=== PATIENT | female | born 1955 | race African-American/Black ===

== ENCOUNTER 2019-06-07 08:09 | Outpatient (RCR) | payer OTHER, SELFPAY ==
--- NOTE | 2019-04-29 12:03 | CONS_ITS ---
DATE OF CONSULTATION: 04/29/2019 REASON FOR CONSULTATION: Positive blood cultures. HISTORY OF PRESENT ILLNESS: Ms. Patel is a 63-year-old female who has had about 1 year of swelling in both legs. She has been on and off diuretics by her report from her primary care physician with intermittent use apparently due to hypokalemia concerns. This swelling became more noticeable 3 months ago and about 2 months ago, she developed bilateral heel blisters, plantar aspect, which then unroofed on her own. Drainage then began from the left heel ulcer, which was green clear to black in color, Silvadene and daily dressing changes were performed by the patient or her daughter. In the last week, the patient developed fever up to 37.8 and she then presented to the hospital on the , she was given piperacillin and tazobactam, and vancomycin was added on the after blood cultures were positive. Consultation was then requested. No temperatures are higher than 37.8. No rigors nor night sweats. She has never had previous trauma, surgery, or neurovascular compromise either leg or foot. She has not required any surgical intervention while here. ALLERGIES: NONE KNOWN. PRESENT MEDICATIONS: She was on cephalexin prior to admission. No immunosuppressants. Above antibiotics currently. HABITS: Crack cocaine in 2011. Occasional marijuana, ex tobacco. PAST MEDICAL HISTORY: Osteoarthritis, vitamin D deficiency, vaginal cancer with radiation, pulmonary hypertension, idiopathic peripheral neuropathy with tingling, left kidney mass details not available, essential hypertension, hyperlipidemia, hepatitis C that apparently was treated with success, but also with cirrhosis, diverticulitis, CAD, stage III chronic renal insufficiency, GERD, cataract extractions, osteoporosis, and abnormal mammogram. FAMILY HISTORY: Positive for diabetes and CAD. 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 Lives with her boyfriend and brother. She has been ambulating with a wheeled walker at home. REVIEW OF SYSTEMS: 14-point review is otherwise negative. PHYSICAL EXAMINATION: GENERAL: This is a female who appears older than her actual age. No acute distress. VITAL SIGNS: Afebrile since arrival here x4 days with no fever. 128/65, 73, 16. SKIN: No rashes. Warm and dry. She has no dermatitis. No erythroderma. EENT: The conjunctivae are normal. The oropharynx and oral mucosa normal. NECK: Supple. No masses. No adenopathy. LUNGS: Clear to auscultation. CARDIAC: Regular rate and rhythm without murmurs or gallops. Dorsalis pedis pulses 2+. Radial pulses 2+. ABDOMEN: Obese, nontender. No mass. No organomegaly. EXTREMITIES: She has 2+ pitting edema, both distal legs and to the feet. She has some scarring over the right heel without violation of skin integrity. On the left, she has a 3 cm plantar heel ulcer with a 1 x 2 cm area of dermal necrosis. There is no odor, discharge, erythema, sinus tracts, crepitus, or abnormal contour. Distally, the foot has no visible nor palpable abnormalities. LABORATORY DATA: Blood cultures 2/2 sets coagulase-negative Staph species. White count normal to low since admission. Hemoglobin stable at 7.7, platelets are 237. Chemistry normal except for BUN 21, creatinine 1.5, albumin is 3.1. Liver function tests are otherwise normal. Her urinalysis positive for blood, otherwise normal. Guaiac was also positive. RADIOLOGY DATA: Foot x-ray, osteopenia, lucencies at the bases of 3rd, 4th, and 5th proximal phalanges and osteoarthritis. Abdomen and pelvic CT apparently done for evaluation of her GI hemorrhage, cirrhosis with small amount of pelvic ascites. ASSESSMENT: 1. Coagulase-negative Staph bacteremia. Suspect contaminant. Less likely would be a
[2019-05-24 13:15] VITALS: BMI 38.7
--- NOTE | 2019-05-28 15:56 | P.PNWOUND_ITS ---
Wound Care Note Date/Time: 05/24/19 History: Patient presents with non-healing L heel ulcer. She was hospitalized 3 weeks ago with left heel wound, fevers, and pneumonia. MRI at that time did not show any evidence of abscess or osteomyelitis. She was discharged with instructions for Santyl and Mepilex border dressings. She is now seen in follow up. Wound history: See above Wound approximation: No Wound width: 5.5 cm Wound length: 3 cm Wound depth: 0.4 cm Drainage: Serous Surrounding tissue appearance: healthy Tunneling: no Percentage granulation tissue: 70% Dressings: Santyl and Mepilex Assessment and Plan Assessment and plan (1) Foot ulcer, left: Qualifiers: Non-pressure ulcer stage: limited to breakdown of skin Qualified Code(s): L97.521 - Non-pressure chronic ulcer of other part of left foot limited to breakdown of skin Code(s): L97.529 - Non-pressure chronic ulcer of other part of left foot with unspecified severity Status: Acute Assessment and Plan: * Ulcer debrided in Wound Clinic today. Continue Santyl and Mepilex. Will follow up with patient in office in 2 weeks.
--- NOTE | 2019-05-28 16:01 | PM.PROC ---
Procedure Note - Detailed Date of procedure: 05/24/19 Pre-op diagnosis: Left heel ulcer Post-op diagnosis: same Procedure performed: Sharp excisional debridement left heel ulcer including skin measuring 2 cm x 2 cm Description of procedure: patient's left heel was prepped in sterile fashion using Betadine prep. She was tested for sensation over the area of necrotic skin. The necrotic skin was debrided using scissors. Necrotic skin was adequately debrided back to healthy appearing tissue for a total area of 2 cm x 2 cm. No deeper involvement was noted. Santal and Mepilex border dressing applied. Anesthesia: none Surgeon: Janes Stephens DO Estimated blood loss (mL): 1 Pathology: none sent Complications: No immediate complications Condition: stable Disposition: same day Findings: Sharp excisional debridement of necrotic left heel ulcer performed. Total area measuring 2 cm x 2 cm. This included skin only. Please refer to wound care follow-up note for history.
--- NOTE | 2019-06-11 12:51 | WPDWOUNDNOTE ---
Wound Care Note Date/Time: 06/07/19 12:51 Wound history: Patient presents with non-healing L heel ulcer. She was hospitalized 1 month ago with left heel wound, fevers, and pneumonia. MRI at that time did not show any evidence of abscess or osteomyelitis. She was discharged with instructions for Santyl and Mepilex border dressings. She is now seen in follow up. Wound approximation: No Wound width: 4.5cm Wound length: 2.5cm Wound depth: 0.4cm Drainage: Serosanguineous Surrounding tissue appearance: healthy Percentage granulation tissue: 80% Treatment/Procedures: wound care nurse performed bedside debridement today. Please refer to her note. Dressings: Santyl and Mepilex border Assessment and Plan Assessment and plan (1) Foot ulcer, left: Qualifiers: Non-pressure ulcer stage: limited to breakdown of skin Qualified Code(s): L97.521 - Non-pressure chronic ulcer of other part of left foot limited to breakdown of skin Code(s): L97.529 - Non-pressure chronic ulcer of other part of left foot with unspecified severity Status: Acute Assessment and Plan: continue daily dressing changes with Santyl and Mepilex. Will have patient follow up in 1 month for re-evaluation. (2) Lymphedema of both lower extremities: Code(s): I89.0 - Lymphedema, not elsewhere classified Status: Acute Assessment and Plan: Encouraged medical compliance with diuretics and elevation of legs to prevent dependent edema. Review of Systems Review of Systems: All systems reviewed & are unremarkable except as noted in HPI and below Exam Const: General: comfortable and no acute distress Skin: Wounds: wounds noted ( wound size continues to shrink, showing good signs of granulation tissue) left heel open; without any surrounding erythema Extrem: Right lower extremity: edema Details: 2+ Left lower extremity: edema Details: 2+ Psych: Mental Status: mental status grossly normal
== END 2019-08-22 23:59 | disposition home or self-care (01) ==
LOC: ANHWOC 08:09
PROVIDERS: PCP Internal Medicine; Referring Provider Nurse Practitioner; Visit Provider Surgery
DX: S90.822D Blister (nonthermal), left foot, subsequent encounter (principal); L08.9 Local infection of the skin and subcutaneous tissue, unspecified; R60.0 Localized edema
CPT/HCPCS: 11043; 97597

== ENCOUNTER 2019-07-24 14:23 | Emergency (ER) | payer OTHER, SELFPAY ==
--- NOTE | ~2019-07-24 | XR_ITS ---
XR chest 2V DATE: 07/24/2019 15:46 INDICATION: Anterior chest pain. Lethargy. Congestive heart failure. TECHNIQUE: AP and lateral views COMPARISON: 05/04/2019 portable AP chest FINDINGS: No pulmonary infiltrate or consolidation, pleural effusion or pulmonary vascular congestion or pneumothorax is detected. Mild cardiomegaly is suggested. No hilar or mediastinal enlargement. Degenerative changes of the thoracic and lumbar spine. IMPRESSION: No active pulmonary disease Reviewed, dictated and finalized at location A. IMPRESSION: No active pulmonary disease
[2019-07-24 14:39] VITALS: BP 219/92; PULSE 82; RESP 15; TEMP 36.8; O2SAT 97
--- NOTE | 2019-07-24 14:51 | ED.SOB ---
HPI - SOB/Dyspnea General Chief Complaint: Chest Pain Stated Complaint: ams/lethargy Time Seen by Provider: 07/24/19 14:43 Source: patient and RN notes reviewed Mode of arrival: EMS Limitations: no limitations History of Present Illness HPI Narrative: Pt is a 63 y/o female who presents to the ED via EMS with c/o SOB and midsternal chest pain starting this morning. She notes that she was coughing throughout the night last night. Pt states that she then developed SOB and pain in the middle of her chest while laying down this morning. She notes that she was visited by her home health nurse this afternoon, and states that she advised her to go to the ED. Pt also reports BLE edema, but denies any fever or chills. She notes that she didn't take her normal medications this morning. According to the nurse, the pt denied NTG while in route to the ED. MD elicited complaint: shortness of breath and chest pain Onset (ago): hour(s) (several) Associated symptoms: cough and other (BLE edema) Treatment prior to arrival: none Related Data Allergies Allergy/AdvReac Type Severity Reaction Status Date / Time No Known Allergies Allergy Verified 04/29/19 11:12 Review of Systems Review of Systems: All systems reviewed & are unremarkable except as noted in HPI and below Constitutional: Constitutional: Denies fever(s) Cardiovascular: Cardiovascular: Reports chest pain (midsternal) and Reports leg edema (BLE edema) Respiratory: Respiratory: Reports cough and Reports dyspnea PMFSH Past Medical History Medical History Abnormal mammogram of left breast April 2018 Age-related osteoporosis without current pathological fracture Anemia Iron was low at 29, TIBC within normal limits, % saturation low at 7% March 2019 Cataract Maturing left eye cataract Chronic bilateral low back pain without sciatica Chronic gastroesophageal reflux disease Chronic narcotic use Chronic pruritus Thought to be due to her cirrhosis Cirrhosis of liver without ascites CKD (chronic kidney disease), stage III Coronary artery disease Cardiac catheterization in 1994 demonstrating 40% stenosis 1 vessel Diverticulitis 2002 Frequent falls Hepatic cirrhosis due to chronic hepatitis C infection History of gait disorder Ambulates with a walker Hx of hepatitis C Status post treatment 2010. Complicated by cirrhosis with portal venous hypertension. Managed at [facility] Hx of malignant neoplasm of vagina Diagnosed in 1999. Status post chemotherapy and radiation therapy. Managed to [facility]. Hyperlipidemia LDL goal <100 Hyperparathyroidism Hypertension, essential, benign Left kidney mass 10 mm inferior pole left kidney mass suspicious for renal cell carcinoma. Patient was evaluated by Urology (Dr. Krishna Torres) at [facility] May 2017 will plan for six month renal ultrasound in [address] for surveillance Peripheral neuropathy, idiopathic Primary osteoarthritis involving multiple joints Pulmonary hypertension Noted on echo from July 2011 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 Patient states she has had multiple colonoscopy attempts at [place] that were unsuccessful due to narrowing of her bowel due to radiation treatments from her vaginal cancer in 1999 Rectal bleeding UTI (urinary tract infection) Vitamin D deficiency Vitamin-D level of 05 April 2019 Surgical History Surgical History H/O tubal ligation History of vaginal hysterectomy Hx of cardiac cath 1994 with 40% lesion noted without stent placement Family History Family History (Updated 04/30/19 @ 12:02 by HUSSEIN Balderas) Sibling Diabetes mellitus Mother , Mother of an CT at age 43. Patient's mother is Acute myocardial infarction Father Patient's father is Acute myocardial infarction Other Diabetes m
[2019-07-24 15:01] LABS: Glucose Point of Care 211 (65-105)
--- NOTE | 2019-07-24 15:15 | ECG_ITS ---
Measurements Intervals [place] Rate: 78 P: 46 PA: 152 QRS: -11 QRSD: 121 T: 9 QT: 413 QTc: 473 Interpretive Statements SINUS RHYTHM INTRAVENTRICULAR CONDUCTION DELAY DELAYED PRECORDIAL R/S TRANSITION BORDERLINE T WAVE ABNORMALITY- INFERIOR LEADS BASELINE WANDER- I, II BORDERLINE ECG Electronically Signed On 07-24-2019 16:29:46 CDT by Zuhair Vasquez D.O.
[2019-07-24] MEDS: ASPIRIN 81 MG CHEWABLE TABLET 324 MG PO (15:29)
--- NOTE | 2019-07-24 15:31 | PC.NURSE ---
Pt refused Nitro patch. Informed Dr. Venegas of this.
[2019-07-24 16:00] VITALS: BP 187/90; PULSE 72; RESP 18; O2SAT 98
[2019-07-24 16:15] LABS: Basophils Percent Auto 0.8 % (0.2-1.2); Eosinophils Absolute Auto 0.3 K/mm3 (0-0.3); Hematocrit 35.1 % (37.0-47.0); Hemoglobin 11.1 g/dL (12.0-15.0); Immature Granulocyte Absolute 0.01 K/mm3 (0.00-0.031); Immature Granulocyte Percent A 0.3 % (0-0.5); Lymphocytes Absolute Auto 1.36 K/mm3 (0.9-3.2); Lymphocytes Percent Auto 34.1 % (18.3-44.2); Mean Corpuscular HGB Conc 31.6 g/dl (32-36); Mean Corpuscular Hemoglobin 28.2 pg (26-34); Mean Corpuscular Volume 89.3 fl (80-100); Mean Platelet Volume 9.8 fl (7.4-10.4); Monocytes Absolute Auto 0.3 K/mm3 (0.1-0.6); Neutrophils Percent Auto 49.8 % (45.5-73.1); Platelet Count Result 138 k/mm3 (150-375); Red Blood Count 3.93 M/mm3 (4.2-5.4); Red Cell Distribution Width 15.2 % (11.5-14.5)
[2019-07-24 16:27] LABS: Alanine Aminotransferase 10 U/L (4-35); Albumin Level 3.6 g/dL (3.5-5.1); Alkaline Phosphatase 59 U/L (38-126); Aspartate Amino Transferase 31 U/L (14-36); Bilirubin,Total 0.4 mg/dL (0.2-1.3); Blood Urea Nitrogen 19 mg/dL (7-17); Calcium 10.1 mg/dL (8.4-10.2); Carbon Dioxide 32 mmol/L (22-30); Chloride 101 mmol/L (98-107); Estimated CRCL calculation 49 ml/min; Estimated Glomerular Filt Rate > 60; Glucose 120 mg/dL (65-105); Potassium 3.4 mmol/L (3.4-5.0); Sodium 136 mmol/L (137-145)
[2019-07-24 16:35] LABS: NT Pro B Type Natriuretic Pept 29 PG/ML (5-100)
[2019-07-24 16:38] LABS: Troponin I < 0.012 ng/mL (0.000-0.034)
[2019-07-24 18:20] VITALS: BP 185/88; PULSE 75; RESP 18; O2SAT 100
[2019-07-24 19:24] LABS: Troponin I < 0.012 ng/mL (0.000-0.034)
[2019-07-24 20:09] VITALS: BP 131/98; PULSE 75; RESP 14; O2SAT 97
--- NOTE | 2019-07-24 20:13 | PC.NURSE ---
called pt's family member ot pick pt up states he is on his way. [phone]
--- NOTE | 2019-07-24 20:45 | PC.NURSE ---
called pt's daughter to pick patient up. states she is on the way called pt's son 3x no answer.
== END 2019-07-24 20:00 | disposition home or self-care (01) ==
PROVIDERS: Emergency Provider Emergency Medicine; PCP Internal Medicine
DX: I89.0 Lymphedema, not elsewhere classified (principal); I12.9 Hypertensive chronic kidney disease with stage 1 through stage 4 chronic kidney disease, or unspecified chronic kidney disease; R07.89 Other chest pain; Z87.891 Personal history of nicotine dependence; M81.0 Age-related osteoporosis without current pathological fracture; H26.9 Unspecified cataract; K21.9 Gastro-esophageal reflux disease without esophagitis; I25.10 Atherosclerotic heart disease of native coronary artery without angina pectoris; N18.3 Chronic kidney disease, stage 3 (moderate); K74.60 Unspecified cirrhosis of liver; B18.2 Chronic viral hepatitis C; Z85.44 Personal history of malignant neoplasm of other female genital organs; G60.9 Hereditary and idiopathic neuropathy, unspecified; M89.49 Other hypertrophic osteoarthropathy, multiple sites; Z87.440 Personal history of urinary (tract) infections; E55.9 Vitamin D deficiency, unspecified; Z92.3 Personal history of irradiation; I45.9 Conduction disorder, unspecified; R94.31 Abnormal electrocardiogram [ECG] [EKG]
CPT/HCPCS: 36415; 71046; 80053; 83880; 84484; 85025; 93005; 99284; A9270

== ENCOUNTER 2019-10-16 13:37 | Observation (INO) | payer OTHER, SELFPAY ==
[2019-10-16] VITALS (36 sets, daily range): BP systolic 145–223; BP diastolic 66–109; PULSE 51–115; RESP 12–30; TEMP 36.2–37.2; O2SAT 98–99; BMI 36.8
--- NOTE | ~2019-10-16 | XR_ITS ---
EXAMINATION: XR chest 2V EXAM DATE: 10/16/2019 14:06 INDICATION: Chest pain. TECHNIQUE: Frontal and lateral projections of the chest obtained and reviewed. Comparison is made to prior examination from 07/24/2019. FINDINGS: Mild cardiomegaly. Pulmonary vascular congestion. No confluent consolidation, pneumothora x or pleural effusion suspected. There are mild bony degenerative changes. IMPRESSION: Cardiomegaly, congestive changes. Reviewed, dictated and finalized at location B.
[2019-10-16] MEDS: NITROGLYCERIN OINTMENT 1 INCH DOSE 0.5 INCH TRANSDERM (14:05)
--- NOTE | 2019-10-16 14:31 | ED.CHESTPAIN ---
HPI - Chest Pain General Chief Complaint: Chest Pain Stated Complaint: CP /SOB Time Seen by Provider: 10/16/19 13:38 History of Present Illness HPI narrative: Patient is a 63-year-old female who presents ER with chest pain. Pressure in the center of her chest has been constant for 10 days. Its worse when she lays down flat. Associated with increased lower extremity edema. She reports she has not been taking her lisinopril as she has run out. She is currently in the process of switching from Dr. Quintana to a new PCP due to the fact that she been taking opiate pain medication from her family member instead of from him. She is also scheduled to see a pain management doctor about her neck in the next couple of weeks. Denies exertional component to chest pain. Patient reports dyspnea with lying down. Related Data Home Medications Medication Instructions Recorded Confirmed lisinopril 10/16/19 Allergies Allergy/AdvReac Type Severity Reaction Status Date / Time No Known Allergies Allergy Verified 04/29/19 11:12 Review of Systems Review of Systems: All systems reviewed & are unremarkable except as noted in HPI and below Constitutional: Constitutional: Denies chills, Denies fever(s) and Denies weakness ENT: Denies nasal congestion and Denies sore throat Cardiovascular: Cardiovascular: Reports chest pain and Reports radiating jaw, neck or arm pain Comments: Orthopnea Respiratory: Respiratory: Denies cough, Denies dyspnea and Denies wheezing Musculoskeletal: Comments: Lower extremity edema [facility] Family History Family History (Updated 04/30/19 @ 12:02 by MARIANA BalderasP) Sibling Diabetes mellitus Mother , Mother of an [place] at age 43. Patient's mother is Acute myocardial infarction Father Patient's father is Acute myocardial infarction Other Diabetes mellitus Social History Social History Social History: Patient currently lives with her boyfriend and brother who is legally blind due to a complication of alcohol use. Patient ambulates with a walker. She has 3 adult children 2 daughters and 1 son. She denies any significant alcohol use history herself. However, she has had a history of crack cocaine use many years ago with her last positive drug screen August 2011. She stated that the crack cocaine use never worked out for her. She does occasionally smoke marijuana. She is a former smoker. She smoked about a pack of cigarettes per day for 21 years but quit smoking in 1994. 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 Gender identity (if verbalized by the patient): Female Spiritual care concerns: No Agree to blood products: Yes Exam Narrative: Exam Narrative: GENERAL: Well-appearing, well-nourished, and in no acute distress. HEAD: Normocephalic, atraumatic. ENT: Mucous membranes moist. CHEST: Clear to auscultation. No respiratory distress. HEART: Regular rate and rhythm. Normal peripheral pulses. ABDOMEN: Soft, nontender, nondistended. EXTREMITIES: Normal range of motion. 2+ pitting edema. SKIN: Warm, dry, no rash. NEURO: Alert and oriented x3. PSYCH: Normal mood and affect. Course Course Emergency Course: Admit to hospitalist service. Significantly elevated blood pressure. Unremarkable lab results. Vital Signs Vital signs: Vital Signs Pulse Rate 74 10/16/19 13:52 Respiratory Rate 20 10/16/19 13:52 Temperature 98.9 F 10/16/19 13:56 Pulse Rate 60 10/16/19 16:48 Respiratory Rate 17 10/16/19 16:48 Blood Pressure 209/109 H 10/16/19 16:45 Pulse Oximetry
[2019-10-16 14:45] LABS: Basophils Percent Auto 0.6 % (0.2-1.2); Eosinophils Absolute Auto 0.1 K/mm3 (0-0.3); Hematocrit 31.1 % (37.0-47.0); Hemoglobin 10.1 g/dL (12.0-15.0); Immature Granulocyte Absolute 0.01 K/mm3 (0.00-0.031); Immature Granulocyte Percent A 0.2 % (0-0.5); Lymphocytes Absolute Auto 1.06 K/mm3 (0.9-3.2); Lymphocytes Percent Auto 21.6 % (18.3-44.2); Mean Corpuscular HGB Conc 32.5 g/dl (32-36); Mean Corpuscular Hemoglobin 28.6 pg (26-34); Mean Corpuscular Volume 88.1 fl (80-100); Mean Platelet Volume 10.3 fl (7.4-10.4); Monocytes Absolute Auto 0.4 K/mm3 (0.1-0.6); Monocytes Percent Auto 7.9 % (2.6-8.5); Neutrophils Absolute Auto 3.3 K/mm3 (1.3-6.7); Neutrophils Percent Auto 67.7 % (45.5-73.1); Platelet Count Result 159 k/mm3 (150-375); Red Blood Count 3.53 M/mm3 (4.2-5.4); Red Cell Distribution Width 14.4 % (11.5-14.5); White Blood Count 4.9 K/mm3 (4.5-10.0)
[2019-10-16 14:54] LABS: INR 1.2; Prothrombin Time 14.8 Seconds (11.1-14.7)
[2019-10-16 14:55] LABS: Blood Urea Nitrogen 15 mg/dL (7-17); Calcium 10.2 mg/dL (8.4-10.2); Carbon Dioxide 24 mmol/L (22-30); Chloride 103 mmol/L (98-107); Estimated CRCL calculation 62 ml/min; Estimated Glomerular Filt Rate > 60; Glucose 109 mg/dL (65-105); Partial Thromboplastin Time 27.2 SECONDS (22.3-36.8); Potassium 3.6 mmol/L (3.4-5.0); Sodium 136 mmol/L (137-145)
[2019-10-16 15:08] LABS: NT Pro B Type Natriuretic Pept 149 PG/ML (5-100); Troponin I < 0.012 ng/mL (0.000-0.034)
--- NOTE | 2019-10-16 15:36 | ECG_ITS ---
Measurements Intervals [place] Rate: 59 P: 31 DE: 145 QRS: -16 QRSD: 119 T: 16 QT: 436 QTc: 434 Interpretive Statements SINUS BRADYCARDIA INTRAVENTRICULAR CONDUCTION DELAY DELAYED PRECORDIAL R/S TRANSITION VOLTAGE CRITERIA FOR LVH MINIMAL Q WAVES- HIGH LATERAL LEADS BORDERLINE T WAVE ABNORMALITY- INFERIOR LEADS BORDERLINE ECG Electronically Signed On 10-16-2019 15:45:39 CDT by Zuhair Vasquez D.O.
[2019-10-16] MEDS: hydrALAZINE HCL 20 MG/ML VIAL 10 MG IV PUSH ×2 (16:44→18:01)
[2019-10-16 18:01] LABS: Troponin I 0.023 ng/mL (0.000-0.034)
[2019-10-16] MEDS: MORPHINE SULFATE 4 MG/ML INJ IV PUSH (18:01)
[2019-10-16] MEDS: ONDANSETRON INJ 4 MG/2 ML VIAL IV PUSH (18:04)
--- NOTE | 2019-10-16 18:19 | PC.NURSE ---
This patient, Rosalind Patel, was admitted to IMU Room 211-01. Patient/family oriented to hospital policies and general routines including ID bracelet, bed and alarms, visiting hours, pain management, procedures, bathroom and other care routines, personal items, smoking policy, room service/diet, and visiting hours. Valuables list has been completed. Information on how to activate the Rapid Response Team has been discussed. Patient/Family are encouraged to report perceived risks to care and to ask questions if they do not understand what they are told or what they should do.
--- NOTE | 2019-10-16 20:37 | PM.IMHP ---
H&P: HPI History of Present Illness Chief complaint: Left chest pain, shortness of breath Narrative: Date and time patient contact: 10/16/2019 at 9:50 p.m. Rosalind Patel is a 63 year old female with a past medical history hepatitis-C, cirrhosis, coronary artery disease, and essential hypertension who presented to the ER with chest pain and elevated blood pressures. Patient had reported to the ER staff that she had been out of her antihypertensives last month. The patient had been evaluated April 2019 at which time she had pneumonia, bacteremia, left heel ulcer and acute renal failure. On discharge from the hospital her lisinopril and hydrochlorothiazide had been discontinued due to her renal failure. She reports that she was discharged on a calcium blood pressure medication 3 times a day. In reality, the patient was discharged on b.i.d. iron supplementation instead instead of calcium supplementation or calcium blood pressure medications. However, she was not discharged on any have antihypertensives. She was discharged on Lasix 20 mg a day. When she was discharged from the hospital in April her blood pressures were normotensive. It sounds as if she has not been following up with her primary care physician. She stated that she called in a prescription to request a refill on her daughter's pain medications. When she called in requesting that refilled a culture back and told her that she would not be seen at their office any longer due to requesting narcotics to be refilled for someone else. She states that she has not had a medication refill since that time. Her narcotic prescription was refilled in early September. She was last prescribed Lasix in April and this has not been refilled since that time. Either when the patient reports that she now has increasing shortness of breath with increased orthopnea and increased frequency of paroxysmal nocturnal dyspnea for the last 7 days. It has been accompanied by left-sided chest pressure that is moderate in nature. She reports chest pressure is worse with laying flat. It is improved with sitting up. She has been having some mild nausea but no vomiting. She has noticed some pressure in her ears that accompanies the chest pressure. She reports that the pressure has been constant in her ears and chest for the last 7 days. She reports a chronic headache for the last 7 days that is moderate in intensity. Headache is generalized without eliciting or relieving factors. She reports that her headache improved after nitropaste was applied in the ER. She has chronic lymphedema of her lower extremities and she does not think there legs are any more swollen than at her baseline. She has not been wearing lower extremity wraps that were recommended at the time of her last discharge. She had an apnea link during her last hospitalization that was negative for sleep apnea. She denies any cough or congestion. She has not had any fevers or chills. She has chronic dysuria due to radiation damage from vaginal cancer. She has noticed increased urinary frequency and urgency over the last 24-48 hours. She denies any hematuria. She has been having normal bowel movements without hematochezia or melena. She did have gastritis noted on EGD from April but was not discharged on any H2 blockers or PPI therapy. She denies any heartburn. But has not followed up with her purchase request editor in quite some time. She is having difficulty getting to provider appointments in getting her medications refilled because she is dependent upon her daughter for transportation. Review of Systems Review of Systems: Narrative: 12 systems were reviewed with pertinent positives and negatives per HPI. Except as documented in the HPI, all other systems were reviewed and are negative. [facility] Past Medical History Medical History (Updated 10/16/19 @ 22:30 by Ria Britt DO) Abnormal mammogram of left breast April 2018 Age-related osteoporosis
[2019-10-16 21:19] LABS: Troponin I 0.026 ng/mL (0.000-0.034)
[2019-10-16] MEDS: AMLODIPINE BESYLATE 5 MG TABLET PO (21:33)
[2019-10-16] MEDS: MAGNESIUM OXIDE 400 MG TABLET PO (21:34)
[2019-10-16 22:26] LABS: Add Urine Microscopic? YES; Appearance Urine Clear (Clear); Bilirubin Urine Negative (Negative); Blood Urine 1+ (Negative); Color Urine Colorless (Yellow); Glucose Urine UA Negative (Negative); Ketones Urine Negative (Negative); Leukocyte Esterase Ur Negative LEU/UL (Negative); Nitrate Urine Negative (Negative); Protein Urine 1+ mg/dL (Negative); Specific Grav Ur 1.006 (1.001-1.035); Squamous Epithelial Cell Urine Rare /hpf (Few); Urobilinogen Urine Negative mg/dL (<2.0)
[2019-10-16 22:43] LABS: Amphetamine Screen Urine Negative (Negative); Barbiturate Screen Urine Negative (Negative); Benzodiazepines Screen Urine Negative (Negative); Cannabinoid Screen Urine Negative (Negative); Cocaine Screen Urine Negative (Negative); Methadone Screen Urine Negative (Negative); Opiate Screen Urine Positive (Negative); Phencyclidine Screen Urine Negative (Negative)
[2019-10-16] MEDS: GABAPENTIN 300 MG CAPSULE 600 MG PO (22:59)
[2019-10-17] VITALS (11 sets, daily range): BP systolic 143–176; BP diastolic 60–92; PULSE 75–104; RESP 16–20; TEMP 36.5–37; O2SAT 95–100
--- NOTE | 2019-10-17 | ECHO_ITS ---
Patient Info Name: Rosalind Patel Age: 63 years : 1955 Gender: Female Ht: 64 in Wt: 214 lbs BSA: 2.14 m2 HR: 89 bpm BP: 167 / 60 mmHg Technical Quality: Fair Exam Date: 10/17/2019 2:55 PM Exam Location: [facility] Patient Status: Inpatient Admit Date: 10/16/2019 Staff Ordering Physician: Ria Britt DO Microelectronics Assembler: Glen Carter RDCS, RT Attending Provider: Pedro Ag MD Referring Physician: Balwinder BARROW; Exam Type: CA echo doppler color flow Study Info Indications I10 - Essential (primary) hypertension Complete two-dimensional, color flow and Doppler transthoracic echocardiogram is performed. Summary 1. Left ventricular chamber dimension is normal. 2. Left ventricular systolic function is hyperdynamic, estimated at >70%. 3. There is moderately increased left ventricular wall thickness. 4. The left ventricular diastolic function is normal. 5. E/e' 9 is minimally elevated. 6. Global longitudinal strain is normal at -17.6%. Left Ventricle E/e' 9 is minimally elevated. Global longitudinal strain is normal at -17.6%. Left ventricular chamber dimension is normal. Left ventricular systolic function is hyperdynamic, estimated at >70%. There is moderately increased left ventricular wall thickness. The left ventricular diastolic function is normal. Right Ventricle Right ventricular chamber dimension is normal. Right ventricular systolic function is normal. Left Atria Left atrial chamber dimension is normal. Right Atria Right atrial chamber dimension is normal. Aortic Valve The aortic valve is trileaflet. There is no aortic valve stenosis. There is no aortic valve regurgitation. Pulmonic Valve There is no pulmonic regurgitation. Mitral Valve There is no mitral valve stenosis. There is no mitral valve regurgitation. Tricuspid Valve There is no tricuspid valve regurgitation. Pericardium/Pleural There is no pericardial effusion. Inferior Vena Cava Normal inferior vena cava with >50% collapse upon inspiration consistent with normal right atrial pressure, 5 mmHg. Aorta The aortic root size at the sinus of Valsalva is normal. Left Ventricular Outflow Tract Name Value Normal LVOT 2D LVOT Diameter 2.0 cm LVOT Doppler LVOT Peak Gradient 9 mmHg LVOT Mean Gradient 5 mmHg LVOT VTI 29 cm LVOT VTI/AV VTI Ratio 0.8 LVOT Stroke Volume 86 ml LVOT CO 7.2 l/min LVOT CI 3.4 l/min/m2 Mitral Valve Name Value Normal MV Doppler MV Decel [place] 446 cm/s2 MV PHT 73 ms MV Area (PHT) 3.0 cm2 4.0-5.0
[2019-10-17] MEDS: hydrALAZINE HCL 20 MG/ML VIAL 10 MG IV PUSH ×2 (02:48→23:41)
[2019-10-17] MEDS: GABAPENTIN 300 MG CAPSULE 600 MG PO ×2 (09:01→22:02)
[2019-10-17] MEDS: FERROUS SULFATE 324 MG TABLET PO ×2 (09:01→17:42)
[2019-10-17] MEDS: FUROSEMIDE 20 MG TABLET PO (09:01)
[2019-10-17] MEDS: MAGNESIUM OXIDE 400 MG TABLET PO ×3 (09:01→17:42)
[2019-10-17] MEDS: AMLODIPINE BESYLATE 5 MG TABLET PO (09:01)
--- NOTE | 2019-10-17 11:45 | PM.IMPN ---
Progress Note: A&P Assessment and Plan (1) Malignant hypertension: Code(s): I10 - Essential (primary) hypertension Status: Acute Assessment and Plan: Most likely due to non adherence to medication therapy with Lasix and or antihypertensives. The patient's blood pressure had remained elevated in the ER after nitropaste was placed. She subsequently received 2 doses of IV hydralazine . P.r.n. hydralazine 10 mg IV q.4 hours as needed for systolic blood pressures greater than 160. Restart oral Bp medications norvasc. regulate Bp in the hospital and discharge soon. Echo for apr 2019 in the chart EF over 70% (2) Chest pain: Qualifiers: Chest pain type: other chest pain Qualified Code(s): R07.89 - Other chest pain Code(s): R07.9 - Chest pain, unspecified Status: Acute Assessment and Plan: Serial cardiac enzymes are negative. Acute ischemia has been ruled out. Chest pains likely secondary to the patient's malignant hypertension. Hopeful discharge soon in 1-2 days time (3) Neuropathy: Code(s): G62.9 - Polyneuropathy, unspecified Status: Acute Assessment and Plan: Patient was on Neurontin b.i.d. (4) Chronic pain: Qualifiers: Chronic pain type: chronic pain syndrome Qualified Code(s): G89.4 - Chronic pain syndrome Code(s): G89.29 - Other chronic pain Status: Acute Assessment and Plan: Patient's home [place] 10/325 has been ordered. Pain management as OPD for sever oA in her knees (5) Increased urinary frequency: Code(s): R35.0 - Frequency of micturition Status: Acute Assessment and Plan: UA was unremarkable. Subjective Date/time seen: 10/17/19 11:45 Interval history: 63 year old female with a past medical history hepatitis-C, cirrhosis, coronary artery disease, and essential hypertension who presented to the ER with chest pain and elevated blood pressures. Pt denies chest pain today, pts bp are 144/60. Pt awaiting echocardiogram. Pt appears to be swollen face, body and legs Review of Systems Review of Systems: All systems reviewed & are unremarkable except as noted in HPI and below Exam Narrative: Exam Narrative: General: Obese Neck: Large neck circumference, no JVD or gross lymphadenopathy Respiratory: Clear to auscultation bilaterally, no increased work of breathing Cardiovascular: Regular rate and rhythm, no murmurs, normal S1-S2, 2+ Gastrointestinal: Obese, nontender, soft, normoactive bowel sounds Skin: No jaundice, no pallor Extremities: 3= pitting edema of both legs to shins Neurological: Alert and oriented, speech is clear, no facial asymmetry Psychiatric: Appropriate mood and affect, pleasant and cooperative Objective Data Vital Signs Vital Signs: Vital Signs - 24 hr 10/16/19 13:52 10/16/19 13:56 10/16/19 14:05 Temperature 37.2 C Pulse Rate 74 75 66 Respiratory Rate 20 16 Blood Pressure 195/73 H Pulse Oximetry 99 10/16/19 14:08 10/16/19 14:09 10/16/19 14:15 Temperature Pulse Rate 55 L 51 L 57 L Respiratory Rate 16 Blood Pressure 159/77 H Pulse Oximetry 99 10/16/19 14:16 10/16/19 14:43 10/16/19 14:45 Temperature Pulse Rate 57 L 56 L 61 Respiratory Rate 15 15 30 H Blood Pressure 150/66 H Pulse Oximetry 10/16/19 14:54 10/16/19 15:00 10/16/19 15:01 Temperature Pulse Rate 54 L 55 L 77 Respiratory Rate 13 14 20 Blood Pressure 190/69 H 173/89 H Pulse Oximetry 10/16/19 15:25 10/16/19 15:30 10/16/19 15:31 Temperature Pulse Rate 52 L 63 58 L Respiratory Rate 15 12 13 Blood Pressure 184/69 H Pulse Oximetry 10/16/19 15:45 10/16/19 15:46 10/16/19 16:00 Temperature Pulse Rate 61 68 59 L Respiratory Rate 20 15 14 Blood Pressure 179/83 H Pulse Oximetry 10/16/19 16:01 10/16/19 16:20 10/16/19 16:30 Temperature Pulse Rate 58 L 63 58 L Respiratory Rate 15 16 22
--- NOTE | 2019-10-17 23:30 | PC.NURSE ---
This patient, Rosalind Patel, was received from [[facility]] on 10/17/19 at 2330. Personal belongings list checked and signed. Patient/family oriented to unit policies and routines
--- NOTE | 2019-10-17 23:34 | PC.NURSE ---
This patient, Rosalind Patel, was transferred to [ [facility]] on 10/17/19 at 2335. Personal belongings sent with patient. Belongings list checked and signed with receiving [ RN]. Report given to [ DIANA]. Appropriate documentation sent with patient.
[2019-10-18 00:35] VITALS: BP 145/54; PULSE 98
[2019-10-18 06:00] VITALS: BP 131/54; PULSE 76; RESP 18; TEMP 36.7; O2SAT 98
[2019-10-18 06:35] LABS: Blood Urea Nitrogen 20 mg/dL (7-17); Calcium 9.5 mg/dL (8.4-10.2); Carbon Dioxide 27 mmol/L (22-30); Chloride 102 mmol/L (98-107); Estimated CRCL calculation 48 ml/min; Estimated Glomerular Filt Rate 55; Glucose 153 mg/dL (65-105); Potassium 3.2 mmol/L (3.4-5.0); Sodium 136 mmol/L (137-145)
[2019-10-18] MEDS: FUROSEMIDE 20 MG TABLET PO (08:28)
[2019-10-18] MEDS: AMLODIPINE BESYLATE 5 MG TABLET PO (08:28)
[2019-10-18] MEDS: MAGNESIUM OXIDE 400 MG TABLET PO ×3 (08:28→17:14)
[2019-10-18] MEDS: FERROUS SULFATE 324 MG TABLET PO ×2 (08:29→17:14)
[2019-10-18 08:40] VITALS: O2SAT 94
[2019-10-18] MEDS: GABAPENTIN 300 MG CAPSULE 600 MG PO ×2 (11:01→22:50)
--- NOTE | 2019-10-18 12:02 | PM.IMPN ---
Progress Note: A&P Assessment and Plan (1) Malignant hypertension: Code(s): I10 - Essential (primary) hypertension Status: Acute Assessment and Plan: Most likely due to non adherence to medication therapy with Lasix and or antihypertensives. Bp is improved. Echo for apr 2019 in the chart EF over 70%. Hopeful discharge tomorrow. (2) Chest pain: Qualifiers: Chest pain type: other chest pain Qualified Code(s): R07.89 - Other chest pain Code(s): R07.9 - Chest pain, unspecified Status: Acute Assessment and Plan: Serial cardiac enzymes are negative. Acute ischemia has been ruled out. Chest pains likely secondary to the patient's malignant hypertension. Hopeful discharge tomorrow. (3) Neuropathy: Code(s): G62.9 - Polyneuropathy, unspecified Status: Acute Assessment and Plan: Patient was on Neurontin b.i.d. (4) Chronic pain: Qualifiers: Chronic pain type: chronic pain syndrome Qualified Code(s): G89.4 - Chronic pain syndrome Code(s): G89.29 - Other chronic pain Status: Acute Assessment and Plan: Patient's home [place] 10/325 has been ordered. Pain management as OPD for sever oA in her knees (5) Increased urinary frequency: Code(s): R35.0 - Frequency of micturition Status: Acute Assessment and Plan: UA was unremarkable. Subjective Date/time seen: 10/18/19 12:02 Interval history: 63 year old female with a past medical history hepatitis-C, cirrhosis, coronary artery disease, and essential hypertension who presented to the ER with chest pain and elevated blood pressures. Pt denies chest pain today, pts bp are 144/60. Pt face and legs are less swollen,no specific complaints. Review of Systems Review of Systems: All systems reviewed & are unremarkable except as noted in HPI and below Exam Narrative: Exam Narrative: General: Obese Neck: Large neck circumference, no JVD or gross lymphadenopathy Respiratory: Clear to auscultation bilaterally, no increased work of breathing Cardiovascular: Regular rate and rhythm, no murmurs, normal S1-S2, 2+ Gastrointestinal: Obese, nontender, soft, normoactive bowel sounds Skin: No jaundice, no pallor Extremities: 2+ pitting edema of both legs to shins Neurological: Alert and oriented, speech is clear, no facial asymmetry Psychiatric: Appropriate mood and affect, pleasant and cooperative Objective Data Vital Signs Vital Signs: Vital Signs - 24 hr 10/17/19 12:06 10/17/19 17:44 10/17/19 23:30 Temperature 36.8 C 37.0 C Pulse Rate 75 80 78 Respiratory Rate 20 16 Blood Pressure 151/67 H 146/92 H 176/71 H Pulse Oximetry 99 100 10/18/19 00:35 10/18/19 06:00 10/18/19 08:40 Temperature 36.7 C Pulse Rate 98 76 Respiratory Rate 18 Blood Pressure 145/54 H 131/54 L Pulse Oximetry 98 94 Intake/Output Intake/Output: Intake & Output 10/15/19 10/16/19 10/17/19 10/18/19 23:59 23:59 23:59 23:59 Intake Total 1240 690 Output Total 1500 600 Balance -260 90 Meds/Results Medications: Active Medications Generic Name Dose Route Start Last Admin Trade Name Freq PRN Reason Stop Dose Admin Acetaminophen 650 mg 10/16/19 16:47 Tylenol Tablet PO Q4H PRN Mild Pain (1-3) or Fever Hydrocodone Bitart/Acetaminophen 1 tab 10/16/19 20:27 10/18/19 11:05 [place] 10-325 Mg PO 1 tab Q6H PRN Administration PAIN 7-10 Amlodipine Besylate 5 mg 10/17/19 09:00 10/18/19 08:28 Norvasc PO 5 mg QAM KATARINA Administration Ferrous Sulfate 324 mg 10/17/19 08:00 10/18/19 08:29 Ferrous Sulfate PO 324 mg BIDWM KATARINA Administration Furosemide 20 mg 10/17/19 09:00 10/18/19 08:28 Lasix Tablet PO 20 mg DAILY KATARINA Administration Gabapentin 600 mg 10/16/19 22:10 10/18/19 11:01 Neurontin PO 600 mg Q12H KATARINA Administration Hydralazine HCl 10 mg 10/16/19 21:12
[2019-10-18 14:00] VITALS: BP 144/67; PULSE 77; RESP 18; TEMP 36.9; O2SAT 100
--- NOTE | 2019-10-18 14:48 | PCPTNOTE ---
pt refused PT pura ~ 8:30, stated too tired, want to do it, but come back later
[2019-10-18 22:00] VITALS: BP 180/86; PULSE 80; RESP 20; TEMP 37.1; O2SAT 97
[2019-10-18] MEDS: hydrALAZINE HCL 20 MG/ML VIAL 10 MG IV PUSH (22:50)
[2019-10-19] VITALS: BP 173/85; PULSE 99; RESP 20; TEMP 37.2; O2SAT 99
[2019-10-19 02:00] VITALS: BP 138/58
[2019-10-19 06:00] VITALS: BP 152/78; PULSE 82; RESP 20; TEMP 37.1; O2SAT 93
[2019-10-19 08:00] VITALS: BP 135/78; PULSE 78; RESP 18; TEMP 37.2; O2SAT 100
--- NOTE | 2019-10-19 08:57 | PM.DS ---
DS: Admitting Diagnosis Admitting Diagnosis Admitting Diagnosis: Essential (primary) hypertension DS: Discharge Diagnosis Discharge Diagnosis (1) Malignant hypertension: Code(s): I10 - Essential (primary) hypertension Status: Acute Assessment and Plan: Most likely due to non adherence to medication therapy with Lasix and or antihypertensives. Bp is improved now. Echo for apr 2019 in the chart EF over 70%. Discharge today Bp medications refilled (2) Chest pain: Qualifiers: Chest pain type: other chest pain Qualified Code(s): R07.89 - Other chest pain Code(s): R07.9 - Chest pain, unspecified Status: Acute Assessment and Plan: Serial cardiac enzymes are negative. Acute ischemia has been ruled out. Chest pains likely secondary to the patient's malignant hypertension. (3) Neuropathy: Code(s): G62.9 - Polyneuropathy, unspecified Status: Acute Assessment and Plan: Patient was on Neurontin b.i.d. (4) Chronic pain: Qualifiers: Chronic pain type: chronic pain syndrome Qualified Code(s): G89.4 - Chronic pain syndrome Code(s): G89.29 - Other chronic pain Status: Acute Assessment and Plan: Patient's home [place] 10/325 has been ordered. Pain management as OPD for sever oA in her knees, may benefit from Home health services at home for immobility (5) Increased urinary frequency: Code(s): R35.0 - Frequency of micturition Status: Acute Assessment and Plan: UA was unremarkable. DS: Summary Time Spent with Patient Time attestation: Total time spent providing and/or coordinating discharge services:40 minutes on day of dischrage Exam Narrative: Exam Narrative: General: Obese Neck: Large neck circumference, no JVD or gross lymphadenopathy Respiratory: Clear to auscultation bilaterally, no increased work of breathing Cardiovascular: Regular rate and rhythm, no murmurs, normal S1-S2, 2+ Gastrointestinal: Obese, nontender, soft, normoactive bowel sounds Skin: No jaundice, no pallor Extremities: 2+ pitting edema of both legs to shins Neurological: Alert and oriented, speech is clear, no facial asymmetry Psychiatric: Appropriate mood and affect, pleasant and cooperative Discharge Plan Discharge Attending physician on discharge: Caroline Mg Discharging Clinician: Caroline Mg Anticipated Discharge Date/Time: 10/19/19 10:00 Patient Disposition: Home Health Service Activity: as tolerated Diet: heart healthy Discharge Instructions: Pt needs PCP numbers does not have a pcp at the moment Patient Instructions: Antibiotic Form, Chest Pain (DC), Heart Healthy Diet (DC), Pain Management (DC), Peripheral Neuropathy (GEN), Dyspnea (DC), Hypertension (DC) Stand Alone Forms: General Discharge Information Follow-up/Referrals: Enrico Quintana DO [Primary Care Provider] - Discharge Medications: New amlodipine [Norvasc] 5 mg Tablet 5 mg PO QAM Qty: 60 RF: 0 ferrous sulfate 325 mg (65 mg iron) Tablet 324 mg PO BIDWM Qty: 30 RF: 0 furosemide 20 mg Tablet 20 mg PO DAILY Qty: 60 RF: 0 hydrocodone-acetaminophen [[place]] 10-325 mg Tablet 1 tab PO Q6H PRN (Reason: PAIN 7-10) Qty: 20 RF: 0 magnesium oxide 400 mg (241.3 mg magnesium) Tablet 400 mg PO TID Qty: 30 RF: 0 lorazepam 0.5 mg Tablet 0.5 mg PO HS PRN (Reason: anxiety) Qty: 20 RF: 0 gabapentin [Neurontin] 300 mg Capsule 600 mg PO Q12H Qty: 60 RF: 0 artifi.tears(hypromellose)(PF) 0.3 % drops 1 drop EACH EYE BID PRN (Reason: dry eye(s)) 5 Days Qty: 10 RF: 0 Continued gabapentin 600 mg tablet 600 mg PO DAILY RF: 0 lorazepam [Ativan] 0.5 mg tablet 0.5 mg PO HS PRN (Reason: anxiety) RF: 0 furosemide [Lasix] 20 mg Tablet 20 mg PO DAILY RF: 0 magnesium oxide 400 mg (241.3 mg magnesium) tablet 400 mg PO TID Qty: 90 RF: 0 hy
[2019-10-19] MEDS: MAGNESIUM OXIDE 400 MG TABLET PO ×2 (09:11→12:12)
[2019-10-19] MEDS: FERROUS SULFATE 324 MG TABLET PO (09:11)
[2019-10-19] MEDS: GABAPENTIN 300 MG CAPSULE 600 MG PO (09:11)
[2019-10-19] MEDS: AMLODIPINE BESYLATE 5 MG TABLET PO (09:11)
[2019-10-19] MEDS: FUROSEMIDE 20 MG TABLET PO (09:11)
[2019-10-19] MEDS: POTASSIUM CHLORIDE 20 MEQ PACKET (FOR LIQUID) 40 MEQ PO (09:42)
== END 2019-10-19 15:20 | disposition home or self-care (01) ==
LOC: ANHED 17:15 → ANHIMU 22:09 → ANH3MEDSUR 10-18 04:48 → ANHIMU 10-23 09:10
PROVIDERS: Internal Medicine; Admitting Provider Internal Medicine; Emergency Provider Emergency Medicine; PCP Internal Medicine; Visit Provider Family Medicine
DX: I12.9 Hypertensive chronic kidney disease with stage 1 through stage 4 chronic kidney disease, or unspecified chronic kidney disease (principal); N18.3 Chronic kidney disease, stage 3 (moderate); R07.89 Other chest pain; R06.00 Dyspnea, unspecified; G60.9 Hereditary and idiopathic neuropathy, unspecified; M17.0 Bilateral primary osteoarthritis of knee; G89.4 Chronic pain syndrome; R35.0 Frequency of micturition; I25.10 Atherosclerotic heart disease of native coronary artery without angina pectoris; I27.20 Pulmonary hypertension, unspecified; E78.5 Hyperlipidemia, unspecified; B18.2 Chronic viral hepatitis C; K74.69 Other cirrhosis of liver; Z87.891 Personal history of nicotine dependence; Z79.899 Other long term (current) drug therapy; Z91.14 Patient's other noncompliance with medication regimen
CPT/HCPCS: 36415; 71046; 80048; 80307; 81001; 83880; 84484; 85025; 85610; 85730; 93005; 93306; 96374; 96375; 96376; 97161; 99285; A9270; G0378; J0360; J2270; J2405

== ENCOUNTER 2020-11-02 03:22 | Inpatient (IN) | payer OTHER, MEDICARE, SELFPAY ==
[2020-11-02] VITALS (41 sets, daily range): BP systolic 81–152; BP diastolic 36–95; PULSE 87–136; RESP 18–36; TEMP 36.9–40.2; O2SAT 90–100; BMI 37.9
--- NOTE | ~2020-11-02 | CT_ITS ---
EXAMINATION: CT abdomen pelvis wo con DATE: 11/13/2020 19:59 INDICATION: Abdominal pain TECHNIQUE: Computed tomography (CT) of the abdomen and pelvis was performed without intravenous contr ast. The dose-length product (DLP) was 1023.77 mGy-cm. Automated exposure control and iterative recon struction technique were employed. COMPARISON: 11/02/2020 FINDINGS: Minimal dependent atelectasis is present in the lung bases. Cardiomegaly is noted. There is nodularity of the liver surface. The spleen, pancreas, and adrenal glands are normal. Mild gallbladd er wall thickening likely relates to chronic liver disease. The kidneys are unremarkable. No patholog ically enlarged abdominal or pelvic lymph nodes are identified. There is no free intraperitoneal gas or evidence of bowel obstruction. There is a small volume of pelvic ascites. The bladder is decompres sed by Leo catheter. There is mild lumbar spondylosis. Anasarca is noted. IMPRESSION: 1. Cirrhosis with a small volume of ascites. Reviewed, dictated and finalized at location A.
--- NOTE | ~2020-11-02 | CT_ITS ---
EXAMINATION: CT chest abdomen pelvis wo con DATE: 11/02/2020 05:13 INDICATION: Febrile illness. History of ovarian cancer. TECHNIQUE: Computed tomography (CT) of the chest, abdomen, and pelvis was performed without intraveno us contrast. Automated exposure control and iterative reconstruction technique were employed. Exam do se: 725.87 mGy-cm total exam DLP. COMPARISON: 11/02/2020 portable AP chest 04/28/2019 CT abdomen pelvis FINDINGS: CHEST CT: Patchy bilateral groundglass infiltrates are noted, right greater than left; differential diagnosis i ncludes pulmonary edema and pneumonia. Cardiomegaly. No pericardial effusion. No pleural effusion. No thoracic aortic aneurysm is evident. No hilar or mediastinal mass lesion or lymphadenopathy is detected. ABDOMEN/PELVIS CT: Surface nodularity of the liver, suggesting cirrhosis. Splenic size is within normal range. No hepati c, splenic, pancreatic, and adrenal or renal space-occupying mass lesion is evident on this limited n oncontrast examination, with the exception of an approximately 8 mm probable left renal cyst. There is bladder distention and moderate bilateral hydronephrosis without apparent urinary tract calc ulus. No bladder wall thickening. Normal caliber of the abdominal aorta. No intraperitoneal or retroperitoneal or pelvic mass lesion or adenopathy or ascites is evident. No bowel obstruction, bowel wall thickening, pneumatosis or intraperitoneal free air. Small amount of free fluid in the dependent pelvis. Small fat-containing umbilical hernia. Extensive subcutaneous edema or inflammatory change in the lower abdominal wall and proximal thighs. No suspicious osteolytic or osteoblastic lesions are noted. IMPRESSION: Patchy bilateral groundglass infiltrates, right greater than left; differential diagnosi s includes pulmonary edema and pneumonia Cardiomegaly Cirrhosis Reviewed, dictated and finalized at Location A. Reviewed, dictated and finalized at location A. IMPRESSION: Patchy bilateral groundglass infiltrates, right greater than left; differential diagnosis includes pulmonary edema and pneumonia Cardiomegaly Cirrhosis
--- NOTE | ~2020-11-02 | XR_ITS ---
EXAMINATION: XR chest 1V portable INDICATION: Fever TECHNIQUE: Portable AP chest at 1909 hours COMPARISON: 11/04/2020 FINDINGS: Cardiomegaly is noted. A mild diffuse interstitial pattern persists without significant sam nge. No focal airspace opacities are identified. There is no pleural effusion or pneumothorax. IMPRESSION: 1. Cardiomegaly with unchanged mild pulmonary edema. Reviewed, dictated and finalized at location A.
--- NOTE | ~2020-11-02 | XR_ITS ---
XR chest 1V portable DATE: 11/02/2020 17:19 INDICATION: Shortness of breath. Covid-positive. History of hypertension. TECHNIQUE: Portable AP chest on 11/02/2020 at 1715 hours COMPARISON: 11/02/2020 portable AP chest 11/02/2020 CT chest abdomen pelvis FINDINGS: Cardiomegaly. Mild pulmonary vascular congestion and mild patchy bilateral pulmonary infilt rates. IMPRESSION: No significant change since 11/02/2020 Reviewed, dictated and finalized at location A.
--- NOTE | ~2020-11-02 | XR_ITS ---
EXAMINATION: XR chest 1V portable DATE: 11/02/2020 03:50 INDICATION: Fever and confusion TECHNIQUE: frontal view of the chest was obtained. COMPARISON: Chest radiograph dated 10/16/2019 FINDINGS: Patient is rotated towards the right. Cardiomegaly with pulmonary vascular congestion. Subtle perihil ar opacities which could represent mild pulmonary edema or pneumonia. No pleural effusion or pneumoth orax. There are bridging osteophytes at multiple levels in the spine, consistent with diffuse idiopat hic skeletal hyperostosis (DISH). IMPRESSION: 1. Cardiomegaly with pulmonary vascular congestion and likely mild perihilar edema. Differential incl udes pneumonia. Reviewed, dictated and finalized at location A. IMPRESSION: 1. Cardiomegaly with pulmonary vascular congestion and likely mild perihilar ed samm. Differential includes pneumonia.
--- NOTE | ~2020-11-02 | CT_ITS ---
EXAMINATION: CT brain wo con INDICATION: Fever and confusion, altered mental status COMPARISON: 08/18/2011 TECHNIQUE: Standard unenhanced head CT. The dose-length product (DLP) was 1210.67 mGy-cm. The mA was adjusted according to patient size. Iterative reconstruction technique was employed. FINDINGS: There is no acute intraparenchymal hemorrhage. No evidence of mass lesion. No evidence of a cute infarction. There is mild periventricular and subcortical hypodensity probably related to small vessel ischemic disease. There is mild prominence of the sulci and ventricles related to cerebral atr ophy. Intracranial calcified cerebral atherosclerosis is noted. There are no extra-axial collections. There is no mass effect or midline shift. The orbits and soft tissues are unremarkable. The visualiz ed sinuses and mastoid air cells are well aerated. IMPRESSION: 1. No acute intracranial abnormality. 2. Age related findings. Reviewed, dictated and finalized at location B.
--- NOTE | ~2020-11-02 | CT_ITS ---
EXAMINATION: CT brain wo con DATE: 11/04/2020 11:14 INDICATION: Confusion. Transient alteration of awareness. Acute encephalopathy. TECHNIQUE: Computed tomography (CT) of the head was performed without intravenous contrast. The mA wa s adjusted according to patient size. Iterative reconstruction technique was employed. Exam dose: 60 5.33 mGy-cm total exam DLP. COMPARISON: 11/02/2020 CT brain FINDINGS: Examination is limited by streak motion artifact. No intracranial mass lesion or hemorrhage or cerebrovascular accident. No midline shift or mass effec ts. No subdural or epidural hematoma is evident. There is nonspecific diminished attenuation cerebral white matter, likely due to chronic small vessel ischemic change. Mild cerebral and cerebellar atrophy. Old blowout fracture medial wall of left orbit. No fracture or bone destruction of the cranial vault IMPRESSION: Limited examination because of motion artifact; no acute intracranial finding or signifi cant change since 11/02/2020 Dr. Schwab telephoned the report on 11/04/2020 1121 hours to ICU nurse Radha. Reviewed, dictated and finalized at Location A. Reviewed, dictated and finalized at location A. IMPRESSION: Limited examination because of motion artifact; no acute intracran ial finding or significant change since 11/02/2020 Dr. Schwab telephoned the report on 11/04/2020 1121 hours to ICU nurse Radha.
--- NOTE | ~2020-11-02 | XR_ITS ---
XR abdomen obstructive series DATE: 11/07/2020 13:15 INDICATION: Abdominal pain TECHNIQUE: Supine and upright AP views of the abdomen COMPARISON: 11/02/2020 CT chest abdomen pelvis FINDINGS: Leo catheter. Catheter overlies the left common femoral and iliac vessels. The bowel gas pattern is nonspecific, without apparent obstruction. No intraperitoneal free air is ev ident. Cardiomegaly. Degenerative spurring of the thoracic and lumbar spine. IMPRESSION: Nonspecific abdomen Reviewed, dictated and finalized at Location A. Reviewed, dictated and finalized at location A. IMPRESSION: Nonspecific abdomen
--- NOTE | ~2020-11-02 | CT_ITS ---
EXAMINATION: CT brain wo con INDICATION: Confusion COMPARISON: 11/07/2020, 11/04/2020 TECHNIQUE: Standard unenhanced head CT. The dose-length product (DLP) was 1023.77 mGy-cm. The mA was adjusted according to patient size. Iterative reconstruction technique was employed. FINDINGS: There is no acute intraparenchymal hemorrhage. No evidence of mass lesion. No evidence of a cute infarction. There is mild periventricular and subcortical hypodensity probably related to small vessel ischemic disease. There is mild prominence of the sulci and ventricles related to cerebral atr ophy. Intracranial calcified cerebral atherosclerosis is noted. There are no extra-axial collections. There is no mass effect or midline shift. The orbits and soft tissues are unremarkable. The visualiz ed sinuses and mastoid air cells are well aerated. IMPRESSION: 1. No acute intracranial abnormality. 2. Age related findings. Reviewed, dictated and finalized at location A.
--- NOTE | ~2020-11-02 | MR_ITS ---
EXAMINATION: MR brain/brain stem wo con EXAM DATE: 11/07/2020 13:10 INDICATION: Encephalopathy. TECHNIQUE: Magnetic resonance imaging (MRI) of the brain/brain stem obtained without contrast. Sagitt al T1, axial diffusion, gradient echo (T2*), T1, T2, FLAIR sequences obtained. Correlation is made t o head CT 11/04/2020. FINDINGS: There are no areas of restricted diffusion to suggest acute infarction. There is no acute hemorrhage seen on the T2*, a hemosiderin sensitive sequence. No intraparenchymal brain mass lesion. There is mild periventricular and subcortical T2/FLAIR signal hyperintensity, nonspecific but probab ly related to small vessel ischemic disease (microangiopathy). There is prominence of the sulci and ventricles related to cerebral atrophy. There are no extra-axial collections. Flow voids are seen in the cerebral arteries on the T2-weighted sequences consistent with their expected patency. The o rbits are unremarkable. Soft tissue is unremarkable. There is an old left medial orbital wall fract ure. IMPRESSION: 1. No acute intracranial findings. 2. Chronic age related findings. Reviewed, dictated and finalized at location G.
--- NOTE | ~2020-11-02 | XR_ITS ---
EXAMINATION: XR chest 1V portable DATE: 11/04/2020 05:51 INDICATION: Pulmonary vascular congestion TECHNIQUE: frontal view of the chest was obtained. COMPARISON: Chest radiograph dated 11/03/2020 FINDINGS: The right upper lung zone is partially obscured by the patient's chin. Small lung volumes with mild b ibasilar atelectasis. No pleural effusion or pneumothorax. Cardiomegaly with pulmonary vascular conge stion. There are bridging osteophytes at multiple levels in the spine, consistent with diffuse idiopa thic skeletal hyperostosis (DISH). IMPRESSION: 1. Small lung volumes with mild bibasilar atelectasis. 2. Cardiomegaly with pulmonary vascular congestion. Reviewed, dictated and finalized at location A.
--- NOTE | ~2020-11-02 | XR_ITS ---
EXAMINATION: XR chest 1V portable DATE: 11/03/2020 06:14 INDICATION: Increased work of breathing TECHNIQUE: frontal view of the chest was obtained. COMPARISON: Chest radiograph and CT dated 11/02/2020 FINDINGS: Cardiomegaly with pulmonary vascular congestion without rebekah pulmonary edema. No new airspace opacit ies, pleural effusion or pneumothorax. IMPRESSION: 1. Cardiomegaly with pulmonary vascular congestion but without rebekah pulmonary edema. Reviewed, dictated and finalized at location A.
--- NOTE | 2020-11-02 03:30 | ECG_ITS ---
Measurements Intervals [place] Rate: 102 P: 43 VA: 130 QRS: -5 QRSD: 112 T: -3 QT: 346 QTc: 451 Interpretive Statements SINUS TACHYCARDIA INTRAVENTRICULAR CONDUCTION DELAY DELAYED PRECORDIAL R/S TRANSITION NONSPECIFIC ST & T-WAVE ABNORMALITY- INF/HIGH LAT LEADS BASELINE ARTIFACT- I, II, III, AVR, AVL, AVF, V1-V6 BORDERLINE ECG Electronically Signed On 11-02-2020 6:19:37 CDT by Zuhair Vasquez D.O.
--- NOTE | 2020-11-02 03:54 | ED.GENADULT ---
HPI - General Adult General Chief complaint: Fever Stated complaint: fever/ AMS Time Seen by Provider: 11/02/20 03:30 History of Present Illness HPI narrative: Patient is a 64-year-old female who presents the emergency department with chief complaint of fever and altered mental status. The patient recently was treated for a urinary tract infection the family noticed that she started running a fever and noticed that she is been urinating more frequently. Patient has history of ovarian cancer the patient had a little bit of a dry cough on Monday patient has not been vaccinated for COVID-19 but has not been getting up about. Patient states she just feels confused and not her normal self. Related Data Home Medications Medication Instructions Recorded Confirmed furosemide [Lasix] 20 mg PO DAILY 10/16/19 10/16/19 gabapentin 600 mg PO DAILY 10/16/19 10/16/19 lorazepam [Ativan] 0.5 mg PO HS PRN 10/16/19 10/16/19 Allergies Allergy/AdvReac Type Severity Reaction Status Date / Time No Known Allergies Allergy Verified 10/16/19 18:27 Review of Systems Review of Systems: Narrative: A 10 system review of systems was completed on the patient and is negative except for what is stated in the HPI. Nursing and ancillary documentation was reviewed. [facility] Past Medical History Medical History Abnormal mammogram of left breast April 2018 Age-related osteoporosis without current pathological fracture Anemia Iron was low at 29, TIBC within normal limits, % saturation low at 7% March 2019 Cataract Maturing left eye cataract Chronic bilateral low back pain without sciatica Chronic gastroesophageal reflux disease Chronic narcotic use Chronic pruritus Thought to be due to her cirrhosis CKD (chronic kidney disease), stage III Coronary artery disease Cardiac catheterization in 1994 demonstrating 40% stenosis 1 vessel Diverticulitis 2002 Gastritis Noted on EGD from April 29, 2019 Hepatic cirrhosis due to chronic hepatitis C infection Status post treatment 2010. Complicated by cirrhosis with portal venous hypertension. Managed at [facility] History of gait disorder Ambulates with a walker Hx of malignant neoplasm of vagina Diagnosed in 1999. Status post chemotherapy and radiation therapy. With repeat vaginal biopsies in 2010. Managed to [facility]. Hyperlipidemia LDL goal <100 Hyperparathyroidism Hypertension, essential, benign Left kidney mass 10 mm inferior pole left kidney mass suspicious for renal cell carcinoma. Patient was evaluated by Urology (Dr. Krishna Torres) at [facility] May 2017 will plan for six month renal ultrasound in [address] for surveillance Obesity (BMI 30-39.9) Peripheral neuropathy, idiopathic Primary osteoarthritis involving multiple joints Pulmonary hypertension Noted on echo from July 2011 with EF of 64% 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 Patient states she has had multiple colonoscopy attempts at [place] that were unsuccessful due to narrowing of her bowel due to radiation treatments from her vaginal cancer in 1999 Rectal bleeding UTI (urinary tract infection) Vitamin D deficiency Vitamin-D level of 05 April 2019 Surgical History Surgical History Abnormal colonoscopy With room most recent colonoscopy 04/29/2019 demonstrating tight fibrotic changes to the tissues consistent with history of prior radiation therapy H/O tubal ligation History of vaginal hysterectomy With bilateral salpingo-oophorectomy Hx of cardiac cath 1994 with 40% lesion noted without stent placement Family History Family History Sibling Diabetes mellitus Mother , Mother of an [place] at age 43. Patient's mother is Acute myocardial infarction Father
[2020-11-02 04:30] LABS: Basophils Percent Auto 0.3 % (0.2-1.2); Hematocrit 29.9 % (37.0-47.0); Hemoglobin 10.4 g/dL (12.0-15.0); Immature Granulocyte Absolute 0.03 K/mm3 (0.00-0.031); Immature Granulocyte Percent A 0.8 % (0-0.5); Lymphocytes Absolute Auto 0.14 K/mm3 (0.9-3.2); Lymphocytes Percent Auto 3.5 % (18.3-44.2); Mean Corpuscular HGB Conc 34.8 g/dl (32-36); Mean Corpuscular Hemoglobin 30.6 pg (26-34); Mean Corpuscular Volume 87.9 fl (80-100); Mean Platelet Volume 10.7 fl (7.4-10.4); Monocytes Absolute Auto 0.2 K/mm3 (0.1-0.6); Neutrophils Absolute Auto 3.6 K/mm3 (1.3-6.7); Neutrophils Percent Auto 90.4 % (45.5-73.1); Platelet Count Result 89 k/mm3 (150-375); Red Cell Distribution Width 13.8 % (11.5-14.5)
[2020-11-02 04:46] LABS: Lactic Acid Reflex 2.6 mmol/L (0.7-2.1)
[2020-11-02 04:47] LABS: Estimated CRCL calculation 22 ml/min; Estimated Glomerular Filt Rate 22
[2020-11-02 04:49] LABS: INR 1.2; Prothrombin Time 14.6 Seconds (11.1-14.7)
[2020-11-02 04:52] LABS: Alanine Aminotransferase 74 U/L (4-35); Albumin Level 3.2 g/dL (3.5-5.1); Alkaline Phosphatase 97 U/L (38-126); Anion Gap 11 mmol/L (8-16); Aspartate Amino Transferase 277 U/L (14-36); Blood Urea Nitrogen 43 mg/dL (7-17); Calcium 9.2 mg/dL (8.4-10.2); Carbon Dioxide 21 mmol/L (22-30); Chloride 96 mmol/L (98-107); Estimated CRCL calculation 24 ml/min; Estimated Glomerular Filt Rate 24; Glucose 137 mg/dL (65-110); Sodium 128 mmol/L (137-145)
[2020-11-02 04:52] LABS: Partial Thromboplastin Time 34.4 SECONDS (22.3-36.8)
--- NOTE | 2020-11-02 04:54 | PC.NURSE ---
Per daughter, pt has hx of past and current narcotic pain medication abuse. Per daughter, pt has already told her that she will ask someone to bring them to her in the hospital. Pt given tylenol on arrival for fever and headache. ED MD Iniguez updated. Per electrophysiology technician, pt's labs do not allow for her to have IV contrast dye. ED MD Iniguez notified, and verbal order given to change CT scan to WITHOUT contrast.
[2020-11-02 04:59] LABS: Troponin I 0.205 ng/mL (0.000-0.034)
[2020-11-02 05:26] LABS: CRP 18.7 mg/dL (<1.0)
--- NOTE | 2020-11-02 05:34 | PC.NURSE ---
Unsuccessful attempt to obtain urine via straight cath x 2. pt has scar tissue r/t former vaginal cancer per her daughter, and at other hospitals pt urine obtained using pediatric sized cath. this RN and LE Wisdom assisted by LUISA Salazar unsuccessful x 2 attempts. resistance met and pt unable to open hips or bend knees for visualization of area. pt usually incontinent of urine and stool. pt arrived wearing adult brief wet with urine, along with multiple pieces of wadded up toilet tissue. clean adult brief placed after pt was able to urinate in bedpan. sent to lab as ordered. Hovermat placed under pt to assist with repositioning.
[2020-11-02 05:46] LABS: Add Urine Microscopic? YES; Appearance Urine Cloudy (Clear); Bacteria Urine 4+ /hpf; Bilirubin Urine Negative (Negative); Blood Urine 3+ (Negative); Color Urine Yellow (Yellow); Glucose Urine UA Negative (Negative); Ketones Urine Negative (Negative); Leukocyte Esterase Ur 3+ LEU/UL (Negative); Mucus Urine Rare /lpf; Nitrate Urine Negative (Negative); Protein Urine 1+ mg/dL (Negative); RBC Urine 21-50 /hpf (0-2); Specific Grav Ur 1.012 (1.001-1.035); Squamous Epithelial Cell Urine Occasional /hpf (Few); Urobilinogen Urine Negative mg/dL (<2.0); WBC Urine 31-50 /hpf
[2020-11-02 07:27] LABS: Reflex Lactic Acid Yes or No Add Lactic
--- NOTE | 2020-11-02 08:13 | PC.NURSE ---
This patient, Rosalind Patel, was admitted to [facility] Room 206-02. Patient/family oriented to hospital policies and general routines including ID bracelet, bed and alarms, visiting hours, pain management, procedures, bathroom and other care routines, personal items, smoking policy, room service/diet, and visiting hours. Information on how to activate the Rapid Response Team has been discussed. Patient/Family are encouraged to report perceived risks to care and to ask questions if they do not understand what they are told or what they should do.
[2020-11-02] MEDS: SODIUM CHLORIDE 0.9% IV 1,000 ML 125 ML IV CONT (08:53)
[2020-11-02] MEDS: ASPIRIN 81 MG CHEWABLE TABLET PO (08:56)
[2020-11-02] MEDS: MORPHINE SULFATE (*CRX) 4 MG/ML INJ 2 MG IV PUSH (09:24)
[2020-11-02 10:11] LABS: Lactic Acid 4.9 mmol/L (0.7-2.1)
--- NOTE | 2020-11-02 10:16 | PM.IMHP ---
H&P: HPI History of Present Illness Date/Time: 11/02/20 10:16 Chief Complaint: fever and altered sensorium Narrative: Patient is a 64-year-old female who presents the emergency department with chief complaint of fever and altered mental status. The patient recently was treated for a urinary tract infection however she was noted to be running fever and continued issue with urinary tract infection and hence was brought to the ED for further evaluation. Patient also reported to have a bit of dry cough per ED reports and has not been vaccinated for COVID-19. Patient was confused and was also agitated with pain when I evaluated this morning. She was febrile and also hyperventilating in distress. She was still able to answer few of my questions and reported she did not have any chest pain but was complaining of pain in her belly. Most of the history is taken from the ED record. Review of Systems Review of Systems: ROS unobtainable: Yes unobtainable due to medical condition and unobtainable due to mental status PMFSH Past Medical History Medical History Abnormal mammogram of left breast April 2018 Age-related osteoporosis without current pathological fracture Anemia Iron was low at 29, TIBC within normal limits, % saturation low at 7% March 2019 Cataract Maturing left eye cataract Chronic bilateral low back pain without sciatica Chronic gastroesophageal reflux disease Chronic narcotic use Chronic pruritus Thought to be due to her cirrhosis CKD (chronic kidney disease), stage III Coronary artery disease Cardiac catheterization in 1994 demonstrating 40% stenosis 1 vessel Diverticulitis 2002 Gastritis Noted on EGD from April 29, 2019 Hepatic cirrhosis due to chronic hepatitis C infection Status post treatment 2010. Complicated by cirrhosis with portal venous hypertension. Managed at [facility] History of gait disorder Ambulates with a walker Hx of malignant neoplasm of vagina Diagnosed in 1999. Status post chemotherapy and radiation therapy. With repeat vaginal biopsies in 2010. Managed to [facility]. Hyperlipidemia LDL goal <100 Hyperparathyroidism Hypertension, essential, benign Left kidney mass 10 mm inferior pole left kidney mass suspicious for renal cell carcinoma. Patient was evaluated by Urology (Dr. Krishna Torres) at [facility] May 2017 will plan for six month renal ultrasound in [address] for surveillance Obesity (BMI 30-39.9) Peripheral neuropathy, idiopathic Primary osteoarthritis involving multiple joints Pulmonary hypertension Noted on echo from July 2011 with EF of 64% 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 Patient states she has had multiple colonoscopy attempts at [place] that were unsuccessful due to narrowing of her bowel due to radiation treatments from her vaginal cancer in 1999 Rectal bleeding UTI (urinary tract infection) Vitamin D deficiency Vitamin-D level of 05 April 2019 Surgical History Surgical History Abnormal colonoscopy With room most recent colonoscopy 04/29/2019 demonstrating tight fibrotic changes to the tissues consistent with history of prior radiation therapy H/O tubal ligation History of vaginal hysterectomy With bilateral salpingo-oophorectomy Hx of cardiac cath 1994 with 40% lesion noted without stent placement Family History Family History Sibling Diabetes mellitus Mother , Mother of an [place] at age 43. Patient's mother is Acute myocardial infarction Father Patient's father is Acute myocardial infarction Other Diabetes mellitus Social History Social History Social History: Patient currently lives with her boyfriend and brother who is l
[2020-11-02 10:17] LABS: Glucose Point of Care 122 mg/dl (65-105)
[2020-11-02 11:41] LABS: NT Pro B Type Natriuretic Pept 1850 pg/mL (5-100)
[2020-11-02 11:53] LABS: Troponin I 0.164 ng/mL (0.000-0.034)
--- NOTE | 2020-11-02 13:03 | WPDURCON ---
Assessment and Plan Assessment and plan (1) UTI (urinary tract infection): Qualifiers: Hematuria presence: without hematuria Urinary tract infection type: site unspecified Qualified Code(s): N39.0 - Urinary tract infection, site not specified Code(s): N39.0 - Urinary tract infection, site not specified Status: Acute Assessment and Plan: Continue IV antibiotics, tailor to urine culture results. (2) Acute kidney injury: Code(s): N17.9 - Acute kidney failure, unspecified Status: Acute Assessment and Plan: 2.70 today, secondary to retention, will continue to monitor until baseline, I suspect it will quickly improve since catheter has been placed. Retention was noted upon catheter insertion, 600cc of cloudy dark yellow urine noted on return. (3) Increased urinary frequency: Code(s): R35.0 - Frequency of micturition Status: Acute (4) Dysuria: Code(s): R30.0 - Dysuria Status: Acute (5) Stenosis of vagina: Code(s): N89.5 - Stricture and atresia of vagina Status: Acute Assessment and Plan: Patient's vaginal opening was dilated to a finger width in order to insert parker catheter. I was unable to identify the urethral meatus, but was able to successfully place a 14 fr. coude catheter by feel only. Bloody discharge was noted after dilation of the vaginal opening. 600cc of cloudy, dark yellow urine was noted on return, the patient noted improvement of the abdominal pain once the catheter was placed. (6) Difficulty with insertion of urinary catheter: Status: Acute Urology Consult Note HPI Date Seen: 11/02/20 Requesting Physician: Tim Vance MD Primary Care Provider: Kali Jordan MD Consult Narrative Narrative: Rosalind Patel is a 64 year old female who presented to the ER for fever and confusion. She was recently treated for a UTI, but continues to have urinary frequency, urgency and incontinence. She is febrile today 103, tachycardic and hypertensive. She has a WBC of 4.0, a creatinine that continues to rise from 1.20 yesterday to now 2.70. She is slightly confused and can only answer yes and no questions. She is obviously short of breath and laboring to breath, but has nasal 02 on. She had a UA that is suspicious for a UTI, and a CT abdomen, pelvis and chest that shows bladder distension and bilateral hydronephrosis. Urine culture is pending. A parker was attempted to be placed this morning by several RN's and the hospitalist. She has a history of ovarian cancer with pelvic radiation and has severe labial and vaginal stenosis, which made it difficult for them to identify the urethra. We were asked to be consulted for difficult catheter placement amongst UTI/retention. All medical information was obtained from her chart. Review of Systems Review of Systems: ROS unobtainable: Yes unobtainable due to medical condition and unobtainable due to mental status [facility] Past Medical History Medical History Abnormal mammogram of left breast April 2018 Age-related osteoporosis without current pathological fracture Anemia Iron was low at 29, TIBC within normal limits, % saturation low at 7% March 2019 Cataract Maturing left eye cataract Chronic bilateral low back pain without sciatica Chronic gastroesophageal reflux disease Chronic narcotic use Chronic pruritus Thought to be due to her cirrhosis CKD (chronic kidney disease), stage III Coronary artery disease Cardiac catheterization in 1994 demonstrating 40% stenosis 1 vessel Diverticulitis 2002 Gastritis Noted on EGD from April 29, 2019 Hepatic cirrhosis due to chronic hepatitis C infection Status post treatment 2010. Complicated by cirrhosis with portal venous hypertension. Managed at [facility] History of gait disorder Ambulates with a walker Hx of malignant neoplasm of vagina Diagnosed in 1999. Status po
[2020-11-02 16:30] LABS: Basophils Percent Auto 0.5 % (0.2-1.2); Eosinophils Percent Auto 0.3 % (0-4.4); Hematocrit 29.3 % (37.0-47.0); Hemoglobin 9.8 g/dL (12.0-15.0); Immature Granulocyte Absolute 0.05 K/mm3 (0.00-0.031); Immature Granulocyte Percent A 1.3 % (0-0.5); Immature Platelet Fraction Pct 7.5 % (0.9-11.2); Lymphocytes Absolute Auto 0.18 K/mm3 (0.9-3.2); Lymphocytes Percent Auto 4.7 % (18.3-44.2); Mean Corpuscular HGB Conc 33.4 g/dl (32-36); Mean Corpuscular Hemoglobin 30.3 pg (26-34); Mean Corpuscular Volume 90.7 fl (80-100); Mean Platelet Volume 11.5 fl (7.4-10.4); Monocytes Absolute Auto 0.1 K/mm3 (0.1-0.6); Monocytes Percent Auto 1.6 % (2.6-8.5); Neutrophils Absolute Auto 3.5 K/mm3 (1.3-6.7); Neutrophils Percent Auto 91.6 % (45.5-73.1); Platelet Count Result 68 k/mm3 (150-375); Red Blood Count 3.23 M/mm3 (4.2-5.4); Red Cell Distribution Width 14.5 % (11.5-14.5); White Blood Count 3.8 K/mm3 (4.5-10.0)
[2020-11-02 16:49] LABS: Lactic Acid Reflex 7.4 mmol/L (0.7-2.1)
[2020-11-02 17:04] LABS: Blood Urea Nitrogen 42 mg/dL (7-17); Calcium 8.4 mg/dL (8.4-10.2); Carbon Dioxide 13 mmol/L (22-30); Chloride 99 mmol/L (98-107); Estimated CRCL calculation 22 ml/min; Estimated Glomerular Filt Rate 22; Glucose 105 mg/dL (65-110); Magnesium 1.1 mg/dL (1.6-2.3)
[2020-11-02 17:15] LABS: Anion Gap 16 mmol/L (8-16); Potassium 2.6 mmol/L (3.4-5.0); Sodium 128 mmol/L (137-145)
[2020-11-02] MEDS: MAGNESIUM SULF 2 GM/WATER 50ML 2 GM/50 ML BAG IVPB (17:53)
[2020-11-02] MEDS: SODIUM CHLORIDE 0.9% IV 1,000 ML 999 ML IV CONT ×2 (17:54→19:07)
--- NOTE | 2020-11-02 19:30 | PC.NURSE ---
This patient, Rosalind Patel, was transferred to [ICU-6] on 11/02/20 at 1930. Personal belongings sent with patient. Report given to [JAVIER RN]. Appropriate documentation sent with patient.
[2020-11-02 20:19] LABS: SARS-CoV-2 RNA PCR Negative
[2020-11-02] MEDS: SODIUM BICARBONATE 8.4% 150 MEQ in WATER, STERILE FOR INJECTION 950 ML IV CONT (20:36)
[2020-11-02] MEDS: ALBUTEROL SULFATE NEB 2.5 MG/0.5 ML INH INHALATION (20:40)
[2020-11-02] MEDS: IPRATROPIUM BR 0.02% INH SOLN 0.5 MG/2.5 ML VIAL INHALATION (20:40)
--- NOTE | 2020-11-02 21:43 | WPDPROCEDUR ---
Procedures Central Line Placement Right Femoral: Central Line Date: 11/02/20 Central Line Time: 21:31 Discussed w/ the patient/family/POA,the placement of a central venous catheter, including its clinical necessity/indication & associated potential risks, benifits and alternatives.: Yes The patient/family/POA understand(s) and acknowledge(s) the need to proceed with central venous catheter insertion as an important element of the patient's clinical management.: Yes Performed Emergently - Given emergent patient condition, temporal constraints may have precluded informed consent.: Yes Time Out Performed: Yes Patient Position: supine Provider Prep: Max. sterile barrier precautions Central line prep: 2% Chlorhexidine scrub and sterile full body sheet applied Local anesthesia used: lidocaine 1% Sterile US Technique with sterile gel/sterile probe covers: Yes Central line lumen inserted: triple Bulgarian: 7 Length (cm): 16 Depth of Insertion (cm): 16 Post Procedure: sutured in place, good blood return, all ports aspirated, flushed, capped, transparent dressing and hemostatic product Patient tolerated procedure: well Complications: none Additional comments: No chest x-ray needed as this is a femoral line. Patient tolerated well. No complications.
[2020-11-02] MEDS: CENTRAL LINE FLUSH 10 ML IV PUSH (22:05)
[2020-11-02 23:43] LABS: Anion Gap 13 mmol/L (8-16); Blood Urea Nitrogen 42 mg/dL (7-17); Calcium 7.7 mg/dL (8.4-10.2); Carbon Dioxide 15 mmol/L (22-30); Chloride 100 mmol/L (98-107); Estimated CRCL calculation 24 ml/min; Estimated Glomerular Filt Rate 24; Glucose 106 mg/dL (65-110); Magnesium 1.5 mg/dL (1.6-2.3); Potassium 3.5 mmol/L (3.4-5.0); Sodium 128 mmol/L (137-145)
[2020-11-02 23:48] LABS: Lactic Acid Reflex 5.9 mmol/L (0.7-2.1)
--- NOTE | 2020-11-02 23:53 | PCNEURO ---
Updated Sonya Dennis regarding Labs and vitals signs. Give 2 catia of Mag IVPB x1.
[2020-11-03] VITALS (24 sets, daily range): BP systolic 96–121; BP diastolic 59–76; PULSE 76–103; RESP 18–31; TEMP 36.1–37.4; O2SAT 94–99
[2020-11-03] MEDS: MAGNESIUM SULF 2 GM/WATER 50ML 2 GM/50 ML BAG IVPB (00:26)
[2020-11-03] MEDS: IPRATROPIUM BR 0.02% INH SOLN 0.5 MG/2.5 ML VIAL INHALATION ×2 (02:11→20:32)
[2020-11-03] MEDS: ALBUTEROL SULFATE NEB 2.5 MG/0.5 ML INH INHALATION ×2 (02:11→20:32)
[2020-11-03 02:26] LABS: Reflex Lactic Acid Yes or No Add Lactic
[2020-11-03] MEDS: SODIUM BICARBONATE 8.4% 150 MEQ in WATER, STERILE FOR INJECTION 950 ML IV CONT (02:44)
[2020-11-03] MEDS: MORPHINE SULFATE (*CRX) 4 MG/ML INJ 2 MG IV PUSH ×2 (03:16→07:55)
[2020-11-03] MEDS: CENTRAL LINE FLUSH 10 ML IV PUSH ×3 (04:30→22:55)
[2020-11-03 04:40] LABS: Basophils Percent Auto 0.4 % (0.2-1.2); Hematocrit 26.3 % (37.0-47.0); Hemoglobin 8.8 g/dL (12.0-15.0); Immature Granulocyte Absolute 0.53 K/mm3 (0.00-0.031); Immature Granulocyte Percent A 6.9 % (0-0.5); Lymphocytes Absolute Auto 0.27 K/mm3 (0.9-3.2); Lymphocytes Percent Auto 3.5 % (18.3-44.2); Mean Corpuscular HGB Conc 33.5 g/dl (32-36); Mean Corpuscular Hemoglobin 30.2 pg (26-34); Mean Corpuscular Volume 90.4 fl (80-100); Mean Platelet Volume 11.6 fl (7.4-10.4); Monocytes Absolute Auto 0.5 K/mm3 (0.1-0.6); Monocytes Percent Auto 6.7 % (2.6-8.5); Neutrophils Absolute Auto 6.3 K/mm3 (1.3-6.7); Neutrophils Percent Auto 82.5 % (45.5-73.1); Platelet Count Result 44 k/mm3 (150-375); Red Blood Count 2.91 M/mm3 (4.2-5.4); Red Cell Distribution Width 14.6 % (11.5-14.5); White Blood Count 7.7 K/mm3 (4.5-10.0)
[2020-11-03 05:11] LABS: Anion Gap 16 mmol/L (8-16); Blood Urea Nitrogen 43 mg/dL (7-17); Carbon Dioxide 16 mmol/L (22-30); Chloride 96 mmol/L (98-107); Estimated CRCL calculation 25 ml/min; Estimated Glomerular Filt Rate 25; Glucose 92 mg/dL (65-110); Magnesium 1.9 mg/dL (1.6-2.3); Potassium 3.5 mmol/L (3.4-5.0); Sodium 128 mmol/L (137-145)
[2020-11-03 05:23] LABS: Lactic Acid Reflex 6.9 mmol/L (0.7-2.1)
[2020-11-03] MEDS: ASPIRIN 81 MG CHEWABLE TABLET PO (07:58)
[2020-11-03 11:13] LABS: Lactic Acid Reflex 7.1 mmol/L (0.7-2.1)
--- NOTE | 2020-11-03 13:12 | WPDCNINT ---
Assessment and Plan Assessment and plan (1) Severe sepsis: Code(s): A41.9 - Sepsis, unspecified organism; R65.20 - Severe sepsis without septic shock Status: Acute Assessment and Plan: patient presented with fevers, altered mental status, urinary retention, hypotension, lactic acidosis - diagnosed with severe sepsis, was given 5 L IV fluid bolus, maintaining blood pressures post IV fluids - lactic acid remains elevated, will target mean arterial pressures greater than 65 at all times - continue vancomycin, cefepime and azithromycin - blood cultures growing Gram-negative bacilli 2/2 bottles, urine cultures pending (2) Bacteremia: Code(s): R78.81 - Bacteremia Status: Acute Assessment and Plan: as above (3) UTI (urinary tract infection): Qualifiers: Hematuria presence: without hematuria Urinary tract infection type: site unspecified Qualified Code(s): N39.0 - Urinary tract infection, site not specified Code(s): N39.0 - Urinary tract infection, site not specified Status: Acute Assessment and Plan: urine cultures pending, continue antibiotics (4) Pneumonia: Qualifiers: Laterality: unspecified laterality Lung location: unspecified part of lung Pneumonia type: due to unspecified organism Qualified Code(s): J18.9 - Pneumonia, unspecified organism Code(s): J18.9 - Pneumonia, unspecified organism Status: Acute Assessment and Plan: chest x-ray shows more pulmonary vascular congestion - continue antibiotics as above (5) Difficulty with insertion of urinary catheter: Status: Acute Assessment and Plan: appreciate urology evaluation and insertion of urinary catheter - urine output has been adequate (6) Acute worsening of stage 3 chronic kidney disease: Code(s): N18.30 - Chronic kidney disease, stage 3 unspecified Status: Acute Assessment and Plan: acute on chronic kidney disease, likely related to hypovolemia, UTI, hypotension, dehydration, on diuretics at home - patient received 5 L of IV fluids ER and the IMU and ICU - continue sodium bicarb infusion - lactic acid remains elevated, continue to trend - creatinine trending down, urine output has been adequate - continue to monitor renal function, electrolytes and urine output (7) DVT prophylaxis: Code(s): Z29.9 - Encounter for prophylactic measures, unspecified Status: Acute Assessment and Plan: continue heparin Additional Plan discussed with patient updated with her condition and plan of care. I answered all questions, she was concerned about her blood pressure medication and diuretics to which I explained why we are not giving it to her at this time due to her severe sepsis to which she understood. Code status: Full code Critical care time spent: 45 minutes This dictation may have been done utilizing a voice recognition system. Attempts have been made to correct errors. However, there may be uncorrected grammatical, spelling, and recognition errors present. Due to a high probability of clinically significant, life threatening deterioration, the patient required my highest level of preparedness to intervene emergently and I personally spent this critical care time directly and personally managing the patient. This critical care time included obtaining a history; examining the patient; pulse oximetry; ordering and review of studies; arranging urgent treatment with development of a management plan; evaluation of patient's response to treatment; frequent reassessment; and discussions with other providers. It was exclusive of separately billable procedures and treating other patients and teaching time. Please see Assessment and Plan section and the rest of the note for further information on patient assessment and treatment [employer] Consult Note Consult date: 11/03/20 Time Seen: 06:58 Reason for consult: Severe sepsis
[2020-11-03] MEDS: ONDANSETRON INJ 4 MG/2 ML VIAL IV PUSH (13:30)
[2020-11-04] VITALS (14 sets, daily range): BP systolic 106–140; BP diastolic 56–111; PULSE 77–95; RESP 16–96; TEMP 36.6–36.8; O2SAT 92–97
[2020-11-04] MEDS: SODIUM BICARBONATE 8.4% 150 MEQ in WATER, STERILE FOR INJECTION 950 ML 50 MEQ IV CONT (00:19)
[2020-11-04 04:29] LABS: Hematocrit 26.7 % (37.0-47.0); Hemoglobin 9.1 g/dL (12.0-15.0); Immature Platelet Fraction Pct 10.8 % (0.9-11.2); Mean Corpuscular HGB Conc 34.1 g/dl (32-36); Mean Corpuscular Hemoglobin 29.9 pg (26-34); Mean Corpuscular Volume 87.8 fl (80-100); Mean Platelet Volume 12.2 fl (7.4-10.4); Platelet Count Result 40 k/mm3 (150-375); Red Blood Count 3.04 M/mm3 (4.2-5.4); Red Cell Distribution Width 14.7 % (11.5-14.5); White Blood Count 10.9 K/mm3 (4.5-10.0)
[2020-11-04 04:37] LABS: Lactic Acid Reflex 2.6 mmol/L (0.7-2.1)
[2020-11-04 04:45] LABS: Alanine Aminotransferase 67 U/L (4-35); Albumin Level 2.8 g/dL (3.5-5.1); Alkaline Phosphatase 93 U/L (38-126); Anion Gap 10 mmol/L (8-16); Aspartate Amino Transferase 127 U/L (14-36); Bilirubin,Total 2.4 mg/dL (0.2-1.3); Blood Urea Nitrogen 45 mg/dL (7-17); Calcium 8.6 mg/dL (8.4-10.2); Carbon Dioxide 24 mmol/L (22-30); Chloride 96 mmol/L (98-107); Estimated CRCL calculation 32 ml/min; Estimated Glomerular Filt Rate 32; Glucose 105 mg/dL (65-110); Magnesium 1.7 mg/dL (1.6-2.3); Phosphorus 3.4 mg/dL (2.5-4.5); Sodium 130 mmol/L (137-145)
[2020-11-04 05:17] LABS: CRP 39.2 mg/dL (<1.0)
[2020-11-04] MEDS: ONDANSETRON INJ 4 MG/2 ML VIAL IV PUSH ×2 (05:45→12:02)
[2020-11-04 07:28] LABS: Reflex Lactic Acid Yes or No Add Lactic
[2020-11-04] MEDS: CENTRAL LINE FLUSH 10 ML IV PUSH ×3 (07:41→21:56)
[2020-11-04] MEDS: MAGNESIUM SULF 2 GM/WATER 50ML 2 GM/50 ML BAG IVPB (09:26)
[2020-11-04] MEDS: SODIUM CHLORIDE 0.9% IV 1,000 ML 50 ML IV CONT (09:35)
[2020-11-04 10:26] LABS: Lactic Acid 2.1 mmol/L (0.7-2.1)
[2020-11-04 11:00] LABS: Alveolar/Arterial O2 Gradient 24.9 mmHg; Base Excess ABG 1.2 mEq/l (+/-2.0); Fractional Inspired Oxygen 21 %; HCO3 ABG 24.1 mEq/l (22.0-26.0); Oxygen Content ABG 14.2 %vol (16.0-22.0); Oxygen Saturation ABG 97.2 % (95.0-100.0); Oxyhemoglobin 95.3 % THb (90.0-100.0); PCO2 ABG 32.4 mmHg (35.0-45.0); Total Hemoglobin 10.5 g/dL (12.0-18.0)
[2020-11-04 11:01] LABS: Device ROOM AIR; Modified Allen's Test Pass; Site Drawn RIGHT RADIAL
[2020-11-04] MEDS: PANTOPRAZOLE SODIUM IV 40 MG VIAL IV PUSH ×2 (12:01→21:56)
--- NOTE | 2020-11-04 13:24 | WPDINTPN ---
Progress Note: A&P Assessment and Plan (1) Severe sepsis: Code(s): A41.9 - Sepsis, unspecified organism; R65.20 - Severe sepsis without septic shock Status: Acute Assessment and Plan: Due to E coli bacteremia and E coli UTI - diagnosed with severe sepsis, was given 5 L IV fluid bolus, maintaining blood pressures post IV fluids - lactic acid trending down, will target mean arterial pressures greater than 65 at all times - continue vancomycin, cefepime and azithromycin - blood and urine cultures growing E coli (2) Bacteremia: Code(s): R78.81 - Bacteremia Status: Acute Assessment and Plan: as above (3) UTI (urinary tract infection): Qualifiers: Hematuria presence: without hematuria Urinary tract infection type: site unspecified Qualified Code(s): N39.0 - Urinary tract infection, site not specified Code(s): N39.0 - Urinary tract infection, site not specified Status: Acute Assessment and Plan: as above (4) Pneumonia: Qualifiers: Laterality: unspecified laterality Lung location: unspecified part of lung Pneumonia type: due to unspecified organism Qualified Code(s): J18.9 - Pneumonia, unspecified organism Code(s): J18.9 - Pneumonia, unspecified organism Status: Acute Assessment and Plan: chest x-ray shows more pulmonary vascular congestion, pneumonia cannot be ruled out - continue antibiotics as above (5) Difficulty with insertion of urinary catheter: Status: Acute Assessment and Plan: appreciate urology evaluation and insertion of urinary catheter - urine output has been adequate (6) Acute worsening of stage 3 chronic kidney disease: Code(s): N18.30 - Chronic kidney disease, stage 3 unspecified Status: Acute Assessment and Plan: acute on chronic kidney disease, likely related to hypovolemia, UTI, hypotension, dehydration, on diuretics at home - patient received 5 L of IV fluids ER and the IMU and ICU - continue sodium bicarb infusion - lactic acid remains elevated, continue to trend - creatinine improving, urine output has been adequate - continue to monitor renal function, electrolytes and urine output (7) DVT prophylaxis: Code(s): Z29.9 - Encounter for prophylactic measures, unspecified Status: Acute Assessment and Plan: continue heparin (8) Encephalopathy acute: Code(s): G93.40 - Encephalopathy, unspecified Status: Acute Assessment and Plan: stat CT scan of the brain was done, which did not show any acute intracranial finding, patient does have mild cerebral and cerebellar atrophy. There is nonspecific diminished attenuation of cerebral white matter likely due to chronic small-vessel ischemic changes. - Her encephalopathy could be related to metabolic, related to severe sepsis due to bacteremia and UTI - ABGs did not show any hypercapnia or hypoxia. - Continue to monitor at this time Additional Plan Code status: Full code Critical care time spent: 35 minutes This dictation may have been done utilizing a voice recognition system. Attempts have been made to correct errors. However, there may be uncorrected grammatical, spelling, and recognition errors present. Due to a high probability of clinically significant, life threatening deterioration, the patient required my highest level of preparedness to intervene emergently and I personally spent this critical care time directly and personally managing the patient. This critical care time included obtaining a history; examining the patient; pulse oximetry; ordering and review of studies; arranging urgent treatment with development of a management plan; evaluation of patient's response to treatment; frequent reassessment; and discussions with other providers. It was exclusive of separately billable procedures and treating other patients and teaching time. Please see Assessment and Plan
[2020-11-05] VITALS (11 sets, daily range): BP systolic 117–145; BP diastolic 48–81; PULSE 68–88; RESP 16–23; TEMP 36.6–36.8; O2SAT 95–99
[2020-11-05 05:36] LABS: Hemoglobin 9.5 g/dL (12.0-15.0); Mean Corpuscular HGB Conc 35.2 g/dl (32-36); Mean Corpuscular Hemoglobin 30.8 pg (26-34); Mean Corpuscular Volume 87.7 fl (80-100); Mean Platelet Volume 12.6 fl (7.4-10.4); Platelet Count Result 53 k/mm3 (150-375); Red Blood Count 3.08 M/mm3 (4.2-5.4); Red Cell Distribution Width 14.8 % (11.5-14.5); White Blood Count 14.9 K/mm3 (4.5-10.0)
[2020-11-05 06:18] LABS: Alanine Aminotransferase 50 U/L (4-35); Albumin Level 2.6 g/dL (3.5-5.1); Alkaline Phosphatase 112 U/L (38-126); Anion Gap 7 mmol/L (8-16); Aspartate Amino Transferase 59 U/L (14-36); Bilirubin,Total 1.9 mg/dL (0.2-1.3); Blood Urea Nitrogen 42 mg/dL (7-17); Calcium 8.7 mg/dL (8.4-10.2); Carbon Dioxide 25 mmol/L (22-30); Chloride 105 mmol/L (98-107); Estimated CRCL calculation 40 ml/min; Estimated Glomerular Filt Rate 42; Glucose 85 mg/dL (65-110); Magnesium 1.8 mg/dL (1.6-2.3); Phosphorus 2.9 mg/dL (2.5-4.5); Potassium 3.3 mmol/L (3.4-5.0); Sodium 137 mmol/L (137-145)
[2020-11-05] MEDS: CENTRAL LINE FLUSH 10 ML IV PUSH ×3 (10:18→21:01)
[2020-11-05] MEDS: SODIUM CHLORIDE 0.9% IV 1,000 ML 50 ML IV CONT (10:19)
[2020-11-05] MEDS: PANTOPRAZOLE SODIUM IV 40 MG VIAL IV PUSH ×2 (10:24→20:23)
[2020-11-05 11:37] LABS: Vancomycin Trough 11.2 ug/mL (10.0-20.0)
--- NOTE | 2020-11-05 12:23 | WPDINTPN ---
Progress Note: A&P Assessment and Plan (1) Severe sepsis: Code(s): A41.9 - Sepsis, unspecified organism; R65.20 - Severe sepsis without septic shock Status: Acute Assessment and Plan: Due to E coli bacteremia and E coli UTI - diagnosed with severe sepsis, was given 5 L IV fluid bolus, maintaining blood pressures post IV fluids - lactic acid trending down, will target mean arterial pressures greater than 65 at all times - continue vancomycin, cefepime and azithromycin - blood and urine cultures growing E coli (2) Bacteremia: Code(s): R78.81 - Bacteremia Status: Acute Assessment and Plan: as above (3) UTI (urinary tract infection): Qualifiers: Hematuria presence: without hematuria Urinary tract infection type: site unspecified Qualified Code(s): N39.0 - Urinary tract infection, site not specified Code(s): N39.0 - Urinary tract infection, site not specified Status: Acute Assessment and Plan: as above (4) Pneumonia: Qualifiers: Laterality: unspecified laterality Lung location: unspecified part of lung Pneumonia type: due to unspecified organism Qualified Code(s): J18.9 - Pneumonia, unspecified organism Code(s): J18.9 - Pneumonia, unspecified organism Status: Acute Assessment and Plan: chest x-ray shows more pulmonary vascular congestion, pneumonia cannot be ruled out - continue antibiotics as above (5) Difficulty with insertion of urinary catheter: Status: Acute Assessment and Plan: appreciate urology evaluation and insertion of urinary catheter - urine output has been adequate (6) Acute worsening of stage 3 chronic kidney disease: Code(s): N18.30 - Chronic kidney disease, stage 3 unspecified Status: Acute Assessment and Plan: acute on chronic kidney disease, likely related to hypovolemia, UTI, hypotension, dehydration, on diuretics at home - patient received 5 L of IV fluids ER and the IMU and ICU - continue normal saline at 50 mL/hour - lactic acid has normalized - creatinine improving, urine output has been adequate - continue to monitor renal function, electrolytes and urine output (7) DVT prophylaxis: Code(s): Z29.9 - Encounter for prophylactic measures, unspecified Status: Acute Assessment and Plan: continue heparin (8) Encephalopathy acute: Code(s): G93.40 - Encephalopathy, unspecified Status: Acute Assessment and Plan: CT scan of the brain was done on 11/04/2020: which did not show any acute intracranial finding, patient does have mild cerebral and cerebellar atrophy. There is nonspecific diminished attenuation of cerebral white matter likely due to chronic small-vessel ischemic changes. - Her encephalopathy could be related to Toxic metabolic encephalopathy due to severe sepsis, bacteremia and UTI, - ABGs did not show any hypercapnia or hypoxia. - Continue to monitor at this time - will have Neurology evaluate the patient Additional Plan Code status: Full code Critical care time spent: 32 minutes This dictation may have been done utilizing a voice recognition system. Attempts have been made to correct errors. However, there may be uncorrected grammatical, spelling, and recognition errors present. Due to a high probability of clinically significant, life threatening deterioration, the patient required my highest level of preparedness to intervene emergently and I personally spent this critical care time directly and personally managing the patient. This critical care time included obtaining a history; examining the patient; pulse oximetry; ordering and review of studies; arranging urgent treatment with development of a management plan; evaluation of patient's response to treatment; frequent reassessment; and discussions with other providers. It was exclusive of separately billable procedures and treating other patien
[2020-11-06] VITALS (12 sets, daily range): BP systolic 124–143; BP diastolic 60–76; PULSE 20–81; RESP 16–72; TEMP 36.6–36.8; O2SAT 12–100; BMI 38.1
[2020-11-06] MEDS: CENTRAL LINE FLUSH 10 ML IV PUSH ×3 (04:27→22:02)
[2020-11-06 04:33] LABS: Hematocrit 26.3 % (37.0-47.0); Immature Platelet Fraction Pct 8.6 % (0.9-11.2); Mean Corpuscular HGB Conc 34.2 g/dl (32-36); Mean Corpuscular Hemoglobin 30.6 pg (26-34); Mean Corpuscular Volume 89.5 fl (80-100); Mean Platelet Volume 11.2 fl (7.4-10.4); Platelet Count Result 67 k/mm3 (150-375); Red Blood Count 2.94 M/mm3 (4.2-5.4); Red Cell Distribution Width 15.2 % (11.5-14.5); White Blood Count 16.3 K/mm3 (4.5-10.0)
[2020-11-06 04:44] LABS: Alanine Aminotransferase 40 U/L (4-35); Albumin Level 2.6 g/dL (3.5-5.1); Alkaline Phosphatase 145 U/L (38-126); Anion Gap 7 mmol/L (8-16); Aspartate Amino Transferase 42 U/L (14-36); Bilirubin,Total 1.5 mg/dL (0.2-1.3); Blood Urea Nitrogen 36 mg/dL (7-17); Calcium 9.2 mg/dL (8.4-10.2); Carbon Dioxide 26 mmol/L (22-30); Chloride 105 mmol/L (98-107); Estimated CRCL calculation 46 ml/min; Estimated Glomerular Filt Rate 50; Glucose 91 mg/dL (65-110); Magnesium 1.5 mg/dL (1.6-2.3); Phosphorus 2.7 mg/dL (2.5-4.5); Potassium 3.3 mmol/L (3.4-5.0); Sodium 138 mmol/L (137-145)
[2020-11-06] MEDS: MAGNESIUM SULFATE 3GM/D5W100ML 3 GM/100 ML BAG IVPB (09:50)
[2020-11-06] MEDS: levETIRAcetam 1000MG/NACL100ML 1,000 MG/100 ML BAG 400 MG IVPB (09:50)
[2020-11-06] MEDS: PANTOPRAZOLE SODIUM IV 40 MG VIAL IV PUSH ×2 (09:51→21:53)
[2020-11-06] MEDS: SODIUM CHLORIDE 0.9% IV 1,000 ML 50 ML IV CONT (09:56)
--- NOTE | 2020-11-06 11:10 | WPDNEURCNPN ---
Assessment and Plan Additional Plan along with the treatment for sepsis will benefit from the MRI if possible Consult date: 11/06/20 Time Seen: 10:30 HPI: Rosalind Patel is a 64 year old female admitted to the hospital through the emergency room with change in the mental status along with fever. Has recently been treated for UTI and was noted to have dry cough and confusion in the ER she was complaining of pain in her belly. Past history was consistent with chronic pain, narcotic use, chronic kidney disease stage 3, hepatic cirrhosis with hepatitis C in fact and gait dysfunction. Evaluation documented small lung volumes with mild bibasilar atelectasis and cardiomegaly with pulmonary vascular congestion limited exam on CT scan routine labs leukocytosis, hemoglobin only 9 platelet count only 67 SARS-CoV-2 id negative, urine opiates positive with abnormal UA and leukocytosis on CBC with anemia Review of Systems Review of Systems: All systems reviewed & are unremarkable except as noted in HPI and below PMFSH Past Medical History Medical History Abnormal mammogram of left breast April 2018 Age-related osteoporosis without current pathological fracture Anemia Iron was low at 29, TIBC within normal limits, % saturation low at 7% March 2019 Cataract Maturing left eye cataract Chronic bilateral low back pain without sciatica Chronic gastroesophageal reflux disease Chronic narcotic use Chronic pruritus Thought to be due to her cirrhosis CKD (chronic kidney disease), stage III Coronary artery disease Cardiac catheterization in 1994 demonstrating 40% stenosis 1 vessel Diverticulitis 2002 Gastritis Noted on EGD from April 29, 2019 Hepatic cirrhosis due to chronic hepatitis C infection Status post treatment 2010. Complicated by cirrhosis with portal venous hypertension. Managed at [facility] History of gait disorder Ambulates with a walker Hx of malignant neoplasm of vagina Diagnosed in 1999. Status post chemotherapy and radiation therapy. With repeat vaginal biopsies in 2010. Managed to [facility]. Hyperlipidemia LDL goal <100 Hyperparathyroidism Hypertension, essential, benign Left kidney mass 10 mm inferior pole left kidney mass suspicious for renal cell carcinoma. Patient was evaluated by Urology (Dr. 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 Patient states she has had multiple colonoscopy attempts at [place] that were unsuccessful due to narrowing of her bowel due to radiation treatments from her vaginal cancer in 1999 Rectal bleeding UTI (urinary tract infection) Vitamin D deficiency Vitamin-D level of 05 April 2019 Surgical History Surgical History Abnormal colonoscopy With room most recent colonoscopy 04/29/2019 demonstrating tight fibrotic changes to the tissues consistent with history of prior radiation therapy H/O tubal ligation History of vaginal hysterectomy With bilateral salpingo-oophorectomy Hx of cardiac cath 1994 with 40% lesion noted without stent placement Family History Family History Sibling Diabetes mellitus Mother , Mother of an [place] at age 43. Patient's mother is Acute myocardial infarction Father Patient's father is Acute myocardial infarction Other Diabetes mellitus Social History Social History Social History: Patient currently lives with her boyfriend and brother who is legally blind due to a complication of alc
--- NOTE | 2020-11-06 13:35 | WPDINTPN ---
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 There is nonspecific diminished attenuation of cerebral white matter likely due to chronic small-vessel ischemic changes. - Her encephalopathy could be related to Toxic metabolic encephalopathy due to severe sepsis, bacteremia and UTI, - ABGs did not show any hypercapnia or hypoxia. - Continue to monitor at this time - appreciate Neurology evaluation, will obtain MRI - lip smacking and possible trauma/seizure-like activity, started on Keppra, will monitor closely (2) Severe sepsis: Code(s): A41.9 - Sepsis, unspecified organism; R65.20 - Severe sepsis without septic shock Status: Acute Assessment and Plan: Due to E coli bacteremia and E coli UTI - diagnosed with severe sepsis, was given 5 L IV fluid bolus, maintaining blood pressures post IV fluids - lactic acid trending down, will target mean arterial pressures greater than 65 at all times - continue vancomycin, cefepime and azithromycin - blood and urine cultures growing E coli (3) Bacteremia: Code(s): R78.81 - Bacteremia Status: Acute Assessment and Plan: as above (4) UTI (urinary tract infection): Qualifiers: Hematuria presence: without hematuria Urinary tract infection type: site unspecified Qualified Code(s): N39.0 - Urinary tract infection, site not specified Code(s): N39.0 - Urinary tract infection, site not specified Status: Acute Assessment and Plan: as above (5) Pneumonia: Qualifiers: Laterality: unspecified laterality Lung location: unspecified part of lung Pneumonia type: due to unspecified organism Qualified Code(s): J18.9 - Pneumonia, unspecified organism Code(s): J18.9 - Pneumonia, unspecified organism Status: Acute Assessment and Plan: chest x-ray shows more pulmonary vascular congestion, pneumonia cannot be ruled out - continue antibiotics as above (6) Difficulty with insertion of urinary catheter: Status: Acute Assessment and Plan: appreciate urology evaluation and insertion of urinary catheter - urine output has been adequate (7) Acute worsening of stage 3 chronic kidney disease: Code(s): N18.30 - Chronic kidney disease, stage 3 unspecified Status: Acute Assessment and Plan: acute on chronic kidney disease, likely related to hypovolemia, UTI, hypotension, dehydration, on diuretics at home - patient received 5 L of IV fluids ER and the IMU and ICU - continue normal saline at 50 mL/hour - lactic acid has normalized - creatinine improving, urine output has been adequate - continue to monitor renal function, electrolytes and urine output (8) DVT prophylaxis: Code(s): Z29.9 - Encounter for prophylactic measures, unspecified Status: Acute Assessment and Plan: continue heparin Additional Plan discussed with family and updated them with patient's condition and plan of care. I answered all questions also discussed with neurology Code status: Full code Critical care time spent: 33 minutes This dictation may have been done utilizing a voice recognition system. Attempts have been made to correct errors. However, there may be uncorrected grammatical, spelling, and recognition errors present. Due to a high probability of clinically significant, life threatening deterioration, the patient required my highest level of preparedness to intervene emergently and I personally spent this critical care time directly and personally managing the patient. This critical care time included obtaining a history; examining the patient; pulse oximetry; ordering and review of stud
--- NOTE | 2020-11-06 16:12 | PM.IMPN ---
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 There is nonspecific diminished attenuation of cerebral white matter likely due to chronic small-vessel ischemic changes. - Her encephalopathy could be related to Toxic metabolic encephalopathy due to severe sepsis, bacteremia and UTI, - ABGs did not show any hypercapnia or hypoxia. - Continue to monitor at this time - appreciate Neurology evaluation, will obtain MRI - lip smacking and possible trauma/seizure-like activity, started on Keppra, will monitor closely 11/06/20 16:12 patient with E coli bacteremia with E coli UTI and being treated with Cefepime patient remains encephalopathic does not respond to any stimuli, CT scan doneon 11/04/2020 did not show any acute injury patient does have mild cerebral hypertrophic, patient was seen by Neurology recommended MRI for further evaluate, patient seen by electrical worker and appreciate, patient granddaughter is present in the room answered all her questions (2) Severe sepsis: Code(s): A41.9 - Sepsis, unspecified organism; R65.20 - Severe sepsis without septic shock Status: Acute Assessment and Plan: Due to E coli bacteremia and E coli UTI - diagnosed with severe sepsis, was given 5 L IV fluid bolus, maintaining blood pressures post IV fluids - lactic acid trending down, will target mean arterial pressures greater than 65 at all times - continue vancomycin, cefepime and azithromycin - blood and urine cultures growing E coli (3) Bacteremia: Code(s): R78.81 - Bacteremia Status: Acute Assessment and Plan: as above (4) UTI (urinary tract infection): Qualifiers: Hematuria presence: without hematuria Urinary tract infection type: site unspecified Qualified Code(s): N39.0 - Urinary tract infection, site not specified Code(s): N39.0 - Urinary tract infection, site not specified Status: Acute Assessment and Plan: as above (5) Pneumonia: Qualifiers: Laterality: unspecified laterality Lung location: unspecified part of lung Pneumonia type: due to unspecified organism Qualified Code(s): J18.9 - Pneumonia, unspecified organism Code(s): J18.9 - Pneumonia, unspecified organism Status: Acute Assessment and Plan: chest x-ray shows more pulmonary vascular congestion, pneumonia cannot be ruled out - continue antibiotics as above (6) Difficulty with insertion of urinary catheter: Status: Acute Assessment and Plan: appreciate urology evaluation and insertion of urinary catheter - urine output has been adequate (7) Acute worsening of stage 3 chronic kidney disease: Code(s): N18.30 - Chronic kidney disease, stage 3 unspecified Status: Acute Assessment and Plan: acute on chronic kidney disease, likely related to hypovolemia, UTI, hypotension, dehydration, on diuretics at home - patient received 5 L of IV fluids ER and the IMU and ICU - continue normal saline at 50 mL/hour - lactic acid has normalized - creatinine improving, urine output has been adequate - continue to monitor renal function, electrolytes and urine output (8) DVT prophylaxis: Code(s): Z29.9 - Encounter for prophylactic measures, unspecified Status: Acute Assessment and Plan: continue heparin Subjective Date/time seen: 11/06/20 16:12 patient with E coli bacteremia with E coli UTI and being treated with Cefepime patient remains encephalopathic does not respond to any stimuli, CT scan doneon 11/04/2020 did not show any acute injury patient does have mild cerebral hypertrophic, patient was seen by Neurology recommended MRI for further evaluate, eduardo
[2020-11-06] MEDS: levETIRAcetam IV 750 MG in DEXTROSE 5% 100 ML 430 MG IVPB (21:48)
[2020-11-07] VITALS (10 sets, daily range): BP systolic 127–150; BP diastolic 57–75; PULSE 56–73; RESP 13–20; TEMP 36.1–36.9; O2SAT 96–100
[2020-11-07 02:04] LABS: Vancomycin Trough 12.2 ug/mL (10.0-20.0)
[2020-11-07 05:34] LABS: Hematocrit 26.8 % (37.0-47.0); Hemoglobin 8.7 g/dL (12.0-15.0); Immature Platelet Fraction Pct 8.7 % (0.9-11.2); Mean Corpuscular HGB Conc 32.5 g/dl (32-36); Mean Corpuscular Hemoglobin 29.8 pg (26-34); Mean Corpuscular Volume 91.8 fl (80-100); Mean Platelet Volume 12.1 fl (7.4-10.4); Platelet Count Result 75 k/mm3 (150-375); Red Blood Count 2.92 M/mm3 (4.2-5.4); Red Cell Distribution Width 15.6 % (11.5-14.5); White Blood Count 16.8 K/mm3 (4.5-10.0)
[2020-11-07 05:40] LABS: Alanine Aminotransferase 34 U/L (4-35); Albumin Level 2.6 g/dL (3.5-5.1); Alkaline Phosphatase 150 U/L (38-126); Anion Gap 5 mmol/L (8-16); Aspartate Amino Transferase 38 U/L (14-36); Bilirubin,Total 1.1 mg/dL (0.2-1.3); Blood Urea Nitrogen 30 mg/dL (7-17); Calcium 9.4 mg/dL (8.4-10.2); Carbon Dioxide 26 mmol/L (22-30); Chloride 108 mmol/L (98-107); Estimated CRCL calculation 49 ml/min; Estimated Glomerular Filt Rate 55; Glucose 112 mg/dL (65-110); Magnesium 1.6 mg/dL (1.6-2.3); Phosphorus 2.5 mg/dL (2.5-4.5); Potassium 3.4 mmol/L (3.4-5.0); Sodium 139 mmol/L (137-145)
[2020-11-07] MEDS: CENTRAL LINE FLUSH 10 ML IV PUSH ×3 (06:13→21:24)
[2020-11-07] MEDS: levETIRAcetam IV 750 MG in DEXTROSE 5% 100 ML 400 MG IVPB (08:01)
[2020-11-07] MEDS: SODIUM CHLORIDE 0.9% IV 1,000 ML 50 ML IV CONT (08:01)
[2020-11-07] MEDS: MAGNESIUM SULF 2 GM/WATER 50ML 2 GM/50 ML BAG IVPB (08:02)
[2020-11-07] MEDS: PANTOPRAZOLE SODIUM IV 40 MG VIAL IV PUSH ×2 (08:02→21:16)
--- NOTE | 2020-11-07 11:45 | WPDINTPN ---
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 There is nonspecific diminished attenuation of cerebral white matter likely due to chronic small-vessel ischemic changes. - Her encephalopathy could be related to Toxic metabolic encephalopathy due to severe sepsis, bacteremia and UTI, - ABGs did not show any hypercapnia or hypoxia. - Continue to monitor at this time - appreciate Neurology evaluation, MRI brain to be done today - 11/06: lip smacking and possible trauma/seizure-like activity, continue Keppra (2) Severe sepsis: Code(s): A41.9 - Sepsis, unspecified organism; R65.20 - Severe sepsis without septic shock Status: Acute Assessment and Plan: Due to E coli bacteremia and E coli UTI - diagnosed with severe sepsis, was given 5 L IV fluid bolus, maintaining blood pressures post IV fluids - lactic acid trending down, will target mean arterial pressures greater than 65 at all times - continue vancomycin, cefepime and azithromycin - blood and urine cultures growing E coli (3) Bacteremia: Code(s): R78.81 - Bacteremia Status: Acute Assessment and Plan: as above (4) UTI (urinary tract infection): Qualifiers: Hematuria presence: without hematuria Urinary tract infection type: site unspecified Qualified Code(s): N39.0 - Urinary tract infection, site not specified Code(s): N39.0 - Urinary tract infection, site not specified Status: Acute Assessment and Plan: as above (5) Pneumonia: Qualifiers: Laterality: unspecified laterality Lung location: unspecified part of lung Pneumonia type: due to unspecified organism Qualified Code(s): J18.9 - Pneumonia, unspecified organism Code(s): J18.9 - Pneumonia, unspecified organism Status: Acute Assessment and Plan: chest x-ray shows more pulmonary vascular congestion, pneumonia cannot be ruled out - continue antibiotics as above. Will stop vancomycin and azithromycin (6) Difficulty with insertion of urinary catheter: Status: Acute Assessment and Plan: appreciate urology evaluation and insertion of urinary catheter - urine output has been adequate (7) Acute worsening of stage 3 chronic kidney disease: Code(s): N18.30 - Chronic kidney disease, stage 3 unspecified Status: Acute Assessment and Plan: acute on chronic kidney disease, likely related to hypovolemia, UTI, hypotension, dehydration, on diuretics at home - patient received 5 L of IV fluids ER and the IMU and ICU - continue normal saline at 50 mL/hour - lactic acid has normalized - creatinine improving, urine output has been adequate - continue to monitor renal function, electrolytes and urine output (8) DVT prophylaxis: Code(s): Z29.9 - Encounter for prophylactic measures, unspecified Status: Acute Assessment and Plan: continue heparin Additional Plan discussed with family and updated them with patient's condition and plan of care. I answered all questions Code status: Full code Critical care time spent: 31 minutes This dictation may have been done utilizing a voice recognition system. Attempts have been made to correct errors. However, there may be uncorrected grammatical, spelling, and recognition errors present. Due to a high probability of clinically significant, life threatening deterioration, the patient required my highest level of preparedness to intervene emergently and I personally spent this critical care time directly and personally managing the patient. This critical care time included obtaining a history; examining the patient; pulse oximetry; ordering and review of studie
--- NOTE | 2020-11-07 13:47 | PM.IMPN ---
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 There is nonspecific diminished attenuation of cerebral white matter likely due to chronic small-vessel ischemic changes. - Her encephalopathy could be related to Toxic metabolic encephalopathy due to severe sepsis, bacteremia and UTI, - ABGs did not show any hypercapnia or hypoxia. - Continue to monitor at this time - appreciate Neurology evaluation, MRI brain to be done today - 11/06: lip smacking and possible trauma/seizure-like activity, continue Keppra 11/07/20 13:47 11/06/20 patient with E coli bacteremia with E coli UTI and being treated with Cefepime patient remains encephalopathic does not respond to any stimuli, CT scan doneon 11/04/2020 did not show any acute injury patient does have mild cerebral hypertrophic, patient was seen by Neurology recommended MRI for further evaluate, patient seen by junior legal secretary and appreciate, patient granddaughter is present in the room answered all her questions 11/07 today patient will more alert and oriented states feeling much denies any complaints patient is sister present room I answered all her questions, patient with acute mental status change and tremor and MRI of the brain essentially normal, patient is seen by junior legal secretary and further recommendation to follow. (2) Severe sepsis: Code(s): A41.9 - Sepsis, unspecified organism; R65.20 - Severe sepsis without septic shock Status: Acute Assessment and Plan: Due to E coli bacteremia and E coli UTI - diagnosed with severe sepsis, was given 5 L IV fluid bolus, maintaining blood pressures post IV fluids - lactic acid trending down, will target mean arterial pressures greater than 65 at all times - continue vancomycin, cefepime and azithromycin - blood and urine cultures growing E coli (3) Bacteremia: Code(s): R78.81 - Bacteremia Status: Acute Assessment and Plan: as above (4) UTI (urinary tract infection): Qualifiers: Hematuria presence: without hematuria Urinary tract infection type: site unspecified Qualified Code(s): N39.0 - Urinary tract infection, site not specified Code(s): N39.0 - Urinary tract infection, site not specified Status: Acute Assessment and Plan: as above (5) Pneumonia: Qualifiers: Laterality: unspecified laterality Lung location: unspecified part of lung Pneumonia type: due to unspecified organism Qualified Code(s): J18.9 - Pneumonia, unspecified organism Code(s): J18.9 - Pneumonia, unspecified organism Status: Acute Assessment and Plan: chest x-ray shows more pulmonary vascular congestion, pneumonia cannot be ruled out - continue antibiotics as above. Will stop vancomycin and azithromycin (6) Difficulty with insertion of urinary catheter: Status: Acute Assessment and Plan: appreciate urology evaluation and insertion of urinary catheter - urine output has been adequate (7) Acute worsening of stage 3 chronic kidney disease: Code(s): N18.30 - Chronic kidney disease, stage 3 unspecified Status: Acute Assessment and Plan: acute on chronic kidney disease, likely related to hypovolemia, UTI, hypotension, dehydration, on diuretics at home - patient received 5 L of IV fluids ER and the IMU and ICU - continue normal saline at 50 mL/hour - lactic acid has normalized - creatinine improving, urine output has been adequate - continue to monitor renal function, electrolytes and urine output (8) DVT prophylaxis: Code(s): Z29.9 - Encounter for prophylactic measures, unspecified Status: Acute Assessment and Plan: continue heparin A
[2020-11-07] MEDS: ACETAMINOPHEN ELIXIR 325 MG/10.15 ML UDC 650 MG PO ×2 (14:10→22:01)
--- NOTE | 2020-11-07 14:20 | WPDNEUROPN ---
Progress Note: A&P Additional Plan continue the treatment as such, will obtain the MRI of the lumbosacral spine, and subsequently we can schedule the EMG and nerve conduction study Review of Systems Review of Systems: All systems reviewed & are unremarkable except as noted in HPI and below Exam Narrative: Exam Narrative: on examination today he was awake alert cooperative in no obvious acute distress, she was able to follow all the instructions appropriately, his speech was not dysphasic not dysarthric and not dysphonic, pupils were round regular reacting to light equally, extraocular movements were full with no nystagmus, facial sensation was intact, face symmetrical, tongue midline protrusion, uvula in midline, motor examination revealed her to have abilities to move both upper extremities and she could hold it against gravity with eyes closed, there were no obvious tremors, but she had difficulties in moving the legs even when asked by the physician and she mentioned that she uses a walker she can only go for about 10ft she was interested in knowing what her MRI showed which I mentioned to her 8 was negative she also mention to me that she has been told by her family physician that she has neuropathy that is why she can't walk and in addition she also needs the knee replacement bilaterally Objective Data Vital Signs Vital Signs: Vital Signs - 24 hr 11/06/20 16:00 11/06/20 18:00 11/06/20 20:00 Temperature 36.8 C 36.8 C 36.6 C Pulse Rate 68 68 73 Respiratory Rate 16 20 17 Blood Pressure 127/67 133/72 129/69 Pulse Oximetry 100 100 100 11/06/20 22:00 11/07/20 00:00 11/07/20 02:00 Temperature 36.9 C Pulse Rate 72 73 71 Respiratory Rate 72 H 18 17 Blood Pressure 134/72 132/70 133/72 Pulse Oximetry 100 100 100 11/07/20 04:00 11/07/20 06:00 11/07/20 08:00 Temperature 36.6 C 36.4 C L Pulse Rate 65 56 L 71 Respiratory Rate 20 20 18 Blood Pressure 150/57 H 150/62 H 137/67 Pulse Oximetry 100 96 100 11/07/20 10:00 11/07/20 12:00 Temperature 36.9 C Pulse Rate 70 71 Respiratory Rate 14 13 Blood Pressure 134/72 144/75 H Pulse Oximetry 100 100 Intake/Output Intake/Output: Intake & Output 11/04/20 11/05/20 11/06/20 11/07/20 23:59 23:59 23:59 23:59 Intake Total 2100 1950 1757.5 1807.5 Output Total 2800 1875 1375 1600 Balance -700 75 382.5 207.5 Meds/Results Medications: Active Medications Generic Name Dose Route Start Last Admin Trade Name Freq PRN Reason Stop Dose Admin Acetaminophen 650 mg 11/03/20 21:58 11/07/20 14:10 Acetaminophen Elixir 325 Mg/10.15 Ml Udc PO 650 mg Q6H PRN Administration Mild Pain (1-3) or Fever Albuterol 2.5 mg 11/02/20 19:51 11/03/20 20:32 Albuterol Sulfate Neb 2.5 Mg/0.5 Ml Inh INHALATION 2.5 mg Q6HRT PRN Administration Shortness Of Breath Aspirin 81 mg 11/02/20 08:00 11/03/20 07:58 Aspirin 81 Mg Chewable Tablet PO 81 mg DAILY@0800 KATARINA Administration Guaifenesin 200 mg 11/03/20 21:58 Guaifenesin 200 Mg/10 Ml Udc PO Q4H PRN Cough Azithromycin 500 mg in 250 mls @ 250 mls/hr 11/03/20 09:00 11/07/20 08:13 Zithromax IVPB 11/07/20 23:59 250 mls/hr Q24H KATARINA Administration Cefepime HCl 2 gm in 50 mls @ 100 mls/hr 11/05/20 10:00 11/07/20 10:19 Maxipime 2 Gm/D5w 50 Ml IVPB Infused Q12H KATARINA Infusion Vancomycin HCl 1,500 mg in 500 mls @ 333.333 mls/hr 11/05/20 14:00 11/07/20 04:08 Vancomycin 1,500 Mg/D5w 500 Ml IVPB 11/07/20 23:59 Infused Q36H KATARINA Infusion Levetiracetam 750 mg/ Dextrose 107.5 mls @ 430 mls/hr 11/06/20 21:00 11/07/20 08:20 IVPB Infused Q12HR KATARINA Infusion Ipratropium [place] 0.5 mg 11/02/20 19:52 11/03/20 20:32 Ipratropium Br 0.02% Inh Soln 0.5 Mg/2.5 Ml Vial INHALATION 0.5 mg Q6HRT PRN Administration Shortness Of Breath Morphine Sulfate 2 mg 11/07/20 13:08 Morphine Sulfate (*Crx) 2 Mg/Ml Inj IV PUSH Q4HR PRN Pain Rated 7-10 Ondanse
--- NOTE | 2020-11-07 19:54 | PC.NURSE ---
BEATA faxed at 1953 to [facility] Medical dept. Patient to go to room 240.
--- NOTE | 2020-11-07 20:02 | PC.NURSE ---
Report called at 1999. Spoke with LE Glover. All questions answered and plan of care reviewed. Patient to go to 2nd medical room 240.
--- NOTE | 2020-11-07 21:11 | PC.NURSE ---
Received pt from ICU 6 per bed. Pt is Alert and oriented to place and year unsure of time. She is awake. Call light in reach. Oriented to room. Bed exit alarm activated.
[2020-11-07] MEDS: levETIRAcetam IV 750 MG in DEXTROSE 5% 100 ML 430 MG IVPB (21:15)
[2020-11-08] MEDS: CENTRAL LINE FLUSH 10 ML IV PUSH ×3 (05:35→20:11)
[2020-11-08 05:52] LABS: Hemoglobin 8.5 g/dL (12.0-15.0); Mean Corpuscular HGB Conc 32.7 g/dl (32-36); Mean Corpuscular Hemoglobin 29.7 pg (26-34); Mean Corpuscular Volume 90.9 fl (80-100); Mean Platelet Volume 10.6 fl (7.4-10.4); Platelet Count Result 79 k/mm3 (150-375); Red Blood Count 2.86 M/mm3 (4.2-5.4); Red Cell Distribution Width 15.5 % (11.5-14.5); White Blood Count 15.3 K/mm3 (4.5-10.0)
[2020-11-08 06:07] LABS: Alanine Aminotransferase 31 U/L (4-35); Albumin Level 2.7 g/dL (3.5-5.1); Alkaline Phosphatase 144 U/L (38-126); Anion Gap 7 mmol/L (8-16); Aspartate Amino Transferase 43 U/L (14-36); Blood Urea Nitrogen 25 mg/dL (7-17); Calcium 9.5 mg/dL (8.4-10.2); Carbon Dioxide 24 mmol/L (22-30); Chloride 106 mmol/L (98-107); Estimated CRCL calculation 57 ml/min; Estimated Glomerular Filt Rate > 60; Glucose 97 mg/dL (65-110); Magnesium 1.5 mg/dL (1.6-2.3); Phosphorus 2.7 mg/dL (2.5-4.5); Potassium 3.5 mmol/L (3.4-5.0); Sodium 137 mmol/L (137-145)
[2020-11-08 06:08] VITALS: BP 138/55; PULSE 60; RESP 16; TEMP 36.1; O2SAT 100
[2020-11-08 08:00] VITALS: BP 138/79; PULSE 70; RESP 16; TEMP 36.7; O2SAT 100
[2020-11-08] MEDS: levETIRAcetam IV 750 MG in DEXTROSE 5% 100 ML 430 MG IVPB ×2 (08:20→20:11)
[2020-11-08] MEDS: PANTOPRAZOLE SODIUM IV 40 MG VIAL IV PUSH ×2 (08:21→20:11)
--- NOTE | 2020-11-08 10:29 | PM.IMPN ---
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 There is nonspecific diminished attenuation of cerebral white matter likely due to chronic small-vessel ischemic changes. - Her encephalopathy could be related to Toxic metabolic encephalopathy due to severe sepsis, bacteremia and UTI, - ABGs did not show any hypercapnia or hypoxia. - Continue to monitor at this time - appreciate Neurology evaluation, MRI brain to be done today - 11/06: lip smacking and possible trauma/seizure-like activity, continue [facility] 11/08/20 10:29 11/06 patient with E coli bacteremia with E coli UTI and being treated with Cefepime patient remains encephalopathic does not respond to any stimuli, CT scan doneon 11/04/2020 did not show any acute injury patient does have mild cerebral hypertrophic, patient was seen by Neurology recommended MRI for further evaluate, patient seen by refrigeration plant cork insulator and appreciate, patient granddaughter is present in the room answered all her questions 11/07 today patient will more alert and oriented states feeling much denies any complaints patient is sister present room I answered all her questions, patient with acute mental status change and tremor and MRI of the brain essentially normal, patient is seen by refrigeration plant cork insulator and further recommendation to follow. 11/08Patient is out of ICU on medical floor, patient is eating her breakfast, patient states Tylenol liquid see does not like it, will switch over tab and add gabapentin 100 mg t.i.d. for her pain, patient has bacteremia secondary to UTI with E coli pansensitive being treated with Cefepime 10/24 will continue IV antibiotics for total of days. patient clinical symptoms are improved will have a PT OT evaluate the patient, patient will benefit from acute rehab (2) Severe sepsis: Code(s): A41.9 - Sepsis, unspecified organism; R65.20 - Severe sepsis without septic shock Status: Acute Assessment and Plan: Due to E coli bacteremia and E coli UTI - diagnosed with severe sepsis, was given 5 L IV fluid bolus, maintaining blood pressures post IV fluids - lactic acid trending down, will target mean arterial pressures greater than 65 at all times - continue vancomycin, cefepime and azithromycin - blood and urine cultures growing E coli (3) Bacteremia: Code(s): R78.81 - Bacteremia Status: Acute Assessment and Plan: as above (4) UTI (urinary tract infection): Qualifiers: Hematuria presence: without hematuria Urinary tract infection type: site unspecified Qualified Code(s): N39.0 - Urinary tract infection, site not specified Code(s): N39.0 - Urinary tract infection, site not specified Status: Acute Assessment and Plan: as above (5) Pneumonia: Qualifiers: Laterality: unspecified laterality Lung location: unspecified part of lung Pneumonia type: due to unspecified organism Qualified Code(s): J18.9 - Pneumonia, unspecified organism Code(s): J18.9 - Pneumonia, unspecified organism Status: Acute Assessment and Plan: chest x-ray shows more pulmonary vascular congestion, pneumonia cannot be ruled out - continue antibiotics as above. Will stop vancomycin and azithromycin (6) Difficulty with insertion of urinary catheter: Status: Acute Assessment and Plan: appreciate urology evaluation and insertion of urinary catheter - urine output has been adequate (7) Acute worsening of stage 3 chronic kidney disease: Code(s): N18.30 - Chronic kidney disease, stage 3 unspecified Status: Acute Assessment and Plan: acute on chronic kidney disease, likely related to hypovolemia, UTI, hypotension, de
[2020-11-08] MEDS: GABAPENTIN 100 MG CAPSULE PO ×3 (11:23→16:46)
--- NOTE | 2020-11-08 11:43 | PCPTNOTE ---
Attempted PT eval this morning. Pt appears to be confused in regards to mobility at home. She states that she spends most of the time in a recliner, perhaps will use a walker, and wears Depends rather than going to bathroom. However, daughter came by prior to my leaving - she does use rollator in the home, does go into kitchen, etc. Will try PT eval once confusion clears.
--- NOTE | 2020-11-08 12:55 | PCPTNOTE ---
Attempted PT eval this pm - still confused. Will try again tomorrow.
--- NOTE | 2020-11-08 12:55 | PCOTNOTE ---
Attempted OT evaluation, per RN and patient's daughter patient has increased confusion today, daughter requested us to hold therapy today and attempt tomorrow. Will follow and attempt at later time.
[2020-11-08 16:00] VITALS: BP 138/79; PULSE 70; RESP 16; TEMP 36; O2SAT 100
[2020-11-08 21:29] VITALS: BP 136/63; PULSE 67; RESP 16; TEMP 36.1; O2SAT 100
[2020-11-09] MEDS: CENTRAL LINE FLUSH 10 ML IV PUSH ×3 (04:19→21:36)
[2020-11-09 04:48] LABS: Hematocrit 25.8 % (37.0-47.0); Hemoglobin 8.3 g/dL (12.0-15.0); Mean Corpuscular HGB Conc 32.2 g/dl (32-36); Mean Corpuscular Hemoglobin 29.9 pg (26-34); Mean Corpuscular Volume 92.8 fl (80-100); Mean Platelet Volume 11.7 fl (7.4-10.4); Platelet Count Result 90 k/mm3 (150-375); Red Blood Count 2.78 M/mm3 (4.2-5.4); Red Cell Distribution Width 15.4 % (11.5-14.5); White Blood Count 12.3 K/mm3 (4.5-10.0)
[2020-11-09 04:58] LABS: Alanine Aminotransferase 27 U/L (4-35); Albumin Level 2.5 g/dL (3.5-5.1); Alkaline Phosphatase 127 U/L (38-126); Anion Gap 6 mmol/L (8-16); Aspartate Amino Transferase 32 U/L (14-36); Bilirubin,Total 0.8 mg/dL (0.2-1.3); Blood Urea Nitrogen 18 mg/dL (7-17); Calcium 9.3 mg/dL (8.4-10.2); Carbon Dioxide 22 mmol/L (22-30); Chloride 107 mmol/L (98-107); Estimated CRCL calculation 57 ml/min; Estimated Glomerular Filt Rate > 60; Glucose 93 mg/dL (65-110); Magnesium 1.3 mg/dL (1.6-2.3); Phosphorus 2.8 mg/dL (2.5-4.5); Potassium 3.5 mmol/L (3.4-5.0); Sodium 135 mmol/L (137-145)
[2020-11-09 05:47] VITALS: BP 121/55; PULSE 74; RESP 16; TEMP 36.5; O2SAT 100
[2020-11-09] MEDS: levETIRAcetam IV 750 MG in DEXTROSE 5% 100 ML 100 MG IVPB (08:34)
[2020-11-09] MEDS: GABAPENTIN 100 MG CAPSULE PO ×3 (08:35→16:42)
[2020-11-09] MEDS: PANTOPRAZOLE SODIUM IV 40 MG VIAL IV PUSH ×2 (08:35→20:21)
--- NOTE | 2020-11-09 08:37 | PCPTNOTE ---
PT eval on hold due to femoral line. Will try again at later time.
--- NOTE | 2020-11-09 08:39 | PCOTNOTE ---
Hold therapy as patient has a femoral line. Will attempt OT evaluation when medically appropriate.
--- NOTE | 2020-11-09 09:48 | WPDNEUROPN ---
Progress Note: A&P Additional Plan will continue the treatment as such if approved for the rehab she will be treated accordingly Review of Systems Review of Systems: All systems reviewed & are unremarkable except as noted in HPI and below Exam Narrative: Exam Narrative: remains awake alert, follows all the instructions appropriately, ear nose throat examination normal, neck is supple with no restriction, heart regular, lungs clear, abdomen is soft nontender, neurologically she follows all the instructions appropriately extraocular movements are full with no nystagmus, facial sensation intact and so as the face on smile, tongue midline, motor examination reveals her to have no drift of 1 side or the side, and strength is symmetrical but generally weak plantars are downgoing Objective Data Vital Signs Vital Signs: Vital Signs - 24 hr 11/08/20 16:00 11/08/20 21:29 11/09/20 05:47 Temperature 36.0 C L 36.1 C L 36.5 C Pulse Rate 70 67 74 Respiratory Rate 16 16 16 Blood Pressure 138/79 136/63 121/55 L Pulse Oximetry 100 100 100 Intake/Output Intake/Output: Intake & Output 11/06/20 11/07/20 11/08/20 11/09/20 23:59 23:59 23:59 23:59 Intake Total 1757.5 2815.0 2015.0 1000 Output Total 1375 2250 2150 900 Balance 382.5 565.0 -135.0 100 Meds/Results Medications: Active Medications Generic Name Dose Route Start Last Admin Trade Name Freq PRN Reason Stop Dose Admin Acetaminophen 650 mg 11/08/20 09:49 Acetaminophen 325 Mg Tablet PO Q6H PRN Mild Pain (1-3) or Fever Albuterol 2.5 mg 11/02/20 19:51 11/03/20 20:32 Albuterol Sulfate Neb 2.5 Mg/0.5 Ml Inh INHALATION 2.5 mg Q6HRT PRN Administration Shortness Of Breath Aspirin 81 mg 11/02/20 08:00 11/03/20 07:58 Aspirin 81 Mg Chewable Tablet PO 81 mg DAILY@0800 KATARINA Administration Gabapentin 100 mg 11/08/20 09:00 11/09/20 08:35 Gabapentin 100 Mg Capsule PO 100 mg TID KATARINA Administration Guaifenesin 200 mg 11/03/20 21:58 Guaifenesin 200 Mg/10 Ml Udc PO Q4H PRN Cough Cefepime HCl 2 gm in 50 mls @ 100 mls/hr 11/05/20 10:00 11/09/20 09:22 Maxipime 2 Gm/D5w 50 Ml IVPB 100 mls/hr Q12H KATARINA Administration Levetiracetam 750 mg/ Dextrose 107.5 mls @ 430 mls/hr 11/06/20 21:00 11/09/20 08:34 IVPB 100 mls/hr Q12HR KATARINA Administration Ipratropium [place] 0.5 mg 11/02/20 19:52 11/03/20 20:32 Ipratropium Br 0.02% Inh Soln 0.5 Mg/2.5 Ml Vial INHALATION 0.5 mg Q6HRT PRN Administration Shortness Of Breath Ondansetron HCl 4 mg 11/02/20 06:52 11/04/20 12:02 Ondansetron Inj 4 Mg/2 Ml Vial IV PUSH 4 mg Q4H PRN Administration Nausea Pantoprazole Sodium 40 mg 11/04/20 10:45 11/09/20 08:35 Pantoprazole Sodium Iv 40 Mg Vial IV PUSH 40 mg Q12HR KATARINA Administration Sodium Chloride 10 ml 11/02/20 22:00 11/09/20 04:19 Central Line Flush IV PUSH 10 ml Q8HR KATARINA Administration Sodium Chloride 20 ml 11/02/20 21:45 Central Line Flush IV PUSH PRN PRN after blood draws Radiology Results: ITS Impressions Chest/Abdomen/Pelvis CT 11/02/20 08:57 IMPRESSION: Patchy bilateral groundglass infiltrates, right greater than left; differential diagnosis includes pulmonary edema and pneumonia Cardiomegaly Cirrhosis Chest X-Ray 11/04/20 07:43 IMPRESSION: 1. Small lung volumes with mild bibasilar atelectasis. 2. Cardiomegaly with pulmonary vascular congestion. Head CT 11/04/20 11:14 IMPRESSION: Limited examination because of motion artifact; no acute intracranial finding or significant change since 11/02/2020 Dr. Schwab telephoned the report on 11/04/2020 1121 hours to ICU nurse Radha. Brain MRI 11/07/20 13:15 IMPRESSION: 1. No acute intracranial findings. 2. Chronic age related findings. Abdomen X-Ray 11/07/20 13:22 IMPRESSION: Nonspecific abdomen Labs Labs: Laboratory Results - last 24 hr
--- NOTE | 2020-11-09 11:22 | PCNFU ---
Nutrition Follow-Up Complete: Inadequate oral intake related to altered mental status as evidenced by intake records, inability to take oral diet at this time. Goal: Patient to meet estimated nutritional needs. Patient is progressing towards goal. We will continue current goal. Pt current nutrition is Clear liquids. Last recorded weight is 99.2 kg, down from 100.7 kg on admit. Bowel Motility:+BM reported 11/09 Labs Reviewed:BUN 18,Mg 1.3,Na 135, Alb 2.5,Hct 25.8,Hgb 8.3 Meds Noted:Aspirin,Protonix,Atrovent, Maxipime,Zofran. Additional Notes: Patient seen today for nutrition follow up. Patient is tolerating clear liquids well, 30-100% of meals. Spoke with nursing, plans for diet order advancement at some point today. Skin: WNL. Monitoring: Follow up every 5 days.
--- NOTE | 2020-11-09 13:15 | PM.IMPN ---
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 There is nonspecific diminished attenuation of cerebral white matter likely due to chronic small-vessel ischemic changes. - Her encephalopathy could be related to Toxic metabolic encephalopathy due to severe sepsis, bacteremia and UTI, - ABGs did not show any hypercapnia or hypoxia. - Continue to monitor at this time - appreciate Neurology evaluation, MRI brain to be done today - 11/06: lip smacking and possible trauma/seizure-like activity, continue [facility] 11/09/20 13:15 11/06 patient with E coli bacteremia with E coli UTI and being treated with Cefepime patient remains encephalopathic does not respond to any stimuli, CT scan doneon 11/04/2020 did not show any acute injury patient does have mild cerebral hypertrophic, patient was seen by Neurology recommended MRI for further evaluate, patient seen by parts manager and appreciate, patient granddaughter is present in the room answered all her questions 11/07 today patient will more alert and oriented states feeling much denies any complaints patient is sister present room I answered all her questions, patient with acute mental status change and tremor and MRI of the brain essentially normal, patient is seen by parts manager and further recommendation to follow. 11/08Patient is out of ICU on medical floor, patient is eating her breakfast, patient states Tylenol liquid see does not like it, will switch over tab and add gabapentin 100 mg t.i.d. for her pain, patient has bacteremia secondary to UTI with E coli pansensitive being treated with Cefepime 10/24 will continue IV antibiotics for total of days. patient clinical symptoms are improved will have a PT OT evaluate the patient, patient will benefit from acute rehab. 11/09 Patient was started on gabapentin 100 mg t.i.d. for her and it seems the pain is improving, patient seemed to be more alert and orient, today will place the midline and removed femoral central line so patient can participate in physical therapy, will continue Cefepime total of 10 days and today is 8th, 11/24, and patient can be discharged on 11/11. patient is seen by Neurology recommended continue present management will continue to monitor, patient's nephew's present answered all his questions. (2) Severe sepsis: Code(s): A41.9 - Sepsis, unspecified organism; R65.20 - Severe sepsis without septic shock Status: Acute Assessment and Plan: Due to E coli bacteremia and E coli UTI - diagnosed with severe sepsis, was given 5 L IV fluid bolus, maintaining blood pressures post IV fluids - lactic acid trending down, will target mean arterial pressures greater than 65 at all times - continue vancomycin, cefepime and azithromycin - blood and urine cultures growing E coli (3) Bacteremia: Code(s): R78.81 - Bacteremia Status: Acute Assessment and Plan: as above (4) UTI (urinary tract infection): Qualifiers: Hematuria presence: without hematuria Urinary tract infection type: site unspecified Qualified Code(s): N39.0 - Urinary tract infection, site not specified Code(s): N39.0 - Urinary tract infection, site not specified Status: Acute Assessment and Plan: as above (5) Pneumonia: Qualifiers: Laterality: unspecified laterality Lung location: unspecified part of lung Pneumonia type: due to unspecified organism Qualified Code(s): J18.9 - Pneumonia, unspecified organism Code(s): J18.9 - Pneumonia, unspecified organism Status: Acute Assessment and Plan: chest x-ray shows more pulmonary vascular congestion, pneumonia cannot be ruled out - continue antibiot
[2020-11-09] MEDS: LIDOCAINE HCL 1% LOCAL INJ 2 ML AMPUL 5 ML INFILTRATE (13:45)
[2020-11-09 16:30] VITALS: BP 150/67; PULSE 88; RESP 18; TEMP 36.8; O2SAT 100
[2020-11-09] MEDS: NEOMYCIN/POLYMYXIN/BACITRACIN OINTMENT PACKET 1 PACKET (16:42)
[2020-11-09] MEDS: levETIRAcetam Tablet 250 MG, levETIRAcetam Tablet 500 MG 750 MG PO (20:21)
[2020-11-10] VITALS: BP 142/53; PULSE 72; RESP 18; TEMP 36.2; O2SAT 100
[2020-11-10] MEDS: CENTRAL LINE FLUSH 20 ML IV PUSH (05:07)
[2020-11-10] MEDS: CENTRAL LINE FLUSH 10 ML IV PUSH (05:07)
[2020-11-10 05:52] LABS: Hematocrit 25.3 % (37.0-47.0); Hemoglobin 8.3 g/dL (12.0-15.0); Mean Corpuscular HGB Conc 32.8 g/dl (32-36); Mean Corpuscular Hemoglobin 29.7 pg (26-34); Mean Corpuscular Volume 90.7 fl (80-100); Mean Platelet Volume 11.5 fl (7.4-10.4); Platelet Count Result 98 k/mm3 (150-375); Red Blood Count 2.79 M/mm3 (4.2-5.4); Red Cell Distribution Width 14.8 % (11.5-14.5); White Blood Count 8.8 K/mm3 (4.5-10.0)
[2020-11-10 06:34] LABS: Alanine Aminotransferase 26 U/L (4-35); Albumin Level 2.7 g/dL (3.5-5.1); Alkaline Phosphatase 121 U/L (38-126); Anion Gap 5 mmol/L (8-16); Aspartate Amino Transferase 36 U/L (14-36); Bilirubin,Total 0.8 mg/dL (0.2-1.3); Blood Urea Nitrogen 14 mg/dL (7-17); Calcium 9.4 mg/dL (8.4-10.2); Carbon Dioxide 24 mmol/L (22-30); Chloride 109 mmol/L (98-107); Estimated CRCL calculation 65 ml/min; Estimated Glomerular Filt Rate > 60; Glucose 94 mg/dL (65-110); Magnesium 1.2 mg/dL (1.6-2.3); Potassium 3.7 mmol/L (3.4-5.0); Sodium 138 mmol/L (137-145)
[2020-11-10 08:12] VITALS: BP 145/66; PULSE 67; RESP 16; TEMP 36.4; O2SAT 100
[2020-11-10] MEDS: levETIRAcetam Tablet 250 MG, levETIRAcetam Tablet 500 MG 750 MG PO ×2 (09:48→20:47)
[2020-11-10] MEDS: PANTOPRAZOLE SODIUM IV 40 MG VIAL IV PUSH ×2 (09:49→20:46)
[2020-11-10] MEDS: GABAPENTIN 100 MG CAPSULE PO ×3 (09:49→16:41)
[2020-11-10] MEDS: MAGNESIUM SULF 2 GM/WATER 50ML 2 GM/50 ML BAG IVPB (11:20)
[2020-11-10] MEDS: SALINE LOCK FLUSH 10 ML IV PUSH ×2 (14:08→22:42)
--- NOTE | 2020-11-10 16:20 | PC.NURSE ---
Patient told the daughter to check the dirty laundry hamper because there was a friend that had brought her medication. This medication was brought to the nurses station by the daughter. This unidentified medication was disposed of. The front edger was notified that this friend is no longer able to visit the patient.
--- NOTE | 2020-11-10 16:21 | PM.IMPN ---
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 There is nonspecific diminished attenuation of cerebral white matter likely due to chronic small-vessel ischemic changes. - Her encephalopathy could be related to Toxic metabolic encephalopathy due to severe sepsis, bacteremia and UTI, - ABGs did not show any hypercapnia or hypoxia. - Continue to monitor at this time - appreciate Neurology evaluation, MRI brain to be done today - 11/06: lip smacking and possible trauma/seizure-like activity, continue [facility] 11/09/20 13:15 11/06 patient with E coli bacteremia with E coli UTI and being treated with Cefepime patient remains encephalopathic does not respond to any stimuli, CT scan doneon 11/04/2020 did not show any acute injury patient does have mild cerebral hypertrophic, patient was seen by Neurology recommended MRI for further evaluate, patient seen by record systems analyst and appreciate, patient granddaughter is present in the room answered all her questions 11/07 today patient will more alert and oriented states feeling much denies any complaints patient is sister present room I answered all her questions, patient with acute mental status change and tremor and MRI of the brain essentially normal, patient is seen by record systems analyst and further recommendation to follow. 11/08Patient is out of ICU on medical floor, patient is eating her breakfast, patient states Tylenol liquid see does not like it, will switch over tab and add gabapentin 100 mg t.i.d. for her pain, patient has bacteremia secondary to UTI with E coli pansensitive being treated with Cefepime 10/24 will continue IV antibiotics for total of days. patient clinical symptoms are improved will have a PT OT evaluate the patient, patient will benefit from acute rehab. 11/09 Patient was started on gabapentin 100 mg t.i.d. for her and it seems the pain is improving, patient seemed to be more alert and orient, today will place the midline and removed femoral central line so patient can participate in physical therapy, will continue Cefepime total of 10 days and today is 8th, 11/24, and patient can be discharged on 11/11. patient is seen by Neurology recommended continue present management will continue to monitor, patient's nephew's present answered all his questions. 11/10 continues to improve. Will advance her diet. Cefepime 12/25 day neurology on board remains on Keppra for seizure on gabapentin for chronic pain. Leo catheter in place for urinary obstruction (2) Severe sepsis: Code(s): A41.9 - Sepsis, unspecified organism; R65.20 - Severe sepsis without septic shock Status: Acute Assessment and Plan: Due to E coli bacteremia and E coli UTI - diagnosed with severe sepsis, was given 5 L IV fluid bolus, maintaining blood pressures post IV fluids - lactic acid trending down, will target mean arterial pressures greater than 65 at all times - continue vancomycin, cefepime and azithromycin - blood and urine cultures growing E coli (3) Bacteremia: Code(s): R78.81 - Bacteremia Status: Acute Assessment and Plan: as above (4) UTI (urinary tract infection): Qualifiers: Hematuria presence: without hematuria Urinary tract infection type: site unspecified Qualified Code(s): N39.0 - Urinary tract infection, site not specified Code(s): N39.0 - Urinary tract infection, site not specified Status: Acute Assessment and Plan: as above (5) Pneumonia: Qualifiers: Laterality: unspecified laterality Lung location: unspecified part of lung Pneumonia type: due to unspecified organism Qualified Code(s): J18.9 - Pneumonia, unspecified organism Cod
[2020-11-10 16:28] VITALS: BP 147/68; PULSE 65; RESP 20; TEMP 36.1; O2SAT 100
[2020-11-10 19:52] VITALS: BP 150/66; PULSE 72; RESP 16; TEMP 36.6; O2SAT 100
[2020-11-11] MEDS: CENTRAL LINE FLUSH 20 ML IV PUSH (05:34)
[2020-11-11] MEDS: SALINE LOCK FLUSH 10 ML IV PUSH ×3 (05:34→22:12)
[2020-11-11 05:47] LABS: Basophils Percent Auto 0.3 % (0.2-1.2); Eosinophils Absolute Auto 0.1 K/mm3 (0-0.3); Eosinophils Percent Auto 0.9 % (0-4.4); Hematocrit 25.3 % (37.0-47.0); Hemoglobin 8.3 g/dL (12.0-15.0); Immature Granulocyte Absolute 0.18 K/mm3 (0.00-0.031); Immature Granulocyte Percent A 2.3 % (0-0.5); Lymphocytes Absolute Auto 1.27 K/mm3 (0.9-3.2); Lymphocytes Percent Auto 16.5 % (18.3-44.2); Mean Corpuscular HGB Conc 32.8 g/dl (32-36); Mean Corpuscular Hemoglobin 30.6 pg (26-34); Mean Corpuscular Volume 93.4 fl (80-100); Mean Platelet Volume 10.7 fl (7.4-10.4); Monocytes Absolute Auto 0.4 K/mm3 (0.1-0.6); Monocytes Percent Auto 4.6 % (2.6-8.5); Neutrophils Absolute Auto 5.8 K/mm3 (1.3-6.7); Neutrophils Percent Auto 75.4 % (45.5-73.1); Platelet Count Result 94 k/mm3 (150-375); Red Blood Count 2.71 M/mm3 (4.2-5.4); Red Cell Distribution Width 15.2 % (11.5-14.5); White Blood Count 7.7 K/mm3 (4.5-10.0)
[2020-11-11 05:57] LABS: Anion Gap 7 mmol/L (8-16); Blood Urea Nitrogen 13 mg/dL (7-17); Calcium 9.5 mg/dL (8.4-10.2); Carbon Dioxide 23 mmol/L (22-30); Chloride 107 mmol/L (98-107); Estimated CRCL calculation 72 ml/min; Estimated Glomerular Filt Rate > 60; Glucose 101 mg/dL (65-110); Potassium 3.4 mmol/L (3.4-5.0); Sodium 137 mmol/L (137-145)
[2020-11-11 06:00] VITALS: BP 146/66; PULSE 75; RESP 18; TEMP 36.6; O2SAT 97
[2020-11-11] MEDS: levETIRAcetam Tablet 250 MG, levETIRAcetam Tablet 500 MG 750 MG PO ×2 (09:52→22:10)
[2020-11-11] MEDS: PANTOPRAZOLE SODIUM IV 40 MG VIAL IV PUSH ×2 (09:52→22:12)
[2020-11-11] MEDS: GABAPENTIN 100 MG CAPSULE PO ×3 (09:52→16:26)
[2020-11-11] MEDS: ACETAMINOPHEN 325 MG TABLET 650 MG PO (09:58)
[2020-11-11] MEDS: FUROSEMIDE INJ 40 MG/4 ML VIAL IV PUSH (12:39)
[2020-11-11] MEDS: LOPERAMIDE HCL 2 MG CAPSULE PO (12:39)
--- NOTE | 2020-11-11 13:30 | PM.IMPN ---
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 There is nonspecific diminished attenuation of cerebral white matter likely due to chronic small-vessel ischemic changes. - Her encephalopathy could be related to Toxic metabolic encephalopathy due to severe sepsis, bacteremia and UTI, - ABGs did not show any hypercapnia or hypoxia. - Continue to monitor at this time - appreciate Neurology evaluation, MRI brain to be done today - 11/06: lip smacking and possible trauma/seizure-like activity, continue [facility] 11/09/20 13:15 11/06 patient with E coli bacteremia with E coli UTI and being treated with Cefepime patient remains encephalopathic does not respond to any stimuli, CT scan doneon 11/04/2020 did not show any acute injury patient does have mild cerebral hypertrophic, patient was seen by Neurology recommended MRI for further evaluate, patient seen by teacher resource and appreciate, patient granddaughter is present in the room answered all her questions 11/07 today patient will more alert and oriented states feeling much denies any complaints patient is sister present room I answered all her questions, patient with acute mental status change and tremor and MRI of the brain essentially normal, patient is seen by teacher resource and further recommendation to follow. 11/08Patient is out of ICU on medical floor, patient is eating her breakfast, patient states Tylenol liquid see does not like it, will switch over tab and add gabapentin 100 mg t.i.d. for her pain, patient has bacteremia secondary to UTI with E coli pansensitive being treated with Cefepime 10/24 will continue IV antibiotics for total of days. patient clinical symptoms are improved will have a PT OT evaluate the patient, patient will benefit from acute rehab. 11/09 Patient was started on gabapentin 100 mg t.i.d. for her and it seems the pain is improving, patient seemed to be more alert and orient, today will place the midline and removed femoral central line so patient can participate in physical therapy, will continue Cefepime total of 10 days and today is 8th, 11/24, and patient can be discharged on 11/11. patient is seen by Neurology recommended continue present management will continue to monitor, patient's nephew's present answered all his questions. 11/10 continues to improve. Will advance her diet. Cefepime 12/25 day neurology on board remains on Keppra for seizure on gabapentin for chronic pain. Leo catheter in place for urinary obstruction 11/11 will add a Imodium p.r.n. C diff negative on cefepime 10 x 10. Leo catheter in place for urinary obstruction. For lower extremity swelling will give IV Lasix today recheck labs in the morning. discuss rehab placement for her as she is still quite weak from her illness and the family members in agreement. Will send referral out (2) Severe sepsis: Code(s): A41.9 - Sepsis, unspecified organism; R65.20 - Severe sepsis without septic shock Status: Acute Assessment and Plan: Due to E coli bacteremia and E coli UTI - diagnosed with severe sepsis, was given 5 L IV fluid bolus, maintaining blood pressures post IV fluids - lactic acid trending down, will target mean arterial pressures greater than 65 at all times - continue vancomycin, cefepime and azithromycin - blood and urine cultures growing E coli (3) Bacteremia: Code(s): R78.81 - Bacteremia Status: Acute Assessment and Plan: as above (4) UTI (urinary tract infection): Qualifiers: Hematuria presence: without hematuria Urinary tract infection type: site unspecified Qualified Code(s): N39.0 - Urinary tract infection, site not specified Code(s): N
[2020-11-11 14:00] VITALS: BP 151/63; PULSE 68; RESP 18; TEMP 35.9; O2SAT 100
[2020-11-11 21:20] VITALS: BP 146/58; PULSE 81; RESP 18; TEMP 36.6; O2SAT 99
[2020-11-12 06:00] VITALS: BP 107/62; PULSE 91; RESP 20; TEMP 36.3; O2SAT 98
[2020-11-12] MEDS: SALINE LOCK FLUSH 10 ML IV PUSH ×3 (06:46→21:23)
[2020-11-12] MEDS: GABAPENTIN 100 MG CAPSULE PO ×3 (08:33→17:02)
[2020-11-12] MEDS: levETIRAcetam Tablet 250 MG, levETIRAcetam Tablet 500 MG 750 MG PO ×2 (08:33→21:23)
[2020-11-12] MEDS: PANTOPRAZOLE SODIUM IV 40 MG VIAL IV PUSH ×2 (08:36→21:23)
[2020-11-12 08:56] LABS: Basophils Percent Auto 0.3 % (0.2-1.2); Eosinophils Absolute Auto 0.1 K/mm3 (0-0.3); Hematocrit 25.3 % (37.0-47.0); Hemoglobin 8.2 g/dL (12.0-15.0); Immature Granulocyte Absolute 0.09 K/mm3 (0.00-0.031); Immature Granulocyte Percent A 1.4 % (0-0.5); Mean Corpuscular HGB Conc 32.4 g/dl (32-36); Mean Corpuscular Hemoglobin 30.3 pg (26-34); Mean Corpuscular Volume 93.4 fl (80-100); Mean Platelet Volume 10.8 fl (7.4-10.4); Monocytes Absolute Auto 0.3 K/mm3 (0.1-0.6); Monocytes Percent Auto 4.2 % (2.6-8.5); Neutrophils Absolute Auto 4.8 K/mm3 (1.3-6.7); Neutrophils Percent Auto 77.1 % (45.5-73.1); Platelet Count Result 110 k/mm3 (150-375); Red Blood Count 2.71 M/mm3 (4.2-5.4); Red Cell Distribution Width 15.3 % (11.5-14.5); White Blood Count 6.3 K/mm3 (4.5-10.0)
[2020-11-12 09:14] LABS: Anion Gap 9 mmol/L (8-16); Blood Urea Nitrogen 12 mg/dL (7-17); Calcium 9.3 mg/dL (8.4-10.2); Carbon Dioxide 20 mmol/L (22-30); Chloride 107 mmol/L (98-107); Estimated CRCL calculation 64 ml/min; Estimated Glomerular Filt Rate > 60; Glucose 140 mg/dL (65-110); Magnesium 1.1 mg/dL (1.6-2.3); Potassium 3.3 mmol/L (3.4-5.0); Sodium 136 mmol/L (137-145)
[2020-11-12 09:46] LABS: Atypical Lymphocytes Present; Hypochromasia 2+ (NORMAL); Platelet Estimate Adequate (Adequate)
--- NOTE | 2020-11-12 11:42 | PM.IMPN ---
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 There is nonspecific diminished attenuation of cerebral white matter likely due to chronic small-vessel ischemic changes. - Her encephalopathy could be related to Toxic metabolic encephalopathy due to severe sepsis, bacteremia and UTI, - ABGs did not show any hypercapnia or hypoxia. - Continue to monitor at this time - appreciate Neurology evaluation, MRI brain to be done today - 11/06: lip smacking and possible trauma/seizure-like activity, continue [facility] 11/09/20 13:15 11/06 patient with E coli bacteremia with E coli UTI and being treated with Cefepime patient remains encephalopathic does not respond to any stimuli, CT scan doneon 11/04/2020 did not show any acute injury patient does have mild cerebral hypertrophic, patient was seen by Neurology recommended MRI for further evaluate, patient seen by brass chaser and appreciate, patient granddaughter is present in the room answered all her questions 11/07 today patient will more alert and oriented states feeling much denies any complaints patient is sister present room I answered all her questions, patient with acute mental status change and tremor and MRI of the brain essentially normal, patient is seen by brass chaser and further recommendation to follow. 11/08Patient is out of ICU on medical floor, patient is eating her breakfast, patient states Tylenol liquid see does not like it, will switch over tab and add gabapentin 100 mg t.i.d. for her pain, patient has bacteremia secondary to UTI with E coli pansensitive being treated with Cefepime 10/24 will continue IV antibiotics for total of days. patient clinical symptoms are improved will have a PT OT evaluate the patient, patient will benefit from acute rehab. 11/09 Patient was started on gabapentin 100 mg t.i.d. for her and it seems the pain is improving, patient seemed to be more alert and orient, today will place the midline and removed femoral central line so patient can participate in physical therapy, will continue Cefepime total of 10 days and today is 8th, 11/24, and patient can be discharged on 11/11. patient is seen by Neurology recommended continue present management will continue to monitor, patient's nephew's present answered all his questions. 11/10 continues to improve. Will advance her diet. Cefepime 12/25 day neurology on board remains on Keppra for seizure on gabapentin for chronic pain. Leo catheter in place for urinary obstruction 11/11 will add a Imodium p.r.n. C diff negative on cefepime 10 x 10. Leo catheter in place for urinary obstruction. For lower extremity swelling will give IV Lasix today recheck labs in the morning. discuss rehab placement for her as she is still quite weak from her illness and the family members in agreement. Will send referral out 11/12 diarrhea improving C diff negative. Continue cefepime while inpatient this is his day. Leo in for urinary obstruction. Potassium is low which will be replaced magnesium is low will replace as well. Will be dose of Lasix today. Had Ativan daily p.r.n. which is a chronic med reviewed her prescription drug history (2) Severe sepsis: Code(s): A41.9 - Sepsis, unspecified organism; R65.20 - Severe sepsis without septic shock Status: Acute Assessment and Plan: Due to E coli bacteremia and E coli UTI - diagnosed with severe sepsis, was given 5 L IV fluid bolus, maintaining blood pressures post IV fluids - lactic acid trending down, will target mean arterial pressures greater than 65 at all times - continue vancomycin, cefepime and azithromycin - blood and urine cultures growing E coli (3) Bacteremia:
[2020-11-12] MEDS: FUROSEMIDE INJ 40 MG/4 ML VIAL IV PUSH (13:06)
[2020-11-12] MEDS: POTASSIUM CHLORIDE 20 MEQ TABLET 40 MEQ PO (13:07)
[2020-11-12] MEDS: LORazepam (*CRX) 0.5 MG TABLET PO (13:07)
[2020-11-12] MEDS: MAGNESIUM SULF 2 GM/WATER 50ML 2 GM/50 ML BAG IVPB (13:08)
[2020-11-12 14:00] VITALS: BP 140/58; PULSE 75; RESP 18; TEMP 36.4; O2SAT 100
[2020-11-12 22:00] VITALS: BP 150/62; PULSE 68; RESP 21; TEMP 36.2; O2SAT 100
[2020-11-13 05:56] LABS: Basophils Percent Auto 0.4 % (0.2-1.2); Eosinophils Absolute Auto 0.1 K/mm3 (0-0.3); Eosinophils Percent Auto 0.9 % (0-4.4); Hematocrit 25.2 % (37.0-47.0); Hemoglobin 8.2 g/dL (12.0-15.0); Immature Granulocyte Absolute 0.06 K/mm3 (0.00-0.031); Immature Granulocyte Percent A 1.1 % (0-0.5); Lymphocytes Absolute Auto 1.12 K/mm3 (0.9-3.2); Lymphocytes Percent Auto 19.6 % (18.3-44.2); Mean Corpuscular HGB Conc 32.5 g/dl (32-36); Mean Corpuscular Volume 92.3 fl (80-100); Mean Platelet Volume 11.1 fl (7.4-10.4); Monocytes Absolute Auto 0.3 K/mm3 (0.1-0.6); Monocytes Percent Auto 5.3 % (2.6-8.5); Neutrophils Absolute Auto 4.2 K/mm3 (1.3-6.7); Neutrophils Percent Auto 72.7 % (45.5-73.1); Platelet Count Result 117 k/mm3 (150-375); Red Blood Count 2.73 M/mm3 (4.2-5.4); Red Cell Distribution Width 15.3 % (11.5-14.5); White Blood Count 5.7 K/mm3 (4.5-10.0)
[2020-11-13 06:00] VITALS: BP 133/70; PULSE 81; RESP 21; TEMP 36.9; O2SAT 100
[2020-11-13 06:07] LABS: Anion Gap 7 mmol/L (8-16); Blood Urea Nitrogen 11 mg/dL (7-17); Calcium 9.5 mg/dL (8.4-10.2); Carbon Dioxide 22 mmol/L (22-30); Chloride 109 mmol/L (98-107); Estimated CRCL calculation 53 ml/min; Estimated Glomerular Filt Rate > 60; Glucose 95 mg/dL (65-110); Magnesium 1.3 mg/dL (1.6-2.3); Potassium 3.6 mmol/L (3.4-5.0); Sodium 138 mmol/L (137-145)
[2020-11-13] MEDS: MAGNESIUM OXIDE 400 MG TABLET PO (06:46)
[2020-11-13] MEDS: SALINE LOCK FLUSH 10 ML IV PUSH ×3 (06:47→20:37)
--- NOTE | 2020-11-13 08:13 | PM.IMPN ---
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 There is nonspecific diminished attenuation of cerebral white matter likely due to chronic small-vessel ischemic changes. - Her encephalopathy could be related to Toxic metabolic encephalopathy due to severe sepsis, bacteremia and UTI, - ABGs did not show any hypercapnia or hypoxia. - Continue to monitor at this time - appreciate Neurology evaluation, MRI brain to be done today - 11/06: lip smacking and possible trauma/seizure-like activity, continue [facility] 11/09/20 13:15 11/06 patient with E coli bacteremia with E coli UTI and being treated with Cefepime patient remains encephalopathic does not respond to any stimuli, CT scan doneon 11/04/2020 did not show any acute injury patient does have mild cerebral hypertrophic, patient was seen by Neurology recommended MRI for further evaluate, patient seen by overseamer and appreciate, patient granddaughter is present in the room answered all her questions 11/07 today patient will more alert and oriented states feeling much denies any complaints patient is sister present room I answered all her questions, patient with acute mental status change and tremor and MRI of the brain essentially normal, patient is seen by overseamer and further recommendation to follow. 11/08Patient is out of ICU on medical floor, patient is eating her breakfast, patient states Tylenol liquid see does not like it, will switch over tab and add gabapentin 100 mg t.i.d. for her pain, patient has bacteremia secondary to UTI with E coli pansensitive being treated with Cefepime 10/24 will continue IV antibiotics for total of days. patient clinical symptoms are improved will have a PT OT evaluate the patient, patient will benefit from acute rehab. 11/09 Patient was started on gabapentin 100 mg t.i.d. for her and it seems the pain is improving, patient seemed to be more alert and orient, today will place the midline and removed femoral central line so patient can participate in physical therapy, will continue Cefepime total of 10 days and today is 8th, 11/24, and patient can be discharged on 11/11. patient is seen by Neurology recommended continue present management will continue to monitor, patient's nephew's present answered all his questions. 11/10 continues to improve. Will advance her diet. Cefepime 12/25 day neurology on board remains on Keppra for seizure on gabapentin for chronic pain. Leo catheter in place for urinary obstruction 11/11 will add a Imodium p.r.n. C diff negative on cefepime 10 x 10. Leo catheter in place for urinary obstruction. For lower extremity swelling will give IV Lasix today recheck labs in the morning. discuss rehab placement for her as she is still quite weak from her illness and the family members in agreement. Will send referral out 11/12 diarrhea improving C diff negative. Continue cefepime while inpatient this is his day. Leo in for urinary obstruction. Potassium is low which will be replaced magnesium is low will replace as well. Will be dose of Lasix today. Had Ativan daily p.r.n. which is a chronic med reviewed her prescription drug history 11/13 diarrhea has improved. Cefepime to continue while inpatient here. Leo in for urinary obstruction. Will continue Leo at discharge follow-up with regular urologist. Will start 40 mg of p.o. Lasix today replace her magnesium potassium is normal today will add it was for her lower extremity today. Needs further rehabilitation awaiting placement (2) Severe sepsis: Code(s): A41.9 - Sepsis, unspecified organism; R65.20 - Severe sepsis without septic shock Status: Acute Assessment and Plan:
[2020-11-13] MEDS: MAGNESIUM SULF 2 GM/WATER 50ML 2 GM/50 ML BAG IVPB (09:21)
[2020-11-13] MEDS: levETIRAcetam Tablet 250 MG, levETIRAcetam Tablet 500 MG 750 MG PO ×2 (09:22→20:36)
[2020-11-13] MEDS: GABAPENTIN 100 MG CAPSULE PO ×3 (09:22→16:43)
[2020-11-13] MEDS: FUROSEMIDE 40 MG TABLET PO (09:23)
--- NOTE | 2020-11-13 10:56 | PCNFU ---
Nutrition Follow-Up Complete: Inadequate oral intake related to altered mental status as evidenced by intake records, inability to take oral diet at this time. Goal: Patient to meet estimated nutritional needs. Patient has not yet met goal. Will continue to work towards current goal. Pt current nutrition is Regular diet. Last recorded weight is 101.5 kg. Bowel Motility: Last BM: 11/11 Labs Reviewed: Hgb 8.2, Hct 25.2, Na 138, K 3.6, BUN 11, Cr 1.10, Glu 95 Meds Noted: Tylenol, Albuterol, Aspirin, Cefepime Hcl, Lasix, Neurontin, Guaifenesin, Atrovent Neb, Mag-ox, Zofran, Protonix, Central line flush, Saline lock flush. Additional Notes: 50 to 100% of meals being consumed. Patient reports that is it sometimes hard to chew the food, but she just takes her time to chew it all up. Appetite is good, and was reported that it was even when she was on a clear liquid diet. Will continue to monitor bowel motility, meal consumption, and weight. Follow up every 5 days.
--- NOTE | 2020-11-13 12:02 | PCNSR ---
On 11/13/20, the student,Chelsey Mays, provided care and completed [facility] documentation on this patient. I have reviewed the student's documentation and agree with the findings.
[2020-11-13] MEDS: PANTOPRAZOLE SODIUM IV 40 MG VIAL IV PUSH ×2 (12:43→20:36)
[2020-11-13 14:00] VITALS: BP 153/63; PULSE 74; RESP 16; TEMP 36.4; O2SAT 99
[2020-11-13 16:40] VITALS: BP 164/66; PULSE 73; RESP 28; TEMP 37.8; O2SAT 100
[2020-11-13] MEDS: ACETAMINOPHEN 325 MG TABLET 650 MG PO (16:43)
[2020-11-13 18:50] LABS: Add Urine Microscopic? YES; Appearance Urine Clear (Clear); Bacteria Urine Trace /hpf; Bilirubin Urine Negative (Negative); Blood Urine 1+ (Negative); Color Urine Yellow (Yellow); Glucose Urine UA Negative (Negative); Ketones Urine Negative (Negative); Leukocyte Esterase Ur Negative LEU/UL (NEGATIVE); Mucus Urine Rare /lpf; Nitrate Urine Negative (Negative); Protein Urine 2+ mg/dL (Negative); Specific Grav Ur 1.013 (1.001-1.035); Squamous Epithelial Cell Urine Rare /hpf (Few); Urobilinogen Urine Negative mg/dL (<2.0); WBC Urine 0-3 /hpf (0-3)
[2020-11-13] MEDS: LORazepam (*CRX) 0.5 MG TABLET PO (20:34)
[2020-11-13 21:37] VITALS: BP 151/65; PULSE 79; RESP 16; TEMP 36.8; O2SAT 98
[2020-11-14 05:35] VITALS: BP 144/59; PULSE 84; RESP 16; TEMP 37.2; O2SAT 97
[2020-11-14] MEDS: SALINE LOCK FLUSH 10 ML IV PUSH ×3 (05:38→20:20)
[2020-11-14] MEDS: MAGNESIUM OXIDE 400 MG TABLET PO (05:38)
[2020-11-14 06:23] LABS: Basophils Percent Auto 0.4 % (0.2-1.2); Eosinophils Absolute Auto 0.1 K/mm3 (0-0.3); Eosinophils Percent Auto 1.3 % (0-4.4); Hematocrit 24.2 % (37.0-47.0); Hemoglobin 7.6 g/dL (12.0-15.0); Immature Granulocyte Absolute 0.04 K/mm3 (0.00-0.031); Immature Granulocyte Percent A 0.8 % (0-0.5); Immature Platelet Fraction Pct 3.6 % (0.9-11.2); Lymphocytes Absolute Auto 0.95 K/mm3 (0.9-3.2); Lymphocytes Percent Auto 20.1 % (18.3-44.2); Mean Corpuscular HGB Conc 31.4 g/dl (32-36); Mean Corpuscular Hemoglobin 29.6 pg (26-34); Mean Corpuscular Volume 94.2 fl (80-100); Mean Platelet Volume 10.7 fl (7.4-10.4); Monocytes Absolute Auto 0.3 K/mm3 (0.1-0.6); Monocytes Percent Auto 5.7 % (2.6-8.5); Neutrophils Absolute Auto 3.4 K/mm3 (1.3-6.7); Neutrophils Percent Auto 71.7 % (45.5-73.1); Platelet Count Result 127 k/mm3 (150-375); Red Blood Count 2.57 M/mm3 (4.2-5.4); Red Cell Distribution Width 15.6 % (11.5-14.5); White Blood Count 4.7 K/mm3 (4.5-10.0)
[2020-11-14 06:34] LABS: Anion Gap 7 mmol/L (8-16); Blood Urea Nitrogen 11 mg/dL (7-17); Calcium 9.5 mg/dL (8.4-10.2); Carbon Dioxide 22 mmol/L (22-30); Chloride 110 mmol/L (98-107); Estimated CRCL calculation 58 ml/min; Estimated Glomerular Filt Rate > 60; Glucose 97 mg/dL (65-110); Magnesium 1.5 mg/dL (1.6-2.3); Potassium 3.7 mmol/L (3.4-5.0); Sodium 139 mmol/L (137-145)
--- NOTE | 2020-11-14 09:35 | PM.IMPN ---
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 There is nonspecific diminished attenuation of cerebral white matter likely due to chronic small-vessel ischemic changes. - Her encephalopathy could be related to Toxic metabolic encephalopathy due to severe sepsis, bacteremia and UTI, - ABGs did not show any hypercapnia or hypoxia. - Continue to monitor at this time - appreciate Neurology evaluation, MRI brain to be done today - 11/06: lip smacking and possible trauma/seizure-like activity, continue [facility] 11/09/20 13:15 11/06 patient with E coli bacteremia with E coli UTI and being treated with Cefepime patient remains encephalopathic does not respond to any stimuli, CT scan doneon 11/04/2020 did not show any acute injury patient does have mild cerebral hypertrophic, patient was seen by Neurology recommended MRI for further evaluate, patient seen by automotive detailer and appreciate, patient granddaughter is present in the room answered all her questions 11/07 today patient will more alert and oriented states feeling much denies any complaints patient is sister present room I answered all her questions, patient with acute mental status change and tremor and MRI of the brain essentially normal, patient is seen by automotive detailer and further recommendation to follow. 11/08Patient is out of ICU on medical floor, patient is eating her breakfast, patient states Tylenol liquid see does not like it, will switch over tab and add gabapentin 100 mg t.i.d. for her pain, patient has bacteremia secondary to UTI with E coli pansensitive being treated with Cefepime 10/24 will continue IV antibiotics for total of days. patient clinical symptoms are improved will have a PT OT evaluate the patient, patient will benefit from acute rehab. 11/09 Patient was started on gabapentin 100 mg t.i.d. for her and it seems the pain is improving, patient seemed to be more alert and orient, today will place the midline and removed femoral central line so patient can participate in physical therapy, will continue Cefepime total of 10 days and today is 8th, 11/24, and patient can be discharged on 11/11. patient is seen by Neurology recommended continue present management will continue to monitor, patient's nephew's present answered all his questions. 11/10 continues to improve. Will advance her diet. Cefepime 12/25 day neurology on board remains on Keppra for seizure on gabapentin for chronic pain. Leo catheter in place for urinary obstruction 11/11 will add a Imodium p.r.n. C diff negative on cefepime 10 x 10. Leo catheter in place for urinary obstruction. For lower extremity swelling will give IV Lasix today recheck labs in the morning. discuss rehab placement for her as she is still quite weak from her illness and the family members in agreement. Will send referral out 11/12 diarrhea improving C diff negative. Continue cefepime while inpatient this is his day. Leo in for urinary obstruction. Potassium is low which will be replaced magnesium is low will replace as well. Will be dose of Lasix today. Had Ativan daily p.r.n. which is a chronic med reviewed her prescription drug history 11/13 diarrhea has improved. Cefepime to continue while inpatient here. Leo in for urinary obstruction. Will continue Leo at discharge follow-up with regular urologist. Will start 40 mg of p.o. Lasix today replace her magnesium potassium is normal today will add it was for her lower extremity today. Needs further rehabilitation awaiting placement 11/14 episode of confusion yesterday evening unclear etiology CT head negative she had mild fever during that episode of 100.1 no further recurrence of her fever. Rep
[2020-11-14] MEDS: FUROSEMIDE 40 MG TABLET PO (09:44)
[2020-11-14] MEDS: GABAPENTIN 100 MG CAPSULE PO ×3 (09:44→16:40)
[2020-11-14] MEDS: MAGNESIUM SULF 2 GM/WATER 50ML 2 GM/50 ML BAG IVPB (09:44)
[2020-11-14] MEDS: levETIRAcetam Tablet 250 MG, levETIRAcetam Tablet 500 MG 750 MG PO ×2 (09:44→20:19)
[2020-11-14] MEDS: PANTOPRAZOLE SODIUM IV 40 MG VIAL IV PUSH ×2 (09:44→20:19)
[2020-11-14] MEDS: LOPERAMIDE HCL 2 MG CAPSULE PO (13:11)
[2020-11-14 14:00] VITALS: BP 148/66; PULSE 65; RESP 20; TEMP 36.8; O2SAT 100
[2020-11-14] MEDS: LORazepam (*CRX) 0.5 MG TABLET PO (20:19)
[2020-11-14] MEDS: ACETAMINOPHEN 325 MG TABLET 650 MG PO (21:05)
[2020-11-14 21:44] VITALS: BP 142/61; PULSE 70; RESP 18; TEMP 37.1; O2SAT 97
[2020-11-15] MEDS: ACETAMINOPHEN 325 MG TABLET 650 MG PO ×3 (04:57→22:31)
[2020-11-15] MEDS: MAGNESIUM OXIDE 400 MG TABLET PO (04:57)
[2020-11-15] MEDS: SALINE LOCK FLUSH 10 ML IV PUSH ×3 (04:58→21:19)
[2020-11-15 05:32] LABS: Basophils Percent Auto 0.4 % (0.2-1.2); Eosinophils Absolute Auto 0.1 K/mm3 (0-0.3); Hemoglobin 8.1 g/dL (12.0-15.0); Immature Granulocyte Absolute 0.02 K/mm3 (0.00-0.031); Immature Granulocyte Percent A 0.4 % (0-0.5); Lymphocytes Absolute Auto 1.25 K/mm3 (0.9-3.2); Lymphocytes Percent Auto 27.3 % (18.3-44.2); Mean Corpuscular HGB Conc 32.4 g/dl (32-36); Mean Corpuscular Hemoglobin 29.9 pg (26-34); Mean Corpuscular Volume 92.3 fl (80-100); Mean Platelet Volume 10.8 fl (7.4-10.4); Monocytes Absolute Auto 0.3 K/mm3 (0.1-0.6); Monocytes Percent Auto 5.7 % (2.6-8.5); Neutrophils Absolute Auto 2.9 K/mm3 (1.3-6.7); Neutrophils Percent Auto 64.2 % (45.5-73.1); Platelet Count Result 141 k/mm3 (150-375); Red Blood Count 2.71 M/mm3 (4.2-5.4); Red Cell Distribution Width 15.2 % (11.5-14.5); White Blood Count 4.6 K/mm3 (4.5-10.0)
[2020-11-15 05:38] LABS: Anion Gap 8 mmol/L (8-16); Blood Urea Nitrogen 11 mg/dL (7-17); Carbon Dioxide 23 mmol/L (22-30); Chloride 108 mmol/L (98-107); Estimated CRCL calculation 53 ml/min; Estimated Glomerular Filt Rate > 60; Glucose 91 mg/dL (65-110); Magnesium 1.4 mg/dL (1.6-2.3); Potassium 3.5 mmol/L (3.4-5.0); Sodium 139 mmol/L (137-145)
[2020-11-15 06:00] VITALS: BP 140/58; PULSE 83; RESP 18; TEMP 37; O2SAT 94
[2020-11-15] MEDS: FUROSEMIDE 40 MG TABLET PO (08:02)
[2020-11-15] MEDS: levETIRAcetam Tablet 250 MG, levETIRAcetam Tablet 500 MG 750 MG PO ×2 (08:02→20:34)
[2020-11-15] MEDS: GABAPENTIN 100 MG CAPSULE PO ×3 (08:02→16:30)
[2020-11-15] MEDS: PANTOPRAZOLE SODIUM IV 40 MG VIAL IV PUSH ×2 (08:02→20:38)
--- NOTE | 2020-11-15 08:40 | PM.IMPN ---
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 There is nonspecific diminished attenuation of cerebral white matter likely due to chronic small-vessel ischemic changes. - Her encephalopathy could be related to Toxic metabolic encephalopathy due to severe sepsis, bacteremia and UTI, - ABGs did not show any hypercapnia or hypoxia. - Continue to monitor at this time - appreciate Neurology evaluation, MRI brain to be done today - 11/06: lip smacking and possible trauma/seizure-like activity, continue [facility] 11/09/20 13:15 11/06 patient with E coli bacteremia with E coli UTI and being treated with Cefepime patient remains encephalopathic does not respond to any stimuli, CT scan doneon 11/04/2020 did not show any acute injury patient does have mild cerebral hypertrophic, patient was seen by Neurology recommended MRI for further evaluate, patient seen by medical apparatus model maker and appreciate, patient granddaughter is present in the room answered all her questions 11/07 today patient will more alert and oriented states feeling much denies any complaints patient is sister present room I answered all her questions, patient with acute mental status change and tremor and MRI of the brain essentially normal, patient is seen by medical apparatus model maker and further recommendation to follow. 11/08Patient is out of ICU on medical floor, patient is eating her breakfast, patient states Tylenol liquid see does not like it, will switch over tab and add gabapentin 100 mg t.i.d. for her pain, patient has bacteremia secondary to UTI with E coli pansensitive being treated with Cefepime 10/24 will continue IV antibiotics for total of days. patient clinical symptoms are improved will have a PT OT evaluate the patient, patient will benefit from acute rehab. 11/09 Patient was started on gabapentin 100 mg t.i.d. for her and it seems the pain is improving, patient seemed to be more alert and orient, today will place the midline and removed femoral central line so patient can participate in physical therapy, will continue Cefepime total of 10 days and today is 8th, 11/24, and patient can be discharged on 11/11. patient is seen by Neurology recommended continue present management will continue to monitor, patient's nephew's present answered all his questions. 11/10 continues to improve. Will advance her diet. Cefepime 12/25 day neurology on board remains on Keppra for seizure on gabapentin for chronic pain. Leo catheter in place for urinary obstruction 11/11 will add a Imodium p.r.n. C diff negative on cefepime 10 x 10. Leo catheter in place for urinary obstruction. For lower extremity swelling will give IV Lasix today recheck labs in the morning. discuss rehab placement for her as she is still quite weak from her illness and the family members in agreement. Will send referral out 11/12 diarrhea improving C diff negative. Continue cefepime while inpatient this is his day. Leo in for urinary obstruction. Potassium is low which will be replaced magnesium is low will replace as well. Will be dose of Lasix today. Had Ativan daily p.r.n. which is a chronic med reviewed her prescription drug history 11/13 diarrhea has improved. Cefepime to continue while inpatient here. Leo in for urinary obstruction. Will continue Leo at discharge follow-up with regular urologist. Will start 40 mg of p.o. Lasix today replace her magnesium potassium is normal today will add it was for her lower extremity today. Needs further rehabilitation awaiting placement 11/14 episode of confusion yesterday evening unclear etiology CT head negative she had mild fever during that episode of 100.1 no further recurrence of her fever. Rep
[2020-11-15 14:50] VITALS: BP 150/65; PULSE 69; RESP 16; TEMP 36.7; O2SAT 100
[2020-11-15] MEDS: LORazepam (*CRX) 0.5 MG TABLET PO (20:36)
[2020-11-15 21:20] VITALS: BP 140/85; PULSE 73; RESP 16; TEMP 36.6; O2SAT 100
[2020-11-16 06:00] VITALS: BP 147/70; PULSE 75; RESP 16; TEMP 36.1; O2SAT 98
--- NOTE | 2020-11-16 06:40 | P.PNIM_ITS ---
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 There is nonspecific diminished attenuation of cerebral white matter likely due to chronic small-vessel ischemic changes. - Her encephalopathy could be related to Toxic metabolic encephalopathy due to severe sepsis, bacteremia and UTI, - ABGs did not show any hypercapnia or hypoxia. - Continue to monitor at this time - appreciate Neurology evaluation, MRI brain to be done today - 11/06: lip smacking and possible trauma/seizure-like activity, continue [facility] 11/09/20 13:15 11/06 patient with E coli bacteremia with E coli UTI and being treated with Cefepime patient remains encephalopathic does not respond to any stimuli, CT scan doneon 11/04/2020 did not show any acute injury patient does have mild cerebral hypertrophic, patient was seen by Neurology recommended MRI for further evaluate, patient seen by marine fuel dock attendant and appreciate, patient granddaughter is present in the room answered all her questions 11/07 today patient will more alert and oriented states feeling much denies any complaints patient is sister present room I answered all her questions, patient with acute mental status change and tremor and MRI of the brain essentially normal, patient is seen by marine fuel dock attendant and further recommendation to follow. 11/08Patient is out of ICU on medical floor, patient is eating her breakfast, patient states Tylenol liquid see does not like it, will switch over tab and add gabapentin 100 mg t.i.d. for her pain, patient has bacteremia secondary to UTI with E coli pansensitive being treated with Cefepime 10/24 will continue IV antibiotics for total of days. patient clinical symptoms are improved will have a PT OT evaluate the patient, patient will benefit from acute rehab. 11/09 Patient was started on gabapentin 100 mg t.i.d. for her and it seems the pain is improving, patient seemed to be more alert and orient, today will place the midline and removed femoral central line so patient can participate in physical therapy, will continue Cefepime total of 10 days and today is 8th, 11/24, and patient can be discharged on 11/11. patient is seen by Neurology recommended continue present management will continue to monitor, patient's nephew's present answered all his questions. 11/10 continues to improve. Will advance her diet. Cefepime 12/25 day neurology on board remains on Keppra for seizure on gabapentin for chronic pain. Leo catheter in place for urinary obstruction 11/11 will add a Imodium p.r.n. C diff negative on cefepime 10 x 10. Leo catheter in place for urinary obstruction. For lower extremity swelling will give IV Lasix today recheck labs in the morning. discuss rehab placement for her as she is still quite weak from her illness and the family members in agreement. Will send referral out 11/12 diarrhea improving C diff negative. Continue cefepime while inpatient this is his day. Leo in for urinary obstruction. Potassium is low which will be replaced magnesium is low will replace as well. Will be dose of Lasix today. Had Ativan daily p.r.n. which is a chronic med reviewed her prescription drug history 11/13 diarrhea has improved. Cefepime to continue while inpatient here. Leo in for urinary obstruction. Will continue Leo at discharge follow-up with regular urologist. Will start 40 mg of p.o. Lasix today replace her magnesium potassium is normal today will add it was for her lowamisha
[2020-11-16] MEDS: MAGNESIUM OXIDE 400 MG TABLET PO (06:54)
[2020-11-16] MEDS: SALINE LOCK FLUSH 10 ML IV PUSH ×3 (06:55→22:35)
[2020-11-16] MEDS: levETIRAcetam Tablet 250 MG, levETIRAcetam Tablet 500 MG 750 MG PO ×2 (08:40→22:34)
[2020-11-16] MEDS: PANTOPRAZOLE SODIUM IV 40 MG VIAL IV PUSH ×2 (08:41→22:35)
[2020-11-16] MEDS: GABAPENTIN 100 MG CAPSULE PO ×3 (08:41→16:46)
[2020-11-16] MEDS: FUROSEMIDE 40 MG TABLET PO (08:41)
[2020-11-16] MEDS: ACETAMINOPHEN 325 MG TABLET 650 MG PO ×3 (08:51→22:34)
[2020-11-16 15:49] VITALS: BP 142/71; PULSE 72; RESP 16; TEMP 36.4; O2SAT 100
[2020-11-16 20:20] VITALS: BP 155/62; PULSE 70; RESP 16; TEMP 36.4; O2SAT 100
[2020-11-16] MEDS: LOPERAMIDE HCL 2 MG CAPSULE PO (22:40)
[2020-11-16] MEDS: LORazepam (*CRX) 0.5 MG TABLET PO (22:40)
[2020-11-17 06:00] VITALS: BP 150/71; PULSE 77; RESP 16; TEMP 36.6; O2SAT 100
[2020-11-17] MEDS: SALINE LOCK FLUSH 10 ML IV PUSH (06:45)
[2020-11-17] MEDS: MAGNESIUM OXIDE 400 MG TABLET PO (06:45)
[2020-11-17] MEDS: ACETAMINOPHEN 325 MG TABLET 650 MG PO (09:02)
[2020-11-17] MEDS: GABAPENTIN 100 MG CAPSULE PO ×2 (09:02→12:28)
[2020-11-17] MEDS: levETIRAcetam Tablet 250 MG, levETIRAcetam Tablet 500 MG 750 MG PO (09:02)
[2020-11-17] MEDS: PANTOPRAZOLE SODIUM IV 40 MG VIAL IV PUSH (09:03)
[2020-11-17] MEDS: FUROSEMIDE 40 MG TABLET PO (09:03)
[2020-11-17] MEDS: LORazepam (*CRX) 0.5 MG TABLET PO (09:15)
--- NOTE | 2020-11-17 11:50 | PM.DS ---
DS: Admitting Diagnosis Admitting Diagnosis Chief Complaint: fever and altered sensorium DS: Discharge Diagnosis Discharge Diagnosis (1) Neuropathy: Code(s): G62.9 - Polyneuropathy, unspecified Status: Acute (2) Encephalopathy acute: Code(s): G93.40 - Encephalopathy, unspecified Status: Acute Assessment and Plan: CT scan of the brain was done on 11/04/2020: which did not show any acute intracranial finding, patient does have mild cerebral and cerebellar atrophy. There is nonspecific diminished attenuation of cerebral white matter likely due to chronic small-vessel ischemic changes. - Her encephalopathy could be related to Toxic metabolic encephalopathy due to severe sepsis, bacteremia and UTI, - ABGs did not show any hypercapnia or hypoxia. - Continue to monitor at this time - appreciate Neurology evaluation, MRI brain to be done today - 11/06: lip smacking and possible trauma/seizure-like activity, continue [facility] 11/09/20 13:15 11/06 patient with E coli bacteremia with E coli UTI and being treated with Cefepime patient remains encephalopathic does not respond to any stimuli, CT scan doneon 11/04/2020 did not show any acute injury patient does have mild cerebral hypertrophic, patient was seen by Neurology recommended MRI for further evaluate, patient seen by thread laster and appreciate, patient granddaughter is present in the room answered all her questions 11/07 today patient will more alert and oriented states feeling much denies any complaints patient is sister present room I answered all her questions, patient with acute mental status change and tremor and MRI of the brain essentially normal, patient is seen by thread laster and further recommendation to follow. 11/08Patient is out of ICU on medical floor, patient is eating her breakfast, patient states Tylenol liquid see does not like it, will switch over tab and add gabapentin 100 mg t.i.d. for her pain, patient has bacteremia secondary to UTI with E coli pansensitive being treated with Cefepime 10/24 will continue IV antibiotics for total of days. patient clinical symptoms are improved will have a PT OT evaluate the patient, patient will benefit from acute rehab. 11/09 Patient was started on gabapentin 100 mg t.i.d. for her and it seems the pain is improving, patient seemed to be more alert and orient, today will place the midline and removed femoral central line so patient can participate in physical therapy, will continue Cefepime total of 10 days and today is , 11/24, and patient can be discharged on 11/11. patient is seen by Neurology recommended continue present management will continue to monitor, patient's nephew's present answered all his questions. 11/10 continues to improve. Will advance her diet. Cefepime 12/25 day neurology on board remains on Keppra for seizure on gabapentin for chronic pain. Leo catheter in place for urinary obstruction 11/11 will add a Imodium p.r.n. C diff negative on cefepime 10 x 10. Leo catheter in place for urinary obstruction. For lower extremity swelling will give IV Lasix today recheck labs in the morning. discuss rehab placement for her as she is still quite weak from her illness and the family members in agreement. Will send referral out 11/12 diarrhea improving C diff negative. Continue cefepime while inpatient this is his day. Leo in for urinary obstruction. Potassium is low which will be replaced magnesium is low will replace as well. Will be dose of Lasix today. Had Ativan daily p.r.n. which is a chronic med reviewed her prescription drug history 11/13 diarrhea has improved. Cefepime to continue while inpatient here. Leo in for urinary obstruction. Will continue Leo at discharge follow-up with regular urologist. Will start 40 mg of p.o. Lasix today replace her magnesium potassium is normal today will add it was for her lower extremity today. Needs further rehabilitat
[2020-11-17 12:51] LABS: EDCOVIDSCREEN Negative (Negative)
== END 2020-11-17 14:30 | DRG 871 ==
LOC: ANHED 03:47 → ANHIMU 09:59 → ANH2MED 11-09 16:10 → ANHICU 11-18 10:22 → ANHIMU 11-18 10:22
PROVIDERS: Family Medicine; Internal Medicine; Nurse Practitioner; Admitting Provider Internal Medicine; Emergency Provider Emergency Medicine; PCP Internal Medicine; Visit Provider Internal Medicine
DX: A41.51 Sepsis due to Escherichia coli [E. coli] (principal); J18.9 Pneumonia, unspecified organism; N39.0 Urinary tract infection, site not specified; N17.9 Acute kidney failure, unspecified; G93.40 Encephalopathy, unspecified; N13.30 Unspecified hydronephrosis; I12.9 Hypertensive chronic kidney disease with stage 1 through stage 4 chronic kidney disease, or unspecified chronic kidney disease; N18.30 Chronic kidney disease, stage 3 unspecified; N89.5 Stricture and atresia of vagina; E78.5 Hyperlipidemia, unspecified; K92.9 Disease of digestive system, unspecified; Y84.2 Radiological procedure and radiotherapy as the cause of abnormal reaction of the patient, or of later complication, without mention of misadventure at the time of the procedure; R56.9 Unspecified convulsions; R33.9 Retention of urine, unspecified
CPT/HCPCS: 36415; 36569; 36600; 51701; 70450; 70551; 71045; 71250; 74019; 74176; 80048; 80053; 80202; 81001; 82805; 82948; 83605; 83735; 83880; 84100; 84484; 85025; 85027; 85055; 85610; 85730; 86140; 87040; 87077; 87086; 87088; 87186; 87324; 87426; 93005; 94002; 94003; 94640; 96365; 97110; 97161; 97166; 97530; 97535; 99285; A9270; C1751; C9113; C9803; J0131; J0456; J0692; J0696; J1940; J1953; J2270; J2405; J3370; J3475; J3480; J7030; J7050; U0003; U0005

== ENCOUNTER 2020-12-17 23:32 | Emergency (ER) | payer OTHER, MEDICARE, SELFPAY ==
--- NOTE | ~2020-12-17 | CT_ITS ---
EXAMINATION: CT abdomen pelvis wo con DATE: 12/18/2020 01:07 INDICATION: Abdominal pain TECHNIQUE: Computed tomography (CT) of the abdomen and pelvis was performed without intravenous contr ast. The dose-length product (DLP) was 951.49 mGy-cm. Automated exposure control and iterative recons truction technique were employed. COMPARISON: 11/13/2020 FINDINGS: Minimal dependent atelectasis is present in the lung bases. Cardiomegaly is noted. There is nodularity of the liver surface. Multiple varices are present in the upper abdomen. The spleen, gall bladder, pancreas, and adrenal glands are normal. There is mild bilateral hydroureteronephrosis. No u rolithiasis is identified. An 8 mm fat attenuation lesion of the left mid kidney likely reflects an a ngiomyolipoma. No pathologically enlarged abdominal or pelvic lymph nodes are identified. There is no free intraperitoneal gas or evidence of bowel obstruction. A moderate volume of colonic stool is pre sent. There is mild lumbar spondylosis. IMPRESSION: 1. Mild bilateral hydroureteronephrosis of unclear etiology. No urolithiasis identified. 2. Cirrhosis. Reviewed, dictated and finalized at location A. IMPRESSION: 1. Mild bilateral hydroureteronephrosis of unclear etiology. No urolithiasis id entified. 2. Cirrhosis.
--- NOTE | ~2020-12-17 | CT_ITS ---
EXAMINATION: CT brain wo con INDICATION: Headache COMPARISON: 11/13/2020 TECHNIQUE: Standard unenhanced head CT. The dose-length product (DLP) was 681.00 mGy-cm. The mA was a djusted according to patient size. Iterative reconstruction technique was employed. FINDINGS: There is no acute intraparenchymal hemorrhage. No evidence of mass lesion. No evidence of a cute infarction. There is mild periventricular and subcortical hypodensity probably related to small vessel ischemic disease. There is mild prominence of the sulci and ventricles related to cerebral atr ophy. Intracranial calcified cerebral atherosclerosis is noted. There are no extra-axial collections. There is no mass effect or midline shift. There is an old medial left orbital wall fracture. The vis ualized sinuses and mastoid air cells are well aerated. IMPRESSION: 1. No acute intracranial abnormality. 2. Age related findings. Reviewed, dictated and finalized at location A.
[2020-12-17 23:36] VITALS: BP 151/82; PULSE 101; RESP 16; TEMP 36.6; O2SAT 94
--- NOTE | 2020-12-17 23:49 | ECG_ITS ---
Measurements Intervals [place] Rate: 106 P: 57 KS: 166 QRS: -1 QRSD: 113 T: 94 QT: 282 QTc: 375 Interpretive Statements SINUS TACHYCARDIA POSSIBLE LEFT ATRIAL ENLARGEMENT INTRAVENTRICULAR CONDUCTION DELAY NONSPECIFIC ST & T-WAVE ABNORMALITY- ANTEROLAT/HIGH LAT LEADS BASELINE ARTIFACT- II, III, AVF, V3 ABNORMAL ECG Electronically Signed On 12-18-2020 5:49:50 CDT by Zuhair Vasquez D.O.
--- NOTE | 2020-12-18 00:02 | ED.AMS ---
HPI - Altered Mental Status General Chief Complaint: Altered Mental Status Stated Complaint: combative pt Time Seen by Provider: 12/17/20 23:56 Source: EMS, RN notes reviewed and old records reviewed History of Present Illness HPI narrative: Patient presents with altered mental status. She was combative in her house throwing things and attempting to bite family members EMS was called and patient was brought in for evaluation. Patient was given ketamine in route and is not responding to questions, family not at bedside to answer questions. Patient was recently admitted for urinary tract infection and altered mental status Related Data Allergies Allergy/AdvReac Type Severity Reaction Status Date / Time No Known Allergies Allergy Verified 11/09/20 13:11 Review of Systems Review of Systems: ROS unobtainable: Yes unobtainable due to mental status PMFSH Past Medical History Medical History Abnormal mammogram of left breast April 2018 Age-related osteoporosis without current pathological fracture Anemia Iron was low at 29, TIBC within normal limits, % saturation low at 7% March 2019 Cataract Maturing left eye cataract Chronic bilateral low back pain without sciatica Chronic gastroesophageal reflux disease Chronic narcotic use Chronic pruritus Thought to be due to her cirrhosis CKD (chronic kidney disease), stage III Coronary artery disease Cardiac catheterization in 1994 demonstrating 40% stenosis 1 vessel Diverticulitis 2002 Gastritis Noted on EGD from April 29, 2019 Hepatic cirrhosis due to chronic hepatitis C infection Status post treatment 2010. Complicated by cirrhosis with portal venous hypertension. Managed at [facility] History of gait disorder Ambulates with a walker Hx of malignant neoplasm of vagina Diagnosed in 1999. Status post chemotherapy and radiation therapy. With repeat vaginal biopsies in 2010. Managed to [facility]. Hyperlipidemia LDL goal <100 Hyperparathyroidism Hypertension, essential, benign Left kidney mass 10 mm inferior pole left kidney mass suspicious for renal cell carcinoma. Patient was evaluated by Urology (Dr. Krishna Torres) at [facility] May 2017 will plan for six month renal ultrasound in [address] for surveillance Obesity (BMI 30-39.9) Peripheral neuropathy, idiopathic Primary osteoarthritis involving multiple joints Pulmonary hypertension Noted on echo from July 2011 with EF of 64% 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 Patient states she has had multiple colonoscopy attempts at [place] that were unsuccessful due to narrowing of her bowel due to radiation treatments from her vaginal cancer in 1999 Rectal bleeding UTI (urinary tract infection) Vitamin D deficiency Vitamin-D level of 05 April 2019 Surgical History Surgical History Abnormal colonoscopy With room most recent colonoscopy 04/29/2019 demonstrating tight fibrotic changes to the tissues consistent with history of prior radiation therapy H/O tubal ligation History of vaginal hysterectomy With bilateral salpingo-oophorectomy Hx of cardiac cath 1994 with 40% lesion noted without stent placement Family History Family History Sibling Diabetes mellitus Mother , Mother of an DC at age 43. Patient's mother is Acute myocardial infarction Father Patient's father is Acute myocardial infarction Other Diabetes mellitus Social History Social History Social History: Patient currently lives with her boyfriend and brother who is legally blind due to a complication of alcohol use. Patient ambulates with a walker. She has 3 adult children 2 daughters and 1 son. She denies any significant alcohol use
[2020-12-18 00:33] LABS: Basophils Percent Auto 0.4 % (0.2-1.2); Eosinophils Percent Auto 0.4 % (0-4.4); Hematocrit 26.7 % (37.0-47.0); Hemoglobin 8.9 g/dL (12.0-15.0); Immature Granulocyte Absolute 0.01 K/mm3 (0.00-0.031); Immature Granulocyte Percent A 0.4 % (0-0.5); Lymphocytes Absolute Auto 0.54 K/mm3 (0.9-3.2); Lymphocytes Percent Auto 21.8 % (18.3-44.2); Mean Corpuscular HGB Conc 33.3 g/dl (32-36); Mean Corpuscular Hemoglobin 31.8 pg (26-34); Mean Corpuscular Volume 95.4 fl (80-100); Mean Platelet Volume 8.9 fl (7.4-10.4); Monocytes Absolute Auto 0.2 K/mm3 (0.1-0.6); Monocytes Percent Auto 6.5 % (2.6-8.5); Neutrophils Absolute Auto 1.8 K/mm3 (1.3-6.7); Neutrophils Percent Auto 70.5 % (45.5-73.1); Platelet Count Result 125 k/mm3 (150-375); Red Cell Distribution Width 15.4 % (11.5-14.5); White Blood Count 2.5 K/mm3 (4.5-10.0)
[2020-12-18 00:37] LABS: Glucose Point of Care 112 mg/dl (65-105)
[2020-12-18 00:43] LABS: Lactic Acid Reflex 1.8 mmol/L (0.7-2.1)
[2020-12-18 00:44] LABS: Alanine Aminotransferase 24 U/L (4-35); Albumin Level 3.7 g/dL (3.5-5.1); Alkaline Phosphatase 102 U/L (38-126); Anion Gap 9 mmol/L (8-16); Aspartate Amino Transferase 33 U/L (14-36); Bilirubin,Total 0.6 mg/dL (0.2-1.3); Blood Urea Nitrogen 18 mg/dL (7-17); Calcium 10.7 mg/dL (8.4-10.2); Carbon Dioxide 21 mmol/L (22-30); Chloride 106 mmol/L (98-107); Estimated Glomerular Filt Rate > 60; Glucose 121 mg/dL (65-110); Sodium 136 mmol/L (137-145)
[2020-12-18 00:46] LABS: CRP 0.6 mg/dL (<1.0)
[2020-12-18 00:54] LABS: INR 1.1; Troponin I < 0.012 ng/mL (0.000-0.034)
[2020-12-18 00:55] LABS: Partial Thromboplastin Time 27.8 SECONDS (22.3-36.8)
[2020-12-18 01:02] LABS: Add Urine Microscopic? YES; Appearance Urine Clear (Clear); Bilirubin Urine Negative (Negative); Blood Urine Negative (Negative); Color Urine Yellow (Yellow); Glucose Urine UA Negative (Negative); Ketones Urine Negative (Negative); Leukocyte Esterase Ur 1+ LEU/UL (Negative); Mucus Urine Rare /lpf; Nitrate Urine Negative (Negative); Protein Urine 1+ mg/dL (Negative); RBC Urine 0-2 /hpf (0-2); Specific Grav Ur 1.013 (1.001-1.035); Squamous Epithelial Cell Urine Occasional /hpf (Few); Urobilinogen Urine Negative mg/dL (<2.0); WBC Urine 0-3 /hpf
[2020-12-18 01:09] VITALS: BP 166/73; PULSE 90; RESP 20; O2SAT 99
[2020-12-18 02:11] LABS: EDCOVIDSCREEN Negative (Negative)
--- NOTE | 2020-12-18 02:18 | PC.NURSE ---
Pt awake and cooperative at this time. Restraints discontinued at this time. Discussed with EDP Dr. Cabello
[2020-12-18 02:19] VITALS: BP 165/73; PULSE 103; RESP 22; O2SAT 100
[2020-12-18 02:52] VITALS: BP 117/92; PULSE 106; RESP 19; O2SAT 98
[2020-12-18 04:10] VITALS: BP 116/52; PULSE 101; RESP 18; O2SAT 98
== END 2020-12-18 04:12 | disposition home or self-care (01) ==
PROVIDERS: Family Medicine; Emergency Provider Emergency Medicine; PCP Internal Medicine
DX: R41.0 Disorientation, unspecified (principal); Z20.822 Contact with and (suspected) exposure to COVID-19; I12.9 Hypertensive chronic kidney disease with stage 1 through stage 4 chronic kidney disease, or unspecified chronic kidney disease; N18.30 Chronic kidney disease, stage 3 unspecified; I25.10 Atherosclerotic heart disease of native coronary artery without angina pectoris; K74.69 Other cirrhosis of liver; B18.2 Chronic viral hepatitis C; K76.6 Portal hypertension; E78.5 Hyperlipidemia, unspecified; E66.9 Obesity, unspecified; M81.0 Age-related osteoporosis without current pathological fracture; M19.90 Unspecified osteoarthritis, unspecified site; G60.9 Hereditary and idiopathic neuropathy, unspecified; K21.9 Gastro-esophageal reflux disease without esophagitis; E55.9 Vitamin D deficiency, unspecified; H26.9 Unspecified cataract; Z85.44 Personal history of malignant neoplasm of other female genital organs; Z92.21 Personal history of antineoplastic chemotherapy; Z92.3 Personal history of irradiation; Z87.440 Personal history of urinary (tract) infections; E21.3 Hyperparathyroidism, unspecified; Z87.891 Personal history of nicotine dependence
CPT/HCPCS: 36415; 70450; 74176; 80053; 81001; 82948; 83605; 84484; 85025; 85610; 85730; 86140; 87426; 93005; 96365; 99284; C9803; J0131

== ENCOUNTER 2021-02-18 03:03 | Emergency (ER) | payer OTHER, MEDICARE, SELFPAY ==
--- NOTE | ~2021-02-18 | CT_ITS ---
EXAMINATION: CT abdomen pelvis wo con DATE: 02/18/2021 04:44 INDICATION: Right flank pain TECHNIQUE: Computed tomography (CT) of the abdomen and pelvis was performed without intravenous contr ast. The dose-length product (DLP) was 507.84 mGy-cm. Automated exposure control and iterative recons truction technique were employed. COMPARISON: 12/18/2020 FINDINGS: Minimal dependent atelectasis is present in the lung bases. The heart size is normal. There is mild nodularity of the liver surface. The spleen, pancreas, gallbladder, and adrenal glands are n ormal. Perisplenic varices are noted. There is a 1.7 cm cyst of the right kidney. An 8 mm fat attenua tion of the left kidney is consistent with an angiomyolipoma. No stones are identified in the kidneys , ureters, or bladder. There is no hydronephrosis or hydroureter. No pathologically enlarged abdomina l or pelvic lymph nodes are identified. There is no free intraperitoneal gas or evidence of bowel obs truction. There is a small volume of free fluid in the pelvis. There is mild lumbar spondylosis. A t iny fat-containing umbilical hernia is noted. IMPRESSION: 1. No CT correlate for the patient's symptoms. 2. Cirrhosis. Reviewed, dictated and finalized at location B.
[2021-02-18 03:15] VITALS: BP 176/83; PULSE 80; RESP 14; TEMP 36.7; O2SAT 98
[2021-02-18 03:42] LABS: Eosinophils Absolute Auto 0.1 K/mm3 (0-0.3); Eosinophils Percent Auto 2.2 % (0-4.4); Hematocrit 31.8 % (37.0-47.0); Hemoglobin 10.8 g/dL (12.0-15.0); Immature Granulocyte Absolute 0.01 K/mm3 (0.00-0.031); Immature Granulocyte Percent A 0.4 % (0-0.5); Lymphocytes Percent Auto 71.2 % (18.3-44.2); Mean Corpuscular Hemoglobin 33.4 pg (26-34); Mean Corpuscular Volume 98.5 fl (80-100); Monocytes Absolute Auto 0.2 K/mm3 (0.1-0.6); Monocytes Percent Auto 5.6 % (2.6-8.5); Neutrophils Absolute Auto 0.6 K/mm3 (1.3-6.7); Neutrophils Percent Auto 20.6 % (45.5-73.1); Platelet Count Result 139 k/mm3 (150-375); Red Blood Count 3.23 M/mm3 (4.2-5.4); Red Cell Distribution Width 14.7 % (11.5-14.5); White Blood Count 2.7 K/mm3 (4.5-10.0)
[2021-02-18 04:06] LABS: Alanine Aminotransferase 23 U/L (4-35); Albumin Level 3.8 g/dL (3.5-5.1); Alkaline Phosphatase 118 U/L (38-126); Anion Gap 10 mmol/L (8-16); Aspartate Amino Transferase 34 U/L (14-36); Bilirubin,Total 0.8 mg/dL (0.2-1.3); Blood Urea Nitrogen 15 mg/dL (7-17); Calcium 10.2 mg/dL (8.4-10.2); Carbon Dioxide 26 mmol/L (22-30); Chloride 105 mmol/L (98-107); Estimated CRCL calculation 52 ml/min; Estimated Glomerular Filt Rate > 60; Glucose 103 mg/dL (65-110); Lipase 83 U/L (23-300); Potassium 3.3 mmol/L (3.4-5.0); Sodium 141 mmol/L (137-145)
[2021-02-18 04:07] LABS: Add Urine Microscopic? YES; Appearance Urine Cloudy (Clear); Bacteria Urine Trace /hpf; Bilirubin Urine Negative (Negative); Blood Urine 3+ (Negative); Color Urine Yellow (Yellow); Glucose Urine UA Negative (Negative); Ketones Urine Negative (Negative); Leukocyte Esterase Ur 3+ LEU/UL (Negative); Nitrate Urine Negative (Negative); Protein Urine 2+ mg/dL (Negative); RBC Urine >75 /hpf (0-2); Specific Grav Ur 1.023 (1.001-1.035); Squamous Epithelial Cell Urine Rare /hpf (Few); Urobilinogen Urine Negative mg/dL (<2.0); WBC Urine >75 /hpf
--- NOTE | 2021-02-18 04:27 | ED.ABDPAIN ---
HPI - Abdominal Pain General Chief Complaint: Abdominal Pain Stated Complaint: flank pain Time Seen by Provider: 02/18/21 03:15 Source: patient Mode of arrival: EMS Limitations: no limitations History of Present Illness HPI narrative: 65-year-old female with history of asthma, hypertension brought in by EMS for complaints of right flank pain radiating to the right lower quadrant for 2 weeks. Pain is aching, constant, worse with movement and palpation, improves with rest. Patient states pain has grown steadily worse over time and tonight she could not take the pain anymore. Pain is currently a 6 out of 10 described as sharp. No fever, no vomiting, no dysuria, denies hematuria. Denies STD risk factors. No melena, no hematochezia, no diarrhea, no constipation. Appetite normal, tolerating po. Does complain of fatigue. No chest pain or shortness of breath.. Related Data Allergies Allergy/AdvReac Type Severity Reaction Status Date / Time No Known Allergies Allergy Verified 02/18/21 03:18 Review of Systems Review of Systems: CONSTITUTIONAL: no fever, no weight loss, no confusion EYES: no vision changes, no eye pain ENT: no rhinorrhea, no sore throat, no difficulty swallowing CARDIOVASCULAR: no chest pain, no leg edema, no palpitations RESPIRATORY: no cough, no shortness of breath, no hemoptysis GASTROINTESTINAL: positive abdominal pain, no nausea, no vomiting, no diarrhea GENITOURINARY: positive R flank pain, no dysuria, no hematuria SKIN: no rash, no jaundice MUSCULOSKELETAL: no back pain, no trauma. NEUROLOGIC: No headache, no dizziness, no focal weakness PSYCHIATRIC: No hallucinations, no suicidal ideation PMFSH Past Medical History Medical History Abnormal mammogram of left breast April 2018 Age-related osteoporosis without current pathological fracture Anemia Iron was low at 29, TIBC within normal limits, % saturation low at 7% March 2019 Cataract Maturing left eye cataract Chronic bilateral low back pain without sciatica Chronic gastroesophageal reflux disease Chronic narcotic use Chronic pruritus Thought to be due to her cirrhosis CKD (chronic kidney disease), stage III Coronary artery disease Cardiac catheterization in 1994 demonstrating 40% stenosis 1 vessel Diverticulitis 2002 Gastritis Noted on EGD from April 29, 2019 Hepatic cirrhosis due to chronic hepatitis C infection Status post treatment 2010. Complicated by cirrhosis with portal venous hypertension. Managed at [facility] History of gait disorder Ambulates with a walker Hx of malignant neoplasm of vagina Diagnosed in 1999. Status post chemotherapy and radiation therapy. With repeat vaginal biopsies in 2010. Managed to [facility]. Hyperlipidemia LDL goal <100 Hyperparathyroidism Hypertension, essential, benign Left kidney mass 10 mm inferior pole left kidney mass suspicious for renal cell carcinoma. Patient was evaluated by Urology (Dr. Krishna Torres) at [facility] May 2017 will plan for six month renal ultrasound in [address] for surveillance Obesity (BMI 30-39.9) Peripheral neuropathy, idiopathic Primary osteoarthritis involving multiple joints Pulmonary hypertension Noted on echo from July 2011 with EF of 64% 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 Patient states she has had multiple colonoscopy attempts at [place] that were unsuccessful due to narrowing of her bowel due to radiation treatments from her vaginal cancer in 1999 Rectal bleeding UTI (urinary tract infection) Vitamin D deficiency Vitamin-D level of 05 April 2019 Surgical History Surgical History Abnormal colonoscopy With room most recent colonoscopy 04/29/2019 demonstrating tight fibrotic changes to the tissues consistent with history of prior radiation therapy H/O tubal ligation History of vaginal hysterectomy With bilat
[2021-02-18] MEDS: SODIUM CHLORIDE 0.9% IV 1,000 ML 999 ML IV CONT (05:06)
[2021-02-18 05:08] VITALS: BP 144/86; PULSE 79; RESP 18; O2SAT 100
[2021-02-18] MEDS: KETOROLAC 15 MG/ML VIAL (*BKC) IV PUSH (05:27)
[2021-02-18 06:44] VITALS: BP 178/86; PULSE 75; RESP 18; O2SAT 99
--- NOTE | 2021-02-27 06:55 | PC.NURSE ---
LATE ENTRY This note is being entered to document information to the patient's record. The following information was omitted on [02/18/21], by [Evelina Bustos RN ]. Cetriaxone 50cc infused at 0607 0cc wasted, ns 1000cc infused at 0707 0 cc wasted
== END 2021-02-18 07:11 | disposition home or self-care (01) ==
PROVIDERS: Emergency Provider Emergency Medicine; PCP Internal Medicine
DX: M47.816 Spondylosis without myelopathy or radiculopathy, lumbar region (principal); N39.0 Urinary tract infection, site not specified; M81.0 Age-related osteoporosis without current pathological fracture; I12.9 Hypertensive chronic kidney disease with stage 1 through stage 4 chronic kidney disease, or unspecified chronic kidney disease; N18.30 Chronic kidney disease, stage 3 unspecified; I25.10 Atherosclerotic heart disease of native coronary artery without angina pectoris; E78.5 Hyperlipidemia, unspecified; G60.9 Hereditary and idiopathic neuropathy, unspecified; Z86.2 Personal history of diseases of the blood and blood-forming organs and certain disorders involving the immune mechanism; Z87.09 Personal history of other diseases of the respiratory system; Z87.19 Personal history of other diseases of the digestive system; Z85.44 Personal history of malignant neoplasm of other female genital organs; Z92.21 Personal history of antineoplastic chemotherapy; Z92.3 Personal history of irradiation; Z87.891 Personal history of nicotine dependence
CPT/HCPCS: 36415; 51701; 74176; 80053; 81001; 83690; 85025; 87077; 87086; 87186; 96365; 96366; 99284; J0696; J1885; J7030

== ENCOUNTER 2021-04-24 22:36 | Inpatient (IN) | payer MEDICARE, OTHER, SELFPAY ==
--- NOTE | ~2021-04-24 | US_ITS ---
EXAMINATION: US renal BI EXAM DATE: 04/27/2021 08:27 INDICATION: Hydronephrosis. TECHNIQUE: Multiple grayscale and Doppler images of the kidneys were obtained (by a technologist who performed the scan) and subsequently reviewed. Comparison is made to prior examination from 08/19/2011. FINDINGS: Right kidney: There is normal contour and echogenicity. It measures 8.9 x 4.6 x 5.2 centimeters. The re is an anechoic lesion with increased through transmission in the lower pole measuring 2 cm. Ther e is no hydronephrosis. Left kidney: There is normal contour and echogenicity. It measures 9.1 x 4.5 x 6.3 centimeters. The re are no focal renal lesions identified. There is no hydronephrosis. Bladder unremarkable. IMPRESSION: 1. No hydronephrosis. Reviewed, dictated and finalized at location A. K CLEANER IMPRESSION: 1. No hydronephrosis.
--- NOTE | ~2021-04-24 | XR_ITS ---
EXAMINATION: XR chest 1V portable INDICATION: Pneumonia, shortness of breath TECHNIQUE: Portable AP chest at 1905 hours COMPARISON: 04/24/2021 FINDINGS: There are patchy bilateral airspace opacities without significant change. Cardiomegaly is n oted. There is no pleural effusion or pneumothorax. IMPRESSION: 1. Patchy bilateral airspace opacities, consistent with pneumonia versus pulmonary edema. 2. Cardiomegaly. Reviewed, dictated and finalized at location F. ICIAN CODING SPECIALIST IMPRESSION: 1. Patchy bilateral airspace opacities, consistent with pneumonia versus pulmon christine edema. 2. Cardiomegaly.
--- NOTE | ~2021-04-24 | XR_ITS ---
EXAMINATION: XR bone survey comp/metastic EXAM DATE: 04/27/2021 14:03 INDICATION: Multiple myeloma. TECHNIQUE: Frontal and lateral projections of following regions obtained; right humerus, left humeru s, right forearm, left forearm, right femur, left femur, right tibia, left tibia, lumbar spine, thora cic spine, cervical spine. Lateral projection skull. Frontal chest x-ray. There is prior chest x-ra y for correlation from 4 days ago. FINDINGS: Cardiomegaly unchanged. Calcification along the falx. Calvarium, axial and appendicular sk [place] without osteoblastic or osteolytic lesions suspected. There are bony degenerative changes. IMPRESSION: No osteolytic disease identified. Reviewed, dictated and finalized at location A. TED CIRCUIT BOARDS STRIPPER ETCHER
--- NOTE | ~2021-04-24 | CT_ITS ---
EXAMINATION: CT abdomen pelvis w con DATE: 04/25/2021 01:22 INDICATION: Pelvic and left flank pain TECHNIQUE: Computed tomography (CT) of the abdomen and pelvis was performed with 100 cc Omnipaque 350 intravenous contrast. The dose-length product was 708.04 mGy-cm. Automated exposure control and iter ative reconstruction technique were employed. COMPARISON: CT dated 02/18/2021. FINDINGS: Lung bases are unremarkable. Heart size upper normal. Small hiatal hernia with mild thicken ing of the distal esophagus. There is cirrhosis of the liver. The spleen, pancreas, adrenal glands ar e unremarkable. There is bilateral hydroureteronephrosis with bilateral urothelial enhancement. There is thickening and diffuse bladder wall enhancement. Small amount of free fluid in the pelvis. No sig nificant abnormal enhancement of the kidneys. There are bilateral renal cysts. Nonobstructive bowel g as pattern. The distal small bowel is mildly distended with mucosal prominence. Cannot exclude enteri tis. There are patchy lytic lesions of the pelvis and proximal femurs. IMPRESSION: 1. Bilateral urothelial enhancement with diffuse bladder wall thickening and bladder wall enhancement . Findings compatible with cystitis with ascending urinary tract infection. 2: Mild thickening and enhancement of the distal small bowel, suspicious for enteritis. 3: Patchy scattered lytic lesions of the pelvis and proximal femurs. Consider metastatic disease and myeloma. Correlate for history of known malignancy. Dr. Bryan Rodriguez discussed with Dr. Isabela Abad at 04/25/2021 09:43 BIOMECHANICAL ENGINEER. Reviewed, dictated and finalized at location A. ECHANICAL ENGINEER IMPRESSION: 1. Bilateral urothelial enhancement with diffuse bladder wall thickening and bl adder wall enhancement. Findings compatible with cystitis with ascending urinar y tract infection. 2: Mild thickening and enhancement of the distal small bowel, suspicious for en teritis. 3: Patchy scattered lytic lesions of the pelvis and proximal femurs. Consider metastatic disease and myeloma. Correlate for history of known malignancy. Dr. Bryan Rodriguez discussed with Dr. Isabela Abad at 04/25/2021 09:43 BIOMECHANICAL ENGINEER.
--- NOTE | ~2021-04-24 | XR_ITS ---
EXAMINATION: XR chest 1V portable EXAM DATE: 05/03/2021 08:03 INDICATION: follow up CXR weakness noted. TECHNIQUE: Portable AP frontal chest x-ray was obtained. Comparison is made to prior examination from 04/28/2021. FINDINGS: Probable small amount of residual left basilar airspace disease. The lungs are otherwise cl ear. There are no pleural effusions. Mild cardiomegaly and pulmonary vascular congestion. There is no pneumothorax suspected. The bones and soft tissues are unremarkable. IMPRESSION: 1. Subsegmental nonspecific left basilar airspace disease. Edema, atelectasis or pneumonia with impro vement. 2. Cardiomegaly, pulmonary vascular congestion. Reviewed, dictated and finalized at location G. CTOR FINANCIAL SERVICES IMPRESSION: 1. Subsegmental nonspecific left basilar airspace disease. Edema, atelectasis o r pneumonia with improvement. 2. Cardiomegaly, pulmonary vascular congestion.
--- NOTE | ~2021-04-24 | XR_ITS ---
XR chest 1V portable 04/24/2021 23:03 Indication: Fever Procedure: AP portable chest Comparison: Comparison to multiple prior studies sequentially, with oldest reviewed study dated 11/02. Findings: Borderline heart size. Ill-defined bilateral airspace disease, suspicious for pneumonia. No pleural effusion or pneumothorax. No acute osseous abnormality. Impression: 1: Patchy ill-defined bilateral airspace disease, suspicious for pneumonia. Reviewed, dictated and finalized at location A. ICULTURAL SERVICES SUPERVISOR Impression: 1: Patchy ill-defined bilateral airspace disease, suspicious for pneumonia.
[2021-04-24 22:38] VITALS: BP 139/86; PULSE 91; RESP 22; TEMP 38.1; O2SAT 99
[2021-04-24 22:47] VITALS: BP 119/89; PULSE 93; RESP 15; O2SAT 100
[2021-04-24 23:01] VITALS: BP 119/98; PULSE 104; RESP 28; O2SAT 100
--- NOTE | 2021-04-24 23:13 | PC.NURSE ---
Patient care report given to LE Flaherty. All questions answered at this time and care turned over.
[2021-04-24 23:17] VITALS: BP 102/69; PULSE 88; RESP 20; O2SAT 98
[2021-04-24] MEDS: SODIUM CHLORIDE 0.9% IV 1,000 ML 999 ML IV CONT (23:31)
[2021-04-24 23:33] LABS: Basophils Percent Auto 0.1 % (0.2-1.2); Eosinophils Percent Auto 0.2 % (0-4.4); Immature Granulocyte Percent A 2.3 % (0-0.5); Lymphocytes Absolute Auto 2.22 K/mm3 (0.9-3.2); Lymphocytes Percent Auto 25.6 % (18.3-44.2); Mean Corpuscular HGB Conc 32.4 g/dl (32-36); Mean Platelet Volume 11.2 fl (7.4-10.4); Monocytes Absolute Auto 4.5 K/mm3 (0.1-0.6); Monocytes Percent Auto 51.8 % (2.6-8.5); Neutrophils Absolute Auto 1.7 K/mm3 (1.3-6.7); Nucleated Red Blood Cells Absolute Auto 0.2 K/mm3 (0.0-0.012); Nucleated Red Blood Cells Perc 2.2 % (0.0-0.2); Platelet Count Result 67 k/mm3 (150-375); Red Blood Count 2.03 M/mm3 (4.2-5.4); Red Cell Distribution Width 15.3 % (11.5-14.5); White Blood Count 8.7 K/mm3 (4.5-10.0)
--- NOTE | 2021-04-24 23:33 | ED.GENADULT ---
HPI - General Adult General Chief complaint: Fever Stated complaint: fever, possible uti, cough since 04/10/2021 Time Seen by Provider: 04/24/21 22:55 History of Present Illness HPI narrative: Patient is a 65-year-old female presents the emergency department with chief complaint of fever. Patient states she has had foul-smelling urine for the last several days and tonight noticed that she had a fever. The patient states that she has had some discomfort in her abdomen particularly in the lower pelvis area and radiating to the left flank. Patient denies nausea vomiting denies cough reports that she had similar symptoms whenever she had a urinary tract infection that led to severe sepsis. Patient states that she has some generalized body aches with this as well patient denies shortness of breath denies runny nose denies sore throat. Related Data Allergies Allergy/AdvReac Type Severity Reaction Status Date / Time No Known Allergies Allergy Verified 02/18/21 03:18 Review of Systems Review of Systems: A 10 system review of systems was completed on the patient and is negative except for what is stated in the HPI. Nursing and ancillary documentation was reviewed. [facility] Past Medical History Medical History Abnormal mammogram of left breast April 2018 Age-related osteoporosis without current pathological fracture Anemia Iron was low at 29, TIBC within normal limits, % saturation low at 7% March 2019 Cataract Maturing left eye cataract Chronic bilateral low back pain without sciatica Chronic gastroesophageal reflux disease Chronic narcotic use Chronic pruritus Thought to be due to her cirrhosis CKD (chronic kidney disease), stage III Coronary artery disease Cardiac catheterization in 1994 demonstrating 40% stenosis 1 vessel Diverticulitis 2002 Gastritis Noted on EGD from April 29, 2019 Hepatic cirrhosis due to chronic hepatitis C infection Status post treatment 2010. Complicated by cirrhosis with portal venous hypertension. Managed at [facility] History of gait disorder Ambulates with a walker Hx of malignant neoplasm of vagina Diagnosed in 1999. Status post chemotherapy and radiation therapy. With repeat vaginal biopsies in 2010. Managed to [facility]. Hyperlipidemia LDL goal <100 Hyperparathyroidism Hypertension, essential, benign Left kidney mass 10 mm inferior pole left kidney mass suspicious for renal cell carcinoma. Patient was evaluated by Urology (Dr. Krishna Torres) at [facility] May 2017 will plan for six month renal ultrasound in [address] for surveillance Obesity (BMI 30-39.9) Peripheral neuropathy, idiopathic Primary osteoarthritis involving multiple joints Pulmonary hypertension Noted on echo from July 2011 with EF of 64% 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 Patient states she has had multiple colonoscopy attempts at [place] that were unsuccessful due to narrowing of her bowel due to radiation treatments from her vaginal cancer in 1999 Rectal bleeding UTI (urinary tract infection) Vitamin D deficiency Vitamin-D level of 05 April 2019 Surgical History Surgical History Abnormal colonoscopy With room most recent colonoscopy 04/29/2019 demonstrating tight fibrotic changes to the tissues consistent with history of prior radiation therapy H/O tubal ligation History of vaginal hysterectomy With bilateral salpingo-oophorectomy Hx of cardiac cath 1994 with 40% lesion noted without stent placement Family History Family History Sibling Diabetes mellitus Mother , Mother of an MT at age 43. Patient's mother is Acute myocardial infarction Father Patient's father is Acute myocardial infarction Other Diabetes mellitus
[2021-04-24 23:44] LABS: Alanine Aminotransferase 22 U/L (4-35); Albumin Level 3.2 g/dL (3.5-5.1); Alkaline Phosphatase 140 U/L (38-126); Anion Gap 6 mmol/L (8-16); Aspartate Amino Transferase 44 U/L (14-36); Bilirubin,Total 0.9 mg/dL (0.2-1.3); Blood Urea Nitrogen 14 mg/dL (7-17); Calcium 9.3 mg/dL (8.4-10.2); Carbon Dioxide 26 mmol/L (22-30); Chloride 100 mmol/L (98-107); Estimated CRCL calculation 42 ml/min; Estimated Glomerular Filt Rate 55; Glucose 114 mg/dL (65-110); Magnesium 1.5 mg/dL (1.6-2.3); Potassium 3.2 mmol/L (3.4-5.0); Sodium 132 mmol/L (137-145)
[2021-04-24 23:49] LABS: Hematocrit 20.7 % (37.0-47.0); Hemoglobin 6.7 g/dL (12.0-15.0)
[2021-04-25] VITALS (16 sets, daily range): BP systolic 120–176; BP diastolic 61–89; PULSE 61–105; RESP 14–29; TEMP 36.2–38; O2SAT 93–100; BMI 34.6; BMI 29.2
[2021-04-25 00:04] LABS: Add Urine Microscopic? YES; Appearance Urine Cloudy (Clear); Bacteria Urine Trace /hpf; Bilirubin Urine Negative (Negative); Blood Urine 2+ (Negative); Budding Yeast Urine Present /hpf; Color Urine Yellow (Yellow); Glucose Urine UA Negative (Negative); Ketones Urine Negative (Negative); Leukocyte Esterase Ur 3+ LEU/UL (Negative); Nitrate Urine Negative (Negative); Protein Urine 1+ mg/dL (Negative); RBC Urine 51-75 /hpf (0-2); Specific Grav Ur 1.005 (1.001-1.035); WBC Clumps Urine Present /HPF; WBC Urine >75 /hpf
[2021-04-25 00:08] LABS: SARS-CoV-2 RNA PCR Negative
--- NOTE | 2021-04-25 02:02 | PM.IMHP ---
H&P: HPI History of Present Illness Date/Time: 04/25/21 02:02 Chief Complaint: Fever Narrative: This is a 65-year-old female with past medical history significant for hypertension, gastroesophageal reflux disease, chronic anemia, chronic kidney disease, hepatic cirrhosis, hepatitis-C, idiopathic peripheral neuropathy, primary osteoarthritis, pulmonary hypertension. Patient presented to the emergency room due to fevers, chills, poor appetite, pain and burning with urination, foul-smelling urine for several days, patient denies any cough, any sputum production, any diarrhea or abdominal pain. Preliminary workup was significant for urinalysis with numerous wbc's present. CT of abdomen and pelvis was significant for hydroureteronephrosis and cirrhosis of the liver. Patient tested negative for COVID-19 in emergency. Patient has been admitted for further evaluation, management and treatment. Review of Systems Review of Systems: Fevers, generalized malaise, poor appetite, pain and burning with urination, foul-smelling urine. Constitutional: Constitutional: Reports chills, Reports fatigue, Reports fever(s), Reports lethargy, Reports malaise and Reports weakness Eyes: Eyes: Denies change in vision ENT: Denies dysphagia, Denies nasal congestion, Denies nasal discharge, Denies nasal obstruction and Denies odynophagia Cardiovascular: Cardiovascular: Denies pedal edema, Denies irregular heart rhythm, Denies claudication, Denies leg edema, Denies radiating jaw, neck or arm pain, Denies palpitations, Denies dyspnea on exertion and Denies orthopnea Respiratory: Respiratory: Denies cough and Denies dyspnea Gastrointestinal: Gastrointestinal: Denies abdominal pain, Denies dyspepsia, Denies heartburn, Denies diarrhea, Denies nausea and Denies vomiting Genitourinary: Genitourinary: Reports dysuria Musculoskeletal: Musculoskeletal: Denies arthralgias and Denies joint swelling Integumentary/Breasts: Skin/Breast: Denies rash Neurologic: Denies vertigo, Denies dizziness, Denies focal weakness, Denies Sensory deficit (Neuro) and Denies weakness Psychiatric: Psychiatric: Reports no additional psychiatric complaints and Reports as per HPI Endocrine: Endocrine: Reports no additional endocrine complaints and Reports as per HPI Hematologic/Lymphatic: Hematologic/Lymphatic: Reports no additional hematologic/lymphatic complaints and Reports as per HPI Allergic/Immunologic: Allergic/Immunologic: Reports no additional allergic/immunologic complaints and Reports as per HPI [facility] Past Medical History Medical History (Updated 04/25/21 @ 04:50 by Tim Vance MD) Abnormal mammogram of left breast April 2018 Age-related osteoporosis without current pathological fracture Anemia Iron was low at 29, TIBC within normal limits, % saturation low at 7% March 2019 Cataract Maturing left eye cataract Chronic bilateral low back pain without sciatica Chronic gastroesophageal reflux disease Chronic narcotic use Chronic pruritus Thought to be due to her cirrhosis CKD (chronic kidney disease), stage III Coronary artery disease Cardiac catheterization in 1994 demonstrating 40% stenosis 1 vessel Diverticulitis 2002 Gastritis Noted on EGD from April 29, 2019 Hepatic cirrhosis due to chronic hepatitis C infection Status post treatment 2010. Complicated by cirrhosis with portal venous hypertension. Managed at [facility] History of gait disorder Ambulates with a walker Hx of malignant neoplasm of vagina Diagnosed in 1999. Status post chemotherapy and radiation therapy. With repeat vaginal biopsies in 2010. Managed to [facility]. Hyperlipidemia LDL goal <100 Hyperparathyroidism Hypertension, essential, benign Left kidney mass 10 mm inferior pole left kidney mass suspicious for renal cell carcinoma. Patient was evaluated by Urology (Dr. Krishna Torres) at [facility] May 2017 will plan for six month renal ultrasound
[2021-04-25] MEDS: SODIUM CHLORIDE 0.9% IV 1,000 ML 125 ML IV CONT ×2 (02:25→11:16)
[2021-04-25] MEDS: MORPHINE SULFATE (*CRX) 2 MG/ML INJ IV PUSH (02:38)
[2021-04-25 03:38] LABS: Hematocrit 21.4 % (37.0-47.0); Hemoglobin 7.1 g/dL (12.0-15.0)
--- NOTE | 2021-04-25 03:39 | ADMGEN ---
This patient, Rosalind Patel, was admitted to [facility] Surg Room 316-02. Patient/family oriented to hospital policies and general routines including ID bracelet, bed and alarms, visiting hours, pain management, procedures, bathroom and other care routines, personal items, smoking policy, room service/diet, and visiting hours. Information on how to activate the Rapid Response Team has been discussed. Patient/Family are encouraged to report perceived risks to care and to ask questions if they do not understand what they are told or what they should do.
[2021-04-25 06:46] LABS: Hematocrit 22.5 % (37.0-47.0); Hemoglobin 7.2 g/dL (12.0-15.0)
--- NOTE | 2021-04-25 09:12 | PM.IMPN ---
Progress Note: A&P Assessment and Plan (1) UTI (urinary tract infection): Qualifiers: Hematuria presence: without hematuria Urinary tract infection type: site unspecified Qualified Code(s): N39.0 - Urinary tract infection, site not specified Code(s): N39.0 - Urinary tract infection, site not specified Status: Acute Assessment and Plan: on regular medical floor Cultures in progress urinary discomfort , possible yeast infection urinary parker catheter placed by Urologist discomfort /pain treated with ordered extra-strength Tylenol and Motrin p.r.n.. Ordered Monistat, Florastor, and nystatin powder. 02/18 urine culture was positive for Proteus and sensitive to Rocephin. Last and most recent urine culture and blood cultures of 04/24/21 are still pending. continue IV Rocephin Appreciate Urology consultation due to 2+ blood on UA, bladder wall thickening with cystitis and ascending UTI. (2) Chronic narcotic use: Code(s): F11.90 - Opioid use, unspecified, uncomplicated Status: Acute Assessment and Plan: Recovered from alcohol use, crack cocaine use, marijuana use. Continue home meds Continue to monitor Bone lesions may be painful - but avoid narcotic pain meds. Ordered lidocaine pain patches to hips/upper thighs. (3) Chronic bilateral low back pain without sciatica: Code(s): M54.5 - Low back pain; G89.29 - Other chronic pain Status: Acute Assessment and Plan: Continue home meds Continue to monitor (4) Coronary artery disease: Code(s): I25.10 - Atherosclerotic heart disease of [place] coronary artery without angina pectoris Status: Acute Assessment and Plan: Stable Continue home meds (5) Lesion of pelvic bone: Code(s): M89.9 - Disorder of bone, unspecified Status: Acute Assessment and Plan: CT today showed: patchy lytic lesions of the pelvis and proximal femurs. diffuse bladder wall thickening and bladder wall enhancement. Mild thickening and enhancement of the distal small bowel, suspicious for enteritis. Patchy scattered lytic lesions of the pelvis and proximal femurs. Consider metastatic disease and myeloma. Correlate for history of known malignancy. Combined with her severe anemia today with a hemoglobin of 6.6 and hematocrit of 20. Consulted GI and ordered occult stool tests, as well as concern for her enteritis of the distal small bowel on her CT scan. vaginal cancer history, I have consulted Hematology. Transfuse RBCs and treat pain as needed. (6) Acute anemia: Code(s): D64.9 - Anemia, unspecified Status: Acute Assessment and Plan: Severe anemia today with a hemoglobin of 6.6 and hematocrit of 20. ordered occult stool tests, as well as concern for her enteritis of the distal small bowel on her CT scan. With her anemia, lytic lesions of the pelvis and femur, and vaginal cancer history, I have consulted Hematology as well. ordered 1 RBC transfused and then repeat H/H checking iron panel possibly multi factorial: due to very poor appetite and poor dietary intake at home, slow loss in urine, cancer history, bone lesions. Consulted GI and Urology and Proration Clerk. (7) Hypomagnesemia: Code(s): E83.42 - Hypomagnesemia Status: Acute Assessment and Plan: Mag is 1.4 today. Ordered 4 gm Mag IV repeating Mag level after infusion today/mornings. likely due to very poor appetite and poor dietary intake at home Subjective Date/time seen: 04/25/21 09:12 Rosalind was c/o of discomfort from a yeast infection and her urinary parker catheter. Rosalind stated that she was having some vaginal discomfort from her yeast infection and asked me for some stronger narcotics. Due to her history of cocaine and other narcotic use, I will avoid ordering those medications at this time. I have ordered extra-strength Tylenol and Motrin p.r.n..Ordered Monistat, Florastor, and nystatin powder. Her 02/18 urine cul
[2021-04-25 10:03] LABS: Immature Platelet Fraction Pct 2.5 % (0.9-11.2); Mean Corpuscular Hemoglobin 33.5 pg (26-34); Mean Corpuscular Volume 101.5 fl (80-100); Mean Platelet Volume 11.3 fl (7.4-10.4); Platelet Count Result 64 k/mm3 (150-375); Red Blood Count 1.97 M/mm3 (4.2-5.4); Red Cell Distribution Width 15.2 % (11.5-14.5); White Blood Count 7.2 K/mm3 (4.5-10.0)
[2021-04-25 10:12] LABS: Magnesium 1.4 mg/dL (1.6-2.3)
[2021-04-25 10:13] LABS: Hemoglobin 6.6 g/dL (12.0-15.0)
[2021-04-25 10:14] LABS: Alanine Aminotransferase 23 U/L (4-35); Albumin Level 3.1 g/dL (3.5-5.1); Alkaline Phosphatase 144 U/L (38-126); Anion Gap 8 mmol/L (8-16); Aspartate Amino Transferase 47 U/L (14-36); Blood Urea Nitrogen 14 mg/dL (7-17); Calcium 9.2 mg/dL (8.4-10.2); Carbon Dioxide 23 mmol/L (22-30); Chloride 105 mmol/L (98-107); Estimated CRCL calculation 46 ml/min; Estimated Glomerular Filt Rate 60; Glucose 167 mg/dL (65-110); Potassium 3.5 mmol/L (3.4-5.0); Sodium 136 mmol/L (137-145)
[2021-04-25] MEDS: ACETAMINOPHEN 325 MG TABLET 650 MG PO (11:19)
[2021-04-25] MEDS: MAGNESIUM SULF 4 GM/WATER100ML 4 GM/100 ML BAG IVPB (12:26)
--- NOTE | 2021-04-25 12:32 | WPDURCON ---
Assessment and Plan Assessment and plan (1) Pyelonephritis, acute: Code(s): N10 - Acute pyelonephritis Status: Acute Assessment and Plan: 65 yo AAF with known cirrhosis and history of CRI stage III presents to ER with 3 wks of dysuria, back pain, and fevers. UA is positive for infection and urine cx/blood cx are pending. Cr is 1.1 at baseline and wbc ct is 7.2. Lactate is nl at 2.0. CT shows diffuse bladder wall thickening with some enhancement of the upper collecting system bilaterally consistent with ascending infection. Bladder scan was 250 cc and has obstructive voiding symptoms. Started rocephin in ER. Recommend continuing IV abx. I placed parker to decompress bladder (no hematuria). Likely mild hydro is due to inflammation of collecting system from ascending infection; no stones or other source of obstruction. Will plan to f/u with FERNANDEZ in about 48 hrs to ensure resolution of hydro with IV abx and bladder decompression. Urology Consult Note HPI Date Seen: 04/25/21 Requesting Physician: Reba Jimenez NP Primary Care Provider: Kali Jordan MD Consult Narrative Narrative: Rosalind Patel is a 65 year old female being see at the request of KOBI Jimenez for pyelonephritis. Patient presented to ER with 3 weeks of dysuria, lower back pain, fevers, intermittent nausea. She did not seek any medical attention sooner and has not been on abx. Has cirrhosis of the liver due to HepC. States she is having dysuria and obstructive voiding symptoms. Denies any hematuria. Review of Systems Constitutional: Constitutional: Reports body ache(s), Reports fatigue, Reports fever(s) and Reports lethargy Eyes: Eyes: Reports no additional eye complaints ENT: Reports Normal hearing present Cardiovascular: Cardiovascular: Reports no additional cardiovascular complaints Respiratory: Respiratory: Reports no additional respiratory complaints Gastrointestinal: Gastrointestinal: Reports nausea Genitourinary: Genitourinary: Denies hematuria, Reports dysuria, Reports urinary hesitancy and Reports urinary urgency Musculoskeletal: Musculoskeletal: Reports no additional musculoskeletal complaints Psychiatric: Psychiatric: Reports no additional psychiatric complaints Allergic/Immunologic: Allergic/Immunologic: Reports no additional allergic/immunologic complaints [facility] Past Medical History Medical History (Updated 04/25/21 @ 12:38 by Barbara Vaca MD) Abnormal mammogram of left breast April 2018 Age-related osteoporosis without current pathological fracture Anemia Iron was low at 29, TIBC within normal limits, % saturation low at 7% March 2019 Cataract Maturing left eye cataract Chronic bilateral low back pain without sciatica Chronic gastroesophageal reflux disease Chronic narcotic use Chronic pruritus Thought to be due to her cirrhosis CKD (chronic kidney disease), stage III Coronary artery disease Cardiac catheterization in 1994 demonstrating 40% stenosis 1 vessel Diverticulitis 2002 Gastritis Noted on EGD from April 29, 2019 Hepatic cirrhosis due to chronic hepatitis C infection Status post treatment 2010. Complicated by cirrhosis with portal venous hypertension. Managed at [facility] History of gait disorder Ambulates with a walker Hx of malignant neoplasm of vagina Diagnosed in 1999. Status post chemotherapy and radiation therapy. With repeat vaginal biopsies in 2010. Managed to [facility]. Hyperlipidemia LDL goal <100 Hyperparathyroidism Hypertension, essential, benign Left kidney mass 10 mm inferior pole left kidney mass suspicious for renal cell carcinoma. Patient was evaluated by Urology (Dr. Krishna Torres) at [facility] May 2017 will plan for six month renal ultrasound in [address] for surveillance Obesity (BMI 30-39.9) Peripheral neuropathy, idiopathic Primary osteoarthritis involving multiple joints Pulmonary hypertension Noted on ec
[2021-04-25] MEDS: SODIUM CHLORIDE 0.9% IV 250 ML 30 ML IV CONT (15:16)
[2021-04-25] MEDS: GABAPENTIN 100 MG CAPSULE PO (17:50)
[2021-04-25] MEDS: SACCHAROMYCES BOULARDII 250 MG CAPSULE PO (17:50)
[2021-04-25] MEDS: IBUPROFEN 400 MG TABLET PO (17:50)
[2021-04-25] MEDS: MICONAZOLE NITRATE 2% VAGINAL CREAM 45 GM TUBE 1 APPFUL VAGINAL (17:52)
[2021-04-25] MEDS: ACETAMINOPHEN 500 MG TABLET 1000 MG PO (20:48)
[2021-04-25 21:34] LABS: Hematocrit 21.9 % (37.0-47.0); Hemoglobin 7.4 g/dL (12.0-15.0)
[2021-04-25 21:44] LABS: Iron 48 ug/dL (37-170)
[2021-04-25 21:53] LABS: Percent Iron Saturation 31 % (20-50)
[2021-04-26] MEDS: SODIUM CHLORIDE 0.9% IV 1,000 ML 125 ML IV CONT ×4 (00:02→18:56)
[2021-04-26] MEDS: IBUPROFEN 400 MG TABLET PO (01:21)
[2021-04-26 06:00] VITALS: BP 148/73; PULSE 77; RESP 16; TEMP 36.8; O2SAT 100
--- NOTE | 2021-04-26 06:39 | WPDUROPN2 ---
Progress Note: A&P Assessment and Plan (1) Pyelonephritis, acute: Code(s): N10 - Acute pyelonephritis Status: Acute Assessment and Plan: 65 yo AAF with known cirrhosis and history of CRI stage III presents to ER with 3 wks of dysuria, back pain, and fevers. UA is positive for infection and urine cx/blood cx are pending. Cr is 1.1 at baseline and wbc ct is 7.2. Lactate is nl at 2.0. CT shows diffuse bladder wall thickening with some enhancement of the upper collecting system bilaterally consistent with ascending infection. Bladder scan was 250 cc and has obstructive voiding symptoms. Started rocephin in ER. Recommend continuing IV abx. I placed parker to decompress bladder (no hematuria). Likely mild hydro is due to inflammation of collecting system from ascending infection; no stones or other source of obstruction. Will plan to f/u with FERNANDEZ in about 48 hrs to ensure resolution of hydro with IV abx and bladder decompression. 04/26/2021 Improved overnight - no pain and fever resolved. Await morning labs. Will plan repeat renal u/s tomorrow to check hydronephrosis. Subjective Subjective Date/Time Seen: 04/26/21 06:39 Comfortable, no complaints Review of Systems Cardiovascular: Cardiovascular: Denies chest pain, Denies lightheadedness, Denies palpitations and Denies dyspnea Respiratory: Respiratory: Denies dyspnea Gastrointestinal: Gastrointestinal: Denies diarrhea, Denies nausea and Denies vomiting Genitourinary: Genitourinary: Denies hematuria and Denies dysuria Endocrine: Endocrine: Denies palpitations Exam Const: General: no acute distress Resp: Effort & Inspection: normal respiratory effort GI: Inspection: non-distended GI Palp: No abdominal tenderness and No Guarding due to palpation present (GI) Auscultation: normal bowel sounds Objective Data Vital Signs Vital Signs: Vital Signs - 24 hr 04/25/21 13:39 04/25/21 16:00 04/25/21 16:15 Temperature 99.2 F 99.9 F H 99.8 F H Pulse Rate 101 H 70 86 Respiratory Rate 16 18 16 Blood Pressure 157/75 H 138/72 127/63 Pulse Oximetry 99 97 97 04/25/21 17:15 04/25/21 18:15 04/25/21 18:50 Temperature 100.1 F H 99.9 F H 100.4 F H Pulse Rate 89 80 92 Respiratory Rate 14 16 18 Blood Pressure 131/82 136/70 149/73 H Pulse Oximetry 93 95 100 04/25/21 20:00 04/25/21 21:45 Temperature 97.8 F Pulse Rate 92 61 Respiratory Rate 18 18 Blood Pressure 131/75 Pulse Oximetry 100 97 Intake/Output Intake/Output: Intake & Output 04/23/21 04/24/21 04/25/21 04/26/21 23:59 23:59 23:59 23:59 Intake Total 6220 1000 Output Total 1400 Balance 4820 1000 Meds/Results Medications: Active Medications Generic Name Dose Route Start Last Admin Trade Name Freq PRN Reason Stop Dose Admin Acetaminophen 1,000 mg 04/25/21 15:27 04/25/21 20:48 Acetaminophen 500 Mg Tablet PO 1,000 mg Q6H PRN Administration Pain Rated 5 or Less Duloxetine HCl 30 mg 04/26/21 09:00 Duloxetine Hcl 30 Mg Capsule.Dr PO DAILY KATARINA Furosemide 40 mg 04/26/21 09:00 Furosemide 40 Mg Tablet PO DAILY KATARINA Gabapentin 100 mg 04/25/21 17:00 04/25/21 17:50 Gabapentin 100 Mg Capsule PO 100 mg TID KATARINA Administration Ceftriaxone Sodium/Dextrose 1 gm in 50 mls @ 100 mls/hr 04/25/21 22:00 04/25/21 20:58 Rocephin 1 Gm/D5w 50 Ml IVPB 100 mls/hr Q24H KATARINA Administration Sodium Chloride 1,000 mls @ 125 mls/hr 04/25/21 21:00 04/26/21 06:13 Normal Saline Iv IV CONT 125 mls/hr .Q8H KATARINA Administration Ibuprofen 400 mg 04/25/21 15:27 04/26/21 01:21 Ibuprofen 400 Mg Tablet PO 400 mg Q6H PRN Administration Pain Rated 6 or Greater Lidocaine 2 patch 04/26/21 09:00 Lidocaine 5% Patch TRANSDERM DAILY KATARINA Miconazole Nitrate 1 appful 04/25/21 21:00 04/25/21 17:52 Miconazole Nitrate 2% Vaginal Cream 45 Gm Tube VAGINAL 05/01/21 21:01 1 appful HS KATARINA Administration Nystatin
[2021-04-26] MEDS: LIDOCAINE 5% PATCH 2 PATCH TRANSDERM (08:45)
[2021-04-26] MEDS: FUROSEMIDE 40 MG TABLET PO (08:46)
[2021-04-26] MEDS: SACCHAROMYCES BOULARDII 250 MG CAPSULE PO ×2 (08:46→17:20)
[2021-04-26] MEDS: GABAPENTIN 100 MG CAPSULE PO ×3 (08:46→17:20)
[2021-04-26] MEDS: DULoxetine HCL 30 MG CAPSULE.DR PO (08:46)
[2021-04-26] MEDS: PANTOPRAZOLE 40 MG TABLET PO (08:47)
--- NOTE | 2021-04-26 09:44 | WPDGICN ---
Assessment and Plan Assessment and plan (1) Acute on chronic anemia: Code(s): D64.9 - Anemia, unspecified Status: Acute Assessment and Plan: no signs of overt gib, recurrent problem will assess with egd since she has history of cirrhosis and previous gastritis 2020 unable to do colonoscopy (multiple attempts in the past at different places even with small size colonoscope- she has previous pelvic radiation) also noted lytic bone lesions, get SPEP/UPEP and consult hematology (2) Pyelonephritis, acute: Code(s): N10 - Acute pyelonephritis Status: Acute Assessment and Plan: on iv antibiotics urology on board (3) Lesion of pelvic bone: Code(s): M89.9 - Disorder of bone, unspecified Status: Acute Assessment and Plan: work up by primary and hematology consult (4) Hx of malignant neoplasm of vagina: Code(s): Z85.44 - Personal history of malignant neoplasm of other female genital organs Status: Acute Assessment and Plan: early , had pelvic radiation (5) 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: Code(s): K92.9 - Disease of digestive system, unspecified; Y84.2 - Radiological procedure and radiotherapy as the cause of abnormal reaction of the patient, or of later complication, without mention of misadventure at the time of the procedure Status: Acute (6) Cirrhosis of liver without ascites: Qualifiers: Hepatic cirrhosis type: unspecified hepatic cirrhosis Qualified Code(s): K74.60 - Unspecified cirrhosis of liver Code(s): K74.60 - Unspecified cirrhosis of liver Status: Acute Assessment and Plan: HCV treated, compensated will need liver imaging every 6 months for hcc screening (7) Pelvic irradiation: Status: Acute GI Consult Note Consult date/time: 04/26/21 09:44 Reason for consult: acute on chronic anemia, cirrhosis HPI: Rosalind Patel is a 65 year old female with past medical history significant for hypertension, gastroesophageal reflux disease, chronic anemia Hb 8-9, chronic kidney disease, hepatic cirrhosis secondary to hepatitis-C treated about 4 years ago with Harvelidia at [facility] and infection was cleared, obesity, chronic lymphedema, peripheral neuropathy, pulmonary hypertension and previous admission for UTI and bacteremia. She also had pelvic radiation about 20 years ago because uterine cancer. 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 She is here because progressive abdominal discomfort, dysuria and chills with fever, this is similar to previous UTI. Urinalysis with numerous wbc's present and admitted for iv antibiotics. CT of abdomen and pelvis reviewed and showed cystitis, possible lytic bone lesions and cirrhosis of the liver. Hb 6.6. Denies overt gib, no melena, no change in bowel habits. Review of Systems Constitutional: Constitutional: Reports chills and Reports fatigue Eyes: Eyes: Denies blurry vision ENT: Reports Normal hearing present Cardiovascular: Cardiovascular: Denies chest pain Respiratory: Respiratory: Denies dyspnea Gastrointestinal: Gastrointestinal: Reports abdominal pain Genitourinary: Genitourinary: Reports nocturia and Reports dysuria Musculoskeletal: Musculoskeletal: Denies neck pain Integumentary/Breasts: Skin/Breast: Denies dry skin Neurologic: Denies confusion Psychiatric: Psychiatric: Denies behavioral changes [facility] Past Medical History Medical History (Updated 04/26/21 @ 09:55 by Vipul Mendoza MD) Abnormal mammogram of left breast April 2018 Acute on chronic anemia Age-related osteoporosis without current pathological fracture Anemia Iron was low at 29, TIBC within normal limits, % saturation low at 7% March 2019 Cataract Maturing left eye
[2021-04-26] MEDS: COLLAGENASE OINT 30 GM TUBE 1 APPLIC TOPICAL (10:28)
[2021-04-26 10:57] LABS: IFOB Positive Control Positive; Immunochemical Fecal Occult Bl Positive (N)
--- NOTE | 2021-04-26 12:59 | PDONCCN ---
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 He has been diagnosed with urinary tract infection. Patient denies any melena hematochezia. Denies any vaginal bleeding. Labs showed hemoglobin of 6.6 April 25. Iron level was normal at 48 with normal iron saturation of 31%. Stool occult blood testing came back positive. She has been complaining of tiredness and fatigue. Review of Systems - Review of Systems All systems reviewed & are unremarkable except as noted in HPI and bel - Neurologic Reports hearing normal, Reports numbness (chronic nerve damage to left foot), Denies behavioral changes, Denies confusion, Denies vertigo, Denies focal weakness, Denies sensory deficit, Denies weakness [facility] Medical History: Medical History (Last Updated 04/26/21 @ 09:55 by Vipul Mendoza MD) Abnormal mammogram of left breast April 2018 Acute on chronic anemia Age-related osteoporosis without current pathological fracture Anemia Iron was low at 29, TIBC within normal limits, % saturation low at 7% March 2019 Cataract Maturing left eye cataract Chronic bilateral low back pain without sciatica Chronic gastroesophageal reflux disease Chronic narcotic use Chronic pruritus Thought to be due to her cirrhosis CKD (chronic kidney disease), stage III Coronary artery disease Cardiac catheterization in 1994 demonstrating 40% stenosis 1 vessel Diverticulitis 2002 Gastritis Noted on EGD from April 29, 2019 Hepatic cirrhosis due to chronic hepatitis C infection Status post treatment 2010. Complicated by cirrhosis with portal venous hypertension. Managed at [facility] History of gait disorder Ambulates with a walker Hx of malignant neoplasm of vagina Diagnosed in 1999. Status post chemotherapy and radiation therapy. With repeat vaginal biopsies in 2010. Managed to [facility]. Hyperlipidemia LDL goal <100 Hyperparathyroidism Hypertension, essential, benign Left kidney mass 10 mm inferior pole left kidney mass suspicious for renal cell carcinoma. Patient was evaluated by Urology (Dr. 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 Patient states she has had multiple colonoscopy attempts at [place] that were unsuccessful due to narrowing of her bowel due to radiation treatments from her vaginal cancer in 1999 Rectal bleeding UTI (urinary tract infection) Vitamin D deficiency Vitamin-D level of 05 April 2019 Surgical History: Surgical History (Last Reviewed 04/24/21 @ 23:34 by Matias Iniguez MD) Abnormal colonoscopy With room most recent colonoscopy 04/29/2019 demonstrating tight fibrotic changes to the tissues consistent with history of prior radiation therapy H/O tubal ligation History of vaginal hysterectomy With bilateral salpingo-oophorectomy Hx of cardiac cath 1994 with 40% lesion noted without stent placement Family History: Family History (Last Reviewed 04/24/21 @ 23:34 by Matias Iniguez MD) Sibling Diabetes mellitus Mother , Mother of an SD at age 43. Patient's mother is Acute myocardial infarction Father Patient's father is Ac
[2021-04-26 14:00] VITALS: BP 155/71; PULSE 74; RESP 16; TEMP 36.2; O2SAT 100
--- NOTE | 2021-04-26 14:05 | PCNWS ---
Weekly nutritional screen. Pt screened in for pressure ulcer. Attempted to visit with pt x2 but unable to do so, MD and physical therapy in room at time of attempts. Patient is tolerating current heart healthy diet with adequate intake of 75%x2 and 100%. No weight loss reported. No nutritional needs at this time. Pt is NPO starting 04/27/21. Recommending adding orders for Lex BID once NPO status is lifted. Will follow up with pt in 5 days.
--- NOTE | 2021-04-26 16:51 | PM.IMPN ---
Progress Note: A&P Assessment and Plan (1) UTI (urinary tract infection): Qualifiers: Hematuria presence: without hematuria Urinary tract infection type: site unspecified Qualified Code(s): N39.0 - Urinary tract infection, site not specified Code(s): N39.0 - Urinary tract infection, site not specified Status: Acute Assessment and Plan: on regular medical floor Cultures in progress urinary discomfort , possible yeast infection urinary parker catheter placed by Urologist discomfort /pain treated with ordered extra-strength Tylenol and Motrin p.r.n.. Ordered Monistat, Florastor, and nystatin powder. 02/18 urine culture was positive for Proteus and sensitive to Rocephin. Last and most recent urine culture and blood cultures of 04/24/21 are still pending. continue IV Rocephin Appreciate Urology consultation due to 2+ blood on UA, bladder wall thickening with cystitis and ascending UTI. 04/26/21 16:51 patient is a 65-year-old female with history of vaginal cancer status post chemoradiation therapy presented emergency department with urinary symptoms with fever and chills seen by urologist suspect patient has voiding obstructive symptoms resulting in UTI started the patient Rocephin, upon arrival patient hemoglobin was 6.7 and patient was given 1 unit of pack RBC seen by GI suggesting EGD to further evaluate patient with history of liver cirrhosis and gastritis, patient is also seen by Oncology and suspect patient have multiple myeloma and further workup is in progress, patient continue to complain of pelvic pain, will start the patient on norco for pain and monitor. (2) Chronic narcotic use: Code(s): F11.90 - Opioid use, unspecified, uncomplicated Status: Acute Assessment and Plan: Recovered from alcohol use, crack cocaine use, marijuana use. Continue home meds Continue to monitor Bone lesions may be painful - but avoid narcotic pain meds. Ordered lidocaine pain patches to hips/upper thighs. (3) Chronic bilateral low back pain without sciatica: Code(s): M54.5 - Low back pain; G89.29 - Other chronic pain Status: Acute Assessment and Plan: Continue home meds Continue to monitor (4) Coronary artery disease: Code(s): I25.10 - Atherosclerotic heart disease of [place] coronary artery without angina pectoris Status: Acute Assessment and Plan: Stable Continue home meds (5) Lesion of pelvic bone: Code(s): M89.9 - Disorder of bone, unspecified Status: Acute Assessment and Plan: CT today showed: patchy lytic lesions of the pelvis and proximal femurs. diffuse bladder wall thickening and bladder wall enhancement. Mild thickening and enhancement of the distal small bowel, suspicious for enteritis. Patchy scattered lytic lesions of the pelvis and proximal femurs. Consider metastatic disease and myeloma. Correlate for history of known malignancy. Combined with her severe anemia today with a hemoglobin of 6.6 and hematocrit of 20. Consulted GI and ordered occult stool tests, as well as concern for her enteritis of the distal small bowel on her CT scan. vaginal cancer history, I have consulted Hematology. Transfuse RBCs and treat pain as needed. (6) Acute anemia: Code(s): D64.9 - Anemia, unspecified Status: Acute Assessment and Plan: Severe anemia today with a hemoglobin of 6.6 and hematocrit of 20. ordered occult stool tests, as well as concern for her enteritis of the distal small bowel on her CT scan. With her anemia, lytic lesions of the pelvis and femur, and vaginal cancer history, I have consulted Hematology as well. ordered 1 RBC transfused and then repeat H/H checking iron panel possibly multi factorial: due to very poor appetite and poor dietary intake at home, slow loss in urine, cancer history, bone lesions. Consulted GI and Urology and [facility]. (7) Hypomagnesemia: Code(s): E83.42
[2021-04-26] MEDS: HYDROcodone/acetaminophen (*CRX) 7.5-325 MG TABLET 1 TAB PO ×2 (19:00→23:55)
[2021-04-26] MEDS: MICONAZOLE NITRATE 2% VAGINAL CREAM 45 GM TUBE 1 APPFUL VAGINAL (20:59)
[2021-04-26] MEDS: LORazepam (*CRX) 0.5 MG TABLET PO (21:11)
[2021-04-26 21:19] VITALS: BP 173/75; PULSE 85; RESP 14; TEMP 36.6; O2SAT 100
[2021-04-27] VITALS (16 sets, daily range): BP systolic 133–182; BP diastolic 56–95; PULSE 77–104; RESP 14–25; TEMP 36.3–39.5; O2SAT 97–100
[2021-04-27 00:22] LABS: Hematocrit 22.5 % (37.0-47.0); Hemoglobin 7.7 g/dL (12.0-15.0); Immature Platelet Fraction Pct 2.4 % (0.9-11.2); Mean Corpuscular HGB Conc 34.2 g/dl (32-36); Mean Corpuscular Hemoglobin 32.5 pg (26-34); Mean Corpuscular Volume 94.9 fl (80-100); Mean Platelet Volume 12.2 fl (7.4-10.4); Platelet Count Result 50 k/mm3 (150-375); Red Blood Count 2.37 M/mm3 (4.2-5.4); Red Cell Distribution Width 16.9 % (11.5-14.5); White Blood Count 5.6 K/mm3 (4.5-10.0)
[2021-04-27 00:36] LABS: Anion Gap 9 mmol/L (8-16); Blood Urea Nitrogen 12 mg/dL (7-17); Calcium 9.1 mg/dL (8.4-10.2); Carbon Dioxide 18 mmol/L (22-30); Chloride 111 mmol/L (98-107); Estimated CRCL calculation 61 ml/min; Estimated Glomerular Filt Rate > 60; Glucose 114 mg/dL (65-110); Magnesium 1.5 mg/dL (1.6-2.3); Potassium 3.6 mmol/L (3.4-5.0); Sodium 138 mmol/L (137-145)
[2021-04-27 01:30] LABS: Band Neutrophils Percent 2 % (0-6); Lymphocytes Absolute Manual 3.69 K/mm3 (1.1-4.5); Monocytes Absolute Manual 1.17 K/mm3 (0.1-0.90); Monocytes Percent Manual 21 % (3-9); Neutrophils Absolute Manual 0.72 K/mm3 (1.7-7.2); Neutrophils Percent Manual 11 % (46-73); Nucleated Red Blood Cells 7 %; Platelet Estimate Decreased (Adequate); Total Cells Counted 100
[2021-04-27 01:31] LABS: Atypical Lymphocytes Present; Polychromasia 1+ (NORMAL)
[2021-04-27] MEDS: ACETAMINOPHEN 500 MG TABLET 1000 MG PO ×2 (04:03→17:02)
[2021-04-27] MEDS: SODIUM CHLORIDE 0.9% IV 1,000 ML 125 ML IV CONT (04:04)
[2021-04-27 06:43] LABS: Mean Corpuscular HGB Conc 34.3 g/dl (32-36); Mean Corpuscular Hemoglobin 32.9 pg (26-34); Mean Corpuscular Volume 95.7 fl (80-100); Mean Platelet Volume 11.2 fl (7.4-10.4); Platelet Count Result 59 k/mm3 (150-375); Red Blood Count 2.07 M/mm3 (4.2-5.4); Red Cell Distribution Width 17.1 % (11.5-14.5); White Blood Count 5.5 K/mm3 (4.5-10.0)
[2021-04-27 06:49] LABS: Anion Gap 5 mmol/L (8-16); Blood Urea Nitrogen 10 mg/dL (7-17); Calcium 8.9 mg/dL (8.4-10.2); Carbon Dioxide 24 mmol/L (22-30); Chloride 108 mmol/L (98-107); Estimated CRCL calculation 55 ml/min; Estimated Glomerular Filt Rate > 60; Glucose 98 mg/dL (65-110); Lactate Dehydrogenase 994 U/L (313-618); Magnesium 1.4 mg/dL (1.6-2.3); Potassium 3.1 mmol/L (3.4-5.0); Sodium 137 mmol/L (137-145)
[2021-04-27 07:00] LABS: Hemoglobin 6.8 g/dL (12.0-15.0)
[2021-04-27 07:01] LABS: Hematocrit 19.8 % (37.0-47.0)
[2021-04-27 07:03] LABS: Immunoglobulin A 375 mg/dL (70-400); Immunoglobulin G 1936 mg/dL (700-1600); Immunoglobulin M 159 mg/dL (40-230)
[2021-04-27 07:55] LABS: Folic Acid 10.3 ng/mL (2.76->20)
[2021-04-27] MEDS: COLLAGENASE OINT 30 GM TUBE 1 APPLIC TOPICAL (08:53)
--- NOTE | 2021-04-27 09:37 | PC.NURSE ---
To GI Lab per guy, IV #20 right wrist. Report given to Qing @ 1114.
[2021-04-27] MEDS: LACTATED RINGERS 1,000 ML 150 ML IV CONT (09:42)
--- NOTE | 2021-04-27 09:43 | WPDANESEPPF ---
Anes - Initial Pre Proc Eval Procedure: Operation Date: 04/27/21 10:30 Proposed Procedures p Esophagogastroduodenoscopy - Vipul Mendoza MD Date/Time: 04/27/21 09:43 Surgeon: Reba Jimenez NP Pre Op Diagnosis: UTI, Pyelonephritis, Anemia Patient Data Age: 65 Gender: F Height: 1.63 m Weight: 77.2 kg Last Vital Signs Temp 36.7 C 04/27/21 06:49 Pulse 81 04/27/21 06:49 Resp 14 04/27/21 06:49 BP 149/63 H 04/27/21 06:49 Pulse Ox 97 04/27/21 06:49 Allergies Allergy/AdvReac Type Severity Reaction Status Date / Time No Known Allergies Allergy Verified 04/27/21 09:45 Home Medications Medication Instructions Recorded Confirmed Type amlodipine [Norvasc] 5 mg PO QAM #60 tablet 10/19/19 04/25/21 Rx aspirin [Children's Aspirin] 81 mg PO DAILY@0800 #30 tablet 11/17/20 04/25/21 Rx duloxetine 30 mg PO DAILY #0 cap 11/17/20 04/25/21 Rx furosemide 40 mg PO DAILY #30 tablet 11/17/20 04/25/21 Rx gabapentin 100 mg PO TID #90 cap 11/17/20 04/25/21 Rx lorazepam 0.5 mg PO DAILY PRN #12 tablet 11/17/20 04/25/21 Rx pantoprazole [Protonix] 40 mg PO QAM 28 Days #28 tablet 11/17/20 04/25/21 Rx Laboratory Tests 04/26/21 04/26/21 04/26/21 10:17 13:13 13:13 WBC RBC Hgb Hct MCV MCH MCHC RDW Plt Count MPV Immature Gran % (Auto) Neut % (Auto) Lymph % (Auto) Mccone % (Auto) Eos % (Auto) Baso % (Auto) Lymph # (Auto) Mccone # (Auto) Eos # (Auto) Baso # (Auto) Abs Immat Gran (auto) Absolute Neuts (auto) Absolute Nucleated RBC Total Counted Neutrophils % (Manual) Band Neutrophils % Lymphocytes % (Manual) Monocytes % (Manual) Nucleated RBC % Abs Neuts (Manual) Abs Lymphs (Manual) Abs Monocytes (Manual) Nucleated RBCs Atypical Lymphocytes Platelet Estimate % Immature Plt Fraction Polychromasia Sodium Potassium Chloride Carbon Dioxide Anion Gap BUN Creatinine Estim Creat Clear Calc Estimated GFR Glucose Calcium Magnesium Janet Transferrin Receptr Pending Lactate Dehydrogenase Vitamin B12 Folate Stl Occult Blood (IFOB) Positive H (N) IgG IgA IgM Serum Immunofixation Pending Clawson/Lambda Ratio Pending Free Clawson Light Chains Pending Free Lambda Light Chain Pending 04/26/21 04/27/21 04/27/21 13:13 00:01 00:01 WBC 5.6 K/mm3 K/mm3 (4.5-10.0) RBC 2.37 M/mm3 L M/mm3 (4.2-5.4) Hgb 7.7 g/dL L g/dL (12.0-15.0) Hct 22.5 % L % (37.0-47.0) MCV 94.9 fl D fl (80-100) MCH 32.5 pg pg (26-34) MCHC 34.2 g/dl g/dl (32-36) RDW 16.9 % H % (11.5-14.5) Plt Count 50 k/mm3 L k/mm3 (150-375) MPV 12.2 fl H fl (7.4-10.4) Immature Gran % (Auto) Not Reportable Neut % (Auto) Not Reportable Lymph % (Auto) Not Reportable Mccone % (Auto) Not Reportable Eos % (Auto) Not Reportable Baso % (Auto) Not Reportable Lymph # (Auto) Not Reportable Mccone # (Auto) Not Reportable Eos # (Auto) Not Reportable Baso # (Auto) Not Reportable Abs Immat Gran (auto) Not Reportable Absolute Neuts (auto) Not Reportable Absolute Nucleated RBC Not Reportable
[2021-04-27] MEDS: FUROSEMIDE 40 MG TABLET PO (11:12)
[2021-04-27] MEDS: PANTOPRAZOLE 40 MG TABLET PO (11:12)
[2021-04-27] MEDS: SACCHAROMYCES BOULARDII 250 MG CAPSULE PO ×2 (11:12→16:38)
[2021-04-27] MEDS: DULoxetine HCL 30 MG CAPSULE.DR PO (11:13)
[2021-04-27] MEDS: HYDROcodone/acetaminophen (*CRX) 7.5-325 MG TABLET 1 TAB PO ×2 (11:17→21:27)
[2021-04-27] MEDS: GABAPENTIN 100 MG CAPSULE PO ×2 (12:31→16:38)
--- NOTE | 2021-04-27 12:44 | WPDONCPN ---
Progress Note: A/P - Additional Plan Anemia and thrombocytopenia. Patient has history of hepatitis C and liver cirrhosis. Due to finding of lytic lesion on the CT scan testing for myeloma was ordered. Initial test showed IgG level elevated at 19 36. Serum immunofixation is pending. We will order a skeletal survey. Based on the findings we will decide about performing bone marrow aspiration and biopsy. EGD showed gastritis. Thrombocytopenia. Likely secondary to hepatitis-C and liver cirrhosis. - Time Spent With Patient Total time spent is greater than 50% in coordination of care (as documented) at patient's floor/unit and/or counseling patient: 15 - 25 minutes Subjective Interval history: Anemia and thrombocytopenia Review of Systems - Review of Systems Patient complain of bone pain. Denies any bleeding and bruising. She otherwise looks comfortable and is eating her lunch. No other new complaints. - Neurologic Reports hearing normal, Reports numbness (chronic nerve damage to left foot), Denies behavioral changes, Denies confusion, Denies vertigo, Denies focal weakness, Denies sensory deficit, Denies weakness Exam Vital signs: Temp Pulse Resp BP Pulse Ox 36.3 C L 77 25 H 146/63 H 100 04/27/21 09:46 04/27/21 10:32 04/27/21 10:32 04/27/21 10:32 04/27/21 10:32 Narrative: Lungs are clear to auscultation bilaterally cardiovascular regular rate rhythm no murmurs Abdomen soft nontender nondistended bowel sounds are positive Extremities no edema PN: Objective Data - Labs CBC & Chem 7: 04/27/21 06:00 04/27/21 06:00 Labs: Laboratory Results - last 24 hr 04/25/21 04/26/21 04/27/21 00:33 13:13 00:01 WBC 5.6 RBC 2.37 L Hgb 7.7 L Hct 22.5 L MCV 94.9 D MCH 32.5 MCHC 34.2 RDW 16.9 H Plt Count 50 L MPV 12.2 H Immature Gran % (Auto) Not Reportable Neut % (Auto) Not Reportable Lymph % (Auto) Not Reportable [place] % (Auto) Not Reportable Eos % (Auto) Not Reportable Baso % (Auto) Not Reportable Lymph # (Auto) Not Reportable [place] # (Auto) Not Reportable Eos # (Auto) Not Reportable Baso # (Auto) Not Reportable Abs Immat Gran (auto) Not Reportable Absolute Neuts (auto) Not Reportable Absolute Nucleated RBC Not Reportable Total Counted 100 Neutrophils % (Manual) 11 L Band Neutrophils % 2 Lymphocytes % (Manual) 66.0 H Monocytes % (Manual) 21 H Nucleated RBC % Not Reportable Abs Neuts (Manual) 0.72 L Abs Lymphs (Manual) 3.69 Abs Monocytes (Manual) 1.17 H Nucleated RBCs 7 Atypical Lymphocytes Present Platelet Estimate Decreased % Immature Plt Fraction 2.4 Polychromasia 1+ Sodium Potassium Chloride Carbon Dioxide Anion Gap BUN Creatinine Estim Creat Clear Calc Estimated GFR Glucose Calcium Magnesium Lactate Dehydrogenase Cancelled Vitamin B12 Cancelled Folate Cancelled IgG IgA IgM Crossmatch See Detail 04/27/21 04/27/21 04/27/21 00:01 06:00 06:00 WBC 5.5 RBC 2.07 L Hgb 6.8 L* Hct 19.8 L* MCV 95.7 MCH 32.9 MCHC 34.3 RDW 17.1 H Plt Count 59 L MPV 11.2 H Immature Gran % (Auto) Neut % (Auto) Lymph % (Auto) [place] % (Auto) Eos % (Auto) Baso % (Auto) Lymph # (Auto) [place] # (Auto) Eos # (Auto) Baso # (Auto) Abs Immat Gran (auto) Absolute Neuts (auto) Absolute Nucleated RBC Total Counted Neutrophils % (Manual) Band Neutrophils % Lymphocytes % (Manual) Monocytes % (Manual) Nucleated RBC % Abs Neuts (Manual) Abs Lymphs (Manual) Abs Monocytes (Manual) Nucleated RBCs Atypical Lymphocytes Platelet Estimate % Immature Plt Fraction Polychromasia Sodium 138 Potassium 3.6 Chloride 111 H Carbon Dioxide 18 L Anion Gap 9 BUN 12 Creatinine 0.80 Estim Creat Clear C
[2021-04-27] MEDS: SODIUM CHLORIDE 0.9% IV 250 ML 30 ML IV CONT (15:40)
[2021-04-27] MEDS: FUROSEMIDE INJ 40 MG/4 ML VIAL 20 MG IV PUSH (16:36)
[2021-04-27] MEDS: amLODIPine BESYLATE 5 MG TABLET PO (17:00)
[2021-04-27] MEDS: diphenhydrAMINE HCl INJ 50 MG/ML VIAL IV PUSH (18:31)
[2021-04-27] MEDS: MICONAZOLE NITRATE 2% VAGINAL CREAM 45 GM TUBE 1 APPFUL VAGINAL (21:04)
[2021-04-27] MEDS: LORazepam (*CRX) 0.5 MG TABLET PO (21:30)
[2021-04-28] MEDS: SODIUM CHLORIDE 0.9% IV 1,000 ML 100 ML IV CONT ×2 (01:09→23:57)
[2021-04-28 06:00] VITALS: BP 157/56; PULSE 96; RESP 18; TEMP 38.8; O2SAT 100
--- NOTE | 2021-04-28 07:17 | WPDANESPN ---
Anes - Prog Note Post-Op Date/Time: 04/28/21 07:17 Cardiovascular status: normal Respiratory status: normal Airway patency: baseline Mental status: baseline Post-Op hydration status: normal Vital Signs: Last Vital Signs Temp 102.0 F H 04/27/21 21:16 Pulse 88 04/27/21 21:16 Resp 18 04/27/21 21:16 BP 157/68 H 04/27/21 21:16 Pulse Ox 100 04/27/21 21:16 Pain Score (VAS): 04/26 I/O: Intake & Output 04/27/21 04/27/21 04/28/21 15:59 23:59 07:59 Intake Total 390 4650 Output Total 3100 Balance 390 1550 Laboratory Tests 04/27/21 06:00 04/27/21 06:00 04/25/21 04/27/21 00:33 06:00 Vitamin B12 834.0 Folate 10.3 Blood Type A Positive Antibody Screen Negative Crossmatch See Detail Microbiology 04/25/21 00:33 Blood Blood Culture - Preliminary Coag negative Staphylococcus Post-procedural complaints: none Patient Feedback: Patient satisfied with anesthetic care.
[2021-04-28 07:31] LABS: Hematocrit 23.7 % (37.0-47.0); Immature Platelet Fraction Pct 1.9 % (0.9-11.2); Mean Corpuscular HGB Conc 33.8 g/dl (32-36); Mean Corpuscular Hemoglobin 31.3 pg (26-34); Mean Corpuscular Volume 92.6 fl (80-100); Mean Platelet Volume 9.2 fl (7.4-10.4); Platelet Count Result 51 k/mm3 (150-375); Red Blood Count 2.56 M/mm3 (4.2-5.4); Red Cell Distribution Width 15.9 % (11.5-14.5); White Blood Count 7.7 K/mm3 (4.5-10.0)
[2021-04-28 07:48] LABS: Anion Gap 9 mmol/L (8-16); Blood Urea Nitrogen 11 mg/dL (7-17); Calcium 8.8 mg/dL (8.4-10.2); Carbon Dioxide 22 mmol/L (22-30); Chloride 102 mmol/L (98-107); Estimated CRCL calculation 50 ml/min; Estimated Glomerular Filt Rate > 60; Glucose 105 mg/dL (65-110); Magnesium 1.2 mg/dL (1.6-2.3); Sodium 133 mmol/L (137-145)
[2021-04-28] MEDS: COLLAGENASE OINT 30 GM TUBE 1 APPLIC TOPICAL (08:48)
[2021-04-28] MEDS: SACCHAROMYCES BOULARDII 250 MG CAPSULE PO ×2 (08:48→16:44)
[2021-04-28] MEDS: GABAPENTIN 100 MG CAPSULE PO ×3 (08:48→16:44)
[2021-04-28] MEDS: FUROSEMIDE 40 MG TABLET PO (08:48)
[2021-04-28] MEDS: DULoxetine HCL 30 MG CAPSULE.DR PO (08:48)
[2021-04-28] MEDS: PANTOPRAZOLE 40 MG TABLET PO ×2 (08:49→22:49)
[2021-04-28] MEDS: amLODIPine BESYLATE 5 MG TABLET PO (08:49)
[2021-04-28] MEDS: HYDROcodone/acetaminophen (*CRX) 7.5-325 MG TABLET 1 TAB PO ×2 (09:08→22:48)
--- NOTE | 2021-04-28 09:20 | PCOTNOTE ---
Patient refused treatment this session due to arrival of breakfast as well as not feeling well. Will follow up at a later time when pt amenable to services per plan of care.
[2021-04-28 10:42] VITALS: TEMP 36.9; TEMP 37.6
--- NOTE | 2021-04-28 12:57 | WPDGIPROGNO ---
Progress Note: A&P Assessment and Plan (1) Acute on chronic anemia: Code(s): D64.9 - Anemia, unspecified Status: Acute Assessment and Plan: probably multifactorial (hematology on board because lytic lesions and work up in progress to rule out MM, etc) found erosive gastritis without bleeding can not get colonoscopy (multiple failed attempts) she is not ready to get barium enema just yet, would like to think about it and talk to my in the office (2) Erosive gastritis: Code(s): K29.60 - Other gastritis without bleeding Status: Acute Assessment and Plan: on protonix daily (3) Lesion of pelvic bone: Code(s): M89.9 - Disorder of bone, unspecified Status: Acute (4) Cirrhosis of liver without ascites: Qualifiers: Hepatic cirrhosis type: unspecified hepatic cirrhosis Qualified Code(s): K74.60 - Unspecified cirrhosis of liver Code(s): K74.60 - Unspecified cirrhosis of liver Status: Acute Assessment and Plan: hcv already treated and cured compensated will need liver ultrasound every 6 months for hcc surveillance (5) Pelvic irradiation: Status: Acute Subjective Date/time seen: 04/28/21 12:57 Interval history: egd showed ulcerative/erosive gastritis without active bleeding, she is eating today and denies any new complaint Review of Systems Review of Systems: All systems reviewed & are unremarkable except as noted in HPI and below Exam Const: General: comfortable and no acute distress HENMT: General nose exam: Normal nares present Eyes: General: appearance normal, both eyes and all related structures Neck: Neck: no JVD Resp: Auscultation: clear to auscultation bilaterally Cardio: Rate: regular rate Rhythm: regular rhythm GI: Inspection: non-distended GI Palp: Yes Soft to palpation Auscultation: normal bowel sounds Skin: General skin exam: normal color Neuro: Speech: normal speech Motor exam (neuro): Normal motor muscle tone present throughout Extrem: General: normal to inspection Psych: Mental Status: mental status grossly normal Objective Data Vital Signs Vital Signs: Vital Signs - 24 hr 04/27/21 14:00 04/27/21 15:25 04/27/21 15:30 Temperature 98.3 F 98.5 F 98.5 F Pulse Rate 77 78 78 Respiratory Rate 18 18 18 Blood Pressure 161/60 H 161/72 H 161/72 H Pulse Oximetry 100 100 100 01/11/22 15:55 04/27/21 16:55 04/27/21 17:02 Temperature 97.7 F 103.1 F H 103.1 F H Pulse Rate 85 96 Respiratory Rate 18 18 Blood Pressure 173/95 H 182/90 H Pulse Oximetry 100 100 04/27/21 17:55 04/27/21 18:02 04/27/21 18:45 Temperature 102.8 F H 102.8 F H 100.7 F H Pulse Rate 104 H 91 Respiratory Rate 18 18 Blood Pressure 180/80 H 156/67 H Pulse Oximetry 100 97 04/27/21 20:20 04/27/21 21:16 04/28/21 06:00 Temperature 102.0 F H 101.9 F H Pulse Rate 88 88 96 Respiratory Rate 18 18 18 Blood Pressure 157/68 H 157/56 H Pulse Oximetry 100 100 100 04/28/21 10:42 Temperature 99.6 F Pulse Rate Respiratory Rate Blood Pressure Pulse Oximetry Intake/Output Intake/Output: Intake & Output 04/25/21 04/26/21 04/27/21 04/28/21 23:59 23:59 23:59 23:59 Intake Total 6270 4520 6040 540 Output Total 1400 4000 3700 Balance 4870 520 2340 540 Meds/Results Medications: Active Medications Generic Name Dose Route Start Last Admin Trade Name Rod PRN Reason Stop Dose Admin Acetaminophen 1,000 mg 04/25/21 15:27 04/27/21 17:02 Acetaminophen 500 Mg Tablet PO 1,000 mg Q6H PRN Administration Pain Rated 6 or Less Hydrocodone Bitart/Acetaminophen 1 tab 04/26/21 16:01 04/28/21 09:08 Hydrocodone/Acetaminophen (*Crx) 7.5-325 Mg Tablet PO 1 tab BID PRN Administration Pain Rated 7-10 Amlodipine Besylate 5 mg 04/28/21 09:00 04/28/21 08:49 Amlodipine Besylate 5 Mg Tablet PO 5 mg QAM KATARINA Administration Collagenase 1 applic 04/26/21 09:00 04/28/21 08:48 Collagena
--- NOTE | 2021-04-28 13:11 | WPDONCPN ---
Progress Note: A/P - Additional Plan Anemia and thrombocytopenia. Patient has history of hepatitis-C and liver cirrhosis. Bone survey came back unremarkable for any other lytic lesions. Serum protein electrophoresis and immunofixation remains pending. Thrombocytopenia. Secondary to hepatitis C and liver cirrhosis. Platelet count stable. Fever. This could be secondary to blood transfusion. Patient was placed on broad-spectrum antibiotics and cultures have been obtained. Discussed with the hospitalist team. Patient is clinically stable at this time. - Time Spent With Patient Total time spent is greater than 50% in coordination of care (as documented) at patient's floor/unit and/or counseling patient: 15 - 25 minutes Subjective Interval history: Anemia and thrombocytopenia Review of Systems - Review of Systems Patient had fever of 103 last night after blood transfusion. Denies any night sweats. Denies any sore throat. No diarrhea. No cough. No other new complaints. 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 Assessment of coma and impaired consciousness. A practical scale. Lancet 1974; 2:81-4. Lungs are clear to auscultation bilaterally Cardiovascular regular rate rhythm no murmurs Abdomen soft nontender nondistended bowel sounds are positive Extremities no edema PN: Objective Data - Labs CBC & Chem 7: 04/28/21 06:23 04/28/21 06:23 Labs: Laboratory Results - last 24 hr 04/25/21 04/28/21 04/28/21 00:33 06:23 06:23 WBC 7.7 RBC 2.56 L Hgb 8.0 L Hct 23.7 L MCV 92.6 MCH 31.3 MCHC 33.8 RDW 15.9 H Plt Count 51 L MPV 9.2 % Immature Plt Fraction 1.9 Sodium 133 L Potassium 3.0 L Chloride 102 Carbon Dioxide 22 Anion Gap 9 BUN 11 Creatinine 1.00 Estim Creat Clear Calc 50 Estimated GFR > 60 Glucose 105 Calcium 8.8 Magnesium 1.2 L Blood Type A Positive Antibody Screen Negative Crossmatch See Detail
[2021-04-28 14:00] VITALS: BP 123/48; PULSE 79; RESP 16; TEMP 36.4; O2SAT 99
--- NOTE | 2021-04-28 14:45 | PCPTNOTE ---
Patient was unavailable for treatment at this time. Will continue with current plan of care.
--- NOTE | 2021-04-28 18:59 | P.PNIM_ITS ---
Progress Note: A&P Assessment and Plan (1) UTI (urinary tract infection): Qualifiers: Hematuria presence: without hematuria Urinary tract infection type: site unspecified Qualified Code(s): N39.0 - Urinary tract infection, site not specified Code(s): N39.0 - Urinary tract infection, site not specified Status: Acute (2) Chronic narcotic use: Code(s): F11.90 - Opioid use, unspecified, uncomplicated Status: Acute Assessment and Plan: Recovered from alcohol use, crack cocaine use, marijuana use. Continue home meds Continue to monitor Bone lesions may be painful - but avoid narcotic pain meds. Ordered lidocaine pain patches to hips/upper thighs. (3) Chronic bilateral low back pain without sciatica: Code(s): M54.5 - Low back pain; G89.29 - Other chronic pain Status: Acute Assessment and Plan: Continue home meds Continue to monitor (4) Coronary artery disease: Code(s): I25.10 - Atherosclerotic heart disease of [place] coronary artery without angina pectoris Status: Acute Assessment and Plan: Stable Continue home meds (5) Lesion of pelvic bone: Code(s): M89.9 - Disorder of bone, unspecified Status: Acute Assessment and Plan: CT today showed: patchy lytic lesions of the pelvis and proximal femurs. diffuse bladder wall thickening and bladder wall enhancement. Mild thickening and enhancement of the distal small bowel, suspicious for enteritis. Patchy scattered lytic lesions of the pelvis and proximal femurs. Consider metastatic disease and myeloma. Correlate for history of known malignancy. Combined with her severe anemia today with a hemoglobin of 6.6 and hematocrit of 20. Consulted GI and ordered occult stool tests, as well as concern for her enteritis of the distal small bowel on her CT scan. vaginal cancer history, I have consulted Hematology. Transfuse RBCs and treat pain as needed. (6) Hypomagnesemia: Code(s): E83.42 - Hypomagnesemia Status: Acute Assessment and Plan: Mag is 1.4 today. Ordered 4 gm Mag IV repeating Mag level after infusion today/mornings. likely due to very poor appetite and poor dietary intake at home (7) Severe sepsis: Code(s): A41.9 - Sepsis, unspecified organism; R65.20 - Severe sepsis without septic shock Status: Acute (8) Sinus tachycardia: Code(s): R00.0 - Tachycardia, unspecified Status: Acute (9) Erosive gastritis: Code(s): K29.60 - Other gastritis without bleeding Status: Acute (10) Acute on chronic anemia: Code(s): D64.9 - Anemia, unspecified Status: Acute (11) Pneumonia: Qualifiers: Laterality: unspecified laterality Lung location: unspecified part of lung Pneumonia type: due to unspecified organism Qualified Code(s): J18.9 - Pneumonia, unspecified organism Code(s): J18.9 - Pneumonia, unspecified organism Status: Acute Additional Plan on regular medical floor Cultures in progress urinary discomfort , possible yeast infection urinary parker catheter placed by Urologist discomfort /pain treated with ordered extra-strength Tylenol and Motrin p.r.n.. Ordered Monistat, Florastor, and nystatin powder. 02/18 urine culture was positive for Proteus and sensitive to Rocephin. Last and most recent urine culture and blood cultures of 04/24/21 are still pending. continue IV Rocephin Appreciate Urology consultation due to 2+ blood on UA, bladder wall thickening with cystitis and ascending UTI. 04/26/21 16:51 eduardo
[2021-04-28 20:00] VITALS: PULSE 91; RESP 18; O2SAT 100
[2021-04-28 22:00] VITALS: BP 146/56; PULSE 91; RESP 18; TEMP 37.5; O2SAT 100
[2021-04-28] MEDS: LORazepam (*CRX) 0.5 MG TABLET PO (22:49)
[2021-04-28] MEDS: MICONAZOLE NITRATE 2% VAGINAL CREAM 45 GM TUBE 1 APPFUL VAGINAL (22:50)
--- NOTE | 2021-04-29 | ECHO_ITS ---
Patient Info Name: Rosalind Patel Age: 65 years : 1955 Gender: Female Ht: 64 in Wt: 170 lbs BSA: 1.89 m2 HR: 73 bpm BP: 136 / 52 mmHg Technical Quality: Fair Exam Date: 04/29/2021 10:20 AM Exam Location: [facility] Pulmonary Exam Room: [facility] Patient Status: Inpatient Admit Date: 04/26/2021 Staff Ordering Physician: Irina Peng MD Sales Development Associate: Paulette Toro RDCS Attending Provider: Reba Jimenez NP Referring Physician: Ginette SMITH; Exam Type: CA echo doppler color flow Study Info Indications - VLVULOPATHY Complete two-dimensional, color flow and Doppler transthoracic echocardiogram is performed. Summary 1. Complete two-dimensional, color flow and Doppler transthoracic echocardiogram is performed. 2. Left ventricular chamber dimension is normal. 3. Left ventricular systolic function is normal, estimated at 65-70%. 4. There is mildly increased left ventricular wall thickness. 5. The left ventricular diastolic function is grade I diastolic dysfunction. 6. E/e' 12 is mildly elevated. 7. Left atrial chamber dimension is mildly enlarged. 8. No pulmonary hypertension, estimated pulmonary arterial systolic pressure is 27 mmHg. Left Ventricle E/e' 12 is mildly elevated. Left ventricular chamber dimension is normal. Left ventricular systolic function is normal, estimated at 65-70%. There is mildly increased left ventricular wall thickness. The left ventricular diastolic function is grade I diastolic dysfunction. Right Ventricle Right ventricular chamber dimension is normal. Right ventricular systolic function is normal. Left Atria Left atrial chamber dimension is mildly enlarged. Right Atria Right atrial chamber dimension is normal. Aortic Valve The aortic valve is probable trileaflet. There is no aortic valve stenosis. There is no aortic valve regurgitation. Pulmonic Valve There is no pulmonic regurgitation. Mitral Valve There is no mitral valve stenosis. There is no mitral valve regurgitation. Tricuspid Valve There is no tricuspid valve regurgitation. No pulmonary hypertension, estimated pulmonary arterial systolic pressure is 27 mmHg. Pericardium/Pleural There is no pericardial effusion. Inferior Vena Cava Normal inferior vena cava with >50% collapse upon inspiration consistent with normal right atrial pressure, 5 mmHg. Aorta The aortic root size at the sinus of Valsalva is normal. Left Ventricular Outflow Tract Name Value Normal LVOT 2D LVOT Diameter 2.0 cm LVOT Doppler LVOT Peak Gradient 10 mmHg LVOT Mean Gradient 6 mmHg LVOT VTI 32 cm LVOT VTI/AV VTI Ratio 0.9 LVOT Stroke Volume 106 ml LVOT CO 21.8 l/min LVOT CI 11.5 l/min/m2 Pulmonic Valve Name Value Normal
[2021-04-29 04:48] VITALS: BP 136/52; PULSE 94; RESP 18; TEMP 38.5; O2SAT 99
[2021-04-29 05:02] VITALS: TEMP 38.5
[2021-04-29] MEDS: ACETAMINOPHEN 500 MG TABLET 1000 MG PO (05:02)
[2021-04-29 07:24] LABS: Hematocrit 23.1 % (37.0-47.0); Hemoglobin 7.9 g/dL (12.0-15.0); Mean Corpuscular HGB Conc 34.2 g/dl (32-36); Mean Corpuscular Hemoglobin 32.1 pg (26-34); Mean Corpuscular Volume 93.9 fl (80-100); Mean Platelet Volume 11.5 fl (7.4-10.4); Platelet Count Result 62 k/mm3 (150-375); Red Blood Count 2.46 M/mm3 (4.2-5.4); Red Cell Distribution Width 16.3 % (11.5-14.5); White Blood Count 7.3 K/mm3 (4.5-10.0)
[2021-04-29 07:36] LABS: Anion Gap 7 mmol/L (8-16); Blood Urea Nitrogen 14 mg/dL (7-17); Calcium 8.7 mg/dL (8.4-10.2); Carbon Dioxide 22 mmol/L (22-30); Chloride 104 mmol/L (98-107); Estimated CRCL calculation 50 ml/min; Estimated Glomerular Filt Rate > 60; Glucose 113 mg/dL (65-110); Sodium 133 mmol/L (137-145)
[2021-04-29] MEDS: SACCHAROMYCES BOULARDII 250 MG CAPSULE PO ×2 (09:40→17:43)
[2021-04-29] MEDS: amLODIPine BESYLATE 5 MG TABLET PO (09:40)
[2021-04-29] MEDS: PANTOPRAZOLE 40 MG TABLET PO ×2 (09:40→21:14)
[2021-04-29] MEDS: GABAPENTIN 100 MG CAPSULE PO ×3 (09:40→17:43)
[2021-04-29] MEDS: COLLAGENASE OINT 30 GM TUBE 1 APPLIC TOPICAL (09:41)
[2021-04-29] MEDS: DULoxetine HCL 30 MG CAPSULE.DR PO (09:41)
[2021-04-29] MEDS: FUROSEMIDE 40 MG TABLET PO (09:41)
[2021-04-29 11:57] LABS: Magnesium 1.3 mg/dL (1.6-2.3)
[2021-04-29] MEDS: MAGNESIUM SULF 2 GM/WATER 50ML 2 GM/50 ML BAG IVPB (13:02)
[2021-04-29] MEDS: POTASSIUM CHLORIDE 20 MEQ TABLET.ER 40 MEQ PO (13:27)
[2021-04-29] MEDS: HYDROcodone/acetaminophen (*CRX) 7.5-325 MG TABLET 1 TAB PO ×2 (13:27→21:43)
[2021-04-29] MEDS: SODIUM CHLORIDE 0.9% IV 1,000 ML 100 ML IV CONT (13:27)
[2021-04-29 13:30] LABS: Add Urine Microscopic? YES; Appearance Urine Clear (Clear); Bilirubin Urine Negative (Negative); Blood Urine 1+ (Negative); Color Urine Colorless (Yellow); Glucose Urine UA Negative (Negative); Ketones Urine Negative (Negative); Leukocyte Esterase Ur Negative LEU/UL (Negative); Mucus Urine Rare /lpf; Nitrate Urine Negative (Negative); Protein Urine Negative (Negative); Specific Grav Ur 1.006 (1.001-1.035); Squamous Epithelial Cell Urine Rare /hpf (Few); Urobilinogen Urine Negative mg/dL (<2.0); WBC Urine 0-3 /hpf
[2021-04-29 14:00] VITALS: BP 112/60; PULSE 77; RESP 16; TEMP 37.4; O2SAT 99
--- NOTE | 2021-04-29 14:25 | WPDGIPROGNO ---
Progress Note: A&P Assessment and Plan (1) Acute on chronic anemia: Code(s): D64.9 - Anemia, unspecified Status: Acute Assessment and Plan: probably multifactorial (hematology on board because lytic lesions- bone scan was normal though) found erosive gastritis without bleeding can not get colonoscopy (multiple failed attempts)- she will come to see me in the office if willing to have barium enema as outpatient will signg off (2) Erosive gastritis: Code(s): K29.60 - Other gastritis without bleeding Status: Acute Assessment and Plan: on protonix daily (3) Lesion of pelvic bone: Code(s): M89.9 - Disorder of bone, unspecified Status: Acute Assessment and Plan: bone scan negative, hematology on board (4) Cirrhosis of liver without ascites: Qualifiers: Hepatic cirrhosis type: unspecified hepatic cirrhosis Qualified Code(s): K74.60 - Unspecified cirrhosis of liver Code(s): K74.60 - Unspecified cirrhosis of liver Status: Acute Assessment and Plan: hcv already treated and cured compensated will need liver ultrasound every 6 months for hcc surveillance (she can follow-up with me in office) (5) Pelvic irradiation: Status: Acute (6) Pyelonephritis, acute: Code(s): N10 - Acute pyelonephritis Status: Acute Assessment and Plan: on antibiotics, also had fever- by primary Subjective Date/time seen: 04/29/21 14:25 Interval history: she had fever, no new events, good appetite, no overt gib. Review of Systems Review of Systems: All systems reviewed & are unremarkable except as noted in HPI and below Exam Const: General: comfortable and no acute distress HENMT: General nose exam: Normal nares present Eyes: General: appearance normal, both eyes and all related structures Neck: Neck: no JVD Resp: Auscultation: clear to auscultation bilaterally Cardio: Rate: regular rate Rhythm: regular rhythm GI: Inspection: non-distended GI Palp: Yes Soft to palpation Auscultation: normal bowel sounds Skin: General skin exam: normal color Neuro: Speech: normal speech Motor exam (neuro): Normal motor muscle tone present throughout Extrem: General: normal to inspection Psych: Mental Status: mental status grossly normal Objective Data Vital Signs Vital Signs: Vital Signs - 24 hr 04/28/21 20:00 04/28/21 22:00 04/29/21 04:48 Temperature 99.5 F 101.3 F H Pulse Rate 91 91 94 Respiratory Rate 18 18 18 Blood Pressure 146/56 H 136/52 L Pulse Oximetry 100 100 99 04/29/21 05:02 Temperature 101.3 F H Pulse Rate Respiratory Rate Blood Pressure Pulse Oximetry Intake/Output Intake/Output: Intake & Output 04/26/21 04/27/21 04/28/21 04/29/21 23:59 23:59 23:59 23:59 Intake Total 4570 6040 2920 1690 Output Total 4000 3700 1925 2700 Balance 570 2340 995 -1010 Meds/Results Medications: Active Medications Generic Name Dose Route Start Last Admin Trade Name Freq PRN Reason Stop Dose Admin Acetaminophen 1,000 mg 04/25/21 15:27 04/29/21 05:02 Acetaminophen 500 Mg Tablet PO 1,000 mg Q6H PRN Administration Pain Rated 6 or Less Hydrocodone Bitart/Acetaminophen 1 tab 04/26/21 16:01 04/29/21 13:27 Hydrocodone/Acetaminophen (*Crx) 7.5-325 Mg Tablet PO 1 tab BID PRN Administration Pain Rated 7-10 Amlodipine Besylate 5 mg 04/28/21 09:00 04/29/21 09:40 Amlodipine Besylate 5 Mg Tablet PO 5 mg QAM KATARINA Administration Collagenase 1 applic 04/26/21 09:00 04/29/21 09:41 Collagenase Oint 30 Gm Tube TOPICAL 1 applic QAM KATARINA Administration Duloxetine HCl 30 mg 04/26/21 09:00 04/29/21 09:41 Duloxetine Hcl 30 Mg Capsule.Dr PO 30 mg DAILY KATARINA Administration Furosemide 40 mg 04/26/21 09:00 04/29/21 09:41 Furosemide 40 Mg Tablet PO 40 mg DAILY KATARINA Administration Gabapentin 100 mg 04/25/21 17:00 04/29/21 13:03 Gabapentin 100 Mg Capsu
--- NOTE | 2021-04-29 15:36 | PM.IMPN ---
Progress Note: A&P Assessment and Plan (1) UTI (urinary tract infection): Qualifiers: Hematuria presence: without hematuria Urinary tract infection type: site unspecified Qualified Code(s): N39.0 - Urinary tract infection, site not specified Code(s): N39.0 - Urinary tract infection, site not specified Status: Acute (2) Chronic narcotic use: Code(s): F11.90 - Opioid use, unspecified, uncomplicated Status: Acute Assessment and Plan: Recovered from alcohol use, crack cocaine use, marijuana use. Continue home meds Continue to monitor Bone lesions may be painful - but avoid narcotic pain meds. Ordered lidocaine pain patches to hips/upper thighs. (3) Chronic bilateral low back pain without sciatica: Code(s): M54.5 - Low back pain; G89.29 - Other chronic pain Status: Acute Assessment and Plan: Continue home meds Continue to monitor (4) Coronary artery disease: Code(s): I25.10 - Atherosclerotic heart disease of [place] coronary artery without angina pectoris Status: Acute Assessment and Plan: Stable Continue home meds (5) Lesion of pelvic bone: Code(s): M89.9 - Disorder of bone, unspecified Status: Acute Assessment and Plan: CT today showed: patchy lytic lesions of the pelvis and proximal femurs. diffuse bladder wall thickening and bladder wall enhancement. Mild thickening and enhancement of the distal small bowel, suspicious for enteritis. Patchy scattered lytic lesions of the pelvis and proximal femurs. Consider metastatic disease and myeloma. Correlate for history of known malignancy. Combined with her severe anemia today with a hemoglobin of 6.6 and hematocrit of 20. Consulted GI and ordered occult stool tests, as well as concern for her enteritis of the distal small bowel on her CT scan. vaginal cancer history, I have consulted Hematology. Transfuse RBCs and treat pain as needed. (6) Hypomagnesemia: Code(s): E83.42 - Hypomagnesemia Status: Acute Assessment and Plan: Mag is 1.4 today. Ordered 4 gm Mag IV repeating Mag level after infusion today/mornings. likely due to very poor appetite and poor dietary intake at home (7) Severe sepsis: Code(s): A41.9 - Sepsis, unspecified organism; R65.20 - Severe sepsis without septic shock Status: Acute (8) Sinus tachycardia: Code(s): R00.0 - Tachycardia, unspecified Status: Acute (9) Erosive gastritis: Code(s): K29.60 - Other gastritis without bleeding Status: Acute (10) Acute on chronic anemia: Code(s): D64.9 - Anemia, unspecified Status: Acute (11) Pneumonia: Qualifiers: Laterality: unspecified laterality Lung location: unspecified part of lung Pneumonia type: due to unspecified organism Qualified Code(s): J18.9 - Pneumonia, unspecified organism Code(s): J18.9 - Pneumonia, unspecified organism Status: Acute Additional Plan on regular medical floor Cultures in progress urinary discomfort , possible yeast infection urinary parker catheter placed by Urologist discomfort /pain treated with ordered extra-strength Tylenol and Motrin p.r.n.. Ordered Monistat, Florastor, and nystatin powder. 02/18 urine culture was positive for Proteus and sensitive to Rocephin. Last and most recent urine culture and blood cultures of 04/24/21 are still pending. continue IV Rocephin Appreciate Urology consultation due to 2+ blood on UA, bladder wall thickening with cystitis and ascending UTI. 04/26/21 16:51 patient is a 65-year-old female with history of vaginal cancer status post chemoradiation therapy presented emergency department with urinary symptoms with fever and chills seen by urologist suspect patient has voiding obstructive symptoms resulting in UTI started the patient Rocephin, upon arrival patient hemoglobin was 6.7 and patient was given 1 unit of pack RBC seen by URIEL curtis
--- NOTE | 2021-04-29 15:50 | PCPTNOTE ---
Patient refused treatment this session due to not feeling well since having a fever this afternoon. Will continue per plan of care.
[2021-04-29 18:00] VITALS: BP 112/60; PULSE 78; RESP 16; TEMP 37.4; O2SAT 99
[2021-04-29 20:05] VITALS: PULSE 78; RESP 18; O2SAT 98
[2021-04-29] MEDS: LORazepam (*CRX) 0.5 MG TABLET PO (21:45)
[2021-04-29 22:51] VITALS: BP 135/57; PULSE 78; RESP 18; TEMP 37.1; O2SAT 98
[2021-04-30] VITALS: BP 135/57; PULSE 78; RESP 18; TEMP 36.8; O2SAT 98
[2021-04-30] MEDS: SODIUM CHLORIDE 0.9% IV 1,000 ML 100 ML IV CONT (01:36)
[2021-04-30 05:30] VITALS: BP 146/53; PULSE 80; RESP 18; TEMP 37.3; O2SAT 100
[2021-04-30 07:20] LABS: Hematocrit 23.1 % (37.0-47.0); Hemoglobin 7.8 g/dL (12.0-15.0); Immature Platelet Fraction Pct 2.5 % (0.9-11.2); Mean Corpuscular HGB Conc 33.8 g/dl (32-36); Mean Corpuscular Volume 94.7 fl (80-100); Mean Platelet Volume 11.2 fl (7.4-10.4); Platelet Count Result 52 k/mm3 (150-375); Red Blood Count 2.44 M/mm3 (4.2-5.4); Red Cell Distribution Width 15.8 % (11.5-14.5); White Blood Count 6.3 K/mm3 (4.5-10.0)
[2021-04-30 07:34] LABS: Anion Gap 6 mmol/L (8-16); Blood Urea Nitrogen 11 mg/dL (7-17); Calcium 8.9 mg/dL (8.4-10.2); Carbon Dioxide 22 mmol/L (22-30); Chloride 104 mmol/L (98-107); Estimated CRCL calculation 55 ml/min; Estimated Glomerular Filt Rate > 60; Glucose 107 mg/dL (65-110); Potassium 3.2 mmol/L (3.4-5.0); Sodium 132 mmol/L (137-145)
[2021-04-30] MEDS: SACCHAROMYCES BOULARDII 250 MG CAPSULE PO ×2 (09:09→17:20)
[2021-04-30] MEDS: FUROSEMIDE 40 MG TABLET PO (09:09)
[2021-04-30] MEDS: amLODIPine BESYLATE 5 MG TABLET PO (09:09)
[2021-04-30] MEDS: POTASSIUM CHLORIDE 20 MEQ TABLET.ER 40 MEQ PO (09:09)
[2021-04-30] MEDS: PANTOPRAZOLE 40 MG TABLET PO ×2 (09:09→21:36)
[2021-04-30] MEDS: DULoxetine HCL 30 MG CAPSULE.DR PO (09:09)
[2021-04-30] MEDS: GABAPENTIN 100 MG CAPSULE PO ×3 (09:09→17:20)
[2021-04-30] MEDS: LIDOCAINE 5% PATCH 2 PATCH TRANSDERM (09:10)
[2021-04-30] MEDS: COLLAGENASE OINT 30 GM TUBE 1 APPLIC TOPICAL (09:10)
[2021-04-30] MEDS: HYDROcodone/acetaminophen (*CRX) 7.5-325 MG TABLET 1 TAB PO ×2 (09:58→21:36)
[2021-04-30 11:49] VITALS: BMI 29.2
[2021-04-30 12:00] VITALS: BP 137/74; PULSE 77; RESP 16; TEMP 37.1; O2SAT 96
--- NOTE | 2021-04-30 13:17 | PCOTNOTE ---
Attempted to see patient this pm, however patient declined stating, Today is not a good day. I don't feel well. I've been running a fever all night. I have a bacteria in my urine. I just don't feel like it today.
[2021-04-30] MEDS: AMPICILLIN 2 GM/NS 100 ML 2 GM/100 ML BAG IVPB ×3 (15:08→21:35)
[2021-04-30 18:00] VITALS: BP 134/64; PULSE 79; RESP 18; TEMP 37; O2SAT 100
[2021-04-30 19:19] LABS: Soluble Transferrin Receptor 1.58 mg/L (0.76-1.76)
[2021-04-30 19:28] LABS: Kappa\\Lambda Light Chains 2.03 (0.26-1.65); Lambda Light Chain 86.4 mg/L (5.7-26.3)
[2021-04-30] MEDS: MICONAZOLE NITRATE 2% VAGINAL CREAM 45 GM TUBE 1 APPFUL VAGINAL (21:06)
[2021-04-30] MEDS: LORazepam (*CRX) 0.5 MG TABLET PO (21:36)
[2021-05-01] MEDS: AMPICILLIN 2 GM/NS 100 ML 2 GM/100 ML BAG IVPB ×2 (02:15→06:07)
[2021-05-01 06:00] VITALS: BP 149/38; PULSE 84; RESP 18; TEMP 37; O2SAT 99
[2021-05-01 07:24] LABS: Basophils Percent Auto 0.2 % (0.2-1.2); Eosinophils Percent Auto 0.6 % (0-4.4); Hematocrit 22.8 % (37.0-47.0); Hemoglobin 7.8 g/dL (12.0-15.0); Immature Granulocyte Absolute 1.09 K/mm3 (0.00-0.031); Immature Platelet Fraction Pct 2.8 % (0.9-11.2); Lymphocytes Absolute Auto 1.42 K/mm3 (0.9-3.2); Lymphocytes Percent Auto 22.1 % (18.3-44.2); Mean Corpuscular HGB Conc 34.2 g/dl (32-36); Mean Corpuscular Hemoglobin 32.5 pg (26-34); Mean Platelet Volume 12.5 fl (7.4-10.4); Monocytes Absolute Auto 3.2 K/mm3 (0.1-0.6); Monocytes Percent Auto 49.4 % (2.6-8.5); Neutrophils Absolute Auto 0.7 K/mm3 (1.3-6.7); Neutrophils Percent Auto 10.7 % (45.5-73.1); Nucleated Red Blood Cells Absolute Auto 0.1 K/mm3 (0.0-0.012); Nucleated Red Blood Cells Perc 1.1 % (0.0-0.2); Platelet Count Result 53 k/mm3 (150-375); Red Cell Distribution Width 15.6 % (11.5-14.5); White Blood Count 6.4 K/mm3 (4.5-10.0)
[2021-05-01 07:51] LABS: Anion Gap 7 mmol/L (8-16); Blood Urea Nitrogen 11 mg/dL (7-17); CRP 13.8 mg/dL (<1.0); Calcium 9.4 mg/dL (8.4-10.2); Carbon Dioxide 24 mmol/L (22-30); Chloride 102 mmol/L (98-107); Estimated CRCL calculation 55 ml/min; Estimated Glomerular Filt Rate > 60; Glucose 112 mg/dL (65-110); Magnesium 1.5 mg/dL (1.6-2.3); Potassium 3.3 mmol/L (3.4-5.0); Sodium 133 mmol/L (137-145)
[2021-05-01] MEDS: amLODIPine BESYLATE 5 MG TABLET PO (08:53)
[2021-05-01] MEDS: LIDOCAINE 5% PATCH 2 PATCH TRANSDERM (08:53)
[2021-05-01] MEDS: POTASSIUM CHLORIDE 20 MEQ TABLET.ER 40 MEQ PO (08:53)
[2021-05-01] MEDS: SACCHAROMYCES BOULARDII 250 MG CAPSULE PO ×2 (08:53→18:07)
[2021-05-01] MEDS: GABAPENTIN 100 MG CAPSULE PO ×3 (08:53→18:06)
[2021-05-01] MEDS: PANTOPRAZOLE 40 MG TABLET PO ×2 (08:53→20:23)
[2021-05-01] MEDS: FUROSEMIDE 40 MG TABLET PO (08:53)
[2021-05-01] MEDS: DULoxetine HCL 30 MG CAPSULE.DR PO (08:53)
[2021-05-01] MEDS: HYDROcodone/acetaminophen (*CRX) 7.5-325 MG TABLET 1 TAB PO ×2 (08:56→20:04)
--- NOTE | 2021-05-01 09:15 | P.PNIM_ITS ---
Progress Note: A&P Assessment and Plan (1) UTI (urinary tract infection): Qualifiers: Hematuria presence: without hematuria Urinary tract infection type: site unspecified Qualified Code(s): N39.0 - Urinary tract infection, site not specified Code(s): N39.0 - Urinary tract infection, site not specified Status: Acute (2) Chronic narcotic use: Code(s): F11.90 - Opioid use, unspecified, uncomplicated Status: Acute Assessment and Plan: Recovered from alcohol use, crack cocaine use, marijuana use. Continue home meds Continue to monitor Bone lesions may be painful - but avoid narcotic pain meds. Ordered lidocaine pain patches to hips/upper thighs. (3) Chronic bilateral low back pain without sciatica: Code(s): M54.5 - Low back pain; G89.29 - Other chronic pain Status: Acute Assessment and Plan: Continue home meds Continue to monitor (4) Coronary artery disease: Code(s): I25.10 - Atherosclerotic heart disease of [place] coronary artery without angina pectoris Status: Acute Assessment and Plan: Stable Continue home meds (5) Lesion of pelvic bone: Code(s): M89.9 - Disorder of bone, unspecified Status: Acute Assessment and Plan: CT today showed: patchy lytic lesions of the pelvis and proximal femurs. diffuse bladder wall thickening and bladder wall enhancement. Mild thickening and enhancement of the distal small bowel, suspicious for enteritis. Patchy scattered lytic lesions of the pelvis and proximal femurs. Consider metastatic disease and myeloma. Correlate for history of known malignancy. Combined with her severe anemia today with a hemoglobin of 6.6 and hematocrit of 20. Consulted GI and ordered occult stool tests, as well as concern for her enteritis of the distal small bowel on her CT scan. vaginal cancer history, I have consulted Hematology. Transfuse RBCs and treat pain as needed. (6) Hypomagnesemia: Code(s): E83.42 - Hypomagnesemia Status: Acute Assessment and Plan: Mag is 1.4 today. Ordered 4 gm Mag IV repeating Mag level after infusion today/mornings. likely due to very poor appetite and poor dietary intake at home (7) Severe sepsis: Code(s): A41.9 - Sepsis, unspecified organism; R65.20 - Severe sepsis without septic shock Status: Acute (8) Sinus tachycardia: Code(s): R00.0 - Tachycardia, unspecified Status: Acute (9) Erosive gastritis: Code(s): K29.60 - Other gastritis without bleeding Status: Acute (10) Acute on chronic anemia: Code(s): D64.9 - Anemia, unspecified Status: Acute (11) Pneumonia: Qualifiers: Laterality: unspecified laterality Lung location: unspecified part of lung Pneumonia type: due to unspecified organism Qualified Code(s): J18.9 - Pneumonia, unspecified organism Code(s): J18.9 - Pneumonia, unspecified organism Status: Acute (12) Enterococcal bacteremia: Code(s): R78.81 - Bacteremia; B95.2 - Enterococcus as the cause of diseases classified elsewhere Status: Acute (13) Enterococcal sepsis: Code(s): A41.81 - Sepsis due to Enterococcus Status: Acute Additional Plan on regular medical floor Cultures in progress urinary discomfort , possible yeast infection urinary parker catheter placed by Urologist discomfort /pain treated with ordered extra-strength Tylenol and Motrin p.r.n.. Ordered Monistat, Florastor, and nystatin powder. 02/18 urine culture was positive for Proteus and sensiti
[2021-05-01] MEDS: MAGNESIUM SULF 2 GM/WATER 50ML 2 GM/50 ML BAG IVPB (10:38)
[2021-05-01] MEDS: POTASSIUM CHLORIDE 20 MEQ TABLET 40 MEQ PO (10:38)
[2021-05-01 14:00] VITALS: BP 147/68; PULSE 79; RESP 20; TEMP 36.9; O2SAT 100
--- NOTE | 2021-05-01 14:47 | PCPTNOTE ---
Attempted to see pt. for PT this afternoon. Pt. reported that she had just gotten back to bed and that her knee was hurting at an 8 out of 10 Pt. reports she was not wanting to do any exercise or transfer at this time due to the pain. Pt. reported that she had been given something for the pain earlier. RN was made aware.
[2021-05-01] MEDS: COLLAGENASE OINT 30 GM TUBE 1 APPLIC TOPICAL (18:06)
[2021-05-01 20:00] VITALS: PULSE 79; RESP 20; O2SAT 100
[2021-05-01] MEDS: MICONAZOLE NITRATE 2% VAGINAL CREAM 45 GM TUBE 1 APPFUL VAGINAL (20:22)
[2021-05-01 22:00] VITALS: BP 124/56; PULSE 87; RESP 18; TEMP 36.9; O2SAT 100
[2021-05-01] MEDS: LORazepam (*CRX) 0.5 MG TABLET PO (22:55)
[2021-05-02 06:00] VITALS: BP 151/64; PULSE 90; RESP 14; TEMP 37.1; O2SAT 98
[2021-05-02 07:32] LABS: Anion Gap 7 mmol/L (8-16); Blood Urea Nitrogen 11 mg/dL (7-17); Calcium 9.5 mg/dL (8.4-10.2); Carbon Dioxide 23 mmol/L (22-30); Chloride 102 mmol/L (98-107); Estimated CRCL calculation 50 ml/min; Estimated Glomerular Filt Rate > 60; Glucose 104 mg/dL (65-110); Potassium 4.5 mmol/L (3.4-5.0); Sodium 132 mmol/L (137-145)
[2021-05-02 09:12] LABS: Hematocrit 22.8 % (37.0-47.0); Hemoglobin 7.6 g/dL (12.0-15.0); Mean Corpuscular HGB Conc 33.3 g/dl (32-36); Mean Corpuscular Hemoglobin 31.7 pg (26-34); Mean Platelet Volume 10.7 fl (7.4-10.4); Platelet Count Result 57 k/mm3 (150-375); Red Cell Distribution Width 15.9 % (11.5-14.5); White Blood Count 6.6 K/mm3 (4.5-10.0)
[2021-05-02] MEDS: COLLAGENASE OINT 30 GM TUBE 1 APPLIC TOPICAL (09:40)
[2021-05-02] MEDS: GABAPENTIN 100 MG CAPSULE PO ×3 (09:42→16:32)
[2021-05-02] MEDS: DULoxetine HCL 30 MG CAPSULE.DR PO (09:42)
[2021-05-02] MEDS: SACCHAROMYCES BOULARDII 250 MG CAPSULE PO ×2 (09:42→16:32)
[2021-05-02] MEDS: PANTOPRAZOLE 40 MG TABLET PO ×2 (09:43→21:02)
[2021-05-02] MEDS: POTASSIUM CHLORIDE 20 MEQ TABLET.ER 40 MEQ PO (09:43)
[2021-05-02] MEDS: FUROSEMIDE 40 MG TABLET PO (09:43)
[2021-05-02] MEDS: HYDROcodone/acetaminophen (*CRX) 7.5-325 MG TABLET 1 TAB PO ×2 (09:43→14:41)
[2021-05-02] MEDS: amLODIPine BESYLATE 5 MG TABLET 10 MG PO (09:43)
[2021-05-02 12:00] VITALS: BP 133/62; PULSE 82; RESP 24; TEMP 36.3; O2SAT 100
[2021-05-02] MEDS: LORazepam (*CRX) 0.5 MG TABLET PO (21:02)
[2021-05-02] MEDS: ACETAMINOPHEN 500 MG TABLET 1000 MG PO (21:18)
[2021-05-02 21:21] VITALS: BP 118/66; PULSE 75; RESP 18; TEMP 36.6; O2SAT 98
[2021-05-03 06:00] VITALS: BP 124/69; PULSE 80; RESP 20; TEMP 36.2; O2SAT 97
[2021-05-03 07:15] LABS: Hematocrit 22.6 % (37.0-47.0); Hemoglobin 7.6 g/dL (12.0-15.0); Mean Corpuscular HGB Conc 33.6 g/dl (32-36); Mean Corpuscular Hemoglobin 32.3 pg (26-34); Mean Corpuscular Volume 96.2 fl (80-100); Mean Platelet Volume 8.9 fl (7.4-10.4); Platelet Count Result 65 k/mm3 (150-375); Red Blood Count 2.35 M/mm3 (4.2-5.4); Red Cell Distribution Width 15.9 % (11.5-14.5)
[2021-05-03 07:34] LABS: Estimated CRCL calculation 46 ml/min; Estimated Glomerular Filt Rate 60
[2021-05-03 07:35] LABS: Anion Gap 9 mmol/L (8-16); Blood Urea Nitrogen 11 mg/dL (7-17); Calcium 9.6 mg/dL (8.4-10.2); Carbon Dioxide 23 mmol/L (22-30); Chloride 99 mmol/L (98-107); Estimated CRCL calculation 42 ml/min; Estimated Glomerular Filt Rate 55; Glucose 120 mg/dL (65-110); Sodium 131 mmol/L (137-145)
[2021-05-03 08:39] LABS: CRP 14.1 mg/dL (<1.0); Magnesium 1.6 mg/dL (1.6-2.3)
[2021-05-03] MEDS: amLODIPine BESYLATE 5 MG TABLET 10 MG PO (08:54)
[2021-05-03] MEDS: POTASSIUM CHLORIDE 20 MEQ TABLET.ER 40 MEQ PO (08:55)
[2021-05-03] MEDS: FUROSEMIDE 40 MG TABLET PO (08:55)
[2021-05-03] MEDS: SACCHAROMYCES BOULARDII 250 MG CAPSULE PO ×2 (08:55→17:41)
[2021-05-03] MEDS: DULoxetine HCL 30 MG CAPSULE.DR PO (08:55)
[2021-05-03] MEDS: GABAPENTIN 100 MG CAPSULE PO ×3 (08:55→17:41)
[2021-05-03] MEDS: PANTOPRAZOLE 40 MG TABLET PO ×2 (08:55→21:16)
[2021-05-03] MEDS: COLLAGENASE OINT 30 GM TUBE 1 APPLIC TOPICAL (08:55)
[2021-05-03] MEDS: HYDROcodone/acetaminophen (*CRX) 7.5-325 MG TABLET 1 TAB PO ×2 (09:04→17:46)
[2021-05-03 09:38] LABS: Vancomycin Trough 14.2 ug/mL (10.0-20.0)
[2021-05-03 10:58] LABS: IFOB Positive Control Positive; Immunochemical Fecal Occult Bl Negative (N)
[2021-05-03 13:51] VITALS: BP 121/50; PULSE 90; RESP 18; TEMP 36.9; O2SAT 100
[2021-05-03] MEDS: ACETAMINOPHEN 500 MG TABLET 1000 MG PO ×2 (13:53→21:23)
[2021-05-03 14:41] VITALS: O2SAT 94
--- NOTE | 2021-05-03 17:38 | PM.IMPN ---
Progress Note: A&P Assessment and Plan (1) UTI (urinary tract infection): Qualifiers: Hematuria presence: without hematuria Urinary tract infection type: site unspecified Qualified Code(s): N39.0 - Urinary tract infection, site not specified Code(s): N39.0 - Urinary tract infection, site not specified Status: Acute (2) Chronic narcotic use: Code(s): F11.90 - Opioid use, unspecified, uncomplicated Status: Acute Assessment and Plan: Recovered from alcohol use, crack cocaine use, marijuana use. Continue home meds Continue to monitor Bone lesions may be painful - but avoid narcotic pain meds. Ordered lidocaine pain patches to hips/upper thighs. (3) Chronic bilateral low back pain without sciatica: Code(s): M54.5 - Low back pain; G89.29 - Other chronic pain Status: Acute Assessment and Plan: Continue home meds Continue to monitor (4) Coronary artery disease: Code(s): I25.10 - Atherosclerotic heart disease of [place] coronary artery without angina pectoris Status: Acute Assessment and Plan: Stable Continue home meds (5) Lesion of pelvic bone: Code(s): M89.9 - Disorder of bone, unspecified Status: Acute Assessment and Plan: CT today showed: patchy lytic lesions of the pelvis and proximal femurs. diffuse bladder wall thickening and bladder wall enhancement. Mild thickening and enhancement of the distal small bowel, suspicious for enteritis. Patchy scattered lytic lesions of the pelvis and proximal femurs. Consider metastatic disease and myeloma. Correlate for history of known malignancy. Combined with her severe anemia today with a hemoglobin of 6.6 and hematocrit of 20. Consulted GI and ordered occult stool tests, as well as concern for her enteritis of the distal small bowel on her CT scan. vaginal cancer history, I have consulted Hematology. Transfuse RBCs and treat pain as needed. (6) Hypomagnesemia: Code(s): E83.42 - Hypomagnesemia Status: Acute Assessment and Plan: Mag is 1.4 today. Ordered 4 gm Mag IV repeating Mag level after infusion today/mornings. likely due to very poor appetite and poor dietary intake at home (7) Severe sepsis: Code(s): A41.9 - Sepsis, unspecified organism; R65.20 - Severe sepsis without septic shock Status: Acute (8) Sinus tachycardia: Code(s): R00.0 - Tachycardia, unspecified Status: Acute (9) Erosive gastritis: Code(s): K29.60 - Other gastritis without bleeding Status: Acute (10) Acute on chronic anemia: Code(s): D64.9 - Anemia, unspecified Status: Acute (11) Pneumonia: Qualifiers: Laterality: unspecified laterality Lung location: unspecified part of lung Pneumonia type: due to unspecified organism Qualified Code(s): J18.9 - Pneumonia, unspecified organism Code(s): J18.9 - Pneumonia, unspecified organism Status: Acute (12) Enterococcal bacteremia: Code(s): R78.81 - Bacteremia; B95.2 - Enterococcus as the cause of diseases classified elsewhere Status: Acute (13) Enterococcal sepsis: Code(s): A41.81 - Sepsis due to Enterococcus Status: Acute Additional Plan on regular medical floor Cultures in progress urinary discomfort , possible yeast infection urinary parker catheter placed by Urologist discomfort /pain treated with ordered extra-strength Tylenol and Motrin p.r.n.. Ordered Monistat, Florastor, and nystatin powder. 02/18 urine culture was positive for Proteus and sensitive to Rocephin. Last and most recent urine culture and blood cultures of 04/24/21 are still pending. continue IV Rocephin Appreciate Urology consultation due to 2+ blood on UA, bladder wall thickening with cystitis and ascending UTI. 04/26/21 16:51 patient is a 65-year-old female with history of vaginal cancer status post chemoradiation therapy presented emergency department w
[2021-05-03 20:00] VITALS: O2SAT 97
[2021-05-03] MEDS: LORazepam (*CRX) 0.5 MG TABLET PO (21:21)
[2021-05-03 22:00] VITALS: BP 128/50; PULSE 87; RESP 18; TEMP 37.7; O2SAT 97
[2021-05-04] MEDS: ACETAMINOPHEN 500 MG TABLET 1000 MG PO (05:23)
[2021-05-04 05:52] VITALS: BP 138/62; PULSE 91; RESP 18; TEMP 37.3; O2SAT 97
[2021-05-04 09:54] LABS: Hematocrit 23.6 % (37.0-47.0); Mean Corpuscular HGB Conc 33.9 g/dl (32-36); Mean Corpuscular Volume 94.4 fl (80-100); Mean Platelet Volume 12.1 fl (7.4-10.4); Platelet Count Result 81 k/mm3 (150-375); Red Cell Distribution Width 15.6 % (11.5-14.5); White Blood Count 7.4 K/mm3 (4.5-10.0)
[2021-05-04] MEDS: HYDROcodone/acetaminophen (*CRX) 7.5-325 MG TABLET 1 TAB PO ×2 (10:07→16:59)
[2021-05-04] MEDS: LIDOCAINE 5% PATCH 2 PATCH TRANSDERM (10:08)
[2021-05-04] MEDS: GABAPENTIN 100 MG CAPSULE PO ×3 (10:08→16:59)
[2021-05-04] MEDS: PANTOPRAZOLE 40 MG TABLET PO (10:09)
[2021-05-04] MEDS: amLODIPine BESYLATE 5 MG TABLET 10 MG PO (10:09)
[2021-05-04] MEDS: POTASSIUM CHLORIDE 20 MEQ TABLET.ER 40 MEQ PO (10:09)
[2021-05-04] MEDS: SACCHAROMYCES BOULARDII 250 MG CAPSULE PO ×2 (10:09→16:59)
[2021-05-04] MEDS: DULoxetine HCL 30 MG CAPSULE.DR PO (10:10)
[2021-05-04] MEDS: FUROSEMIDE 40 MG TABLET PO (10:10)
[2021-05-04] MEDS: COLLAGENASE OINT 30 GM TUBE 1 APPLIC TOPICAL (10:11)
--- NOTE | 2021-05-04 12:47 | PM.DS ---
DS: Admitting Diagnosis Discharge Date 05/04/2021 Admitting Diagnosis (1) UTI (urinary tract infection): (2) Chronic narcotic use: (3) Chronic bilateral low back pain without sciatica: (4) Coronary artery disease: DS: Discharge Diagnosis Discharge Diagnosis (1) UTI (urinary tract infection): Qualifiers: Hematuria presence: without hematuria Urinary tract infection type: site unspecified Qualified Code(s): N39.0 - Urinary tract infection, site not specified Code(s): N39.0 - Urinary tract infection, site not specified Status: Acute (2) Chronic narcotic use: Code(s): F11.90 - Opioid use, unspecified, uncomplicated Status: Acute Assessment and Plan: Recovered from alcohol use, crack cocaine use, marijuana use. Continue home meds Continue to monitor Bone lesions may be painful - but avoid narcotic pain meds. Ordered lidocaine pain patches to hips/upper thighs. (3) Chronic bilateral low back pain without sciatica: Code(s): M54.5 - Low back pain; G89.29 - Other chronic pain Status: Acute Assessment and Plan: Continue home meds Continue to monitor (4) Coronary artery disease: Code(s): I25.10 - Atherosclerotic heart disease of [place] coronary artery without angina pectoris Status: Acute Assessment and Plan: Stable Continue home meds (5) Lesion of pelvic bone: Code(s): M89.9 - Disorder of bone, unspecified Status: Acute Assessment and Plan: CT today showed: patchy lytic lesions of the pelvis and proximal femurs. diffuse bladder wall thickening and bladder wall enhancement. Mild thickening and enhancement of the distal small bowel, suspicious for enteritis. Patchy scattered lytic lesions of the pelvis and proximal femurs. Consider metastatic disease and myeloma. Correlate for history of known malignancy. Combined with her severe anemia today with a hemoglobin of 6.6 and hematocrit of 20. Consulted GI and ordered occult stool tests, as well as concern for her enteritis of the distal small bowel on her CT scan. vaginal cancer history, I have consulted Hematology. Transfuse RBCs and treat pain as needed. (6) Hypomagnesemia: Code(s): E83.42 - Hypomagnesemia Status: Acute Assessment and Plan: Mag is 1.4 today. Ordered 4 gm Mag IV repeating Mag level after infusion today/mornings. likely due to very poor appetite and poor dietary intake at home (7) Severe sepsis: Code(s): A41.9 - Sepsis, unspecified organism; R65.20 - Severe sepsis without septic shock Status: Acute (8) Sinus tachycardia: Code(s): R00.0 - Tachycardia, unspecified Status: Acute (9) Erosive gastritis: Code(s): K29.60 - Other gastritis without bleeding Status: Acute (10) Acute on chronic anemia: Code(s): D64.9 - Anemia, unspecified Status: Acute (11) Pneumonia: Qualifiers: Laterality: unspecified laterality Lung location: unspecified part of lung Pneumonia type: due to unspecified organism Qualified Code(s): J18.9 - Pneumonia, unspecified organism Code(s): J18.9 - Pneumonia, unspecified organism Status: Acute (12) Enterococcal bacteremia: Code(s): R78.81 - Bacteremia; B95.2 - Enterococcus as the cause of diseases classified elsewhere Status: Acute (13) Enterococcal sepsis: Code(s): A41.81 - Sepsis due to Enterococcus Status: Acute DS: Summary Hospital Course Reason for hospitalization: Fever, chills, burning with urination. Hospital Course: his is a 65-year-old female with past medical history significant for hypertension, gastroesophageal reflux disease, chronic anemia, chronic kidney disease, hepatic cirrhosis, hepatitis-C, idiopathic peripheral neuropathy, primary osteoarthritis, pulmonary hypertension. Patient presented to the emergency room due to fevers, chills, poor appetite, pain and burning with urination, foul-smelling ur
--- NOTE | 2021-05-04 12:58 | WPDONCPN ---
Progress Note: A/P - Additional Plan Anemia and thrombocytopenia. Patient with history of hepatitis C and liver cirrhosis. Bone survey came back unremarkable for any other lytic lesions. Serum protein electrophoresis showed no monoclonal spike. GI evaluation noted. Colonoscopy was not completed. At this time I will order bone marrow aspiration and biopsy to look for any other etiology for her persistent significant anemia. Thrombocytopenia. Likely secondary to hepatitis C and liver cirrhosis. We will go ahead and perform the bone marrow biopsy. Patient will follow-up with me after the discharge in 7-10 days to review the biopsy results. - Time Spent With Patient Total time spent is greater than 50% in coordination of care (as documented) at patient's floor/unit and/or counseling patient: 25 - 35 minutes Subjective Interval history: Anemia and thrombocytopenia Review of Systems - Review of Systems Patient remains tired and fatigued. She denies any bleeding and bruising. Denies any abdominal pain. No fevers and chills. No other new complaints. 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 Assessment of coma and impaired consciousness. A practical scale. Lancet 1974; 2:81-4. Lungs are clear to auscultation bilaterally Cardiovascular regular rate rhythm no murmurs Abdomen soft nontender nondistended bowel sounds are positive Extremities no edema Narrative: Lungs are clear to auscultation bilaterally Cardiovascular regular rate rhythm no murmurs Abdomen soft nontender nondistended bowel sounds are positive Extremities no edema PN: Objective Data - Labs CBC & Chem 7: 05/04/21 09:33 05/03/21 06:45 Labs: Laboratory Results - last 24 hr 04/27/21 05/04/21 06:00 09:33 WBC 7.4 RBC 2.50 L Hgb 8.0 L Hct 23.6 L MCV 94.4 MCH 32.0 MCHC 33.9 RDW 15.6 H Plt Count 81 L MPV 12.1 H Serum Immunofixation see below
[2021-05-04] MEDS: LIDOCAINE HCL 1% PF INJ 5 ML VIAL INFILTRATE (13:20)
[2021-05-04 14:00] VITALS: BP 134/66; PULSE 88; RESP 18; TEMP 37.1; O2SAT 96
--- NOTE | 2021-05-04 15:19 | PC.NURSE ---
Stated, I spoke with my family and I've decided I don't want to have the biopsy . This RN contacted Dr. Andres and informed him of patient's decision to cancel biopsy.
[2021-05-04 18:49] LABS: Anion Gap 10 mmol/L (8-16); Blood Urea Nitrogen 12 mg/dL (7-17); Calcium 9.9 mg/dL (8.4-10.2); Carbon Dioxide 24 mmol/L (22-30); Chloride 101 mmol/L (98-107); Estimated CRCL calculation 42 ml/min; Estimated Glomerular Filt Rate 55; Glucose 124 mg/dL (65-110); Potassium 3.9 mmol/L (3.4-5.0); Sodium 135 mmol/L (137-145)
== END 2021-05-04 17:40 | disposition home health service (06) | DRG 871 ==
LOC: ANHED 23:22 → ANH3MEDSUR 04-25 02:16
PROVIDERS: Family Medicine; Hospitalist; Internal Medicine Gastroenterology; Nurse Practitioner; Admitting Provider Internal Medicine; Emergency Provider Emergency Medicine; PCP Internal Medicine; Referring Provider Internal Medicine Hematology & Oncology; Visit Provider Physician Assistant
PROC: 0DJ08ZZ Inspection of Upper Intestinal Tract, Via Natural or Artificial Opening Endoscopic (ICD-10-PCS; CPT 43235; principal; 2021-04-27 10:30)
DX: J18.9 Pneumonia, unspecified organism (principal); A41.81 Sepsis due to Enterococcus; N39.0 Urinary tract infection, site not specified; K76.6 Portal hypertension; R65.20 Severe sepsis without septic shock; Z20.822 Contact with and (suspected) exposure to COVID-19; D69.6 Thrombocytopenia, unspecified; I12.9 Hypertensive chronic kidney disease with stage 1 through stage 4 chronic kidney disease, or unspecified chronic kidney disease; N18.30 Chronic kidney disease, stage 3 unspecified; K92.89 Other specified diseases of the digestive system; Y84.2 Radiological procedure and radiotherapy as the cause of abnormal reaction of the patient, or of later complication, without mention of misadventure at the time of the procedure; K29.60 Other gastritis without bleeding; D53.9 Nutritional anemia, unspecified; D50.0 Iron deficiency anemia secondary to blood loss (chronic); R19.5 Other fecal abnormalities; M89.9 Disorder of bone, unspecified; E83.42 Hypomagnesemia; F11.90 Opioid use, unspecified, uncomplicated; M15.9 Polyosteoarthritis, unspecified; M54.50 Low back pain, unspecified; G89.29 Other chronic pain; I25.10 Atherosclerotic heart disease of native coronary artery without angina pectoris; K21.9 Gastro-esophageal reflux disease without esophagitis; I27.20 Pulmonary hypertension, unspecified; K74.69 Other cirrhosis of liver; Z86.19 Personal history of other infectious and parasitic diseases; M81.0 Age-related osteoporosis without current pathological fracture; G60.9 Hereditary and idiopathic neuropathy, unspecified; H26.9 Unspecified cataract; Z79.82 Long term (current) use of aspirin; Z79.899 Other long term (current) drug therapy; Z85.44 Personal history of malignant neoplasm of other female genital organs; Z87.891 Personal history of nicotine dependence
CPT/HCPCS: 36415; 36430; 36569; 51701; 71045; 74177; 76775; 77075; 80048; 80053; 80202; 81001; 82274; 82565; 82607; 82746; 82784; 83540; 83550; 83605; 83615; 83735; 83883; 84100; 84238; 85014; 85018; 85025; 85027; 85055; 86140; 86334; 86850; 86900; 86901; 86920; 87040; 87077; 87081; 87086; 87088; 87147; 87181; 87186; 87804; 88305; 88342; 93306; 96361; 96365; 96367; 96375; 96376; 97110; 97161; 97166; 97530; 97535; 99285; A9270; C1751; C9803; G0378; J0131; J0290; J0692; J0696; J1200; J1940; J2270; J2704; J3370; J3475; J7030; J7050; J7120; P9016; Q9967; U0003; U0005

== ENCOUNTER 2021-05-07 09:49 | Inpatient (IN) | payer OTHER, MEDICARE, SELFPAY ==
[2021-05-07] VITALS (7 sets, daily range): BP systolic 148–154; BP diastolic 61–85; PULSE 100–123; RESP 18–34; TEMP 36.6–39.6; O2SAT 92–100; BMI 33.3
--- NOTE | ~2021-05-07 | XR_ITS ---
XR chest 1V portable DATE: 05/09/2021 06:31 INDICATION: Pulmonary edema TECHNIQUE: Portable AP chest on 05/09/2021 at 0546 hours COMPARISON: 05/07/2021 portable AP chest at 1004 hours FINDINGS: Right upper extremity PIC catheter tip overlies the superior vena cava. Extensive patchy bilateral pulmonary infiltrates, increased in severity since 05/07/2021. Cardiac megaly. Small bilateral pleural effusions. No pneumothorax. IMPRESSION: Increased extensive bilateral pulmonary infiltrates, small pleural effusions Reviewed, dictated and finalized at location A. ER TIRE CORD
--- NOTE | ~2021-05-07 | XR_ITS ---
XR chest ET placement 05/11/2021 11:45 Indication: Respiratory distress. Endotracheal tube placement. Procedure: AP portable chest Comparison: Comparison to multiple prior studies sequentially, with oldest reviewed study dated 05/03. Findings: There is persistent diffuse bilateral airspace disease, compatible with pneumonia. Endotrac heal tube tip 2.4 cm above the emanuel. NG tube in the stomach. No significant effusion. No pneumothor ax identified. Impression: 1: Stable diffuse bilateral airspace disease, compatible with pneumonia. Reviewed, dictated and finalized at location B. E METAL CASTER Impression: 1: Stable diffuse bilateral airspace disease, compatible with pneumonia.
--- NOTE | ~2021-05-07 | XR_ITS ---
EXAMINATION: XR abdomen NG/feed tube insert EXAM DATE: 05/11/2021 11:44 INDICATION: Nasogastric tube placement. TECHNIQUE: Frontal projection(s) of the abdomen for interpretation. Comparison is made to prior exami nation from 11/07/2020. FINDINGS: Feeding tube is in position. There is moderate to large amount of gas within the stomach a nd jejunum, probably more likely ileus over obstruction given no evidence of bowel dilation or obstru ction on CT from 04/25/2021. Posterior of colonic stool. There is no organomegaly. IMPRESSION: 1. Feeding tube in position. 2. Development of moderate to large amount of gas within stomach and jejunum, ileus or less likely o bstruction. Reviewed, dictated and finalized at location A. [employer] IMPRESSION: 1. Feeding tube in position. 2. Development of moderate to large amount of gas within stomach and jejunum, ileus or less likely obstruction.
--- NOTE | ~2021-05-07 | CT_ITS ---
EXAMINATION: CT abdomen pelvis wo con DATE: 05/11/2021 16:26 INDICATION: Lactic acidosis. Evaluate for ischemic bowel TECHNIQUE: Computed tomography (CT) of the abdomen and pelvis was performed without intravenous contr ast. Automated exposure control and iterative reconstruction technique were employed. Exam dose: 124 0.66 mGy-cm total exam DLP. COMPARISON: 04/25/2021 CT abdomen pelvis FINDINGS: Severe extensive patchy consolidating infiltrates are noted in both included lower lung zon es, with air bronchograms is severe bilateral pneumonia. Cardiomegaly. No pericardial or pleural effusion. NG tube in distal body of stomach. There is nonspecific pericholecystic fluid and mild free fluid in the lower pelvis. There is surface nodularity of the liver; consider cirrhosis. No focal hepatic space-occupying mass l esion is evident on this limited noncontrast examination. Normal splenic size. There are some peripancreatic stranding; pancreatitis is not excluded. No pancreatic calcifications o r pancreatic duct dilatation or bile duct dilatation are evident. Possible 12 mm lower pole right renal cyst. A millimeter left renal probable angiomyolipoma. Moderate fluid and perinephric stranding around the kidneys. Mild left hydronephrosis. No urinary tra ct calculus is evident. A Leo catheter is present within the evacuated urinary bladder. Normal caliber of the abdominal aorta. No intraperitoneal or retroperitoneal or pelvic mass lesion or adenopathy. There is an NG tube in the distal body of the stomach. No bowel obstruction, bowel wall thickening, pneumatosis or intraperitoneal free air is evident. This is a limited examination without the use of iodinated intravascular contrast material to evaluate fo r bowel wall enhancement. Small fat-containing umbilical hernia. There is edema of the lower abdominal wall and pelvis and proximal thighs. There is mixed lytic and sclerotic change of the pelvic bones and proximal femurs; consider metastati c disease and multiple myeloma. IMPRESSION: Severe extensive patchy consolidating pulmonary infiltrates, new since 04/21/2021 Surface nodularity of liver, suggesting cirrhosis Peripancreatic stranding, new; consider pancreatitis Persistent mild bilateral hydronephrosis, perinephric stranding and fluid, possibly due to infection; no obstructing urinary tract calculi. Consider pyelonephritis. Mild pericholecystic and pelvic fluid and increased since 05/05/2021 Increased edema of the abdominal and pelvic irizarry, proximal thighs Right renal cysts and small angiomyolipoma of left kidney No bowel obstruction, bowel wall thickening or pneumatosis; no intraperitoneal free air or portal val ous gas Mixed lytic/sclerotic changes of pelvis, femurs; consider metastatic disease versus multiple myeloma Reviewed, dictated and finalized at [facility]. Reviewed, dictated and finalized at [facility]. INE STONE POLISHER IMPRESSION: Severe extensive patchy consolidating pulmonary infiltrates, new s catrachita 04/21/2021 Surface nodularity of liver, suggesting cirrhosis Peripancreatic stranding, new; consider pancreatitis Persistent mild bilateral hydronephrosis, perinephric stranding and fluid, poss ibly due to infection; no obstructing urinary tract calculi. Consider pyeloneph ritis. Mild pericholecystic and pelvic fluid and increased since 05/05/2021 Increased edema of the abdominal and pelvic irizarry, proximal thighs Right renal cysts and small angiomyolipoma of left kidney No bowel obstruction, bowel wall thickening or pneumatosis; no intraperitoneal free air or portal venous gas Mixed lytic/sclerotic changes of pelvis, femurs; consider metastatic disease ve rsus multiple myeloma
--- NOTE | ~2021-05-07 | XR_ITS ---
EXAMINATION: XR chest PICC line EXAM DATE: 05/07/2021 10:08 INDICATION: PICC line placement confirmation . TECHNIQUE: Portable AP frontal chest x-ray was obtained. Comparison is made to prior examination from 05/03/2021. FINDINGS: There is a right-sided PICC line, tip at the cavoatrial junction, expected position. There is been worsening now moderate amount of bilateral ill-defined pneumonia or edema. Cardiomegaly and p ulmonary vascular congestion. Small right pleural effusion. There are mild bony degenerative changes. No pneumothorax. IMPRESSION: 1. PICC line in position. 2. Progression of moderate pneumonia or edema. 3. Cardiomegaly, congestion. 4. Small right pleural effusion. Reviewed, dictated and finalized at location [facility]. OLL SPECIALIST
--- NOTE | ~2021-05-07 | XR_ITS ---
EXAMINATION: XR chest 1V portable EXAM DATE: 05/11/2021 09:30 INDICATION: Pneumonia. TECHNIQUE: Portable AP frontal chest x-ray was obtained. Comparison is made to prior examination from 05/09/2021, 05/07. FINDINGS: Right-sided PICC line has been removed. Extensive bilateral airspace disease, pneumonia and /or edema with continued interval progression of her last few days. Mild cardiomegaly. No pneumothora x. No sizable pleural effusion. Mild thoracic scoliosis. IMPRESSION: Progression of now extensive pneumonia and/or edema. Reviewed, dictated and finalized at location [facility]. TIAN BLIND WASHER
--- NOTE | ~2021-05-07 | XR_ITS ---
XR chest port-a-cath/central 05/11/2021 12:54 Indication: Central line placement Procedure: AP portable chest Comparison: Comparison to multiple prior studies sequentially, with oldest reviewed study dated 05/07. Findings: Endotracheal tube tip 1.8 cm above the emanuel. Right IJ central line tip in the SVC. NG tub e in the stomach. Stable persistent diffuse bilateral airspace disease, consistent with pneumonia. Sm all right pleural effusion. No pneumothorax. Impression: 1: Stable diffuse bilateral airspace disease, compatible with pneumonia. 2: Right IJ central line tip in the SVC. No pneumothorax. Reviewed, dictated and finalized at location [facility]. [employer] CLERK Impression: 1: Stable diffuse bilateral airspace disease, compatible with pneumonia. 2: Right IJ central line tip in the SVC. No pneumothorax.
--- NOTE | 2021-05-07 09:57 | ECG_ITS ---
Measurements Intervals [place] Rate: 120 P: 30 FL: 108 QRS: 0 QRSD: 109 T: 35 QT: 265 QTc: 375 Interpretive Statements SINUS TACHYCARDIA WITH SHORT FL INTERVAL FREQUENT ATRIAL PREMATURE COMPLEXES BORDERLINE T WAVE ABNORMALITY- INFERIOR LEADS BASELINE ARTIFACT- I, II, III, AVR, AVL, AVF, V1-V6 ABNORMAL ECG Electronically Signed On 05-07-2021 10:40:36 LEAN MANAGER by Zuhair Vasquez D.O.
--- NOTE | 2021-05-07 10:45 | PC.NURSE ---
Per EDP Wilfredo it is okay to use PICC line
[2021-05-07 10:46] LABS: Basophils Percent Auto 0.2 % (0.2-1.2); Eosinophils Percent Auto 0.1 % (0-4.4); Hemoglobin 7.3 g/dL (12.0-15.0); Immature Platelet Fraction Pct 2.5 % (0.9-11.2); Lymphocytes Absolute Auto 0.87 K/mm3 (0.9-3.2); Lymphocytes Percent Auto 6.3 % (18.3-44.2); Mean Corpuscular HGB Conc 33.2 g/dl (32-36); Mean Corpuscular Hemoglobin 31.7 pg (26-34); Mean Corpuscular Volume 95.7 fl (80-100); Mean Platelet Volume 11.7 fl (7.4-10.4); Monocytes Absolute Auto 6.9 K/mm3 (0.1-0.6); Monocytes Percent Auto 49.7 % (2.6-8.5); Neutrophils Absolute Auto 6.1 K/mm3 (1.3-6.7); Neutrophils Percent Auto 43.7 % (45.5-73.1); Nucleated Red Blood Cells Absolute Auto 0.2 K/mm3 (0.0-0.012); Nucleated Red Blood Cells Perc 1.2 % (0.0-0.2); Platelet Count Result 52 k/mm3 (150-375); Red Cell Distribution Width 16.5 % (11.5-14.5); White Blood Count 13.9 K/mm3 (4.5-10.0)
--- NOTE | 2021-05-07 10:53 | ED.FEVER ---
HPI - Fever General Chief Complaint: Fever Stated Complaint: Fever 103.6f - UTI on IV ABX Time Seen by Provider: 05/07/21 10:19 History of Present Illness HPI Narrative: 65-year-old female with history of hepatitis-C, cirrhosis, coronary artery disease, and hypertension who presents to the emergency department from home for evaluation of fever. Patient had a recent admission for which she was treated for urinary tract infection, pneumonia and sepsis. Patient had been on IV antibiotics via PICC line. Patient does have a known bedsore. Home health nurse noticed that she had a fever of 103.2 so she was advised to present to the emergency room. Patient reports she does feel increasingly fatigued and states she is feels so weak that she is unable to walk. Patient does report pain at her bedsore. Related Data Home Medications Medication Instructions Recorded Confirmed hydrocodone-acetaminophen 1 tablet PO PRN PRN 05/07/21 05/07/21 Allergies Allergy/AdvReac Type Severity Reaction Status Date / Time No Known Allergies Allergy Verified 04/27/21 09:45 Review of Systems Review of Systems: CONSTITUTIONAL: Fever and worsening fatigue EYES: Denies visual changes, redness, or discharge. ENT: Denies rhinorrhea, congestion, sore throat, or otalgia. CARDIOVASCULAR: Denies chest pain, palpitations, or edema. RESPIRATORY: Denies cough or dyspnea. GASTROINTESTINAL: Denies abdominal pain, nausea, vomiting, or diarrhea. GENITOURINARY: Denies dysuria or hematuria. SKIN: Denies rash or itching. MUSCULOSKELETAL: Denies back pain, joint pain, or myalgia. NEUROLOGIC: Denies headache, numbness, or weakness. All systems reviewed & are unremarkable except as noted in HPI and below [facility] Past Medical History Medical History (Updated 05/07/21 @ 16:01 by Ciera Langley PA-C) Abnormal mammogram of left breast (04/2018) Age-related osteoporosis without current pathological fracture Anemia Iron was low at 29, TIBC within normal limits, % saturation low at 7% March 2019 Cataract Maturing left eye cataract Chronic bilateral low back pain without sciatica Chronic gastroesophageal reflux disease Chronic narcotic use Chronic pruritus Thought to be due to her cirrhosis CKD (chronic kidney disease), stage III Coronary artery disease Cardiac catheterization in 1994 demonstrating 40% stenosis 1 vessel Diverticulitis 2002 Erosive gastritis Gastritis Noted on EGD from April 29, 2019 Hepatic cirrhosis due to chronic hepatitis C infection Status post treatment 2010. Complicated by cirrhosis with portal venous hypertension. Managed at [facility] History of gait disorder Ambulates with a walker Hx of malignant neoplasm of vagina Diagnosed in 1999. Status post chemotherapy and radiation therapy. With repeat vaginal biopsies in 2010. Managed to [facility]. Hyperlipidemia LDL goal <100 Hyperparathyroidism Hypertension, essential, benign Left kidney mass 10 mm inferior pole left kidney mass suspicious for renal cell carcinoma. Patient was evaluated by Urology (Dr. Krishna Torres) at [facility] May 2017 will plan for six month renal ultrasound in [address] for surveillance Obesity (BMI 30-39.9) Pelvic irradiation Peripheral neuropathy, idiopathic Primary osteoarthritis involving multiple joints Pulmonary hypertension Noted on echo from July 2011 with EF of 64% 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 Patient states she has had multiple colonoscopy attempts at [place] that were unsuccessful due to narrowing of her bowel due to radiation treatments from her vaginal cancer in 1999 Rectal bleeding Thrombocytopenia UTI (urinary tract infection) Vitamin D deficiency Vitamin-D level of 05 April 2019 Surgical History Surgical History Abnormal colonoscopy With room most recent colonoscopy 04/29/2019 demonstrating tight fibrotic changes to the tissues
[2021-05-07 10:55] LABS: Add Urine Microscopic? YES; Alanine Aminotransferase 20 U/L (4-35); Albumin Level 3.2 g/dL (3.5-5.1); Alkaline Phosphatase 147 U/L (38-126); Anion Gap 12 mmol/L (8-16); Appearance Urine Cloudy (Clear); Aspartate Amino Transferase 45 U/L (14-36); Bilirubin Urine Negative (Negative); Bilirubin,Total 1.4 mg/dL (0.2-1.3); Blood Urea Nitrogen 15 mg/dL (7-17); Blood Urine 2+ (Negative); Calcium 9.4 mg/dL (8.4-10.2); Carbon Dioxide 23 mmol/L (22-30); Chloride 100 mmol/L (98-107); Color Urine Yellow (Yellow); Estimated CRCL calculation 42 ml/min; Estimated Glomerular Filt Rate 50; Glucose 139 mg/dL (65-110); Glucose Urine UA Negative (Negative); Ketones Urine Negative (Negative); Leukocyte Esterase Ur Negative LEU/UL (Negative); Mucus Urine Rare /lpf; Nitrate Urine Negative (Negative); Potassium 3.8 mmol/L (3.4-5.0); Protein Urine 3+ mg/dL (Negative); RBC Urine >75 /hpf (0-2); Sodium 135 mmol/L (137-145); Specific Grav Ur 1.014 (1.001-1.035); Squamous Epithelial Cell Urine Few /hpf (Few); Urobilinogen Urine Negative mg/dL (<2.0)
[2021-05-07 10:58] LABS: INR 1.4; Prothrombin Time 17.1 Seconds (11.1-14.7)
[2021-05-07 10:59] LABS: Partial Thromboplastin Time 35.4 SECONDS (22.3-36.8)
[2021-05-07 12:16] LABS: SARS-CoV-2 RNA PCR Positive
[2021-05-07 13:50] LABS: NT Pro B Type Natriuretic Pept 2870 pg/mL (5-100)
--- NOTE | 2021-05-07 14:21 | ADMGEN ---
This patient, Rosalind Patle, was admitted to [facility] Surg Room 322-02 at 1340. Patient/family oriented to hospital policies and general routines including ID bracelet, bed and alarms, visiting hours, pain management, procedures, bathroom and other care routines, personal items, smoking policy, room service/diet, and visiting hours. Information on how to activate the Rapid Response Team has been discussed. Patient/Family are encouraged to report perceived risks to care and to ask questions if they do not understand what they are told or what they should do.
[2021-05-07] MEDS: CENTRAL LINE FLUSH 10 ML IV PUSH ×2 (15:23→23:42)
[2021-05-07] MEDS: COLLAGENASE OINT 30 GM TUBE 1 APPLIC TOPICAL (15:24)
--- NOTE | 2021-05-07 16:30 | PM.IMHP ---
H&P: HPI History of Present Illness Date/Time: 05/07/21 16:30 Chief Complaint: Fever. Narrative: This is a 65-year-old female with hepatitis-C, cirrhosis, coronary artery disease, hypertension, anemia, and vaginal cancer who presented to the emergency department earlier today from home for evaluation of a fever. She is known to the hospitalist service with a recent admission on 04/25/2021 with sepsis due to urinary tract infection. Her urine culture did grow vancomycin-resistant Enterococcus faecium and she had 2 sets of blood cultures growing coag-negative staphylococcus and 1 set growing Enterococcus faecium. PICC line was inserted and she was discharged home on vancomycin on 05/04/2021. The patient tells me she was feeling okay on discharge however yesterday morning she was feeling generally unwell with body aches, subjective fever, sore throat, mild shortness of breath, and decrease in appetite. A home health nurse came today to administer vancomycin at which time the patient was found to have a 103.2 degree temperature and she was sent to the ER for evaluation. SARS-CoV-2 by PCR came back positive and she is being admitted in this setting. At the time of my evaluation she is once again spiking a fever and she is not feeling well. She was not vaccinated for COVID. She has no known exposure to those positive for COVID 19. She denies headache, neck ache, sinus congestion, chest pain, pleuritic pain, vomiting, diarrhea, and dysuria. Review of Systems Review of Systems: Twelve systems were reviewed and are negative except for as per HPI. [facility] Past Medical History Medical History (Updated 05/07/21 @ 21:21 by Ciera Langley PA-C) Abnormal mammogram of left breast (04/2018) Age-related osteoporosis without current pathological fracture Anemia Iron was low at 29, TIBC within normal limits, % saturation low at 7% March 2019 Cataract Maturing left eye cataract Chronic bilateral low back pain without sciatica Chronic gastroesophageal reflux disease Chronic kidney disease, stage 3 Chronic narcotic use Chronic pruritus Thought to be due to her cirrhosis Coronary artery disease Cardiac catheterization in 1994 demonstrating 40% stenosis 1 vessel Diverticulitis 2002 Erosive gastritis Gastritis Noted on EGD from April 29, 2019 Hepatic cirrhosis due to chronic hepatitis C infection Status post treatment 2010. Complicated by cirrhosis with portal venous hypertension. Managed at [facility] History of gait disorder Ambulates with a walker Hx of malignant neoplasm of vagina Diagnosed in 1999. Status post chemotherapy and radiation therapy. With repeat vaginal biopsies in 2010. Managed to [facility]. Hyperlipidemia LDL goal <100 Hyperparathyroidism Hypertension, essential, benign Left kidney mass 10 mm inferior pole left kidney mass suspicious for renal cell carcinoma. Patient was evaluated by Urology (Dr. Krishna Torres) at [facility] May 2017 will plan for six month renal ultrasound in [address] for surveillance Obesity (BMI 30-39.9) Pelvic irradiation Peripheral neuropathy, idiopathic Primary osteoarthritis involving multiple joints Pulmonary hypertension Noted on echo from July 2011 with EF of 64% 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 Patient states she has had multiple colonoscopy attempts at [place] that were unsuccessful due to narrowing of her bowel due to radiation treatments from her vaginal cancer in 1999 Rectal bleeding Thrombocytopenia Vitamin D deficiency Vitamin-D level of 05 April 2019 Surgical History Surgical History Abnormal colonoscopy With room most recent colonoscopy 04/29/2019 demonstrating tight fibrotic changes to the tissues consistent with history of prior radiation therapy History of tubal ligation History of vaginal hysterectomy With bilateral salpingo-oophorectomy Hx of cardiac cath 1994 with
[2021-05-07 23:03] LABS: Hematocrit 22.1 % (37.0-47.0); Hemoglobin 7.1 g/dL (12.0-15.0); Immature Platelet Fraction Pct 2.8 % (0.9-11.2); Mean Corpuscular HGB Conc 32.1 g/dl (32-36); Mean Corpuscular Hemoglobin 31.6 pg (26-34); Mean Corpuscular Volume 98.2 fl (80-100); Mean Platelet Volume 13.1 fl (7.4-10.4); Platelet Count Result 47 k/mm3 (150-375); Red Blood Count 2.25 M/mm3 (4.2-5.4); Red Cell Distribution Width 16.7 % (11.5-14.5)
[2021-05-07 23:29] LABS: Band Neutrophils Percent 2 % (0-6); Basophils Percent Manual 1 % (0-1); Metamyelocytes Percent 13 %; Monocytes Percent Manual 55 % (3-9); Myelocytes Percent 6 %; Neutrophils Percent Manual 9 % (46-73); Platelet Estimate Decreased (Adequate); Total Cells Counted 100
[2021-05-07 23:30] LABS: Anisocytosis 2+ (NORMAL); Atypical Lymphocytes Present; Hypochromasia 2+ (NORMAL)
[2021-05-07 23:41] LABS: Anion Gap 10 mmol/L (8-16); Blood Urea Nitrogen 18 mg/dL (7-17); Calcium 9.5 mg/dL (8.4-10.2); Carbon Dioxide 23 mmol/L (22-30); Chloride 101 mmol/L (98-107); Creatine Kinase 70 U/L (30-135); Estimated CRCL calculation 39 ml/min; Estimated Glomerular Filt Rate 46; Glucose 139 mg/dL (65-110); Magnesium 1.3 mg/dL (1.6-2.3); Potassium 3.3 mmol/L (3.4-5.0); Sodium 134 mmol/L (137-145)
[2021-05-07] MEDS: REMDESIVIR 200 MG/NS 250 ML 200 MG/250 ML BAG 250 MG IVPB (23:42)
[2021-05-07] MEDS: LINEZOLID 600 MG/300 ML 600 MG/300 ML SOLN 300 MG IVPB (23:42)
[2021-05-07 23:43] LABS: Procalcitonin 11.8 ng/mL
[2021-05-07 23:46] LABS: CRP 38.3 mg/dL (<1.0)
[2021-05-07 23:47] LABS: Lactate Dehydrogenase 2399 U/L (313-618)
[2021-05-08] VITALS (7 sets, daily range): BP systolic 127–160; BP diastolic 63–93; PULSE 93–127; RESP 14–22; TEMP 36.7–39.5; O2SAT 92–98
[2021-05-08 01:13] LABS: Ferritin > 2000.00 ng/mL (11.1-264)
[2021-05-08] MEDS: MAGNESIUM SULF 2 GM/WATER 50ML 2 GM/50 ML BAG IVPB (01:55)
[2021-05-08] MEDS: SODIUM CHLORIDE 0.9% IV 1,000 ML 100 ML IV CONT (01:55)
[2021-05-08] MEDS: GABAPENTIN 100 MG CAPSULE PO ×4 (01:55→17:25)
[2021-05-08] MEDS: POTASSIUM CHLORIDE 20 MEQ TABLET PO ×2 (01:55→13:11)
[2021-05-08 01:58] LABS: Reflex Lactic Acid Yes or No Add Lactic
[2021-05-08] MEDS: CENTRAL LINE FLUSH 10 ML IV PUSH ×3 (05:38→23:04)
[2021-05-08 06:36] LABS: Alanine Aminotransferase 17 U/L (4-35); Estimated CRCL calculation 42 ml/min; Estimated Glomerular Filt Rate 50; Lactic Acid 3.2 mmol/L (0.7-2.1)
[2021-05-08 07:12] LABS: INR 1.6; Prothrombin Time 18.7 Seconds (11.1-14.7)
[2021-05-08] MEDS: LINEZOLID 600 MG/300 ML 600 MG/300 ML SOLN 300 MG IVPB ×2 (08:34→23:04)
[2021-05-08] MEDS: ASPIRIN 81 MG CHEWABLE TABLET PO (10:46)
[2021-05-08] MEDS: SACCHAROMYCES BOULARDII 250 MG CAPSULE PO ×2 (10:46→17:25)
[2021-05-08] MEDS: PANTOPRAZOLE 40 MG TABLET PO (10:46)
[2021-05-08] MEDS: HYDROcodone/acetaminophen (*CRX) 5-325 MG TABLET 1 TAB PO (13:10)
[2021-05-08] MEDS: COLLAGENASE OINT 30 GM TUBE 1 APPLIC TOPICAL (13:14)
[2021-05-08] MEDS: TOLNAFTATE 1% POWDER 45 GM BTL 1 APPLIC TOPICAL ×2 (17:25→21:01)
[2021-05-08] MEDS: BENZONATATE 100 MG CAPSULE PO (18:57)
[2021-05-08] MEDS: FUROSEMIDE 40 MG TABLET PO (18:57)
[2021-05-08] MEDS: REMDESIVIR 100 MG/NS 250 ML 100 MG/250 ML BAG 250 MG IVPB (21:01)
[2021-05-08] MEDS: LORazepam (*CRX) 0.5 MG TABLET PO (23:30)
[2021-05-09] VITALS (7 sets, daily range): BP systolic 99–146; BP diastolic 55–78; PULSE 78–116; RESP 16–22; TEMP 36.2–39.3; O2SAT 92–98
[2021-05-09] MEDS: CENTRAL LINE FLUSH 10 ML IV PUSH ×3 (04:12→20:47)
[2021-05-09] MEDS: SACCHAROMYCES BOULARDII 250 MG CAPSULE PO ×2 (07:58→16:18)
[2021-05-09] MEDS: PANTOPRAZOLE 40 MG TABLET PO (07:58)
[2021-05-09] MEDS: GABAPENTIN 100 MG CAPSULE PO ×3 (07:58→16:18)
[2021-05-09] MEDS: ASPIRIN 81 MG CHEWABLE TABLET PO (07:58)
[2021-05-09] MEDS: COLLAGENASE OINT 30 GM TUBE 1 APPLIC TOPICAL (07:59)
[2021-05-09] MEDS: FUROSEMIDE 40 MG TABLET PO (07:59)
[2021-05-09] MEDS: BENZONATATE 100 MG CAPSULE PO ×3 (07:59→16:18)
[2021-05-09] MEDS: LINEZOLID 600 MG/300 ML 600 MG/300 ML SOLN 300 MG IVPB ×2 (07:59→20:47)
[2021-05-09] MEDS: TOLNAFTATE 1% POWDER 45 GM BTL 1 APPLIC TOPICAL ×2 (08:00→20:47)
[2021-05-09] MEDS: HYDROcodone/acetaminophen (*CRX) 5-325 MG TABLET 1 TAB PO ×2 (08:03→16:21)
--- NOTE | 2021-05-09 10:27 | PM.IMPN ---
Progress Note: A&P Assessment and Plan (1) Sepsis: Qualifiers: Sepsis acute organ dysfunction status: unspecified Sepsis type: sepsis due to unspecified organism Qualified Code(s): A41.9 - Sepsis, unspecified organism Code(s): A41.9 - Sepsis, unspecified organism Status: Acute Assessment and Plan: Present on admission and supported by fever, tachycardia, tachypnea, and leukocytosis in the setting of infection. Blood cultures were obtained in the emergency department. Will go ahead and obtain a lactic acid level as well. Patient was discharged home on a 7 day course of vancomycin. Due to recurrent fever she was switched to light nasal in on admission. After a diagnosis of COVID-19 infection, she was appropriately started on the remdesivir course. (2) Pneumonia due to COVID-19 virus: Code(s): U07.1 - COVID-19; J12.82 - Pneumonia due to coronavirus disease 2019 Status: Acute Assessment and Plan: Currently patient is still saturating in the mid 90s on room air. Chest x-ray suggests pneumonia. Given her risk factors shewas appropriately started started on remdesivir. While she still does not require oxygen supplementation at this time, dexamethasone is currently indicated. Given her leukocytosis she has also been started on azithromycin and ceftriaxone for possible concomitant bacterial pneumonia, pending sputum culture and procalcitonin level. Cultures are pending at the time of this dictation. She has been placed in isolation per COVID protocol. (3) Bacteremia: Code(s): R78.81 - Bacteremia Status: Acute Assessment and Plan: Patient was discharged from the hospital on 05/04/2021 on vancomycin for coagulase-negative staphylococcus and Enterococcus faecium bacteremia. While her fever may very well be related to COVID, her vancomycin was switched to lie nasal in admission, based on urine culture on 05/02/2021 growing VRE Enterococcus faecium. (4) Thrombocytopenia: Code(s): D69.6 - Thrombocytopenia, unspecified Status: Acute Assessment and Plan: Chronic finding related to liver disease from cirrhosis. Platelet count today is down to 36. We will monitor the situation closely. (5) Chronic anemia: Code(s): D64.9 - Anemia, unspecified Status: Acute Assessment and Plan: Normochromic normocytic anemia with an hemoglobin of 7.2 chromophobe slowly drifting since admission. Will send an iron panel. H&H are a bit lower compared to labs done prior to discharge. Will continue to monitor and transfuse if indicated. (6) Chronic kidney disease, stage 3: Code(s): N18.30 - Chronic kidney disease, stage 3 unspecified Status: Acute Assessment and Plan: Patient has a known diagnosis of CKD stage 3. Baseline creatinine around 1.3. Acute kidney injury with a creatinine of 1.6. Monitor creatinine it. Send urine electrolytes. Creatinine is up a bit compared to those labs done earlier in the week. May very well be related to sepsis. May also be a component of dehydration given insensible losses from fever and poor oral intake the last couple of days. Will avoid nephrotoxic agents and hydrate cautiously. Please renally dose medication and avoid nephrotoxic medications. Is a progression of moderate edema on chest x-ray, she Lasix was restarted on May 08, 2021. Subjective Date/time seen: 05/09/21 13:58 S: Patient was not seen examined at the bedside. She is spiking fevers. She complains of sore throat. With the progression of moderate pneumonia or edema on chest x-ray, she was given an additional dose of Lasix yesterday. Review of Systems Review of Systems: All systems reviewed & are unremarkable except as noted in HPI and below Constitutional: Constitutional: Reports as per HPI, Reports chills, Reports fatigue and Reports fever(s) Eyes: Eyes: Reports as per HPI, Reports no additional eye complaints and Den
--- NOTE | 2021-05-09 11:00 | PM.IMPN ---
Progress Note: A&P Assessment and Plan (1) Sepsis: Qualifiers: Sepsis acute organ dysfunction status: unspecified Sepsis type: sepsis due to unspecified organism Qualified Code(s): A41.9 - Sepsis, unspecified organism Code(s): A41.9 - Sepsis, unspecified organism Status: Acute Assessment and Plan: Present on admission and supported by fever, tachycardia, tachypnea, and leukocytosis in the setting of infection. Blood cultures were obtained in the emergency department. Will go ahead and obtain a lactic acid level as well. Patient was discharged home on a 7 day course of vancomycin. Due to recurrent fever she was switched to light nasal in on admission. After a diagnosis of COVID-19 infection, she was appropriately started on the remdesivir course. (2) Pneumonia due to COVID-19 virus: Code(s): U07.1 - COVID-19; J12.82 - Pneumonia due to coronavirus disease 2019 Status: Acute Assessment and Plan: Currently patient is still saturating in the mid 90s on room air. Chest x-ray suggests pneumonia. Given her risk factors shewas appropriately started started on remdesivir. While she still does not require oxygen supplementation at this time, dexamethasone is currently indicated. Given her leukocytosis she has also been started on azithromycin and ceftriaxone for possible concomitant bacterial pneumonia, pending sputum culture and procalcitonin level. Cultures are pending at the time of this dictation. She has been placed in isolation per COVID protocol. (3) Bacteremia: Code(s): R78.81 - Bacteremia Status: Acute Assessment and Plan: Patient was discharged from the hospital on 05/04/2021 on vancomycin for coagulase-negative staphylococcus and Enterococcus faecium bacteremia. While her fever may very well be related to COVID, her vancomycin was switched to lie nasal in admission, based on urine culture on 05/02/2021 growing VRE Enterococcus faecium. (4) Thrombocytopenia: Code(s): D69.6 - Thrombocytopenia, unspecified Status: Acute Assessment and Plan: Chronic finding related to liver disease from cirrhosis. Platelet count today is down to 36. We will monitor the situation closely. (5) Chronic anemia: Code(s): D64.9 - Anemia, unspecified Status: Acute Assessment and Plan: Normochromic normocytic anemia with an hemoglobin of 7.2 chromophobe slowly drifting since admission. Will send an iron panel. H&H are a bit lower compared to labs done prior to discharge. Will continue to monitor and transfuse if indicated. (6) Chronic kidney disease, stage 3: Code(s): N18.30 - Chronic kidney disease, stage 3 unspecified Status: Acute Assessment and Plan: Patient has a known diagnosis of CKD stage 3. Baseline creatinine around 1.3. Acute kidney injury with a creatinine of 1.6. Monitor creatinine it. Send urine electrolytes. Creatinine is up a bit compared to those labs done earlier in the week. May very well be related to sepsis. May also be a component of dehydration given insensible losses from fever and poor oral intake the last couple of days. Will avoid nephrotoxic agents and hydrate cautiously. Please renally dose medication and avoid nephrotoxic medications. Subjective Date/time seen: 05/08/21 16:49 Narrative: This is a 65-year-old female with hepatitis-C, cirrhosis, coronary artery disease, hypertension, anemia, and vaginal cancer who presented to the emergency department earlier today from home for evaluation of a fever. She is known to the hospitalist service with a recent admission on 04/25/2021 with sepsis due to urinary tract infection. Her urine culture did grow vancomycin-resistant Enterococcus faecium and she had 2 sets of blood cultures growing coag-negative staphylococcus and 1 set growing Enterococcus faecium. PICC line was inserted and she was discharged home on vancomycin on 05/04/2021. Patient w
[2021-05-09 11:27] LABS: Hematocrit 22.1 % (37.0-47.0); Hemoglobin 7.2 g/dL (12.0-15.0); Immature Platelet Fraction Pct 4.1 % (0.9-11.2); Mean Corpuscular HGB Conc 32.6 g/dl (32-36); Mean Corpuscular Hemoglobin 31.3 pg (26-34); Mean Corpuscular Volume 96.1 fl (80-100); Mean Platelet Volume 9.7 fl (7.4-10.4); Platelet Count Result 36 k/mm3 (150-375); Red Cell Distribution Width 17.5 % (11.5-14.5)
[2021-05-09 11:35] LABS: INR 1.5; Prothrombin Time 17.9 Seconds (11.1-14.7)
[2021-05-09 11:38] LABS: Anion Gap 19 mmol/L (8-16); Blood Urea Nitrogen 27 mg/dL (7-17); Calcium 9.4 mg/dL (8.4-10.2); Carbon Dioxide 14 mmol/L (22-30); Chloride 97 mmol/L (98-107); Estimated CRCL calculation 34 ml/min; Estimated Glomerular Filt Rate 39; Glucose 140 mg/dL (65-110); Sodium 130 mmol/L (137-145)
[2021-05-09 12:09] LABS: Alanine Aminotransferase 31 U/L (4-35); Alkaline Phosphatase 114 U/L (38-126); Anion Gap 19 mmol/L (8-16); Aspartate Amino Transferase 74 U/L (14-36); Bilirubin,Total 1.2 mg/dL (0.2-1.3); Blood Urea Nitrogen 28 mg/dL (7-17); CRP 25.5 mg/dL (<1.0); Calcium 9.6 mg/dL (8.4-10.2); Carbon Dioxide 15 mmol/L (22-30); Chloride 96 mmol/L (98-107); Estimated CRCL calculation 34 ml/min; Estimated Glomerular Filt Rate 39; Glucose 140 mg/dL (65-110); Potassium 4.2 mmol/L (3.4-5.0); Sodium 130 mmol/L (137-145)
[2021-05-09 12:13] LABS: Basophils Percent Manual 1 % (0-1); Monocytes Percent Manual 40 % (3-9); Neutrophils Percent Manual 18 % (46-73); Nucleated Red Blood Cells 1 %; Platelet Estimate Decreased (Adequate); Smudge Cells FEW; Total Cells Counted 100
[2021-05-09 12:14] LABS: Acanthocytes 1+ (NORMAL); Ovalocytes 1+ (NORMAL); Tear Drop Cells 1+ (NORMAL)
[2021-05-09 14:02] LABS: Lactate Dehydrogenase 3454 U/L (313-618)
[2021-05-09] MEDS: BENZOCAINE/MENTHOL (*BKC) 18 EA LOZENGE 1 LOZENGE PO (16:18)
[2021-05-09 17:06] LABS: Ferritin > 2000.00 ng/mL (11.1-264)
[2021-05-09] MEDS: REMDESIVIR 100 MG/NS 250 ML 100 MG/250 ML BAG 250 MG IVPB (20:47)
[2021-05-10] VITALS (15 sets, daily range): BP systolic 118–159; BP diastolic 55–92; PULSE 70–124; RESP 16–22; TEMP 36.7–38.7; O2SAT 90–97
[2021-05-10] MEDS: cefTRIAXone 1 GM VIAL IM ×2 (00:29→21:04)
[2021-05-10] MEDS: AZITHROMYCIN 250 MG TABLET 500 MG PO ×2 (00:29→20:51)
[2021-05-10] MEDS: LINEZOLID 600 MG TABLET PO ×2 (00:30→08:35)
[2021-05-10] MEDS: LIDOCAINE HCL 1% LOCAL INJ 10 ML VIAL 2.1 ML XX (03:09)
[2021-05-10] MEDS: WATER FOR IRRIGATION, STERILE 1,000 ML BOTTLE 1000 ML (03:10)
[2021-05-10] MEDS: CENTRAL LINE FLUSH 10 ML IV PUSH ×2 (05:47→13:54)
[2021-05-10] MEDS: amLODIPine BESYLATE 5 MG TABLET 10 MG PO (08:34)
[2021-05-10] MEDS: ASPIRIN 81 MG CHEWABLE TABLET PO (08:34)
[2021-05-10] MEDS: FUROSEMIDE 40 MG TABLET PO (08:35)
[2021-05-10] MEDS: BENZONATATE 100 MG CAPSULE PO ×3 (08:35→16:35)
[2021-05-10] MEDS: GABAPENTIN 100 MG CAPSULE PO ×3 (08:35→16:35)
[2021-05-10] MEDS: BENZOCAINE/MENTHOL (*BKC) 18 EA LOZENGE 1 LOZENGE PO (08:36)
[2021-05-10] MEDS: SACCHAROMYCES BOULARDII 250 MG CAPSULE PO ×2 (08:36→16:35)
[2021-05-10] MEDS: TOLNAFTATE 1% POWDER 45 GM BTL 1 APPLIC TOPICAL ×2 (08:36→20:55)
[2021-05-10] MEDS: PANTOPRAZOLE 40 MG TABLET PO (08:36)
[2021-05-10 08:39] LABS: INR 1.7; Prothrombin Time 19.4 Seconds (11.1-14.7)
[2021-05-10 08:44] LABS: Alanine Aminotransferase 28 U/L (4-35); Anion Gap 15 mmol/L (8-16); Blood Urea Nitrogen 37 mg/dL (7-17); Calcium 9.5 mg/dL (8.4-10.2); Carbon Dioxide 18 mmol/L (22-30); Chloride 97 mmol/L (98-107); Estimated CRCL calculation 29 ml/min; Estimated Glomerular Filt Rate 32; Glucose 108 mg/dL (65-110); Sodium 130 mmol/L (137-145)
[2021-05-10 09:02] LABS: Immature Platelet Fraction Pct 4.4 % (0.9-11.2); Mean Corpuscular HGB Conc 32.3 g/dl (32-36); Mean Corpuscular Hemoglobin 31.3 pg (26-34); Mean Corpuscular Volume 96.9 fl (80-100); Platelet Count Result 26 k/mm3 (150-375); Red Blood Count 1.92 M/mm3 (4.2-5.4); Red Cell Distribution Width 18.1 % (11.5-14.5); White Blood Count 8.2 K/mm3 (4.5-10.0)
[2021-05-10 10:43] LABS: Hematocrit 18.6 % (37.0-47.0)
[2021-05-10] MEDS: LINEZOLID 600 MG/300 ML 600 MG/300 ML SOLN 300 MG IVPB ×2 (10:48→20:51)
[2021-05-10] MEDS: HYDROcodone/acetaminophen (*CRX) 5-325 MG TABLET 1 TAB PO (11:31)
[2021-05-10] MEDS: SODIUM CHLORIDE 0.9% IV 250 ML 30 ML IV CONT (11:38)
[2021-05-10 11:43] LABS: Band Neutrophils Percent 12 % (0-6); Basophils Absolute Manual 0.16 K/mm3 (0.0-0.1); Basophils Percent Manual 2 % (0-1); Lymphocytes Absolute Manual 2.29 K/mm3 (1.1-4.5); Metamyelocytes Percent 17 %; Monocytes Absolute Manual 1.72 K/mm3 (0.1-0.90); Monocytes Percent Manual 21 % (3-9); Myelocytes Percent 5 %; Neutrophils Absolute Manual 2.21 K/mm3 (1.7-7.2); Neutrophils Percent Manual 15 % (46-73); Nucleated Red Blood Cells 1 %; Total Cells Counted 100
[2021-05-10 11:47] LABS: Anisocytosis 1+ (NORMAL); Burr Cells 1+ (NORMAL); Ovalocytes 1+ (NORMAL); Platelet Estimate Decreased (Adequate)
[2021-05-10] MEDS: TUBING, BLOOD PLUM PUMP TUBING 1 EACH XX (13:33)
[2021-05-10 14:09] LABS: Iron 119 ug/dL (37-170)
[2021-05-10 14:24] LABS: Percent Iron Saturation 84 % (20-50)
[2021-05-10 15:42] LABS: Ferritin > 2000.00 ng/mL (11.1-264)
[2021-05-10] MEDS: COLLAGENASE OINT 30 GM TUBE 1 APPLIC TOPICAL (16:34)
[2021-05-10] MEDS: ACETAMINOPHEN 325 MG TABLET 650 MG PO (16:35)
[2021-05-10 17:10] LABS: Sodium Urine Random 7 meq/L
--- NOTE | 2021-05-10 17:20 | PM.IMPN ---
Progress Note: A&P Assessment and Plan (1) Sepsis: Qualifiers: Sepsis acute organ dysfunction status: unspecified Sepsis type: sepsis due to unspecified organism Qualified Code(s): A41.9 - Sepsis, unspecified organism Code(s): A41.9 - Sepsis, unspecified organism Status: Acute Assessment and Plan: Present on admission and supported by fever, tachycardia, tachypnea, and leukocytosis in the setting of infection. Blood cultures were obtained in the emergency department and have remained unrevealing.. Will go ahead and obtain a lactic acid level as well. Patient was discharged home on a 7 day course of vancomycin. Due to recurrent fever she was switched to linezolid on admission. After a diagnosis of COVID-19 infection, she was appropriately started on the remdesivir course. Currently receiving linezolid Enterococcus infection. Patient experiencing intermittent low-grade fever. If Tylenol as needed. Continue to monitor. (2) Pneumonia due to COVID-19 virus: Code(s): U07.1 - COVID-19; J12.82 - Pneumonia due to coronavirus disease 2019 Status: Acute Assessment and Plan: Currently patient is still saturating in the low to mid 90s on room air. Chest x-ray suggests pneumonia. Continue remdesivir. While she still does not require oxygen supplementation at this time, dexamethasone is currently indicated. Given her leukocytosis she has also been started on azithromycin and ceftriaxone for possible concomitant bacterial pneumonia, pending sputum culture and procalcitonin level. Cultures are pending at the time of this dictation. She has been placed in isolation per COVID protocol. (3) Bacteremia: Code(s): R78.81 - Bacteremia Status: Acute Assessment and Plan: Patient was discharged from the hospital on 05/04/2021 on vancomycin for coagulase-negative staphylococcus and Enterococcus faecium bacteremia. While her fever may very well be related to COVID, her vancomycin was switched to lie nasal in admission, based on urine culture on 05/02/2021 growing VRE Enterococcus faecium. (4) Thrombocytopenia: Code(s): D69.6 - Thrombocytopenia, unspecified Status: Acute Assessment and Plan: Chronic finding related to liver disease from cirrhosis. Platelet count today is down to 26. We will monitor the situation closely and consult Gastroenterology. (5) Chronic anemia: Code(s): D64.9 - Anemia, unspecified Status: Acute Assessment and Plan: Normochromic normocytic anemia with an hemoglobin of 6.0 today. Plan to transfuse 1 unit. (6) Chronic kidney disease, stage 3: Code(s): N18.30 - Chronic kidney disease, stage 3 unspecified Status: Acute Assessment and Plan: Acute nonoliguric kidney injury with creatinine worsening from 1.6-1.9. Patient has a known diagnosis of CKD stage 3. Baseline creatinine around 1.3. Acute kidney injury with a creatinine of 1.6. Monitor creatinine it. Send urine electrolytes. Creatinine is up a bit compared to those labs done earlier in the week. May very well be related to sepsis. May also be a component of dehydration given insensible losses from fever and poor oral intake the last couple of days. Will avoid nephrotoxic agents and hydrate cautiously. Please renally dose medication and avoid nephrotoxic medications. In few progression of moderate edema on chest x-ray, she Lasix was restarted on May 08, 2021. Hold diuretics. Stop PPI. Consult Nephrology. Subjective Date/time seen: 05/10/21 17:20 S: Patient was seen examined at the bedside. She complains of perineal pain. Review of Systems Review of Systems: All systems reviewed & are unremarkable except as noted in HPI and below Constitutional: Constitutional: Reports as per HPI, Reports chills, Reports fatigue and Reports fever(s) Eyes: Eyes: Reports as per HPI, Reports no additional eye complaints and Denies blurry vis
[2021-05-10] MEDS: FLUCONAZOLE 150 MG TABLET PO (19:56)
[2021-05-10] MEDS: HYDROcodone/acetaminophen (*CRX) 7.5-325 MG TABLET 1 TAB PO (20:51)
[2021-05-10] MEDS: FAMOTIDINE 20 MG TABLET PO (21:03)
[2021-05-10 21:17] LABS: Eosinophil Urine None Seen % (None Seen)
[2021-05-10 21:52] LABS: Creatinine Urine 79.8 mg/dL
[2021-05-10] MEDS: REMDESIVIR 100 MG/NS 250 ML 100 MG/250 ML BAG 250 MG IVPB (22:20)
[2021-05-10] MEDS: LORazepam (*CRX) 0.5 MG TABLET PO (22:59)
[2021-05-11] VITALS (42 sets, daily range): BP systolic 89–170; BP diastolic 31–104; PULSE 90–129; RESP 18–42; TEMP 34.9–37.5; O2SAT 73–100
--- NOTE | 2021-05-11 | ECHO_ITS ---
Patient Info Name: Rosalind Patel Age: 65 years : 1955 Gender: Female Accession #: [id number]$ Ht: 64 in Wt: 194 lbs BSA: 2.03 m2 HR: 104 bpm BP: 151 / 129 mmHg Technical Quality: Good Exam Date: 05/11/2021 1:48 PM Exam Location: [facility] Patient Status: Inpatient Admit Date: 05/07/2021 Uke Driver: Glen Carter, WENDY, RT Exam Type: CA echo doppler color flow Study Info Indications I50.9 - Heart failure, unspecified Complete two-dimensional, color flow and Doppler transthoracic echocardiogram is performed with contrast to opacify the left ventricle and to improve the deliniation of the left ventricle endocardial borders. Summary 1. Left ventricular chamber dimension is mildly enlarged. 2. Definity contrast administered improved wall motion interpretation. 3. Left ventricular systolic function is normal, estimated at 55-60%. 4. There is mildly increased left ventricular wall thickness. 5. The left ventricular diastolic function is abnormal. 6. E/e' 11 is mildly elevated. 7. There is trace mitral valve regurgitation. 8. Mild pulmonary hypertension, estimated pulmonary arterial systolic pressure is 44 mmHg. 9. Normal inferior vena cava with <50% collapse upon inspiration consistent with elevated right atrial pressure, 10 mmHg. Patient is intubated. Left Ventricle E/e' 11 is mildly elevated. Definity contrast administered improved wall motion interpretation. Left ventricular chamber dimension is mildly enlarged. Left ventricular systolic function is normal, estimated at 55-60%. There is mildly increased left ventricular wall thickness. The left ventricular diastolic function is abnormal. Right Ventricle Right ventricular systolic function is normal and with normal TAPSE 2.1 cm. Right ventricular chamber dimension is normal. Left Atria Left atrial chamber dimension is normal. Right Atria Right atrial chamber dimension is normal. Aortic Valve The aortic valve is trileaflet. There is no aortic valve stenosis. There is no aortic valve regurgitation. Pulmonic Valve There is no pulmonic regurgitation. Mitral Valve There is no mitral valve stenosis. There is trace mitral valve regurgitation. Tricuspid Valve There is no tricuspid valve regurgitation. Mild pulmonary hypertension, estimated pulmonary arterial systolic pressure is 44 mmHg. Pericardium/Pleural There is no pericardial effusion. Inferior Vena Cava Normal inferior vena cava with <50% collapse upon inspiration consistent with elevated right atrial pressure, 10 mmHg. Patient is intubated. Aorta The aortic root size at the sinus of Valsalva is normal. Left Ventricular Outflow Tract Name Value Normal LVOT 2D LVOT Diameter 2.0 cm LVOT Doppler LVOT Peak Velocity 145 cm/s LVOT Peak Gradient 8 mmHg LVOT Mean Gradient 4 mmHg LVOT VTI 23 cm LVOT VTI/AV VTI Ratio 0.8 LVOT Stroke Volume 70 ml LVOT CO 7.3 l/min LVOT CI
[2021-05-11] MEDS: LIDOCAINE HCL 1% LOCAL INJ 20 ML VIAL (04:31)
--- NOTE | 2021-05-11 06:00 | ECG_ITS ---
Measurements Intervals [place] Rate: 129 P: 49 OH: 134 QRS: -8 QRSD: 102 T: 38 QT: 317 QTc: 465 Interpretive Statements SINUS TACHYCARDIA ATRIAL PREMATURE COMPLEXES BORDERLINE R WAVE PROGRESSION, ANTERIOR LEADS BORDERLINE T WAVE ABNORMALITY- INFERIOR LEADS BASELINE ARTIFACT- II, III, AVR, AVL, AVF, V1-V3 ABNORMAL ECG Electronically Signed On 05-11-2021 9:22:50 GI PHYSICIAN by Zuhair Vasquez D.O.
[2021-05-11 07:32] LABS: Alanine Aminotransferase 32 U/L (4-35); Anion Gap 25 mmol/L (8-16); Blood Urea Nitrogen 42 mg/dL (7-17); Calcium 9.7 mg/dL (8.4-10.2); Carbon Dioxide 9 mmol/L (22-30); Chloride 97 mmol/L (98-107); Estimated CRCL calculation 29 ml/min; Estimated Glomerular Filt Rate 32; Glucose 76 mg/dL (65-110); Potassium 4.5 mmol/L (3.4-5.0); Sodium 131 mmol/L (137-145)
--- NOTE | 2021-05-11 07:34 | PC.NURSE ---
Patient was found by FLIGHT OPERATIONS MANAGER during hourly rounding struggling to breath. O2 saturations was found to be 73% on 5L. Oxygen requirements were increased to 15L HF nasal cannula and 15L NRB which then brought O2 saturations to above 90%. Pt pulse remained 125-170 bpm. Respiratory was called. Dr. Vance was notified. Pulse madhuri to 200 bpm. Rapid response called. Pt to be transferred to IMU. Patient stable at this time and waiting to be transfer.
[2021-05-11] MEDS: ASPIRIN 81 MG CHEWABLE TABLET PO (09:04)
[2021-05-11] MEDS: BENZONATATE 100 MG CAPSULE PO (09:05)
[2021-05-11] MEDS: amLODIPine BESYLATE 5 MG TABLET 10 MG PO (09:05)
[2021-05-11] MEDS: TOLNAFTATE 1% POWDER 45 GM BTL 1 APPLIC TOPICAL ×2 (09:05→22:34)
[2021-05-11] MEDS: LINEZOLID 600 MG/300 ML 600 MG/300 ML SOLN 300 MG IVPB (09:05)
[2021-05-11] MEDS: GABAPENTIN 100 MG CAPSULE PO (09:05)
[2021-05-11] MEDS: FAMOTIDINE 20 MG TABLET PO (09:05)
[2021-05-11] MEDS: SACCHAROMYCES BOULARDII 250 MG CAPSULE PO (09:05)
[2021-05-11] MEDS: BUDESONIDE RESPULE NEB 0.5 MG/2 ML AMP INHALATION ×2 (09:35→19:12)
[2021-05-11 09:48] LABS: Aspartate Amino Transferase 70 U/L (14-36)
[2021-05-11 09:53] LABS: Hemoglobin 8.3 g/dL (12.0-15.0); Mean Corpuscular HGB Conc 30.7 g/dl (32-36); Mean Corpuscular Hemoglobin 32.4 pg (26-34); Mean Corpuscular Volume 105.5 fl (80-100); Platelet Count Result 77 k/mm3 (150-375); Red Blood Count 2.56 M/mm3 (4.2-5.4); Red Cell Distribution Width 19.3 % (11.5-14.5)
[2021-05-11 10:11] LABS: INR 2.2; Prothrombin Time 24.1 Seconds (11.1-14.7)
--- NOTE | 2021-05-11 10:28 | PM.IMPN ---
Progress Note: A&P Assessment and Plan (1) Acute respiratory failure due to COVID-19: Code(s): U07.1 - COVID-19; J96.00 - Acute respiratory failure, unspecified whether with hypoxia or hypercapnia Status: Acute Assessment and Plan: Patient currently requiring escalating volumes of oxygen. As of yesterday evening, she was still saturating well on room air. Chest x-ray revealed bilateral pulmonary infiltrate. Overnight she had to be started on non-rebreather at 15 L of oxygen. Today she is anxious technique in acute respiratory distress. We were starting noninvasive ventilatory support with BiPAP. There is evidence of acute fluid overload as well and we are giving Lasix 80 mg IV single dose. Pulmonary is consulted; we appreciate their recommendation. (2) Sepsis: Qualifiers: Sepsis acute organ dysfunction status: unspecified Sepsis type: sepsis due to unspecified organism Qualified Code(s): A41.9 - Sepsis, unspecified organism Code(s): A41.9 - Sepsis, unspecified organism Status: Acute Assessment and Plan: Present on admission and supported by fever, tachycardia, tachypnea, and leukocytosis in the setting of infection. Blood cultures were obtained in the emergency department and have remained unrevealing.. Will go ahead and obtain a lactic acid level as well. Patient was discharged home on a 7 day course of vancomycin. Due to recurrent fever she was switched to linezolid on admission. In view of COVID-19 infection, she was appropriately started on the remdesivir course. Currently receiving linezolid for Enterococcus infection. Fever has improved overnight. However due to worsening thrombocytopenia will stop linezolid and refers back to vancomycin. (3) Pneumonia due to COVID-19 virus: Code(s): U07.1 - COVID-19; J12.82 - Pneumonia due to coronavirus disease 2019 Status: Acute Assessment and Plan: Patient experienced acute worsening of pneumonia overnight. Chest x-ray suggests progression of pneumonia. Continue remdesivir and baricitinib. Continue IV steroids. Continue ceftriaxone and Zithromax. (4) Bacteremia: Code(s): R78.81 - Bacteremia Status: Acute Assessment and Plan: Patient was discharged from the hospital on 05/04/2021 on vancomycin for coagulase-negative staphylococcus and Enterococcus faecium bacteremia. While her fever may very well be related to COVID, her vancomycin was switched to lie nasal in admission, based on urine culture on 05/02/2021 growing VRE Enterococcus faecium. Due to thrombocytopenia. Will switch back to vancomycin (5) Thrombocytopenia: Code(s): D69.6 - Thrombocytopenia, unspecified Status: Acute Assessment and Plan: Acute day duration may be drug induced due to linezolid. Chronic finding related to liver disease from cirrhosis. Platelet count today is down to 26. We will monitor the situation closely and consult Gastroenterology. (6) Chronic anemia: Code(s): D64.9 - Anemia, unspecified Status: Acute Assessment and Plan: Normochromic normocytic anemia with an hemoglobin of 6.0 yesterday. Patient received 1 unit PRBC on May 10.. Follow-up hemoglobin on today's CBC. (7) Chronic kidney disease, stage 3: Code(s): N18.30 - Chronic kidney disease, stage 3 unspecified Status: Acute Assessment and Plan: Acute nonoliguric kidney injury with creatinine worsening from 1.6-1.9. Patient has a known diagnosis of CKD stage 3. Baseline creatinine around 1.3. Acute kidney injury with a creatinine of 1.6. Monitor creatinine it. Send urine electrolytes. Creatinine is up a bit compared to those labs done earlier in the week. May very well be related to sepsis. May also be a component of dehydration given insensible losses from fever and poor oral intake the last couple of days. Will avoid nephrotoxic agents and hydrate cautiously. Please renally dose medicati
--- NOTE | 2021-05-11 10:57 | P.CONNP_ITS ---
Assessment and Plan Assessment and plan (1) Acute kidney injury: Code(s): N17.9 - Acute kidney failure, unspecified Status: Acute Assessment and Plan: * initial insult likely secondary to COVID-19 infection * following events earlier today, likely now has ATN for cardiac arrest, shock/hemodynamic instability, and infection * follow-up on urine electrolytes and renal imaging * follow trend of repeat labs and UOP * remains at high risk for requiring [employer]/dialysis (2) CKD (chronic kidney disease): Code(s): N18.9 - Chronic kidney disease, unspecified Status: Acute Assessment and Plan: * baseline creatinine runs ~ 0.9 - 1.3mg/dl * this places her in CKD stage 2 to 3a * due to HTN, vascular disease, and age (3) Cardiac arrest due to respiratory disorder: Code(s): J98.9 - Respiratory disorder, unspecified; I46.8 - Cardiac arrest due to other underlying condition Status: Acute Assessment and Plan: * presumsed to be secondary to hypoxia + COVID-19 pneumonia * was bradycardic the with VFib arrest * Cardiology consulted for further evaluation * no further arrhythmias since cardiac arrest (4) Septic shock: Code(s): A41.9 - Sepsis, unspecified organism; R65.21 - Severe sepsis with septic shock Status: Acute Assessment and Plan: * as noted by leukocytosis, hypothermia, and low blood pressure * was already on antibiotics prior to cardiac arrest * vasopressor therapy started to maintain MAP * repeat cultures * follow trend of hemodynamics (5) Acute respiratory failure due to COVID-19: Code(s): U07.1 - COVID-19; J96.00 - Acute respiratory failure, unspecified whether with hypoxia or hypercapnia Status: Acute Assessment and Plan: * due to cardiac arrest in conjunction with COVID * on full mechanical ventilator support * supportive therapy (6) Metabolic acidosis: Code(s): E87.2 - Acidosis Status: Acute Assessment and Plan: * due to AURORA and lactic acidosis * s/p IVF resuscitation * started on bicarb fluids to compensate Discussed case with Dr. Collado. Will continue to follow. History of Present Illness Reason for Consult Consult date: 05/11/21 Reason for consult: acute renal failure (on chronic kidney disease) Chief Complaint Chief complaint: Covid/fever/UTI History of Present Illness Narrative: All the information I have obtained is from review of the electronic medical record as well as discussion with the physician/ nurses involved in the care this patient as she is unable to provide me with any history as she is currently intubated and on mechanical ventilation. The patient is a 65-year-old female with a past medical history as outlined below who presented to [facility] Emergency room several days ago for further evaluation of a fever. It should be noted that patient was recently hospitalized here earlier this month for sepsis secondary to urinary tract infection that grew out VRE in association with coag-negative Staph and VRE bacteremia. At that time she was treated with appropriate IV antibiotic therapy and subsequently discharged with a PICC line to continue IV antibiotic therapy for these infections. She presented to the ER with symptoms of body aches, subjective fevers, sore throat, poor appetite, and mild shortness of breath. A home health nurse saw the patient on the day of admission to administer her IV vancomycin and she was found have a fever of 103.2 degrees. Given the high fever despite the fact that she was on IV antibiot
--- NOTE | 2021-05-11 10:57 | PM.CNNEP ---
Assessment and Plan Assessment and plan (1) Acute kidney injury: Code(s): N17.9 - Acute kidney failure, unspecified Status: Acute Assessment and Plan: initial insult likely secondary to COVID-19 infection following events earlier today, likely now has ATN for cardiac arrest, shock/hemodynamic instability, and infection follow-up on urine electrolytes and renal imaging follow trend of repeat labs and UOP remains at high risk for requiring [employer]/dialysis (2) CKD (chronic kidney disease): Code(s): N18.9 - Chronic kidney disease, unspecified Status: Acute Assessment and Plan: baseline creatinine runs ~ 0.9 - 1.3mg/dl this places her in CKD stage 2 to 3a due to HTN, vascular disease, and age (3) Cardiac arrest due to respiratory disorder: Code(s): J98.9 - Respiratory disorder, unspecified; I46.8 - Cardiac arrest due to other underlying condition Status: Acute Assessment and Plan: presumsed to be secondary to hypoxia + COVID-19 pneumonia was bradycardic the with VFib arrest Cardiology consulted for further evaluation no further arrhythmias since cardiac arrest (4) Septic shock: Code(s): A41.9 - Sepsis, unspecified organism; R65.21 - Severe sepsis with septic shock Status: Acute Assessment and Plan: as noted by leukocytosis, hypothermia, and low blood pressure was already on antibiotics prior to cardiac arrest vasopressor therapy started to maintain MAP repeat cultures follow trend of hemodynamics (5) Acute respiratory failure due to COVID-19: Code(s): U07.1 - COVID-19; J96.00 - Acute respiratory failure, unspecified whether with hypoxia or hypercapnia Status: Acute Assessment and Plan: due to cardiac arrest in conjunction with COVID on full mechanical ventilator support supportive therapy (6) Metabolic acidosis: Code(s): E87.2 - Acidosis Status: Acute Assessment and Plan: due to AURORA and lactic acidosis s/p IVF resuscitation started on bicarb fluids to compensate Discussed case with Dr. Collado. Will continue to follow. History of Present Illness Reason for Consult Consult date: 05/11/21 Reason for consult: acute renal failure (on chronic kidney disease) Chief Complaint Chief complaint: Covid/fever/UTI History of Present Illness Narrative: All the information I have obtained is from review of the electronic medical record as well as discussion with the physician/ nurses involved in the care this patient as she is unable to provide me with any history as she is currently intubated and on mechanical ventilation. The patient is a 65-year-old female with a past medical history as outlined below who presented to [facility] Emergency room several days ago for further evaluation of a fever. It should be noted that patient was recently hospitalized here earlier this month for sepsis secondary to urinary tract infection that grew out VRE in association with coag-negative Staph and VRE bacteremia. At that time she was treated with appropriate IV antibiotic therapy and subsequently discharged with a PICC line to continue IV antibiotic therapy for these infections. She presented to the ER with symptoms of body aches, subjective fevers, sore throat, poor appetite, and mild shortness of breath. A home health nurse saw the patient on the day of admission to administer her IV vancomycin and she was found have a fever of 103.2 degrees. Given the high fever despite the fact that she was on IV antibiotic therapy, was somewhat concerning and she was directed to the ER for further evaluation. Workup and evaluation in the emergency room demonstrated the patient to be hemodynamically stable but clearly not feeling very well. Routine blood tests were consistent with her labs on discharge from the hospital earlier this month but she did have a Covid test that came back positive. She has n
[2021-05-11 11:38] LABS: Band Neutrophils Percent 2 % (0-6); Lymphocytes Absolute Manual 8.74 K/mm3 (1.1-4.5); Monocytes Absolute Manual 10.58 K/mm3 (0.1-0.90); Monocytes Percent Manual 46 % (3-9); Myelocytes Percent 3 %; Neutrophils Absolute Manual 2.99 K/mm3 (1.7-7.2); Neutrophils Percent Manual 11 % (46-73); Platelet Estimate Adequate (Adequate); Total Cells Counted 100
[2021-05-11 11:39] LABS: Acanthocytes 1+ (NORMAL); Anisocytosis 1+ (NORMAL); Tear Drop Cells 1+ (NORMAL)
[2021-05-11] MEDS: MIDAZOLAM 100MG/NS 100ML(*CRX) 100 MG/100 ML BAG IV CONT (12:00)
[2021-05-11] MEDS: FENTANYL 2,500MCG/NS250ML(*CRX 2,500 MCG/250 ML BAG IV CONT (12:00)
[2021-05-11] MEDS: MIDAZOLAM HCL (*CRX) 2 MG/2 ML VIAL IV PUSH (12:03)
[2021-05-11] MEDS: fentaNYL CITRATE INJ (*CRX) 100 MCG/2 ML VIAL 50 MCG IV PUSH (12:03)
[2021-05-11] MEDS: ROCURONIUM BROMIDE 50 MG/5 ML VIAL IV PUSH (12:04)
--- NOTE | 2021-05-11 12:28 | WPDGICN ---
Assessment and Plan Assessment and plan (1) Acute respiratory failure due to COVID-19: Code(s): U07.1 - COVID-19; J96.00 - Acute respiratory failure, unspecified whether with hypoxia or hypercapnia Status: Acute Assessment and Plan: she is quite sick, was just recently intubated and photo finisher will get arterial line, etc prognosis is guarded (2) Severe sepsis: Code(s): A41.9 - Sepsis, unspecified organism; R65.20 - Severe sepsis without septic shock Status: Acute Assessment and Plan: recently here with bacteremia and she is back with severe covid pneumonia she is high risk because underlying medical problems (CKD, cirrhosis, htn, etc) (3) Pneumonia due to COVID-19 virus: Code(s): U07.1 - COVID-19; J12.82 - Pneumonia due to coronavirus disease 2019 Status: Acute Assessment and Plan: by icu (4) Enterococcal bacteremia: Code(s): R78.81 - Bacteremia; B95.2 - Enterococcus as the cause of diseases classified elsewhere Status: Acute Assessment and Plan: she was on iv antibiotics (5) Thrombocytopenia: Code(s): D69.6 - Thrombocytopenia, unspecified Status: Acute Assessment and Plan: she has chronic thrombocytopenia probably partially from cirrhosis now drop of platelets could be from sepsis, covid, etc (6) Acute on chronic anemia: Code(s): D64.9 - Anemia, unspecified Status: Acute Assessment and Plan: s/p blood transfusion recent egd showed erosive gastritis and H pylori (she has been receiving several abx last several days)- we can check H pylori Ag in stool ~ 3 months to check for eradication on iv protonix (7) Erosive gastritis: Code(s): K29.60 - Other gastritis without bleeding Status: Acute Assessment and Plan: on protonix (8) Pelvic irradiation: Status: Acute Assessment and Plan: she can not get colonoscopies (9) Acute kidney injury due to COVID-19: Code(s): U07.1 - COVID-19; N17.9 - Acute kidney failure, unspecified Status: Acute GI Consult Note Consult date/time: 05/11/21 12:28 Reason for consult: cirrhosis, thrombocytopenia and anemia HPI: Rosalind Patel is a 65 year old female with past medical history significant for hypertension, gastroesophageal reflux disease, chronic anemia Hb 8-9, chronic kidney disease, 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 She also had pelvic radiation about 20 years ago because uterine cancer. 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 She was just recently here with uti complicated with bacteremia, also had recurrent anemia, EGD showed erosive gastritis and bx showed H pylori, also had hematology evaluation (bone scan was negative for myeloma). She was found to have Enterococcus faecium, had PICC line and she was discharged home on vancomycin on 05/04/2021. She returned to hospital with high fever and just feeling worse, CXR reviewed and showed pneumonia, COVID + and developed respiratory distress initially on bipap but today more distress and was emergently intubated and just moved to ICU, she is quite sick. Hb 6, platelets 30's, elevated wbc, also inflammatory markers, creat 1.9 Review of Systems Review of Systems: ROS unobtainable: Yes unobtainable due to endotracheal tube and unobtainable due to mental status PMFSH Past Medical History Medical History (Updated 05/11/21 @ 10:38 by Estefany Reeves MD) Abnormal mammogram of left breast (04/2018) Age-related osteoporosis without current pathological fracture Anemia Iron was low at 29, TIBC within norm
[2021-05-11 12:59] LABS: Alveolar/Arterial O2 Gradient 580.8 mmHg; Base Excess ABG -29.1 mEq/l (+/-2.0); Fractional Inspired Oxygen 100 %; HCO3 ABG 4.9 mEq/l (22.0-26.0); Oxygen Content ABG 12.3 %vol (16.0-22.0); PCO2 ABG 35.2 mmHg (35.0-45.0); PO2 FiO2 Ratio Arterial Blood 0.97 %; Total Hemoglobin 9.8 g/dL (12.0-18.0)
--- NOTE | 2021-05-11 12:59 | WPDPROCEDUR ---
Procedures Intubation Intubation Date: 05/11/21 Consent: Patient was in cardiac arrest, currently full code, intubated patient during the code. Sedative: none Laryngoscope: fiber optic video scope Assist device used: fiber optic device ET tube size: 7.5 Tube secured depth (cm): 23 Tube secured location: lips Tube placement confirmation: visualized tube passing through cords, equal breath sounds bilaterally, no breath sounds over epigastrium and confirmation by capnometry Patient tolerated procedure: well Intubation complications: none
[2021-05-11 13:00] LABS: pH ABG 6.762 (7.350-7.450)
[2021-05-11 13:01] LABS: Oxygen Saturation ABG 87.1 % (95.0-100.0)
[2021-05-11 13:02] LABS: Arterial Blood Gas PEEP 10 cmH2O; Arterial Blood Gas Tidal Volume 350 ml; Arterial Blood Gas Vent Mode CMV; Arterial Blood Gas Ventilator rate 24 /MIN; Device VENTILATOR; Modified Allen's Test Pass; Oxyhemoglobin 87.7 % THb (90.0-100.0); Site Drawn RIGHT RADIAL
[2021-05-11] MEDS: SODIUM BICARBONATE 8.4% 50 MEQ/50 ML SYRINGE 100 MEQ IV PUSH ×2 (13:10→15:21)
--- NOTE | 2021-05-11 13:12 | P.PCNBED_ITS ---
Procedures Central Line Placement Right IJ: Central Line Date: 05/11/21 Central Line Time: 12:11 Discussed w/ the patient/family/POA,the placement of a central venous catheter, including its clinical necessity/indication & associated potential risks, benifits and alternatives.: Yes The patient/family/POA understand(s) and acknowledge(s) the need to proceed with central venous catheter insertion as an important element of the patient's clinical management.: Yes Patient Position: supine Patient placed on monitor/pulse ox: Yes Provider Prep: mask, sterile gown, sterile gloves, Max. sterile barrier precautions, cap and hand hygiene with conventional soap/water or alcohol based hand rub Central line prep: 2% Chlorhexidine scrub Local anesthesia used: lidocaine 1% Amount of anesthesia used (ml): 3 Sterile US Technique with sterile gel/sterile probe covers: Yes Central line lumen inserted: triple Belarusian: 12 Length (cm): 16 Depth of Insertion (cm): 16 Post Procedure: sutured in place, good blood return, all ports aspirated, flushed, capped, transparent dressing, hemostatic product, antimicrobial product, securement product and aseptic technique maintained throughout procedure Post procedure x-ray: tip of catheter in good position and no pneumothorax seen Patient tolerated procedure: well Complications: none
[2021-05-11 13:15] LABS: Hematocrit 23.4 % (37.0-47.0); Immature Platelet Fraction Pct 7.3 % (0.9-11.2); Mean Corpuscular HGB Conc 29.5 g/dl (32-36); Mean Corpuscular Hemoglobin 31.4 pg (26-34); Mean Corpuscular Volume 106.4 fl (80-100); Mean Platelet Volume 12.4 fl (7.4-10.4); Platelet Count Result 63 k/mm3 (150-375); Red Cell Distribution Width 19.7 % (11.5-14.5); White Blood Count 22.5 K/mm3 (4.5-10.0)
[2021-05-11 13:22] LABS: Hemoglobin 6.9 g/dL (12.0-15.0)
[2021-05-11 13:24] LABS: Ammonia 60 umol/L (9-30)
[2021-05-11 13:26] LABS: Add Urine Microscopic? YES; Appearance Urine Cloudy (Clear); Bacteria Urine Trace /hpf; Bilirubin Urine Negative (Negative); Blood Urine 2+ (Negative); Color Urine Amber (Yellow); Creatinine Urine 96.3 mg/dL; Glucose Urine UA Negative (Negative); Ketones Urine Trace mg/dL (Negative); Leukocyte Esterase Ur Negative LEU/UL (NEGATIVE); Mucus Urine Rare /lpf; Nitrate Urine Negative (Negative); Protein Urine 2+ mg/dL (Negative); Specific Grav Ur 1.017 (1.001-1.035); Squamous Epithelial Cell Urine Many /hpf (Few); Urobilinogen Urine Negative mg/dL (<2.0)
[2021-05-11 13:27] LABS: Sodium Urine Random < 5 meq/L
[2021-05-11 13:29] LABS: INR 3.7; Prothrombin Time 35.7 Seconds (11.1-14.7)
[2021-05-11 13:30] LABS: Partial Thromboplastin Time 56.2 SECONDS (22.3-36.8)
--- NOTE | 2021-05-11 13:32 | WPDPROCEDUR ---
Procedures Arterial Line Arterial Line Date: 05/11/21 Arterial Line Time: 12:33 Discussed with the patient/family/POA, the placement of an arterial catheter, including its clinical necessity/indication and associated potential risks, benefits and alternatives.: Yes Patient/family/POA and/or understands and acknowledges the need to proceed with the arterial catheter insertion as an important element of the patient's clinical management.: Yes Time Out Performed: Yes Patient Position: supine Traffic Superintendent Prep: sterile gown, sterile gloves, mask and hat Site: right and femoral Site Prep: chlorhexidine Skin Anesthesia: 1% lidocaine Technique used: ultrasound-guided Size (Gauge): 16 Length: 12 cm Closure/Dressing: suture, transparent dressing, hemostatic product, antimicrobial product and securement product Patient tolerated procedure: well Complications: none
[2021-05-11 13:34] LABS: Alanine Aminotransferase 33 U/L (4-35); Albumin Level 2.6 g/dL (3.5-5.1); Alkaline Phosphatase 118 U/L (38-126); Anion Gap 31 mmol/L (8-16); Aspartate Amino Transferase 110 U/L (14-36); Bilirubin,Total 1.2 mg/dL (0.2-1.3); Blood Urea Nitrogen 42 mg/dL (7-17); CRP 7.7 mg/dL (<1.0); Calcium 9.6 mg/dL (8.4-10.2); Carbon Dioxide 7 mmol/L (22-30); Chloride 96 mmol/L (98-107); Creatine Kinase 181 U/L (30-135); Estimated CRCL calculation 18 ml/min; Estimated Glomerular Filt Rate 19; Glucose 76 mg/dL (65-110); Magnesium 2.3 mg/dL (1.6-2.3); Phosphorus 11.1 mg/dL (2.5-4.5); Potassium 4.4 mmol/L (3.4-5.0); Sodium 134 mmol/L (137-145)
--- NOTE | 2021-05-11 13:36 | WPDCNINT ---
Assessment and Plan Assessment and plan (1) Septic shock: Code(s): A41.9 - Sepsis, unspecified organism; R65.21 - Severe sepsis with septic shock Status: Acute Assessment and Plan: Elevated WBC count, low body temperature, hypotension -2 L IV fluid bolus was given -patient started on Levophed, will have to add vasopressin, maintain mean arterial pressures greater than 65 mmHg -will add stress dose steroids -will switch antibiotics to Zosyn and vancomycin, discontinue ceftriaxone and azithromycin (2) Cardiac arrest due to respiratory disorder: Code(s): J98.9 - Respiratory disorder, unspecified; I46.8 - Cardiac arrest due to other underlying condition Status: Acute Assessment and Plan: Patient went into cardiac arrest earlier this morning, likely related to hypoxia and respiratory issues to COVID-19 pneumonia. Patient went bradycardic and a VFib arrest. -appreciate cardiology evaluation, will suspicion that the cardiac arrest was from a cardiac event. -no further arrhythmias noted after ROSC -cardiology recommended no further cardiac workup (3) Acute respiratory failure due to COVID-19: Code(s): U07.1 - COVID-19; J96.00 - Acute respiratory failure, unspecified whether with hypoxia or hypercapnia Status: Acute Assessment and Plan: Acute respiratory failure likely related to COVID pneumonia, hypoxia cardiac arrest -patient intubated on 05/11/2021 -currently on CMV mode of ventilation, 100% FiO2 peep of 10 -ABGs and chest x-ray reviewed, ventilator adjusted -continue bronchodilators and Pulmicort -sedated with fentanyl and Versed infusion, maintain RASS of -2 (4) Acute kidney injury due to COVID-19: Code(s): U07.1 - COVID-19; N17.9 - Acute kidney failure, unspecified Status: Acute Assessment and Plan: Acute on chronic kidney disease -could be related to hypotension, cardiac arrest, hypoxia, COVID-19 -appreciate nephrology following the patient -patient with a lactic acid of 22, will give 2 L IV fluid bolus -patient started on bicarb infusion of to giving 2 amps of bicarb in the ICU -continue to monitor urine output, renal function electrolytes (5) Thrombocytopenia: Code(s): D69.6 - Thrombocytopenia, unspecified Status: Acute Assessment and Plan: Patient has a history of chronic thrombocytopenia, continue to monitor for bleeding (6) Metabolic acidosis: Code(s): E87.2 - Acidosis Status: Acute Assessment and Plan: Severe metabolic acidosis likely related to cardiac arrest in lactic acidosis along with possible metabolic acidosis from uremia -will continue maintenance IV fluids with bicarb infusion -patient also given IV fluid bolus -nephrology following the patient (7) DVT prophylaxis: Code(s): Z29.9 - Encounter for prophylactic measures, unspecified Status: Acute Assessment and Plan: SCDs, no chemoprophylaxis secondary to anemia and thrombocytopenia (8) Acute anemia: Code(s): D64.9 - Anemia, unspecified Status: Acute Assessment and Plan: Anemia, will transfuse 1 unit of packed RBCs for hemoglobin of 6.9 post cardiac arrest -repeat H&H post transfusion -active bleed noted but patient does have thrombocytopenia (9) 2019 novel coronavirus-infected pneumonia (NCIP): Code(s): U07.1 - COVID-19; J12.82 - Pneumonia due to coronavirus disease 2019 Status: Acute Assessment and Plan: Patient tested positive for COVID-19, is unvaccinated -continue baricitinib, bronchodilators, dexamethasone and Remdesivir -continue airborne, droplet and contact isolation/precautions -inflammatory markers are elevated, will trend Additional Plan Discussed with Trav and Kaye, patient's daughters, Kaye is the daughter who makes decisions. I discussed with them at length regarding patient's condition and plan of care. They understand the patient's wishes were not to be resuscitated. They have
[2021-05-11 13:37] LABS: Eosinophil Urine None Seen % (None Seen)
[2021-05-11 13:37] LABS: Troponin I < 0.012 ng/mL (0.000-0.034)
[2021-05-11 13:39] LABS: Band Neutrophils Percent 2 % (0-6); Lymphocytes Absolute Manual 12.15 K/mm3 (1.1-4.5); Monocytes Absolute Manual 6.75 K/mm3 (0.1-0.90); Monocytes Percent Manual 30 % (3-9); Myelocytes Percent 2 %; Neutrophils Absolute Manual 3.15 K/mm3 (1.7-7.2); Neutrophils Percent Manual 12 % (46-73); Total Cells Counted 100
[2021-05-11] MEDS: SODIUM BICARBONATE 8.4% 150 MEQ in DEXTROSE 5% 1,000 ML 950 ML 75 MEQ IV CONT (13:39)
[2021-05-11 13:40] LABS: Acanthocytes 2+ (NORMAL); Anisocytosis 1+ (NORMAL); Helmet Cells 1+ (NORMAL); Ovalocytes 1+ (NORMAL); Platelet Estimate Decreased (Adequate); Schistocytes 1+ (NORMAL)
[2021-05-11 13:44] LABS: Lactic Acid Reflex 22.5 mmol/L (0.7-2.1)
[2021-05-11] MEDS: SODIUM CHLORIDE 0.9% IV 1,000 ML 999 ML IV CONT ×2 (13:44→13:45)
--- NOTE | 2021-05-11 13:49 | PM.CNCAR ---
Assessment and Plan Assessment and plan (1) Cardiac arrest due to respiratory disorder: Code(s): J98.9 - Respiratory disorder, unspecified; I46.8 - Cardiac arrest due to other underlying condition <MIRIAN Rosen - Last Filed: 05/11/21 15:02> Status: Acute <MIRIAN Rosen - Last Filed: 05/11/21 15:02> Assessment and Plan: Patient had V fib arrest earlier today in the setting of hypoxia. Little suspicion that this was primarily a cardiac event. According to documentation in her medical record she does has a history of coronary disease, however I was unable to find any documentation to support this. Following ROSC no further arrhythmias. Currently in sinus rhythm. She has been transitioned to a DNR code status following this cardiac arrest. No further cardiac workup is indicated or recommended at this time given her critical illness and multiple comorbidities. Overall, prognosis is guarded. <MIRIAN Rosen - Last Filed: 05/11/21 15:02> (2) Acute kidney injury due to COVID-19: Code(s): U07.1 - COVID-19; N17.9 - Acute kidney failure, unspecified <MIRIAN Rosen - Last Filed: 05/11/21 15:02> Status: Acute <MIRIAN Rosen - Last Filed: 05/11/21 15:02> Assessment and Plan: Has stage 3 CKD, now with acute kidney injury in the setting of sepsis. Nephrology is following, appreciate their recommendations. <MIRIAN Rosen - Last Filed: 05/11/21 15:02> (3) Acute respiratory failure due to COVID-19: Code(s): U07.1 - COVID-19; J96.00 - Acute respiratory failure, unspecified whether with hypoxia or hypercapnia <MIRIAN Rosen - Last Filed: 05/11/21 15:02> Status: Acute <MIRIAN Rosen - Last Filed: 05/11/21 15:02> Assessment and Plan: Severe hypoxemia secondary to COVID pneumonia leading to cardiac arrest earlier today. Now intubated. Management per critical care. <MIRIAN Rosen - Last Filed: 05/11/21 15:02> (4) Hx of malignant neoplasm of vagina: Code(s): Z85.44 - Personal history of malignant neoplasm of other female genital organs <MIRIAN Rosen - Last Filed: 05/11/21 15:02> Status: Acute <MIRIAN Rosen - Last Filed: 05/11/21 15:02> Assessment and Plan: s/p radiation therapy <MIRIAN Rosen - Last Filed: 05/11/21 15:02> (5) Acute anemia: Code(s): D64.9 - Anemia, unspecified <MIRIAN Rosen - Last Filed: 05/11/21 15:02> Status: Acute <MIRIAN Rosen - Last Filed: 05/11/21 15:02> Assessment and Plan: Chronic normochromic normocytic anemia with baseline Hgb 8.0 - 9.0, Hgb 6.0 yeasterday now s/p 1uPRBC's. Management per critical care. <MIRIAN Rosen - Last Filed: 05/11/21 15:02> Additional Plan DOS 05/11/21 Attending Addendum: I have personally seen and examined this patient at bedside. I agree with the above documentation and plan of care as outlined. -Pt admitted with febrile illness and COVID-19 infection with a PMHx of HTN, CKD stage III, reported CAD, anemia, cirrhosis with recent admission for sepsis and UTI. She presented again on 05/07/21 wt temp 103. O2 sat gradually worsened since admission, placed on BiPAP with persistent hypoxia. Around 1113 telemetry revealed she was previously in SR then became progressively bradycardic, then junctional rhythm in the 40's followed by asystole. she was found without her BiPAP in place and ACLS was initiated CODE BLUE. Upon review of telemetry, VF was not the precipitating arrhythmia on telemetry. ACLS was initiated where she received 3 rounds of Epi and CPR with ROSC. No defibrillations were administered. She was intubated and transferred to the ICU. Trop I negative initially. PT is on high dose Levophed, severely acidotic and lactic acid of 22.[address] abd/pelvis out of concern for ischemic bowel. CXR compatib
[2021-05-11 13:57] LABS: Hemoglobin A1C 5.9 % (<5.7)
[2021-05-11] MEDS: BARICITINIB 2 MG TABLET PO (13:57)
[2021-05-11] MEDS: NOREPINEPHRINE 8 MG/D5W 250 ML 8 MG/250 ML BAG 9.38 MG IV CONT (14:03)
[2021-05-11] MEDS: PERFLUTREN LIPID MICROSPHERES 1.5 ML VIAL DILUTED TO 10 ML TOTAL VOLUME IV PUSH (14:19)
[2021-05-11 14:46] LABS: D Dimer > 20.00 ug/mL (<0.48)
[2021-05-11] MEDS: CENTRAL LINE FLUSH 10 ML IV PUSH ×2 (14:56→21:16)
[2021-05-11 15:08] LABS: Fractional Inspired Oxygen 100 %; Oxygen Content ABG 8.8 %vol (16.0-22.0); PCO2 ABG 35.8 mmHg (35.0-45.0); PO2 ABG 82.2 mmHg (80.0-100.0); PO2 FiO2 Ratio Arterial Blood 0.82 %
[2021-05-11 15:09] LABS: pH ABG 6.908 (7.350-7.450)
[2021-05-11 15:10] LABS: Oxygen Saturation ABG 86.4 % (95.0-100.0); Total Hemoglobin 7.1 g/dL (12.0-18.0)
[2021-05-11 15:11] LABS: Arterial Blood Gas PEEP 10 cmH2O; Arterial Blood Gas Tidal Volume 350 ml; Arterial Blood Gas Vent Mode CMV; Arterial Blood Gas Ventilator rate 24 /MIN; Device VENTILATOR; Oxyhemoglobin 86.6 % THb (90.0-100.0); Site Drawn ARTLINE
[2021-05-11 15:12] LABS: Lactate Dehydrogenase 8935 U/L (313-618)
[2021-05-11 15:38] LABS: Ferritin > 2000.00 ng/mL (11.1-264)
[2021-05-11 16:11] LABS: Reflex Lactic Acid Yes or No Add Lactic
[2021-05-11] MEDS: HYDROCORTISONE SODIUM SUCCINATE 100 MG/2 ML VIAL IV PUSH ×2 (17:00→21:12)
[2021-05-11 17:58] LABS: Lactic Acid Reflex 22.6 mmol/L (0.7-2.1)
[2021-05-11 18:05] LABS: Alveolar/Arterial O2 Gradient 591.7 mmHg; Base Excess ABG -23.5 mEq/l (+/-2.0); Fractional Inspired Oxygen 100 %; HCO3 ABG 7.3 mEq/l (22.0-26.0); Oxygen Content ABG 9.6 %vol (16.0-22.0); Oxyhemoglobin 89.4 % THb (90.0-100.0); PCO2 ABG 36.3 mmHg (35.0-45.0); PO2 FiO2 Ratio Arterial Blood 0.85 %
[2021-05-11 18:06] LABS: pH ABG 6.923 (7.350-7.450)
[2021-05-11 18:07] LABS: Site Drawn ARTLINE; Total Hemoglobin 7.5 g/dL (12.0-18.0)
[2021-05-11 18:08] LABS: Arterial Blood Gas PEEP 10 cmH2O; Arterial Blood Gas Tidal Volume 350 ml; Arterial Blood Gas Vent Mode CMV; Arterial Blood Gas Ventilator rate 30 /MIN; Device VENTILATOR
[2021-05-11] MEDS: ALBUTEROL SULFATE NEB 2.5 MG/0.5 ML INH 5 MG INHALATION (19:12)
[2021-05-11] MEDS: IPRATROPIUM BR 0.02% INH SOLN 0.5 MG/2.5 ML VIAL INHALATION (19:12)
[2021-05-11] MEDS: SODIUM CHLORIDE 0.9% IV 250 ML 30 ML IV CONT (19:30)
[2021-05-11 20:24] LABS: Urea Random Urine 475 MG/DL
[2021-05-11] MEDS: MINERAL OIL/WHITE PETROLATUM OINTMENT 1 APPLIC EACH EYE (20:53)
[2021-05-11] MEDS: PANTOPRAZOLE 40 MG TABLET PO (20:54)
[2021-05-11] MEDS: NOREPINEPHRINE 8 MG/D5W 250 ML 8 MG/250 ML BAG 18.75 MG IV CONT (21:11)
[2021-05-11] MEDS: REMDESIVIR 100 MG/NS 250 ML 100 MG/250 ML BAG 250 MG IVPB (22:35)
[2021-05-12] VITALS: BP 116/45; PULSE 85; RESP 30; TEMP 36.3; O2SAT 94
[2021-05-12 00:16] LABS: Hematocrit 26.2 % (37.0-47.0); Hemoglobin 7.8 g/dL (12.0-15.0)
[2021-05-12 00:38] LABS: Alveolar/Arterial O2 Gradient 580.5 mmHg; Base Excess ABG -28.4 mEq/l (+/-2.0); Fractional Inspired Oxygen 100 %; HCO3 ABG 5.7 mEq/l (22.0-26.0); Oxygen Content ABG 10.2 %vol (16.0-22.0); Oxyhemoglobin 89.5 % THb (90.0-100.0); PO2 ABG 88.5 mmHg (80.0-100.0); PO2 FiO2 Ratio Arterial Blood 0.88 %
[2021-05-12 00:42] LABS: Oxygen Saturation ABG 81.8 % (95.0-100.0); Site Drawn ARTLINE; pH ABG 6.727 (7.350-7.450)
[2021-05-12 00:43] LABS: Device VENTILATOR
[2021-05-12 00:43] LABS: Lactic Acid Reflex > 24.0 mmol/L (0.7-2.1)
[2021-05-12 00:44] LABS: Arterial Blood Gas PEEP 10 cmH2O; Arterial Blood Gas Tidal Volume 350 ml; Arterial Blood Gas Vent Mode CMV; Arterial Blood Gas Ventilator rate 30 /MIN
--- NOTE | 2021-05-12 01:12 | PC.NURSE ---
Called daughter Melvi per Dr. Collado instruction and explained to Melvi that midnight lab results were back and patient is not responding to treatment. Discussed that all treatments were being given and suggest withdrawing care and move to comfort care. Daughter agreeable. Charge nurse, haydee Ureña supervisiore, Kellie notified. Melvi and sister Shari will be coming in to sit with patient.
--- NOTE | 2021-05-12 02:03 | PC.NURSE ---
0155--Daughters here. Pt extubated pr Barbara, RT and levophed and bicarb infusions stopped. Fentenyl and Versed infusions continue per right IJ site. Patient's respirations agonal.
--- NOTE | 2021-05-12 02:12 | PC.NURSE ---
0201 pt , charge nurse aware, packing house laborer notified.
--- NOTE | 2021-05-12 03:56 | PC.NURSE ---
body to [facility] [place], [place] and placed in cooler.Teat Home aware of body in [facility] [place], [place].
--- NOTE | 2021-05-12 10:25 | PM.DDS ---
Discharge Summary Date and Time Date of : 05/12/21 Time of : 02:01 Probable Cause of Probable Cause of : Acute hypoxic respiratory failure Ventricular fibrillation/cardiac arrest Summary Hospital Course: (1) Septic shock: Elevated WBC count, low body temperature, hypotension -2 L IV fluid bolus was given -patient started on Levophed, will have to add vasopressin, maintain mean arterial pressures greater than 65 mmHg -will add stress dose steroids -will switch antibiotics to Zosyn and vancomycin, discontinue ceftriaxone and azithromycin -patient was made DNR. She went into cardiac arrest at 8:00 p.m.. She passed peacefully and there were no additional resuscitation attempts made. (2) Cardiac arrest due to respiratory disorder: Patient went into cardiac arrest on the morning of 05/11/2021, likely related to hypoxia and respiratory issues to COVID-19 pneumonia. Patient went bradycardic and a VFib arrest. -cardiology was consulted, there was suspicion that the cardiac arrest was from a cardiac event. -no further arrhythmias noted after ROSC -cardiology recommended no further cardiac workup. -Patient was made DNR -She went into cardiac arrest and was not rescussitated. She passed on 05/12/2021 at 0201. (3) Acute respiratory failure due to COVID-19: Acute respiratory failure likely related to COVID pneumonia, hypoxia cardiac arrest -patient was intubated on 05/11/2021 -she was kept on CMV mode of ventilation, 100% FiO2 peep of 10 -ABGs and chest x-ray reviewed, ventilator adjusted -she was given bronchodilators and Pulmicort -she was sedated with fentanyl and Versed infusion, maintain RASS of -2 (4) Acute kidney injury due to COVID-19: Acute on chronic kidney disease -could be related to hypotension, cardiac arrest, hypoxia, COVID-19 -patient was evaluated and managed conservatively. -patient with a lactic acid of 22, will give 2 L IV fluid bolus -patient started on bicarb infusion of to giving 2 amps of bicarb in the ICU -continue to monitor urine output, renal function electrolytes (5) Thrombocytopenia: Patient has a history of chronic thrombocytopenia, continue to monitor for bleeding (6) Metabolic acidosis: Severe metabolic acidosis likely related to cardiac arrest in lactic acidosis along with possible metabolic acidosis from uremia -will continue maintenance IV fluids with bicarb infusion -patient was also given IV fluid bolus -nephrologywas following the patient (7) DVT prophylaxis: SCDs,; she received no chemoprophylaxis secondary to anemia and thrombocytopenia (8) Acute anemia: Anemia, will transfuse 1 unit of packed RBCs for hemoglobin of 6.9 post cardiac arrest -repeat H&H post transfusion was 7.8. -active bleed noted but patient does have thrombocytopenia (9) 2018 novel coronavirus-infected pneumonia (NCIP): Patient tested positive for COVID-19, is unvaccinated -continue baricitinib, bronchodilators, dexamethasone and Remdesivir -continue airborne, droplet and contact isolation/precautions -inflammatory markers were elevated. Additional Data Confirmation of as documented by pronouncing clinician: Pupillary Reflex, Palpable Pulses, Response to Stimuli, Heart Tones and Breath Sounds Name of Provider Notified: dr adams Time Provider Notified: 02:09 Provider Requests Autopsy: No Family Requests Autopsy: No Microbiological Laboratory Technician Notified: Yes Date [facility] Notified of : 05/12/21 Time [facility] Notified of : 02:17
[2021-05-13 05:38] LABS: Osmolality, Urine 344 mOsm/kg (50-1200)
== END 2021-05-12 02:01 | disposition expired | DRG 871 ==
LOC: ANHED 12:34 → ANH3MEDSUR 12:52 → ANHIMU 05-11 08:24 → ANHICU 05-11 11:33
PROVIDERS: Internal Medicine; Physician Assistant; Admitting Provider Internal Medicine; Emergency Provider Emergency Medicine; PCP Internal Medicine; Visit Provider Internal Medicine
DX: A41.89 Other specified sepsis (principal); R65.21 Severe sepsis with septic shock; U07.1 COVID-19; J12.82 Pneumonia due to coronavirus disease 2019; N17.0 Acute kidney failure with tubular necrosis; J96.01 Acute respiratory failure with hypoxia; E87.2 Acidosis; N39.0 Urinary tract infection, site not specified; I49.01 Ventricular fibrillation; I46.8 Cardiac arrest due to other underlying condition; I12.9 Hypertensive chronic kidney disease with stage 1 through stage 4 chronic kidney disease, or unspecified chronic kidney disease; N18.30 Chronic kidney disease, stage 3 unspecified; D69.6 Thrombocytopenia, unspecified; M81.0 Age-related osteoporosis without current pathological fracture; D64.9 Anemia, unspecified; I25.10 Atherosclerotic heart disease of native coronary artery without angina pectoris; E21.3 Hyperparathyroidism, unspecified; K21.9 Gastro-esophageal reflux disease without esophagitis; E86.0 Dehydration; K74.69 Other cirrhosis of liver; E78.5 Hyperlipidemia, unspecified; G60.9 Hereditary and idiopathic neuropathy, unspecified; M15.9 Polyosteoarthritis, unspecified; E55.9 Vitamin D deficiency, unspecified; N28.89 Other specified disorders of kidney and ureter; K29.00 Acute gastritis without bleeding; G62.9 Polyneuropathy, unspecified; B18.2 Chronic viral hepatitis C; E66.9 Obesity, unspecified; Z66 Do not resuscitate; Z68.33 Body mass index [BMI] 33.0-33.9, adult; Z85.44 Personal history of malignant neoplasm of other female genital organs; Z90.710 Acquired absence of both cervix and uterus; Z87.891 Personal history of nicotine dependence; Z79.82 Long term (current) use of aspirin
CPT/HCPCS: 31500; 36415; 36430; 36600; 51701; 71045; 74176; 80048; 80053; 81001; 82140; 82550; 82565; 82570; 82728; 82805; 83036; 83540; 83550; 83605; 83615; 83735; 83880; 83930; 83935; 84100; 84133; 84145; 84300; 84443; 84450; 84460; 84484; 84540; 85014; 85018; 85025; 85055; 85380; 85610; 85730; 85999; 86140; 86850; 86900; 86901; 86920; 87040; 87086; 87088; 92950; 93005; 93306; 94002; 94003; 94640; 96365; 96367; 99285; A9270; C1751; C9803; J0131; J0456; J0696; J1100; J1720; J2020; J2250; J2543; J3010; J3370; J3475; J7030; J7050; J7070; P9016; Q9957; U0003; U0005